=== PATIENT | female | born 1960 | race Caucasian/White ===

== ENCOUNTER → 2016-08-21 | Outpatient (CLI) | payer OTHER ==
--- NOTE | 2016-08-21 22:05 | REP ---
Clinical: Cough and shortness of breath . Comparison: 09/23/2014 . Technique: PA and lateral. Findings: The mediastinum and cardiac silhouette are normal. The lung burnett are clear and without acute consolidation, effusion, or pneumothorax. The skeletal structures are intact and normal. Impression: 1. No acute cardiopulmonary process. Signed by Cliff Rg MD 08/21/2016 09:57 P
== END | disposition home or self-care (01) ==
LOC: M RAD 13:02
PROVIDERS: ATTEND Internal Medicine
DX: R05 Cough (principal); R06.02 Shortness of breath

== ENCOUNTER → 2017-04-16 | Outpatient (CLI) | payer OTHER ==
[~2017-04-16] MED LIST: ASPI81TA85 PO; ATOR1TAB19 PO; CHLO25TA PO; CLON0.1D3 TD; LEVO112T2 PO; LOSA25TA8 PO; PRIL20CA9 PO; VITA100067 PO
[2017-04-16 08:55] LABS: BASO % 0.8 % (0.0-1.0); EOS # 0.3 K/mm3 (0.0-0.50); EOS % 4.4 % (0.0-3.0); LARGE UNSTAINED CELL # 0.1 K/mm3 (0.0-0.4); LARGE UNSTAINED CELL % 2.2 % (0.0-4.0); LYMPH # 1.8 K/mm3 (1.5-4.5); LYMPH % 26.1 % (24.0-44.0); MEAN CORPUSCULAR HEMOGLOBIN 28.8 pg (27.0-33.0); MEAN CORPUSCULAR HGB CONC 33.4 g/dl (32.0-36.5); MEAN CORPUSCULAR VOLUME 86.2 fl (80.0-96.0); MONO # 0.3 K/mm3 (0.0-0.8); MONO % 4.9 % (0.0-5.0); NEUTROPHILS # 3.9 K/mm3 (1.8-7.7); NEUTROPHILS % 61.5 % (36.0-66.0); PLATELET COUNT, AUTOMATED 343 k/mm3 (150-450); RED CELL DISTRIBUTION WIDTH 13.1 % (11.5-14.5); WHITE BLOOD COUNT 6.3 K/mm3 (4.0-10.0)
[2017-04-16 09:20] LABS: ANION GAP 5 MEQ/L (8-16); BLOOD UREA NITROGEN 13 MG/DL (7-18); CALCIUM LEVEL 9.7 MG/DL (8.5-10.1); CARBON DIOXIDE LEVEL 30 MEQ/L (21-32); CHLORIDE LEVEL 107 MEQ/L (98-107); CREATININE FOR GFR 0.76 MG/DL (0.55-1.02); GLOMERULAR FILTRATION RATE > 60.0 (>51); GLUCOSE, FASTING 87 MG/DL (70-105); MAGNESIUM LEVEL 2.4 MG/DL (1.8-2.4); POTASSIUM SERUM 4.6 MEQ/L (3.5-5.1); SODIUM LEVEL 142 MEQ/L (136-145)
== END ==
LOC: M LAB 08:31
PROVIDERS: ATTEND Internal Medicine
DX: I10 Essential (primary) hypertension (principal); E03.9 Hypothyroidism, unspecified

== ENCOUNTER → 2017-05-05 | Outpatient (REF) | payer OTHER ==
[2017-05-10 00:06] LABS: METANEPHRINE URINE 63 ug/24 hr (45-290); NORMETANEPHRINE URINE 307 ug/24 hr (82-500)
== END ==
LOC: M LAB REF 09:16
PROVIDERS: ATTEND Internal Medicine Cardiovascular Disease
DX: R23.2 Flushing (principal)

== ENCOUNTER 2017-05-06 13:11 | Day surgery (SDC) | payer OTHER ==
[~2017-05-06] VITALS: Ht 165.1 cm; Wt 86.2 kg
[2017-05-06] MEDS ORDERED: LR 1,000 ML IV SCH (13:30)
[2017-05-06] MEDS ORDERED: LIDOCAINE 1% SDV INJ 30 ML VIAL As Ordered ONE (13:40)
[2017-05-06] MEDS ORDERED: fentaNYL 100 MCG/2 ML INJECTION (J3010) As Ordered ONE (15:20)
[2017-05-06] MEDS ORDERED: MIDAZOLAM INJ 2 MG/2 ML VIAL (J2250) As Ordered ONE (15:20)
[2017-05-06 16:10] VITALS: BP 144/73
--- NOTE | 2017-05-06 16:11 | RO ---
DATE OF PROCEDURE: 05/06/2017 PPREOPERATIVE DIAGNOSIS: Palpitations. POSTOPERATIVE DIAGNOSIS: Palpitations. FINDINGS: Palpitations. PROCEDURE PERFORMED: Implantation of Medtronic LINQ implantable loop recorder. SURGEON: Ty Dumont MD MECHANICAL ENGINEERING DIRECTOR: None. ANESTHESIA: Lidocaine 1% local/monitored anesthetic care. No specimens. Estimated blood loss: Less than 5 mL. No blood products replaced. No drains. No complications. DESCRIPTION OF PROCEDURE: The patient was prepped and draped over the left anterior chest, sternum and left upper quadrant . Lidocaine 1% was used for local anesthetic. An incision approximately 1 cm in length was made with a #15 blade through the skin at approximately the left fourth interspace about an inch lateral to the sternum. The insertion tool guide was placed into the incision and advanced in a caudal direction parallel to the skin in the fat layer. The insertion tool was rotated 180 degrees and then the loop recorder was advanced into the subcutaneous fat using the plunger. The plunger was then removed and then the insertion guide was removed leaving the loop recorder in place. This position was found to be satisfactory with R waves of 0.24 millivolts. The skin was then approximated using a subcuticular layer consisting of #4-0 Biosyn, which was used for the purpose of temporarily approximating the skin while Dermabond was allowed to dry. Next, two layers of Dermabond was applied and allowed to dry. The Biosyn suture was then removed. Next, Mastisol was placed above and below the incision. Then, several Steri-Strips were applied perpendicular to the incision line across the incision. The patient tolerated the procedure well without any immediate complications. Copy To: Dr. Dayanna Rodirguez
== END 2017-05-06 16:20 | disposition home or self-care (01) ==
LOC: M SDC 13:11
PROVIDERS: ATTEND Internal Medicine Cardiovascular Disease
DX: R00.2 Palpitations (principal); I10 Essential (primary) hypertension; E03.9 Hypothyroidism, unspecified; E66.09 Other obesity due to excess calories; R23.2 Flushing; T88.4XXD Failed or difficult intubation, subsequent encounter; E78.00 Pure hypercholesterolemia, unspecified; K21.9 Gastro-esophageal reflux disease without esophagitis; Z88.2 Allergy status to sulfonamides; Z91.040 Latex allergy status; Z79.899 Other long term (current) drug therapy; Z79.82 Long term (current) use of aspirin; Z86.73 Personal history of transient ischemic attack (TIA), and cerebral infarction without residual deficits; Z98.51 Tubal ligation status
CPT/HCPCS: 33282; C1764; J0690; J2250; J3010

== ENCOUNTER → 2017-08-04 | Outpatient (CLI) | payer OTHER ==
[2017-08-04 08:05] LABS: BASO % 0.6 % (0.0-1.0); EOS # 0.4 10^3/uL (0.0-0.50); EOS % 5.5 % (0.0-3.0); IMMATURE GRANULOCYTE % 0.3 % (0-0); LYMPH # 1.9 10^3/uL (1.5-4.5); LYMPH % 27.5 % (24.0-44.0); MEAN CORPUSCULAR HEMOGLOBIN 28.5 pg (27.0-33.0); MEAN CORPUSCULAR HGB CONC 32.4 g/dl (32.0-36.5); MEAN CORPUSCULAR VOLUME 87.8 fl (80.0-96.0); MONO # 0.4 10^3/uL (0.0-0.8); MONO % 6.5 % (0.0-5.0); NEUTROPHILS % 59.6 % (36.0-66.0); PLATELET COUNT, AUTOMATED 348 10^3/uL (150-450); RED CELL DISTRIBUTION WIDTH 13.5 % (11.5-14.5); WHITE BLOOD COUNT 6.8 10^3/uL (4.0-10.0)
[2017-08-04 08:28] LABS: ALBUMIN 3.4 GM/DL (3.2-5.2); ALBUMIN/GLOBULIN RATIO 0.92 (1.00-1.93); ALKALINE PHOSPHATASE 129 U/L (45-117); ALT/SGPT 31 U/L (12-78); ANION GAP 8 MEQ/L (8-16); AST/SGOT 19 U/L (7-37); BILIRUBIN,TOTAL 0.3 MG/DL (0.2-1.0); BLOOD UREA NITROGEN 18 MG/DL (7-18); CALCIUM LEVEL 8.6 MG/DL (8.5-10.1); CARBON DIOXIDE LEVEL 28 MEQ/L (21-32); CHLORIDE LEVEL 107 MEQ/L (98-107); CHOLESTEROL LEVEL 145 MG/DL (<200); CREATININE FOR GFR 0.77 MG/DL (0.55-1.02); GLOMERULAR FILTRATION RATE > 60.0 (>51); GLUCOSE, FASTING 82 MG/DL (70-105); MAGNESIUM LEVEL 2.1 MG/DL (1.8-2.4); POTASSIUM SERUM 4.3 MEQ/L (3.5-5.1); SODIUM LEVEL 143 MEQ/L (136-145); TOTAL PROTEIN 7.1 GM/DL (6.4-8.2); TRIGLYCERIDES LEVEL 113 MG/DL (<150)
== END ==
LOC: M LAB 07:35
PROVIDERS: ATTEND Internal Medicine
DX: R00.2 Palpitations (principal); I10 Essential (primary) hypertension; R73.09 Other abnormal glucose; E78.00 Pure hypercholesterolemia, unspecified; E03.9 Hypothyroidism, unspecified

== ENCOUNTER → 2017-11-13 | Outpatient (CLI) | payer OTHER ==
[2017-11-13 09:29] LABS: ESTIMATED AVERAGE GLUCOSE 123 MG/DL (60-110); HEMOGLOBIN A1c 5.9 %
== END ==
LOC: M LAB 08:33
DX: R73.09 Other abnormal glucose (principal)
CPT/HCPCS: 83036

== ENCOUNTER → 2017-11-21 | Outpatient (CLI) | payer OTHER ==
[2017-11-21 06:52] LABS: ERYTHROCYTE SEDIMENTATION RATE 30 mm/hr (0-30)
[2017-11-21 07:02] LABS: CPK CREATINE PHOSPHOKINASE 83 U/L (26-192)
[2017-11-23 00:06] LABS: Lyme Disease IgG/IgM Antibodie <0.91 ISR (0.00-0.90); Lyme Disease IgM Ab Quantitati <0.80 index (0.00-0.79)
== END ==
LOC: M LAB 06:02
DX: M25.50 Pain in unspecified joint (principal)

== ENCOUNTER → 2018-01-01 | Outpatient (REF) ==
[2018-01-01 06:51] LABS: HEMATOCRIT 37.5 % (36.0-47.0); HEMOGLOBIN 12.2 g/dl (12.0-15.5); MEAN CORPUSCULAR HEMOGLOBIN 28.1 pg (27.0-33.0); MEAN CORPUSCULAR HGB CONC 32.5 g/dl (32.0-36.5); MEAN CORPUSCULAR VOLUME 86.4 fl (80.0-96.0); RED BLOOD COUNT 4.34 10^6/uL (4.00-5.40); RED CELL DISTRIBUTION WIDTH 13.5 % (11.5-14.5); WHITE BLOOD COUNT 7.4 10^3/uL (4.0-10.0)
[2018-01-01 07:10] LABS: ANION GAP 4 MEQ/L (8-16); BLOOD UREA NITROGEN 18 MG/DL (7-18); CALCIUM LEVEL 8.8 MG/DL (8.5-10.1); CARBON DIOXIDE LEVEL 28 MEQ/L (21-32); CHLORIDE LEVEL 110 MEQ/L (98-107); CHOLESTEROL LEVEL 147 MG/DL (<200); CHOLESTEROL RISK RATIO 2.333 (<5); CREATININE FOR GFR 0.83 MG/DL (0.55-1.30); GLOMERULAR FILTRATION RATE > 60.0 (>51); GLUCOSE, FASTING 88 MG/DL (70-100); HDL CHOLESTEROL 63 MG/DL (>40); LDL CHOLESTEROL 72.4 MG/DL (<100); NON-HDL-C 84 MG/DL; POTASSIUM SERUM 4.2 MEQ/L (3.5-5.1); SODIUM LEVEL 142 MEQ/L (136-145); TRIGLYCERIDES LEVEL 58 MG/DL (<150)
[2018-01-01 07:17] LABS: POS COUNT POS FLAG
[2018-01-02 10:44] LABS: HEPATITIS B SURFACE ANTIBODY POSITIVE (POSITIVE)
== END ==
LOC: M LAB 06:10
DX: Z00.00 Encounter for general adult medical examination without abnormal findings (principal)

== ENCOUNTER → 2018-04-22 | Outpatient (CLI) | payer OTHER ==
[2018-04-22 08:34] LABS: BASO % 0.7 % (0.0-1.0); EOS # 0.4 10^3/uL (0.0-0.50); EOS % 5.7 % (0.0-3.0); HEMATOCRIT 38.7 % (36.0-47.0); HEMOGLOBIN 12.2 g/dl (12.0-15.5); IMMATURE GRANULOCYTE % 0.3 % (0-3.0); LYMPH # 1.9 10^3/uL (1.5-4.5); LYMPH % 31.3 % (24.0-44.0); MEAN CORPUSCULAR HEMOGLOBIN 28.1 pg (27.0-33.0); MEAN CORPUSCULAR HGB CONC 31.5 g/dl (32.0-36.5); MEAN CORPUSCULAR VOLUME 89.2 fl (80.0-96.0); MONO # 0.4 10^3/uL (0.0-0.8); MONO % 6.9 % (0.0-5.0); NEUTROPHILS # 3.4 10^3/uL (1.8-7.7); NEUTROPHILS % 55.1 % (36.0-66.0); PLATELET COUNT, AUTOMATED 149 10^3/uL (150-450); RED BLOOD COUNT 4.34 10^6/uL (4.00-5.40); RED CELL DISTRIBUTION WIDTH 13.6 % (11.5-14.5); WHITE BLOOD COUNT 6.1 10^3/uL (4.0-10.0)
[2018-04-22 09:01] LABS: ESTIMATED AVERAGE GLUCOSE 114 MG/DL (60-110); HEMOGLOBIN A1c 5.6 %
[2018-04-22 09:09] LABS: ALBUMIN 3.7 GM/DL (3.2-5.2); ALBUMIN/GLOBULIN RATIO 1.06 (1.00-1.93); ALKALINE PHOSPHATASE 105 U/L (45-117); ALT/SGPT 33 U/L (12-78); ANION GAP 7 MEQ/L (8-16); AST/SGOT 21 U/L (7-37); BILIRUBIN,TOTAL 0.3 MG/DL (0.2-1.0); BLOOD UREA NITROGEN 13 MG/DL (7-18); CALCIUM LEVEL 9.2 MG/DL (8.5-10.1); CARBON DIOXIDE LEVEL 30 MEQ/L (21-32); CHLORIDE LEVEL 108 MEQ/L (98-107); CHOLESTEROL LEVEL 143 MG/DL (<200); CHOLESTEROL RISK RATIO 2.465 (<5); CREATININE FOR GFR 0.72 MG/DL (0.55-1.30); GLOMERULAR FILTRATION RATE > 60.0 (>51); GLUCOSE, FASTING 87 MG/DL (70-100); HDL CHOLESTEROL 58 MG/DL (>40); MAGNESIUM LEVEL 2.4 MG/DL (1.8-2.4); NON-HDL-C 85 MG/DL; POTASSIUM SERUM 4.7 MEQ/L (3.5-5.1); SODIUM LEVEL 145 MEQ/L (136-145); THYROID STIMULATING HORMONE 0.536 uIU/ML (0.358-3.740); TOTAL PROTEIN 7.2 GM/DL (6.4-8.2); TRIGLYCERIDES LEVEL 140 MG/DL (<150)
[2018-04-22 09:46] LABS: APPEARANCE, URINE CLEAR (CLEAR); BACTERIA, URINE AUTO NEGATIVE (NEGATIVE); BILIRUBIN, URINE AUTO NEGATIVE (NEGATIVE); BLOOD, URINE BLOOD NEGATIVE (NEGATIVE); COLOR, URINE STRAW (YELLOW); GLUCOSE, URINE (UA) AUTO NEGATIVE (NEGATIVE); KETONE, URINE AUTO NEGATIVE (NEGATIVE); LEUKOCYTE ESTERASE, URINE AUTO TRACE (NEGATIVE); NITRITE, URINE AUTO NEGATIVE (NEGATIVE); PROTEIN, URINE AUTO NEGATIVE (NEGATIVE); RBC, URINE AUTO 0 /HPF (0-3); SPECIFIC GRAVITY URINE AUTO 1.005 (1.002-1.035); SQUAMOUS EPITHELIAL CELL UR AU 0 /HPF (0-6); UROBILINOGEN, URINE AUTO 0.2 mg/dL (0.0-2.0); WBC, URINE AUTO 2 /HPF (0-3)
== END ==
LOC: M LAB 07:34
DX: I67.4 Hypertensive encephalopathy (principal); D64.9 Anemia, unspecified; E03.9 Hypothyroidism, unspecified; I10 Essential (primary) hypertension; E78.00 Pure hypercholesterolemia, unspecified; Z83.3 Family history of diabetes mellitus
CPT/HCPCS: 83735

== ENCOUNTER → 2018-05-08 | Outpatient (CLI) | payer OTHER | LOC: M RAD 07:24 | DX: M25.552 Pain in left hip (principal) ==

== ENCOUNTER → 2018-05-19 | Outpatient (CLI) | payer OTHER ==
[2018-05-19 18:44] LABS: BASO # 0.1 10^3/uL (0.0-0.2); BASO % 0.6 % (0.0-1.0); EOS # 0.3 10^3/uL (0.0-0.50); EOS % 3.9 % (0.0-3.0); HEMATOCRIT 36.1 % (36.0-47.0); HEMOGLOBIN 11.4 g/dl (12.0-15.5); IMMATURE GRANULOCYTE % 0.1 % (0-3.0); LYMPH # 2.7 10^3/uL (1.5-4.5); LYMPH % 31.9 % (24.0-44.0); MEAN CORPUSCULAR HEMOGLOBIN 27.6 pg (27.0-33.0); MEAN CORPUSCULAR HGB CONC 31.6 g/dl (32.0-36.5); MEAN CORPUSCULAR VOLUME 87.4 fl (80.0-96.0); MONO # 0.7 10^3/uL (0.0-0.8); MONO % 7.6 % (0.0-5.0); NEUTROPHILS # 4.8 10^3/uL (1.8-7.7); NEUTROPHILS % 55.9 % (36.0-66.0); PLATELET COUNT, AUTOMATED 155 10^3/uL (150-450); RED BLOOD COUNT 4.13 10^6/uL (4.00-5.40); RED CELL DISTRIBUTION WIDTH 13.9 % (11.5-14.5); WHITE BLOOD COUNT 8.6 10^3/uL (4.0-10.0)
== END ==
LOC: M LAB 17:20
DX: D69.6 Thrombocytopenia, unspecified (principal)
CPT/HCPCS: 85025

== ENCOUNTER → 2018-06-03 | Outpatient (CLI) | payer OTHER | LOC: M LAB 06:31 | DX: E03.9 Hypothyroidism, unspecified (principal); D69.6 Thrombocytopenia, unspecified | CPT/HCPCS: 82607 ==

== ENCOUNTER → 2018-06-23 | Outpatient (CLI) | payer OTHER ==
[2018-06-23 06:34] LABS: HEMATOCRIT 37.4 % (36.0-47.0); HEMOGLOBIN 11.9 g/dl (12.0-15.5); MEAN CORPUSCULAR HEMOGLOBIN 28.2 pg (27.0-33.0); MEAN CORPUSCULAR HGB CONC 31.8 g/dl (32.0-36.5); MEAN CORPUSCULAR VOLUME 88.6 fl (80.0-96.0); PLATELET COUNT, AUTOMATED 301 10^3/uL (150-450); RED BLOOD COUNT 4.22 10^6/uL (4.00-5.40); RED CELL DISTRIBUTION WIDTH 13.5 % (11.5-14.5); WHITE BLOOD COUNT 6.7 10^3/uL (4.0-10.0)
== END ==
LOC: M LAB 06:14
DX: E03.9 Hypothyroidism, unspecified (principal); D68.8 Other specified coagulation defects
CPT/HCPCS: 85027

== ENCOUNTER → 2018-07-29 | Outpatient (CLI) | payer OTHER ==
[2018-07-29 07:02] LABS: HEMATOCRIT 37.3 % (36.0-47.0); HEMOGLOBIN 12.1 g/dl (12.0-15.5); MEAN CORPUSCULAR HGB CONC 32.4 g/dl (32.0-36.5); MEAN CORPUSCULAR VOLUME 86.3 fl (80.0-96.0); PLATELET COUNT, AUTOMATED 207 10^3/uL (150-450); RED BLOOD COUNT 4.32 10^6/uL (4.00-5.40); RED CELL DISTRIBUTION WIDTH 13.4 % (11.5-14.5); WHITE BLOOD COUNT 7.8 10^3/uL (4.0-10.0)
[2018-07-29 07:16] LABS: ESTIMATED AVERAGE GLUCOSE 131 MG/DL (60-110); HEMOGLOBIN A1c 6.2 %
[2018-07-29 07:29] LABS: ANION GAP 6 MEQ/L (8-16); BLOOD UREA NITROGEN 15 MG/DL (7-18); CARBON DIOXIDE LEVEL 29 MEQ/L (21-32); CHLORIDE LEVEL 106 MEQ/L (98-107); CHOLESTEROL LEVEL 160 MG/DL (<200); CHOLESTEROL RISK RATIO 2.962 (<5); CREATININE FOR GFR 0.82 MG/DL (0.55-1.30); GLOMERULAR FILTRATION RATE > 60.0 (>51); GLUCOSE, FASTING 100 MG/DL (70-100); HDL CHOLESTEROL 54 MG/DL (>40); LDL CHOLESTEROL 87 MG/DL (<100); NON-HDL-C 106 MG/DL; POTASSIUM SERUM 4.2 MEQ/L (3.5-5.1); SODIUM LEVEL 141 MEQ/L (136-145); TRIGLYCERIDES LEVEL 94 MG/DL (<150)
== END ==
LOC: M LAB 06:05
DX: E03.9 Hypothyroidism, unspecified (principal); I10 Essential (primary) hypertension; G45.9 Transient cerebral ischemic attack, unspecified; E78.00 Pure hypercholesterolemia, unspecified; R73.09 Other abnormal glucose
CPT/HCPCS: 83036

== ENCOUNTER → 2018-10-22 | Outpatient (CLI) | payer OTHER ==
[~2018-10-22] MED LIST changes: +LOSA25TA14 PO; -LOSA25TA8 PO
[2018-10-22 08:03] LABS: BASO % 0.7 % (0.0-1.0); EOS # 0.3 10^3/uL (0.0-0.50); EOS % 4.8 % (0.0-3.0); HEMOGLOBIN 12.2 g/dl (12.0-15.5); LYMPH # 1.7 10^3/uL (1.5-4.5); LYMPH % 30.1 % (24.0-44.0); MEAN CORPUSCULAR HEMOGLOBIN 27.7 pg (27.0-33.0); MEAN CORPUSCULAR HGB CONC 32.1 g/dl (32.0-36.5); MEAN CORPUSCULAR VOLUME 86.2 fl (80.0-96.0); MONO # 0.4 10^3/uL (0.0-0.8); NEUTROPHILS # 3.4 10^3/uL (1.8-7.7); NEUTROPHILS % 58.1 % (36.0-66.0); PLATELET COUNT, AUTOMATED 220 10^3/uL (150-450); RED BLOOD COUNT 4.41 10^6/uL (4.00-5.40); WHITE BLOOD COUNT 5.8 10^3/uL (4.0-10.0)
[2018-10-22 08:30] LABS: HEMOGLOBIN A1c 5.8 %
[2018-10-22 08:37] LABS: BLOOD UREA NITROGEN 17 MG/DL (7-18); CALCIUM LEVEL 9.1 MG/DL (8.5-10.1); CARBON DIOXIDE LEVEL 29 MEQ/L (21-32); CHLORIDE LEVEL 107 MEQ/L (98-107); CREATININE FOR GFR 0.78 MG/DL (0.55-1.30); GLOMERULAR FILTRATION RATE > 60.0 (>51); GLUCOSE, FASTING 78 MG/DL (70-100); POTASSIUM SERUM 4.3 MEQ/L (3.5-5.1); SODIUM LEVEL 143 MEQ/L (136-145); THYROID STIMULATING HORMONE 0.762 uIU/ML (0.358-3.740)
== END ==
LOC: M LAB 07:17
PROVIDERS: ATTEND Internal Medicine
DX: D50.9 Iron deficiency anemia, unspecified (principal); I10 Essential (primary) hypertension

== ENCOUNTER 2018-11-23 06:36 | Day surgery (SDC) | payer OTHER ==
[~2018-11-23] VITALS: Ht 165.1 cm; Wt 92.1 kg
[~2018-11-23 06:36] MED LIST changes: +EDARBI PO; +NS 1,000 ML IV ONE; +OMEP10CASR PO
[2018-11-23] MEDS ORDERED: PROPOFOL 200 MG/20 ML VIAL As Ordered ONE (07:33)
[2018-11-23] MEDS ORDERED: LIDOCAINE 2% INJ 100 MG/5 ML SDV (FOR ANES.) As Ordered ONE (07:33)
--- NOTE | 2018-11-23 08:06 | ROOR ---
Patient Name: Judy Perez Procedure Date: 11/23/2018 7:03 AM Date of : 1960 Age: 58 Room: [facility] Gender: Female Note Status: Finalized Procedure: Colonoscopy Indications: Hematochezia, Family history of colon cancer in a first-degree relative Providers: Ty SCHILLING MD Referring MD: Dayanna POTTS MD Requesting Provider: Medicines: Monitored Anesthesia Care Complications: No immediate complications. Procedure: Pre-Anesthesia Assessment: - The heart rate, respiratory rate, oxygen saturations, blood pressure, adequacy of pulmonary ventilation, and response to care were monitored throughout the procedure. The colonoscopy was performed without difficulty. The patient tolerated the procedure well. The quality of the bowel preparation was good. The Colonoscope was introduced through the anus and advanced to the cecum, identified by appendiceal orifice and ileocecal valve. Findings: The perianal and digital rectal examinations were normal. Two carpet-like polyps were found in the ascending colon. The polyps were 7 to 9 mm in size. These polyps were removed with a piecemeal technique using a cold snare. Resection and retrieval were complete. Multiple small-mouthed diverticula were found in the left colon and right colon. Internal hemorrhoids were found during retroflexion. The hemorrhoids were medium-sized. Impression: - Two 7 to 9 mm polyps in the ascending colon, removed piecemeal using a cold snare. Resected and retrieved. - Mild diverticulosis in the left colon and in the right colon. - Small to medium internal hemorrhoids. - The examination was otherwise normal on direct and retroflexion views. Recommendation: - Telephone endoscopist for pathology results in 2 weeks. - If the pathology report reveals adenomatous tissue, then repeat the colonoscopy for surveillance in 3 years. Ty Schilling MD Ty SCHILLING MD 11/23/2018 8:06:03 AM Electronically signed by Ty SCHILLING MD Number of Addenda: 0 Note Initiated On: 11/23/2018 7:03 AM Estimated Blood Loss: Estimated blood loss: none.
[2018-11-23 08:20] VITALS: BP 160/97
== END 2018-11-23 08:29 | disposition home or self-care (01) ==
LOC: M OPP 06:36
PROVIDERS: ATTEND Internal Medicine Gastroenterology
DX: K63.5 Polyp of colon (principal); K57.30 Diverticulosis of large intestine without perforation or abscess without bleeding; K64.8 Other hemorrhoids; K92.1 Melena; Z80.0 Family history of malignant neoplasm of digestive organs

== ENCOUNTER → 2019-02-24 | Outpatient (CLI) | payer OTHER ==
[~2019-02-24] MED LIST changes: -NS 1,000 ML IV ONE
[2019-02-24 06:57] LABS: BASO % 0.4 % (0.0-1.0); EOS # 0.4 10^3/uL (0.0-0.50); EOS % 6.2 % (0.0-3.0); HEMATOCRIT 37.8 % (36.0-47.0); LYMPH % 29.8 % (24.0-44.0); MEAN CORPUSCULAR HGB CONC 31.7 g/dl (32.0-36.5); MEAN CORPUSCULAR VOLUME 88.1 fl (80.0-96.0); MONO # 0.5 10^3/uL (0.0-0.8); MONO % 7.6 % (0.0-5.0); NEUTROPHILS # 3.8 10^3/uL (1.8-7.7); NEUTROPHILS % 55.9 % (36.0-66.0); PLATELET COUNT, AUTOMATED 299 10^3/uL (150-450); RED BLOOD COUNT 4.29 10^6/uL (4.00-5.40); WHITE BLOOD COUNT 6.7 10^3/uL (4.0-10.0)
[2019-02-24 07:15] LABS: HEMOGLOBIN A1c 6.1 %
[2019-02-24 07:23] LABS: BLOOD UREA NITROGEN 16 MG/DL (7-18); CALCIUM LEVEL 9.3 MG/DL (8.5-10.1); CARBON DIOXIDE LEVEL 30 MEQ/L (21-32); CHLORIDE LEVEL 108 MEQ/L (98-107); CREATININE FOR GFR 0.83 MG/DL (0.55-1.30); GLOMERULAR FILTRATION RATE > 60.0 (>51); GLUCOSE, FASTING 81 MG/DL (70-100); POTASSIUM SERUM 4.2 MEQ/L (3.5-5.1); SODIUM LEVEL 142 MEQ/L (136-145)
== END ==
LOC: M LAB 06:36
PROVIDERS: ATTEND Internal Medicine
DX: R73.09 Other abnormal glucose (principal); I10 Essential (primary) hypertension

== ENCOUNTER → 2019-08-24 | Outpatient (REF) | payer OTHER ==
[2019-08-24 10:17] LABS: BASO # 0.1 10^3/uL (0.0-0.2); BASO % 0.6 % (0.0-1.0); EOS # 0.5 10^3/uL (0.0-0.5); EOS % 6.2 % (0.0-3.0); HEMATOCRIT 41.3 % (36.0-47.0); HEMOGLOBIN 12.3 g/dl (12.0-15.5); LYMPH # 2.9 10^3/uL (1.5-5.0); LYMPH % 33.9 % (24.0-44.0); MEAN CORPUSCULAR HGB CONC 29.8 g/dl (32.0-36.5); MEAN CORPUSCULAR VOLUME 90.6 fl (80.0-96.0); MONO # 0.5 10^3/uL (0.0-0.8); MONO % 6.1 % (0.0-5.0); NEUTROPHILS # 4.5 10^3/uL (1.5-8.5); PLATELET COUNT, AUTOMATED 328 10^3/uL (150-450); RED BLOOD COUNT 4.56 10^6/uL (4.00-5.40); WHITE BLOOD COUNT 8.6 10^3/uL (4.0-10.0)
[2019-08-24 12:01] LABS: ALBUMIN 3.5 GM/DL (3.2-5.2); ALT/SGPT 28 U/L (12-78); BILIRUBIN,TOTAL 0.5 MG/DL (0.2-1.0); BLOOD UREA NITROGEN 16 MG/DL (7-18); CALCIUM LEVEL 9.5 MG/DL (8.5-10.1); CARBON DIOXIDE LEVEL 26 MEQ/L (21-32); CHLORIDE LEVEL 107 MEQ/L (98-107); CHOLESTEROL LEVEL 164 MG/DL (<200); CHOLESTEROL RISK RATIO 2.877 (<5); CREATININE FOR GFR 0.83 MG/DL (0.55-1.30); GLOMERULAR FILTRATION RATE > 60.0 (>51); GLUCOSE, FASTING 88 MG/DL (70-100); HDL CHOLESTEROL 57 MG/DL (>40); LDL CHOLESTEROL 84 MG/DL (<100); MAGNESIUM LEVEL 2.5 MG/DL (1.8-2.4); NON-HDL-C 107 MG/DL; POTASSIUM SERUM 4.6 MEQ/L (3.5-5.1); SODIUM LEVEL 141 MEQ/L (136-145); TOTAL PROTEIN 7.3 GM/DL (6.4-8.2); TRIGLYCERIDES LEVEL 113 MG/DL (<150)
[2019-08-24 14:38] LABS: HEMOGLOBIN A1c 6.1 %
== END ==
LOC: M LAB REF 09:11
PROVIDERS: ATTEND Internal Medicine
DX: E03.9 Hypothyroidism, unspecified (principal); E78.00 Pure hypercholesterolemia, unspecified; I10 Essential (primary) hypertension; R73.09 Other abnormal glucose

== ENCOUNTER → 2019-11-24 | Outpatient (CLI) | payer OTHER ==
[2019-11-24 09:18] LABS: ALBUMIN 3.5 GM/DL (3.2-5.2); ALT/SGPT 33 U/L (12-78); BILIRUBIN,TOTAL 0.4 MG/DL (0.2-1.0); BLOOD UREA NITROGEN 19 MG/DL (7-18); CARBON DIOXIDE LEVEL 28 MEQ/L (21-32); CHLORIDE LEVEL 108 MEQ/L (98-107); CREATININE FOR GFR 0.88 MG/DL (0.55-1.30); GLOMERULAR FILTRATION RATE > 60.0 (>45); GLUCOSE, FASTING 98 MG/DL (70-100); MAGNESIUM LEVEL 2.5 MG/DL (1.8-2.4); POTASSIUM SERUM 4.7 MEQ/L (3.5-5.1); SODIUM LEVEL 140 MEQ/L (136-145); TOTAL PROTEIN 7.2 GM/DL (6.4-8.2)
[2019-11-24 09:57] LABS: HEMOGLOBIN A1c 6.2 %
== END ==
LOC: M LAB 08:21
PROVIDERS: ATTEND Internal Medicine
DX: R73.09 Other abnormal glucose (principal); I10 Essential (primary) hypertension; Z13.89 Encounter for screening for other disorder

== ENCOUNTER → 2020-05-01 | Outpatient (CLI) | payer OTHER ==
[~2020-05-01] MED LIST changes: -ASPI81TA85 PO; +ASPI81TA86 PO
[2020-05-01 07:28] LABS: HEMATOCRIT 35.8 % (36.0-47.0); HEMOGLOBIN 11.6 g/dl (12.0-15.5); MEAN CORPUSCULAR HGB CONC 32.4 g/dl (32.0-36.5); MEAN CORPUSCULAR VOLUME 86.3 fl (80.0-96.0); PLATELET COUNT, AUTOMATED 324 10^3/uL (150-450); RED BLOOD COUNT 4.15 10^6/uL (4.00-5.40); WHITE BLOOD COUNT 7.3 10^3/uL (4.0-10.0)
[2020-05-01 07:46] LABS: HEMOGLOBIN A1c 5.8 %
[2020-05-01 08:03] LABS: BLOOD UREA NITROGEN 17 MG/DL (7-18); CALCIUM LEVEL 9.1 MG/DL (8.8-10.2); CARBON DIOXIDE LEVEL 26 MEQ/L (21-32); CHLORIDE LEVEL 110 MEQ/L (98-107); CHOLESTEROL LEVEL 159 MG/DL (<200); CHOLESTEROL RISK RATIO 2.789 (<5); CREATININE FOR GFR 0.77 MG/DL (0.55-1.30); GLOMERULAR FILTRATION RATE > 60.0 (>45); GLUCOSE, FASTING 83 MG/DL (70-100); HDL CHOLESTEROL 57 MG/DL (>40); LDL CHOLESTEROL 74 MG/DL (<100); MAGNESIUM LEVEL 2.1 MG/DL (1.8-2.4); NON-HDL-C 102 MG/DL; POTASSIUM SERUM 4.3 MEQ/L (3.5-5.1); SODIUM LEVEL 142 MEQ/L (136-145); TRIGLYCERIDES LEVEL 141 MG/DL (<150)
[2020-05-02 10:57] LABS: FERRITIN 17 NG/ML (8-252); IRON (FE) 45 UG/DL (50-170); PERCENT SATURATION 12.4 % (13.2-45.0); TOTAL IRON BINDING CAPACITY 362 UG/DL (250-450)
== END ==
LOC: M LAB 06:53
PROVIDERS: ATTEND Internal Medicine
DX: D64.9 Anemia, unspecified (principal); K21.9 Gastro-esophageal reflux disease without esophagitis; E78.00 Pure hypercholesterolemia, unspecified; R73.09 Other abnormal glucose; E03.9 Hypothyroidism, unspecified

== ENCOUNTER → 2020-05-06 | Outpatient (CLI) | payer OTHER | LOC: M LABSMTC 08:46 | PROVIDERS: ATTEND Pediatrics | DX: Z20.828 Contact with and (suspected) exposure to other viral communicable diseases (principal) | CPT/HCPCS: C9803; U0002 ==

== ENCOUNTER → 2020-05-10 | Outpatient (CLI) | payer OTHER ==
[2020-05-10 07:58] LABS: HEMATOCRIT 37.7 % (36.0-47.0); HEMOGLOBIN 11.7 g/dl (12.0-15.5); MEAN CORPUSCULAR HEMOGLOBIN 27.3 pg (27.0-33.0); MEAN CORPUSCULAR VOLUME 87.9 fl (80.0-96.0); PLATELET COUNT, AUTOMATED 336 10^3/uL (150-450); RED BLOOD COUNT 4.29 10^6/uL (4.00-5.40); WHITE BLOOD COUNT 8.2 10^3/uL (4.0-10.0)
[2020-05-10 08:20] LABS: BLOOD UREA NITROGEN 20 MG/DL (7-18); CARBON DIOXIDE LEVEL 28 MEQ/L (21-32); CHLORIDE LEVEL 109 MEQ/L (98-107); CREATININE FOR GFR 0.85 MG/DL (0.55-1.30); GLOMERULAR FILTRATION RATE > 60.0 (>45); GLUCOSE, FASTING 84 MG/DL (70-100); POTASSIUM SERUM 4.5 MEQ/L (3.5-5.1); SODIUM LEVEL 142 MEQ/L (136-145)
[2020-05-10 10:44] LABS: HEMOGLOBIN A1c 5.6 %
[2020-05-11 16:39] LABS: FERRITIN 16 NG/ML (8-252); IRON (FE) 37 UG/DL (50-170); PERCENT SATURATION 9.7 % (13.2-45.0); TOTAL IRON BINDING CAPACITY 381 UG/DL (250-450)
== END ==
LOC: M LAB 07:17
PROVIDERS: ATTEND Internal Medicine
DX: R73.09 Other abnormal glucose (principal); D50.9 Iron deficiency anemia, unspecified; I10 Essential (primary) hypertension

== ENCOUNTER → 2020-05-15 | Outpatient (CLI) | payer OTHER | LOC: M LABSMTC 09:31 | PROVIDERS: ATTEND Pediatrics | DX: Z20.828 Contact with and (suspected) exposure to other viral communicable diseases (principal) | CPT/HCPCS: C9803; U0002 ==

== ENCOUNTER → 2020-05-17 | Outpatient (CLI) | payer OTHER ==
--- NOTE | 2020-05-23 12:59 | REP ---
CHEST X-RAY: 2-VIEWS HISTORY: Shortness of breath and cough. COVID negative. COMPARISON: Chest x-ray 01/01/2018. FINDINGS: A loop recorder is seen projecting in the left precordial soft tissues unchanged. The lungs are well-inflated and clear. Pleural angles are sharp. Heart size is normal. Pulmonary vasculature is not increased. No significantly bony abnormality. IMPRESSION: Negative chest x-ray. Loop recorder seen. ZORAD
== END ==
LOC: M WUC 11:40
PROVIDERS: ATTEND Internal Medicine
DX: R05 Cough (principal)

== ENCOUNTER → 2020-06-19 | Outpatient (CLI) | payer OTHER ==
[2020-06-19 08:12] LABS: HEMATOCRIT 38.2 % (36.0-47.0); HEMOGLOBIN 11.8 g/dl (12.0-15.5); MEAN CORPUSCULAR HEMOGLOBIN 26.9 pg (27.0-33.0); MEAN CORPUSCULAR HGB CONC 30.9 g/dl (32.0-36.5); PLATELET COUNT, AUTOMATED 382 10^3/uL (150-450); RED BLOOD COUNT 4.39 10^6/uL (4.00-5.40); WHITE BLOOD COUNT 7.5 10^3/uL (4.0-10.0)
== END ==
LOC: M LAB 07:15
PROVIDERS: ATTEND Internal Medicine
DX: D50.9 Iron deficiency anemia, unspecified (principal)

== ENCOUNTER → 2020-07-21 | Outpatient (CLI) | payer OTHER ==
[2020-07-21 08:05] LABS: HEMATOCRIT 39.6 % (36.0-47.0); HEMOGLOBIN 12.5 g/dl (12.0-15.5); MEAN CORPUSCULAR HEMOGLOBIN 27.7 pg (27.0-33.0); MEAN CORPUSCULAR HGB CONC 31.6 g/dl (32.0-36.5); MEAN CORPUSCULAR VOLUME 87.6 fl (80.0-96.0); PLATELET COUNT, AUTOMATED 364 10^3/uL (150-450); RED BLOOD COUNT 4.52 10^6/uL (4.00-5.40); WHITE BLOOD COUNT 7.4 10^3/uL (4.0-10.0)
[2020-07-21 08:31] LABS: ALBUMIN 3.7 GM/DL (3.2-5.2); ALT/SGPT 23 U/L (12-78); BILIRUBIN,TOTAL 0.3 MG/DL (0.2-1.0); BLOOD UREA NITROGEN 17 MG/DL (7-18); CARBON DIOXIDE LEVEL 27 MEQ/L (21-32); CHLORIDE LEVEL 107 MEQ/L (98-107); CHOLESTEROL LEVEL 167 MG/DL (<200); CHOLESTEROL RISK RATIO 2.737 (<5); CPK CREATINE PHOSPHOKINASE 97 U/L (26-192); CREATININE FOR GFR 0.81 MG/DL (0.55-1.30); FERRITIN 26 NG/ML (8-252); GLOMERULAR FILTRATION RATE > 60.0 (>45); GLUCOSE, FASTING 86 MG/DL (70-100); HDL CHOLESTEROL 61 MG/DL (>40); LDL CHOLESTEROL 86 MG/DL (<100); LIPASE 161 U/L (73-393); MAGNESIUM LEVEL 2.4 MG/DL (1.8-2.4); NON-HDL-C 106 MG/DL; POTASSIUM SERUM 4.4 MEQ/L (3.5-5.1); SODIUM LEVEL 139 MEQ/L (136-145); THYROID STIMULATING HORMONE 0.949 uIU/ML (0.358-3.740); TOTAL PROTEIN 7.4 GM/DL (6.4-8.2); TRIGLYCERIDES LEVEL 102 MG/DL (<150)
[2020-07-21 15:06] LABS: APPEARANCE, URINE CLEAR (CLEAR); BACTERIA, URINE AUTO NEGATIVE (NEGATIVE); BILIRUBIN, URINE AUTO NEGATIVE (NEGATIVE); BLOOD, URINE BLOOD NEGATIVE (NEGATIVE); COLOR, URINE YELLOW (YELLOW); GLUCOSE, URINE (UA) AUTO NEGATIVE (NEGATIVE); KETONE, URINE AUTO NEGATIVE (NEGATIVE); LEUKOCYTE ESTERASE, URINE AUTO 2+ (NEGATIVE); MUCUS, URINE SMALL (NEGATIVE); NITRITE, URINE AUTO NEGATIVE (NEGATIVE); PROTEIN, URINE AUTO NEGATIVE (NEGATIVE); RBC, URINE AUTO 1 /HPF (0-3); SPECIFIC GRAVITY URINE AUTO 1.012 (1.002-1.035); SQUAMOUS EPITHELIAL CELL UR AU 0 /HPF (0-6); UROBILINOGEN, URINE AUTO 0.2 mg/dL (0.0-2.0); WBC, URINE AUTO 16 /HPF (0-3)
== END ==
LOC: M LAB 06:56
PROVIDERS: ATTEND Internal Medicine
DX: D50.9 Iron deficiency anemia, unspecified (principal); I10 Essential (primary) hypertension; E78.00 Pure hypercholesterolemia, unspecified; E03.9 Hypothyroidism, unspecified

== ENCOUNTER → 2020-08-09 | Outpatient (CLI) | payer OTHER ==
[~2020-08-09] MED LIST changes: +GASTROGRAFIN SOLUTION 30ML (Q9963) As Ordered ONE; +ISOVUE-370 76% 100ML VIAL As Ordered ONE
--- NOTE | 2020-08-09 10:52 | REP ---
INDICATION: ABD PAIN BLOATING. COMPARISON: None TECHNIQUE: Axial contrast-enhanced images from the lung bases to the pubic symphysis using oral and 100 cc Isovue 370 intravenous contrast material. Precontrast and delayed images of the abdomen obtained along with coronal and sagittal reformations. This CT examination was performed using the following dose reduction techniques: Automated exposure control, adjustment of mA and/or kv according to the patient's size, and the use of iterative reconstruction technique. FINDINGS: Liver demonstrates hepatosteatosis without focal hepatic lesion. The spleen, pancreas, gallbladder, bilateral adrenal glands and kidneys are essentially normal. Right kidney includes 2.6 cm simple benign appearing cyst. The enteric system including stomach, small, and large bowel appears normal. No evidence for obstruction or acute inflammatory process. Normal terminal ileum and cecum are identified in the right lower quadrant with evidence for prior appendectomy. Sigmoid diverticula noted without acute diverticulitis. Pelvis demonstrates normal bladder and age-appropriate uterus/adnexa. No ascites. No free air. No intraperitoneal or retroperitoneal adenopathy. Abdominal aorta and vasculature appear normal. Musculoskeletal structures are intact and without acute osseous abnormality. Degenerative changes at L2-3 noted. IMPRESSION: 1. Hepatosteatosis without focal hepatic lesion. 2. 2.6 cm benign appearing right renal cyst. 3. Sigmoid diverticula without acute diverticulitis. 4. No further acute abdominopelvic pathology appreciated. <Electronically signed by Cliff Rg > 08/09/20 [id number]
== END ==
LOC: M RAD 07:12
PROVIDERS: ATTEND Internal Medicine
DX: R10.9 Unspecified abdominal pain (principal)

== ENCOUNTER 2020-08-17 10:05 | Emergency (ER) | payer OTHER ==
[~2020-08-17] VITALS: Ht 165.1 cm; Wt 85.5 kg
[~2020-08-17 10:05] MED LIST changes: -GASTROGRAFIN SOLUTION 30ML (Q9963) As Ordered ONE; -ISOVUE-370 76% 100ML VIAL As Ordered ONE
[2020-08-17] MEDS ORDERED: ACETAMINOPHEN TAB 650MG DOSE (2X325MG) PO ONE (10:30)
--- NOTE | 2020-08-17 10:42 | REP ---
INDICATION: truama COMPARISON: 06/11/2015 TECHNIQUE: Axial noncontrast images from the skull base to the thoracic inlet with coronal reformations. This CT examination was performed using the following dose reduction techniques: Automated exposure control, adjustment of mA and/or kv according to the patient's size, and use of iterative reconstruction technique. FINDINGS: Age-related atrophy and microvascular ischemic changes are appreciated. The ventricles and sulci are symmetric. Goins-white differentiation is maintained. There is no evidence for acute intracranial hemorrhage, mass/mass effect, pathology or infarction. No extra-axial fluid collection. Calvarium is intact. Paranasal sinuses and mastoid air cells are clear. Small posterior scalp contusion/hematoma noted. IMPRESSION: 1. Age related atrophy and microvascular ischemic changes. 2. No acute intracranial pathology or trauma/injury. 3. Small posterior scalp contusion/hematoma. <Electronically signed by Cliff Rg > 08/17/20 [id number]
--- NOTE | 2020-08-17 10:44 | REP ---
INDICATION: truama COMPARISON: None. TECHNIQUE: Axial noncontrast images from the skull base to the thoracic inlet with coronal and sagittal re-formations This CT examination was performed using the following dose reduction techniques: Automated exposure control, adjustment of mA and/or kv according to the patient's size, and use of iterative reconstruction technique. FINDINGS: Moderate to early advanced multilevel degenerative disc osteophyte complexes are appreciated. Straightening of normal lordosis is nonspecific. Normal alignment is maintained. Cervical vertebral bodies including transverse processes and spinous processes are intact and there is no evidence for acute fracture / compression injury or subluxation. Spinal canal is patent. Posterior elements are intact. Paravertebral soft tissues are normal. IMPRESSION: Moderate to early advanced multilevel degenerative spondylosis. No acute fracture/compression injury or subluxation. <Electronically signed by Cliff Rg > 08/17/20 104
[2020-08-17 11:20] VITALS: BP 144/70
== END 2020-08-17 11:20 | disposition home or self-care (01) ==
LOC: M ED 10:05
DX: S00.03XA Contusion of scalp, initial encounter (principal); W00.0XXA Fall on same level due to ice and snow, initial encounter; Y92.098 Other place in other non-institutional residence as the place of occurrence of the external cause; Y93.01 Activity, walking, marching and hiking; Y99.8 Other external cause status; I10 Essential (primary) hypertension; E78.9 Disorder of lipoprotein metabolism, unspecified; E07.9 Disorder of thyroid, unspecified; Z79.899 Other long term (current) drug therapy; Z79.82 Long term (current) use of aspirin; Z88.2 Allergy status to sulfonamides; Z91.040 Latex allergy status

== ENCOUNTER → 2020-10-05 | Outpatient (REF) | payer OTHER ==
[2020-10-05 18:30] LABS: PERCENT SATURATION 17.5 % (13.2-45.0)
== END ==
LOC: M LAB REF 16:33
PROVIDERS: ATTEND Internal Medicine
DX: D50.9 Iron deficiency anemia, unspecified (principal)

== ENCOUNTER → 2021-01-19 | Outpatient (CLI) | payer OTHER ==
[2021-01-19 07:01] LABS: BASO % 0.6 % (0.0-1.0); EOS # 0.5 10^3/uL (0.0-0.5); EOS % 6.8 % (0.0-3.0); HEMATOCRIT 39.4 % (36.0-47.0); HEMOGLOBIN 12.9 g/dl (12.0-15.5); LYMPH # 2.1 10^3/uL (1.5-5.0); LYMPH % 29.5 % (24.0-44.0); MEAN CORPUSCULAR HEMOGLOBIN 29.1 pg (27.0-33.0); MEAN CORPUSCULAR HGB CONC 32.7 g/dl (32.0-36.5); MEAN CORPUSCULAR VOLUME 88.9 fl (80.0-96.0); MONO # 0.5 10^3/uL (0.0-0.8); MONO % 6.9 % (2.0-8.0); NEUTROPHILS % 55.9 % (36.0-66.0); PLATELET COUNT, AUTOMATED 353 10^3/uL (150-450); RED BLOOD COUNT 4.43 10^6/uL (4.00-5.40); WHITE BLOOD COUNT 7.1 10^3/uL (4.0-10.0)
[2021-01-19 07:36] LABS: HEMOGLOBIN A1c 5.6 %
[2021-01-19 07:41] LABS: BLOOD UREA NITROGEN 16 MG/DL (7-18); CALCIUM LEVEL 9.2 MG/DL (8.8-10.2); CARBON DIOXIDE LEVEL 26 MEQ/L (21-32); CHLORIDE LEVEL 109 MEQ/L (98-107); CHOLESTEROL LEVEL 136 MG/DL (<200); CHOLESTEROL RISK RATIO 2.266 (<5); CREATININE FOR GFR 0.73 MG/DL (0.55-1.30); GLOMERULAR FILTRATION RATE > 60.0 (>45); GLUCOSE, FASTING 80 MG/DL (70-100); HDL CHOLESTEROL 60 MG/DL (>40); LDL CHOLESTEROL 54 MG/DL (<100); NON-HDL-C 76 MG/DL; POTASSIUM SERUM 4.3 MEQ/L (3.5-5.1); SODIUM LEVEL 141 MEQ/L (136-145); T UPTAKE 31 % (30-39); THYROXINE (T4) 9.7 UG/DL (4.5-12.0); TRIGLYCERIDES LEVEL 109 MG/DL (<150)
== END ==
LOC: M LAB 06:43
PROVIDERS: ATTEND Internal Medicine
DX: I10 Essential (primary) hypertension (principal)

== ENCOUNTER → 2021-03-30 | Outpatient (CLI) | payer OTHER ==
[2021-03-31 17:07] LABS: Lyme Disease IgG/IgM Antibodie <0.91 ISR (0.00-0.90); Lyme Disease IgM Ab Quantitati <0.80 index (0.00-0.79)
== END ==
LOC: M LAB 07:10
PROVIDERS: ATTEND Internal Medicine
DX: M79.605 Pain in left leg (principal)

== ENCOUNTER 2021-04-04 06:12 | Inpatient (IN) | payer OTHER ==
[~2021-04-04] VITALS: Ht 170.2 cm; Wt 77.3 kg
[2021-04-04 06:37] LABS: BASO # 0.1 10^3/uL (0.0-0.2); BASO % 0.5 % (0.0-1.0); EOS # 0.3 10^3/uL (0.0-0.5); EOS % 3.3 % (0.0-3.0); HEMATOCRIT 42.7 % (36.0-47.0); HEMOGLOBIN 13.8 g/dl (12.0-15.5); LYMPH # 3.2 10^3/uL (1.5-5.0); LYMPH % 32.5 % (24.0-44.0); MEAN CORPUSCULAR HEMOGLOBIN 28.8 pg (27.0-33.0); MEAN CORPUSCULAR HGB CONC 32.3 g/dl (32.0-36.5); MONO # 0.6 10^3/uL (0.0-0.8); MONO % 5.9 % (2.0-8.0); NEUTROPHILS # 5.7 10^3/uL (1.5-8.5); NEUTROPHILS % 57.5 % (36.0-66.0); PLATELET COUNT, AUTOMATED 362 10^3/uL (150-450); WHITE BLOOD COUNT 9.9 10^3/uL (4.0-10.0)
[2021-04-04] MEDS ORDERED: ROSU5TAB5 PO (06:48)
[2021-04-04] MEDS ORDERED: EDARBI PO (06:48)
[2021-04-04 06:50] LABS: INR 0.99; PROTHROMBIN TIME 13.4 SECONDS (12.7-14.5)
[2021-04-04 06:51] LABS: PARTIAL THROMBOPLASTIN TIME 29.7 SECONDS (25.9-37.0)
--- NOTE | 2021-04-04 07:00 | REPVR ---
PROCEDURE INFORMATION: Exam: CT Head Without Contrast Exam date and time: 04/04/2021 6:18 AM Age: 60 years old Clinical indication: Altered mental status/memory loss; Confusion or disorientation; Additional info: Stroke like symptoms TECHNIQUE: Imaging protocol: Computed tomography of the head without contrast. Radiation optimization: All CT scans at this facility use at least one of these dose optimization techniques: automated exposure control; mA and/or kV adjustment per patient size (includes targeted exams where dose is matched to clinical indication); or iterative reconstruction. COMPARISON: CT Head without contrast 08/17/2020 10:20 AM FINDINGS: Brain: There is no acute hemorrhage or mass effect. The normal ricks/white matter delineation is preserved. Cerebral ventricles: No ventriculomegaly. Paranasal sinuses: Visualized sinuses are unremarkable. No fluid levels. Mastoid air cells: Visualized mastoid air cells are well aerated. Bones/joints: Unremarkable. No acute fracture. Soft tissues: Unremarkable. IMPRESSION: No acute intracranial abnormality. Electronically signed by: Gini Solo On 04/04/2021 06:59:55 AM
--- NOTE | 2021-04-04 07:00 | REPVR ---
PROCEDURE INFORMATION: Exam: XR Chest Exam date and time: 04/04/2021 6:49 AM Age: 60 years old Clinical indication: Other: CVA TECHNIQUE: Imaging protocol: XR of the chest. Views: 1 view. COMPARISON: CR CHEST 2 VIEW 05/17/2020 12:00 PM FINDINGS: Lungs: Unremarkable. No consolidation. Pleural spaces: Unremarkable. No pleural effusion. No pneumothorax. Heart/Mediastinum: Unremarkable. No cardiomegaly. Bones/joints: Unremarkable. IMPRESSION: No acute findings. Electronically signed by: Gini Solo On 04/04/2021 07:00:13 AM
[2021-04-04 07:03] LABS: BLOOD UREA NITROGEN 24 MG/DL (7-18); CALCIUM LEVEL 9.1 MG/DL (8.8-10.2); CARBON DIOXIDE LEVEL 27 MEQ/L (21-32); CHLORIDE LEVEL 106 MEQ/L (98-107); CK-MB VALUE MASS 1.4 NG/ML (<3.6); CPK CREATINE PHOSPHOKINASE 124 U/L (26-192); CREATININE FOR GFR 0.86 MG/DL (0.55-1.30); GLOMERULAR FILTRATION RATE > 60.0 (>45); GLUCOSE, FASTING 103 MG/DL (70-100); MB/CK RELATIVE INDEX 1.13 (< OR =4); POTASSIUM SERUM 4.3 MEQ/L (3.5-5.1); SODIUM LEVEL 141 MEQ/L (136-145); TROPONIN I < 0.02 NG/ML (< 0.10)
[2021-04-04 07:06] LABS: RSV AMPLIFICATION NEGATIVE (NEGATIVE)
[2021-04-04] MEDS ORDERED: ASPI81TA26 PO (08:00)
[2021-04-04] MEDS ORDERED: OMEP-218 PO (08:00)
[2021-04-04] MEDS ORDERED: HOME MED LIST COMPLETE! XX SCH (08:05)
[2021-04-04 08:07] LABS: ETHYL ALCOHOL (ETHANOL) < 0.003 % (0.000-0.010)
[2021-04-04] MEDS ORDERED: PILL CUTTER 1 EACH XX PRN (08:30)
[2021-04-04] MEDS ORDERED: LORazepam 1 MG TAB PO ONE (08:30)
[2021-04-04] MEDS: ASPIRIN 81MG ENTERIC TABLET PO SCH (09:35)
[2021-04-04] MEDS: ROSUVASTATIN 10 MG TAB (CRESTOR) PO SCH (09:35)
[2021-04-04] MEDS: OMEPRAZOLE 20 MG CAP PO SCH (09:35)
[2021-04-04] MEDS: ENOXAPARIN 40MG/0.4ML SYRINGE (J1650 PER 10MG) SC SCH (09:36)
--- NOTE | 2021-04-04 10:10 | ECGEPIP ---
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
[2021-04-04 10:51] LABS: CHOLESTEROL LEVEL 174 MG/DL (<200); CHOLESTEROL RISK RATIO 2.806 (<5); HDL CHOLESTEROL 62 MG/DL (>40); LDL CHOLESTEROL 77 MG/DL (<100); NON-HDL-C 112 MG/DL; TRIGLYCERIDES LEVEL 174 MG/DL (<150)
--- NOTE | 2021-04-04 13:00 | HPEPDOC ---
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 Patient was known to be normal around 9:30 PM when she went to bed last night according to the . When she woke up this morning to urinate, she did not feel well, and felt confused. She complained of feeling sick to her stomach. Her took her blood pressure which was 180/89. Her speech at that time was fluent and not slurred. Her face was symmetric. She had no motor dysfunction, and was able to go to the bathroom without any difficulty. Patient denied any paresthesias numbness tingling sensation bilateral upper or lower extremities her speech appeared appropriate according to the she had no word salad and was answering questions appropriately. She complained of feeling nauseous and vomited once w hich was only secretions not bilious. Her left and called EMS. Patient went to the bedroom and got changed without any difficulties. drove her to the hospital with ambulance behind him. Patient was confused to her age and disoriented to date.She had no other focal abnormalities neurologically and was able to ambulate normally. In the emergency room, glucose was 103,EKG was sinus rhythm, CT head was negative, chest x-ray negative, coronavirus negative. Patient says she is c ompliant with her aspirin and Crestor. She remained disoriented to her age and date. MRI of the brain ordered but still pending neurologist Dr. Mckeno was consulted. Loop recorder due to prior history of TIA was interrogated by Dr. Ty Trevino emergency room physician with no A. fib or a flutter. 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 REVIEW OF SYSTEMS: 10 point review of systems negative aside from positive findings in HPI HOME MEDICATIONS: Please see below. PHYSICAL EXAMINATION: VITAL SIGNS: See below GENERAL APPEARANCE: Awake alert oriented to person and place disoriented to date no distress HEENT: Face is symmetric tongue is midline uvula is midline pupils equally round reactive to light accommodation extraocular muscles intact no dysmetria on [id number]-lonf testing no JVD thyromegaly cervical lymphadenopathy moist mucous membranes no carotid bruit CARDIOVASCULAR: S1-S2 sinus rhythm no murmurs rubs or gallops LUNGS: Air entry is equal bilaterally no adventitious breath sounds inspiratory expiratory ratio 1:2 ABDOMEN: Positive bowel sounds soft nontender nondistended normoactive no hepatosplenomegaly abdominal bruit CVA tenderness EXTREMITIES: No cyanosis clubbing or pitting edema NEUROLOGICAL: Awake alert oriented to person place disoriented to date face is symmetric tongue is midline uvula is midline no dysmetria on [id number] testing no sensory disturbance motor function is 5 out of 5 x 4 extremities negative Babinski bilaterally DTRs intact 2+ bilateral upper lower extremities LABORATORY DATA: See below. IMAGING: See below MICROBIOLOGY: Please see below. ASSESSMENT: 60-year-old female with history of transient ischemic attack in 2013 status post loop recorder presents emergency room with acute onset of confusion diagnosed with transient global amnesia admitted for CVA work-up. Transient global amnesia -Neurochecks every 4 hourly admit to telemetry unit loop recorder and EKG are both sinus rhythm. Continue with aspirin 81 mg daily Crestor. Check fasting lipid profile adjust statin as needed. Neurologist Dr. Hoawrd has been consulted. Patient will be sent for MRI/MRA of the brain and MRA of the carotids. 2D echo ordered. PT OT speech evaluation. History of TIA status post loop recorder -Sinus rhythm on EKG loop recorder evaluated by ER provider Dr. Ty Trevino without acute a flutter or A. fib noted GERD On PPI Hypothyroidism On Synthroid DVT prophylaxis Lovenox CODE STATUS: Full code Healthcare proxy Vital Signs Vital Signs Date Time Temp Pulse Resp B/P (MAP) Pulse Ox O2 Delivery O2 Flow Rate FiO2 04/04/21 08:00 99 17 163/86 (111) 99 Room Air 04/04/21 06:12 97.6 Laboratory Data Labs 24H Laboratory Tests 2 04/04/21 06:22: Coronavirus (COVID-19)(PCR) NEGATIVE, Influenza Type A (RT-PCR) NEGATIVE, Influenza Type B (RT-PCR) NEGATIVE, Respiratory Syncytial Virus (PCR) NEGATIVE 04/04/21 06:28: Immature Granulocyte % (Auto) 0.3, Neutrophils (%) (Auto) 57.5, Lymphocytes (%) (Auto) 32.5, Monocytes (%) (Auto) 5.9, Eosinophils (%) (Auto) 3.3H, Basophils (%) (Auto) 0.5, Neutrophils # (Auto) 5.7, Lymphocytes # (Auto) 3.2, Monocytes # (Auto) 0.6, Eosinophils # (Auto) 0.3, Basophils # (Auto) 0.1, Nucleated Red Blood Cells % (auto) 0.0, Prothrombin Time 13.4, Prothromb Time International Ratio 0.99, Activated Partial Thromboplast Time 29.7, Anion Gap 8, Glomerular Filtration Rate > 60.0, Calcium Level 9.1, Total Creatine Kinase 124, Creatine Kinase MB 1.4, Creatine Kinase MB Relative Index 1.13, Troponin I < 0.02, Triglycerides Level 174H, Total Cholesterol 174, LDL Cholesterol 77, Non-HDL Cholesterol (LDL + VLDL) 112, Total HDL Cholesterol 62, Cholesterol/HDL Ratio 2.806, Thyroid Stimulating Hormone (TSH) 2.760, Ethyl Alcohol Level < 0.003 04/04/21 06:35: Bedside Glucose (Misc Panel) 92 CBC/BMP Laboratory Tests 04/04/21 06:28 Home Medications Scheduled Aspirin (Aspirin EC) 81 Mg Tablet.dr, 81 MG PO DAILY Levothyroxine Sodium (Levothyroxine Sodium) 112 Mcg Tab, 112 MCG PO DAILY Omeprazole (Omeprazole) 20 Mg Capsule.dr, 20 MG PO DAILY Rosuvastatin Calcium (Rosuvastatin Calcium) 5 Mg Tablet, 5 MG PO DAILY [Edarbi] , 80 MG PO DAILY Allergies Coded Allergies: latex (Verified Allergy, Severe, THROAT STARTS TO CLOSE, 11/23/18) Sulfa (Sulfonamide Antibiotics) (Verified Allergy, Intermediate, HIVES, 11/23/18) A-FIB/CHADSVASC A-FIB History Current/History of A-Fib/PAF?: No Current PO Anticoag Therapy: No Age/Risk Factor Scoring CHADSVASC: CHADSVASC Response (Comments) Value Age Risk Factor Age < 65 years old 0 Gender Risk Factor Female 1 Hx of CHF No 0 Hx of HTN Yes 1 Hx of Stroke/TIA/or VTE Yes 2 Hx of Diabetes No 0 Hx of Vascular Disease No 0 Total 4 Treatment Treatment ordered: NONE RAPHAEL STINSON MD Apr 04, 2021 13:00
--- NOTE | 2021-04-04 14:16 | REPVR ---
PROCEDURE INFORMATION: Exam: MRA Head Without Contrast; Arteriography Exam date and time: 04/04/2021 1:20 PM Age: 60 years old Clinical indication: Dizziness and giddiness; Additional info: Transient global amnesia TECHNIQUE: Imaging protocol: Magnetic resonance angiography head without contrast. Exam focused on the arteries. COMPARISON: CT Head without contrast 04/04/2021 6:29 AM FINDINGS: ANTERIOR CIRCULATION: Right internal carotid artery: Intracranial segment is patent with no significant stenosis. No aneurysm. Right middle cerebral artery: No occlusion or significant stenosis. No aneurysm. Right anterior cerebral artery: No occlusion or significant stenosis. No aneurysm. Left internal carotid artery: Intracranial segment is patent with no significant stenosis. No aneurysm. Left middle cerebral artery: No occlusion or significant stenosis. No aneurysm. Left anterior cerebral artery: No occlusion or significant stenosis. No aneurysm. POSTERIOR CIRCULATION: Right vertebral artery: No occlusion or significant stenosis. No aneurysm. Left vertebral artery: No occlusion or significant stenosis. No aneurysm. Basilar artery: No occlusion or significant stenosis. No aneurysm. Patent superior cerebellar arteries. Right posterior cerebral artery: No occlusion or significant stenosis. No aneurysm. Left posterior cerebral artery: No occlusion or significant stenosis. No aneurysm. IMPRESSION: Normal MRA. No vascular stenosis or occlusion. Electronically signed by: Jessica Gonzalez On 04/04/2021 14:16:35 PM
--- NOTE | 2021-04-04 14:17 | REPVR ---
PROCEDURE INFORMATION: Exam: MR Head Without Contrast Exam date and time: 04/04/2021 1:20 PM Age: 60 years old Clinical indication: Altered mental status/memory loss; Amnesia, not specified TECHNIQUE: Imaging protocol: MR of the head without contrast. COMPARISON: CT Head without contrast 04/04/2021 6:29 AM FINDINGS: Brain: Patchy T2 prolongation in the mell and cerebral white matter is nonspecific, but likely secondary to microvascular disease. Diffusion images are normal. No evidence of acute infarction. No evidence of acute intracranial hemorrhage. No extra-axial fluid collections. Ventricles and cerebrospinal fluid spaces are normal in size and configuration for the patient's age. There is no evidence of mass-effect or midline shift. Flow voids of the [place] of [place] and major cerebral vascular structures appear intact. Cerebral ventricles: Ventricles and sulci are normal in size and configuration for patient's age. Bones/joints: Unremarkable as visualized. Paranasal sinuses: Craniocervical junction appears unremarkable, with normal position of cerebellar tonsils and no evidence of Chiari I malformation.There is no significant mucosal thickening in paranasal sinuses. No air-fluid levels. Mastoid air cells: No significant mastoid effusion. Orbital cavity: Unremarkable. Soft tissues: Unremarkable as visualized. IMPRESSION: 1. Unremarkable brain MRI for age. No acute infarct, acute hemorrhage, or evidence of mass. 2. Given the patient's clinical history and / or findings on MRI, MRA to assess the intracranial vascular system would be appropriate.. Electronically signed by: Jessica Gonzalez On 04/04/2021 14:16:42 PM
--- NOTE | 2021-04-04 14:19 | REPVR ---
PROCEDURE INFORMATION: Exam: MRA Neck Without Contrast Exam date and time: 04/04/2021 1:20 PM Age: 60 years old Clinical indication: Memory loss; Type not specified; Additional info: Transient global amnesia TECHNIQUE: Imaging protocol: Magnetic resonance angiography of the neck without contrast. COMPARISON: CT Head without contrast 04/04/2021 6:29 AM FINDINGS: Right common carotid artery: No significant stenosis or occlusion. No evidence of dissection. Right internal carotid artery: Extracranial segment is patent with no significant stenosis or occlusion. No evidence of dissection. Right external carotid artery: No significant stenosis or occlusion. Right vertebral artery: No significant stenosis or occlusion. No evidence of dissection. Left common carotid artery: No significant stenosis or occlusion. No evidence of dissection. Left internal carotid artery: Extracranial segment is patent with no significant stenosis or occlusion. No evidence of dissection. Left external carotid artery: No significant stenosis or occlusion. Left vertebral artery: No significant stenosis or occlusion. No evidence of dissection. IMPRESSION: No vascular stenosis or occlusion. REFERENCES: NASCET CRITERIA. The degree of internal carotid artery stenosis is based on NASCET criteria. Normal is no stenosis. Mild is less than 50% stenosis. Moderate is 50-69% stenosis. Severe is 70% to 99% stenosis. Total occlusion is no detectable patent lumen. Electronically signed by: Jessica Gonzalez On 04/04/2021 14:19:04 PM
[2021-04-04] MEDS: LEVOTHYROXINE 112MCG TABLET (0.112MG) PO SCH (14:39)
[2021-04-04 18:00] VITALS: BP 153/87
[2021-04-04 22:00] VITALS: BP 106/55
[2021-04-05 02:00] VITALS: BP 104/62
[2021-04-05] MEDS: LEVOTHYROXINE 112MCG TABLET (0.112MG) PO SCH (05:46)
[2021-04-05 06:00] VITALS: BP 126/76
[2021-04-05 06:53] LABS: BASO % 0.2 % (0.0-1.0); EOS # 0.3 10^3/uL (0.0-0.5); EOS % 3.3 % (0.0-3.0); HEMOGLOBIN 12.9 g/dl (12.0-15.5); LYMPH # 1.4 10^3/uL (1.5-5.0); LYMPH % 16.9 % (24.0-44.0); MEAN CORPUSCULAR HEMOGLOBIN 29.3 pg (27.0-33.0); MEAN CORPUSCULAR HGB CONC 32.3 g/dl (32.0-36.5); MEAN CORPUSCULAR VOLUME 90.9 fl (80.0-96.0); MONO # 0.6 10^3/uL (0.0-0.8); MONO % 7.6 % (2.0-8.0); NEUTROPHILS # 5.9 10^3/uL (1.5-8.5); NEUTROPHILS % 71.6 % (36.0-66.0); PLATELET COUNT, AUTOMATED 337 10^3/uL (150-450); WHITE BLOOD COUNT 8.2 10^3/uL (4.0-10.0)
[2021-04-05 07:12] LABS: BLOOD UREA NITROGEN 22 MG/DL (7-18); CARBON DIOXIDE LEVEL 26 MEQ/L (21-32); CHLORIDE LEVEL 112 MEQ/L (98-107); CHOLESTEROL LEVEL 143 MG/DL (<200); CHOLESTEROL RISK RATIO 2.508 (<5); CREATININE FOR GFR 0.69 MG/DL (0.55-1.30); GLOMERULAR FILTRATION RATE > 60.0 (>45); GLUCOSE, FASTING 92 MG/DL (70-100); HDL CHOLESTEROL 57 MG/DL (>40); LDL CHOLESTEROL 68 MG/DL (<100); NON-HDL-C 86 MG/DL; POTASSIUM SERUM 4.5 MEQ/L (3.5-5.1); SODIUM LEVEL 143 MEQ/L (136-145); TRIGLYCERIDES LEVEL 91 MG/DL (<150)
[2021-04-05] MEDS: ROSUVASTATIN 10 MG TAB (CRESTOR) PO SCH (09:04)
[2021-04-05] MEDS: ASPIRIN 81MG ENTERIC TABLET PO SCH (09:04)
[2021-04-05] MEDS: OMEPRAZOLE 20 MG CAP PO SCH (09:04)
[2021-04-05] MEDS: ENOXAPARIN 40MG/0.4ML SYRINGE (J1650 PER 10MG) SC SCH (09:04)
[2021-04-05 10:00] VITALS: BP 119/67
--- NOTE | 2021-04-05 11:06 | CR ---
CONSULTATION DATE: 04/04/2021 REFERRING PHYSICIAN: Karis Stevens MD REASON FOR CONSULTATION: Confusion. 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 when she woke up confused. She got up to go to the bathroom. The patient was last known normal around 9:30 p.m. when she went to bed last night. She woke up this morning to urinate and did not feel well. We felt confused. She felt sick to stomach. There was no headache, trouble with speech, numbness, weakness of arms and legs. Her blood pressure was 180/89. She did not feel well and asked her to bring her to [facility]. The patient's called EMS and he drove her to the hospital with the ambulance behind him. The patient was confused about her age and date. There was no focal neurological deficit in the emergency department. She was admitted to [facility] for workup of transient global amnesia. She had a similar episode in May,. Her MRI scan and MRA of brain were unremarkable at that time. She was recommended to have EEG but she canceled her appointment at that time. She denies any headaches, neck or back pain, dysphagia, dysarthria, diplopia, urinary incontinence. PAST MEDICAL HISTORY: 1. 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 2. Hypothyroidism. 3. Acid reflux. 4. Vitamin D deficiency. 5. Thyroidectomy. 6. section. SOCIAL HISTORY: She has three children. She is . 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 She denies smoking, alcohol or illicit drugs. FAMILY HISTORY: Father of colon cancer. Daughter with history of multiple myeloma. ALLERGIES: Latex. HOME MEDICATIONS: 1. Aspirin 81 mg p.o. daily. 2. Levothyroxine 112 mcg p.o. daily. 3. Omeprazole 20 mg p.o. daily. 4. Crestor 5 mg p.o. daily. REVIEW OF SYSTEMS: All systems were reviewed and found to be noncontributory except as mentioned in history of present illness. PHYSICAL EXAMINATION: VITAL SIGNS: Temperature 97.6, pulse 99, respiratory rate 17, blood pressure 163/86, 99% saturation on room air. HEART: Regular rate and rhythm. LUNGS: Clear to auscultation. ABDOMEN: Soft, nontender, nondistended. EXTREMITIES: No pedal edema. MUSCULOSKELETAL: No abnormalities. SKIN: No rash. NEUROLOGICAL: No signs of meningeal irritation. The patient is awake, alert, oriented to place, person and time. Normal speech, comprehension and repetition. Extraocular muscles are intact. No facial weakness. Tongue and uvula are midline. 5/5 strength in all four extremities. Deep tendon reflexes are 2+ throughout, normal sensation. Gait is normal. DIAGNOSTIC STUDIES: MRI of brain, MRA, brain and neck were unremarkable. CBC was normal. LDH was 77. Total cholesterol was 174. Triglycerides were 174. TSH was 2.7. ASSESSMENT: 1. Transient global amnesia and she had similar episode in May,. 2. 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 3. Rule out complex partial seizure. PLAN: 1. EEG. 2. Aspirin 81 mg p.o. daily. 3. Crestor 5 mg p.o. daily. 4. Follow with our office in 1-2 weeks after hospital discharge. She will follow with cardiology for a loop recorder. It has not shown evidence of atrial fibrillation in the last three years.
--- NOTE | 2021-04-05 11:12 | DS.PDOC ---
Discharge Summary General Date of Admission Apr 04, 2021 at 08:14 Date of Discharge 04/05/21 Discharge Summary DISCHARGE DIAGNOSES: Transient global amnesia History of transient ischemic attack Dyslipidemia Hypertension GERD Hypothyroidism Vitamin D deficiency DISCHARGE MEDICATIONS: SEE BELOW DISCHARGE INSTRUCTIONS: Dr. 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 Patient was known to be normal around 9:30 PM when she went to bed last night according to the . When she woke up this morning to urinate, she did not feel well, and felt confused. She complained of feeling sick to her stomach. Her took her blood pressure which was 180/89. Her speech at that time was fluent and not slurred. Her face was symmetric. She had no motor dysfunction, and was able to go to the bathroom without any difficulty. Patient denied any paresthesias numbness tingling sensation bilateral upper or lower extremities her speech appeared appropriate according to the she had no word salad and was answering questions appropriately. She complained of feeling nauseous and vomited once which was only secretions not bilious. Her left and called EMS. Patient went to the bedroom and got changed without any difficulties. drove her to the hospital with ambulance behind him. Patient was confused to her age and disoriented to date.She had no other focal abnormalities neurologi karen and was able to ambulate normally. In the emergency room, glucose was 103,EKG was sinus rhythm, CT head was negative, chest x-ray negative, coronavirus negative. Patient says she is compliant with her aspirin and Crestor. She remained disoriented to her age and date. MRI of the brain ordered but still pending neurologist Dr. Mckeon was consulted. Loop recorder due to prior history of TIA was interrogated by Dr. Ty Trevino emergency room physician with no A. fib or a flutter. Transient global amnesia -Neurochecks every 4 hourly was negative overnight -She was admitted to telemetry unit loop recorder and EKG are both sinus rhythm. -Continue with aspirin 81 mg daily Crestor. -Normal fasting lipid profile - Neurologist Dr. Howard has been consulted and recommended electroencephalogram. -Normal MRI/MRA of the brain and MRA of the carotids. 2D echo report in chart. -PT OT speech evaluation-normal stable for discharge home History of TIA status post loop recorder -Sinus rhythm on EKG loop recorder evaluated by ER provider Dr. Ty Trevino GERD On PPI Hypothyroidism On Synthroid Vitamin D deficiency Dyslipidemia -On statins with normal lipid panel DVT prophylaxis Lovenox CODE STATUS: Full code Healthcare proxy DISCHARGE PHYSICAL EXAMINATION: VITAL SIGNS: See below GENERAL APPEARANCE: Awake alert oriented to person and place disoriented to date no distress anicteric no jaundice HEENT: Face is symmetric tongue is midline uvula is midline pupils equally round reactive to light accommodation extraocular muscles intact no dysmetria on [id number] testing no JVD thyromegaly cervical lymphadenopathy moist mucous membranes no carotid bruit no stridor no use of respiratory accessory muscles CARDIOVASCULAR: S1-S2 sinus rhythm no murmurs rubs or gallops no S3 no carotid bruit LUNGS: Air entry is equal bilaterally no adventitious breath sounds inspiratory expiratory ratio 1:2 clear to auscultation bilaterally no kyphosis or scoliosis ABDOMEN: Positive bowel sounds soft nontender nondistended normoactive no hepatosplenomegaly abdominal bruit CVA tenderness EXTREMITIES: No cyanosis clubbing or pitting edema. Skin warm dry well perfused pink in color NEUROLOGICAL: Awake alert oriented to person place and time face is symmetric tongue is midline uvula is midline no dysmetria on [id number] testing no sensory disturbance motor function is 5 out of 5 x 4 extremities negative Babinski bilaterally DTRs intact 2+ bilateral upper lower extremities DISCHARGE LABORATORY DATA: See below. IMAGING: See below ECHOCARDIOGRAM: SEE CHART ELECTROENCEPHALOGRAM: SEE CHART MICROBIOLOGY: Please see below. TIME SPENT ON DISCHARGE: 30 MINUTES Vital Signs/I&Os Vital Signs Date Time Temp Pulse Resp B/P (MAP) Pulse Ox O2 Delivery O2 Flow Rate FiO2 04/05/21 10:00 97.7 96 17 119/67 (84) 96 Room Air I&O- Last 24 Hours up to 6 AM 04/05/21 06:00 Intake Total 360 ml Balance 360 ml Laboratory Data Labs 24H Laboratory Tests 2 04/05/21 06:06: Immature Granulocyte % (Auto) 0.4, Neutrophils (%) (Auto) 71.6H, Lymphocytes (%) (Auto) 16.9L, Monocytes (%) (Auto) 7.6, Eosinophils (%) (Auto) 3.3H, Basophils (%) (Auto) 0.2, Neutrophils # (Auto) 5.9, Lymphocytes # (Auto) 1.4L, Monocytes # (Auto) 0.6, Eosinophils # (Auto) 0.3, Basophils # (Auto) 0.0, Nucleated Red Blood Cells % (auto) 0.0, Anion Gap 5L, Glomerular Filtration Rate > 60.0, Calcium Level 9.0, Triglycerides Level 91, Total Cholesterol 143, LDL Ch olesterol 68, Non-HDL Cholesterol (LDL + VLDL) 86, Total HDL Cholesterol 57, Cholesterol/HDL Ratio 2.508 CBC/BMP Laboratory Tests 04/05/21 06:06 Discharge Medications Scheduled Aspirin (Aspirin EC) 81 Mg Tablet.dr, 81 MG PO DAILY, (Reported) Levothyroxine Sodium (Levothyroxine Sodium) 112 Mcg Tab, 112 MCG PO DAILY, (Reported) Omeprazole (Omeprazole) 20 Mg Capsule.dr, 20 MG PO DAILY, (Reported) Rosuvastatin Calcium (Rosuvastatin Calcium) 5 Mg Tablet, 5 MG PO DAILY, (Reported) [Edarbi] , 80 MG PO DAILY, (Reported) Allergies Coded Allergies: latex (Verified Allergy, Severe, THROAT STARTS TO CLOSE, 11/23/18) Sulfa (Sulfonamide Antibiotics) (Verified Allergy, Intermediate, HIVES, 11/23/18) RAPHAEL STINSON MD Apr 05, 2021 11:10
--- NOTE | 2021-04-06 11:22 | EEG ---
ELECTROENCEPHALOGRAM DATE: 04/05/2021 REFERRING PHYSICIAN: RAPHAEL STINSON MD DIAGNOSIS: Global amnesia. EEG#: [id number] HISTORY: The patient is a 60-year-old woman with episode of transient global amnesia. She had one episode in 2015 and one yesterday without alteration of speech, numbness, weakness of either side of her body. She is currently taking aspirin, omeprazole, Crestor, levothyroxine, etc. TECHNICAL DESCRIPTION: This digital electroencephalogram (EEG) was recorded by 21 scalp, ear, and two electrocardiogram (EKG) electrodes and was reviewed in bipolar and referential montages following reformatting in 10-20 international electrode placement system. INTERPRETATION: The patient was noted to be in awake and drowsy states during this EEG. Resting and awake background rhythm consisted of well-formed posterior dominant rhythm with anterior/posterior gradient comprising of 10 Hz alpha activity measuring 15-40 microvolts in amplitude which was symmetric and reactive to eye opening. Attenuation of posterior dominant rhythm was seen during transition to drowsiness. No sleep was achieved. Hyperventilation and photic stimulation remained unremarkable. EKG revealed normal sinus rhythm. No focal, lateralizing, or epileptiform abnormalities were seen. No relevant clinical activity was noted. CONCLUSION: This EEG in awake, drowsy states is within normal limits.
--- NOTE | 2021-04-07 16:06 | ECHO ---
ECHOCARDIOGRAM DATE OF PROCEDURE: 04/04/2021 Age: 60 Gender: Female Height: 170 cm Weight: 77 kg REFERRING PHYSICIAN: Dr. Karis Stevens INDICATION: Transient cerebral ischemia unspecified 2D MEASUREMENTS: Left ventricle diastole 4.2 cm Intraventricular septum 0.95 cm Posterior wall 0.97 cm Left ventricle diastole 4.2 cm Left ventricle systole 2.9 cm Aortic root 3.5 cm Left atrium 2._ cm Left atrial volume index 20 2D Doppler Measurements: No aortic regurgitation No aortic stenosis Aortic valve velocity 84.9 cm/s LVOT velocity 74.7 cm/s Mild mitral regurgitation Mitral E velocity 42.7 cm/s Mitral A velocity 62.1 cm/s Mitral deceleration time 283 msec No tricuspid regurgitation No pulmonic regurgitation MITRAL ANNULAR TISSUE DOPPLER E prime septal 7.4 cm/sec E prime lateral 6.4 cm/sec DESCRIPTION: Rhythm was sinus. Image quality was fair. No pericardial effusion. This was a 2D, M-mode, color flow Doppler and pulsed wave Doppler examination including mitral annular tissue Doppler. CONCLUSIONS: 1. Normal left ventricle internal dimensions and wall thickness. Normal regional LV wall motion and wall thickening. Normal LV systolic function. LVEF 65% by visual assessment. Grade 1 LV diastolic dysfunction (impaired relaxation filling pattern). 2. Normal right ventricle size and systolic function. 3. Normal size of the atria, 4. Suggestive of relatively low central venous pressure (CVP 0-5 mmHg) based on near transient intermittent collapse of the IVC suggestive of hypovolemia. 5. Structurally and functionally normal cardiac valves. 6. No pericardial effusion. 7. Otherwise normal appearing echocardiogram Doppler findings. Dr. Karis Stevens
== END 2021-04-05 13:34 | disposition home or self-care (01) | DRG 72 ==
LOC: M ED 06:12 → M ED INP 08:14 → ENRESERV 13:24 → M MSPAV 15:04
PROVIDERS: ADMIT General Practice; ATTEND General Practice
DX: G45.4 Transient global amnesia (principal); K21.9 Gastro-esophageal reflux disease without esophagitis; E55.9 Vitamin D deficiency, unspecified; E89.0 Postprocedural hypothyroidism; Z86.73 Personal history of transient ischemic attack (TIA), and cerebral infarction without residual deficits; Z20.822 Contact with and (suspected) exposure to COVID-19; Z79.82 Long term (current) use of aspirin; Z79.899 Other long term (current) drug therapy; Z88.2 Allergy status to sulfonamides; Z91.040 Latex allergy status

== ENCOUNTER → 2021-04-16 | Outpatient (CLI) | payer OTHER ==
[~2021-04-16] MED LIST changes: +ASPI81TA26 PO; +OMEP-218 PO; +ROSU5TAB5 PO
[2021-04-16 08:25] LABS: BASO % 0.6 % (0.0-1.0); EOS # 0.3 10^3/uL (0.0-0.5); EOS % 4.9 % (0.0-3.0); HEMATOCRIT 39.4 % (36.0-47.0); HEMOGLOBIN 12.6 g/dl (12.0-15.5); LYMPH % 29.3 % (24.0-44.0); MEAN CORPUSCULAR HEMOGLOBIN 28.9 pg (27.0-33.0); MEAN CORPUSCULAR VOLUME 90.4 fl (80.0-96.0); MONO # 0.4 10^3/uL (0.0-0.8); MONO % 5.7 % (2.0-8.0); NEUTROPHILS # 4.1 10^3/uL (1.5-8.5); NEUTROPHILS % 59.2 % (36.0-66.0); PLATELET COUNT, AUTOMATED 344 10^3/uL (150-450); RED BLOOD COUNT 4.36 10^6/uL (4.00-5.40); WHITE BLOOD COUNT 6.9 10^3/uL (4.0-10.0)
[2021-04-16 08:50] LABS: FERRITIN 55 NG/ML (8-252); GLUCOSE, FASTING 88 MG/DL (70-100); IRON (FE) 113 UG/DL (50-170)
[2021-04-16 08:53] LABS: HEMOGLOBIN A1c 5.7 %
== END ==
LOC: M LAB 07:22
PROVIDERS: ATTEND Internal Medicine
DX: R73.09 Other abnormal glucose (principal); D50.9 Iron deficiency anemia, unspecified; I10 Essential (primary) hypertension

== ENCOUNTER → 2021-04-16 | Outpatient (CLI) | payer OTHER ==
[2021-04-19 18:12] LABS: ANCA-ATYPICAL <1:20 titer (Neg:<1:20); ANGIOTENSIN 1 CONVERTING ENZYM 50 U/L (14-82); ANTI THROMBIN 3 ANTIGEN IMMUNO 89 % (72-124); ANTI THROMBIN 3 FUNCT ACTIVITY 120 % (75-135); ANTINUCLEAR ANTIBODIES DIRECT Negative (Negative); CARDIOLIPIN IGA ANTIBODY <9 APL U/mL (0-11); CARDIOLIPIN IGG ANTIBODY <9 GPL U/mL (0-14); CARDIOLIPIN IGM ANTIBODY <9 MPL U/mL (0-12); CYTOPLASMIC NEUTROP AB ANCA-C <1:20 titer (Neg:<1:20); FACTOR VIII ACTIVITY 152 % (56-140); PERINUCLEAR AB ANCA-P <1:20 titer (Neg:<1:20); PROTEIN C FUNCTIONAL ACTIVITY 136 % (73-180); PROTEIN S FUNCTIONAL ACTIVITY 111 % (63-140)
== END ==
LOC: M LAB 07:20
PROVIDERS: ATTEND Psychiatry & Neurology Neurology
DX: G45.9 Transient cerebral ischemic attack, unspecified (principal)

== ENCOUNTER → 2021-04-19 | Outpatient (CLI) | payer OTHER ==
[~2021-04-19] MED LIST changes: +ASPI81CH8 PO; +LEXA5TAB13 PO; +LOSA25TA13 PO; -LOSA25TA14 PO; +MIRA3350 PO
== END ==
LOC: M RAD 16:05
PROVIDERS: ATTEND Internal Medicine
DX: N28.1 Cyst of kidney, acquired (principal)

== ENCOUNTER → 2021-04-27 | Outpatient (CLI) | payer OTHER ==
[~2021-04-27] MED LIST changes: -ASPI81CH8 PO; -LEXA5TAB13 PO; -LOSA25TA13 PO; +LOSA25TA14 PO; -MIRA3350 PO
== END ==
LOC: M LABSMTC 09:21
PROVIDERS: ATTEND Anesthesiology
DX: Z01.818 Encounter for other preprocedural examination (principal); Z11.52 Encounter for screening for COVID-19

== ENCOUNTER 2021-05-02 14:27 | Day surgery (SDC) | payer OTHER ==
[~2021-05-02] VITALS: Ht 165.1 cm; Wt 82.1 kg
[~2021-05-02 14:27] MED LIST changes: +LIDOCAINE 1% MDV 20ML VIAL SQ PRN; +LR 1,000 ML IV ONE
[2021-05-02] MEDS ORDERED: LIDOCAINE 2% 100MG/5ML SDV (FOR ANES.) As Ordered ONE (14:58)
[2021-05-02] MEDS ORDERED: MIDAZOLAM INJ 2MG/2ML VIAL (J2250 PER 1MG) As Ordered ONE (14:58)
[2021-05-02] MEDS ORDERED: propofoL 200 MG/20 ML VIAL As Ordered ONE (14:58)
[2021-05-02] MEDS ORDERED: fentaNYL 100 MCG/2 ML INJECTION (J3010) As Ordered ONE (14:58)
[2021-05-02] MEDS ORDERED: LIDOCAINE 1% MDV 20ML VIAL As Ordered ONE (15:22)
[2021-05-02] MEDS ORDERED: ceFAZolin SOD 1 GM in D5W MINI-BAG PLUS 50 ML IV SCH (15:35)
[2021-05-02] MEDS ORDERED: ceFAZolin 1GM VIAL (J0690 PER 500MG) As Ordered ONE ×2 (15:57→15:58)
[2021-05-02 16:25] VITALS: BP 141/83
--- NOTE | 2021-05-02 17:33 | RO ---
OPERATIVE NOTE DATE OF OPERATION: 05/02/2021 PREOPERATIVE DIAGNOSIS: 1. Transient cerebral ischemia, unspecified. 2. Battery depletion of subcutaneous cardiac rhythm monitor. POSTOPERATIVE DIAGNOSIS: 1. Transient cerebral ischemia, unspecified. 2. Battery depletion of subcutaneous cardiac rhythm monitor. FINDINGS: 1. Transient cerebral ischemia, unspecified. 2. Battery depletion of subcutaneous cardiac rhythm monitor. PROCEDURE PERFORMED: Explantation of old subcutaneous cardiac rhythm monitor and implantation of new subcutaneous cardiac rhythm monitor. SURGEON: Ty Dumont M.D. PARA EDUCATOR: None. ANESTHESIA: Lidocaine 1% local/monitored anesthetic care. SPECIMENS: Old Medtronic subcutaneous cardiac rhythm monitor. ESTIMATED BLOOD LOSS: Less than 1 mL. BLOOD PRODUCTS REPLACED: None. DRAINS: None. COMPLICATIONS: None. PROCEDURE DESCRIPTION: Patient was prepped and draped over the sternum and left anterior chest. Lidocaine 1% was used for local anesthetic. An incision was made with a #15 blade approximately 1.5 cm in length over the existing scar. The 15 blade was used to cut down to the anterior capsule overlying the superior end of the existing loop recorder. The existing loop recorder was clamped with a snap and removed from the pocket. Next, the guide on the insertion tool was placed into the existing incision and into the existing pocket capsule. The insertion tool was rotated 180 degrees on its long axis. The punch was then placed into the insertion tool and used to advance the new subcutaneous cardiac rhythm monitor into the existing capsule/pocket. The chief clinical officer was removed and then the insertion tool was removed, leaving the loop recorder in situ. A single 2-0 Vicryl suture was used to approximate the deep layer. A 4-0 Biosyn suture was used temporarily to approximate the skin as close as possible prior to application of Dermabond. The Biosyn suture was placed subcuticular with the free ends of the suture protruding 1 cm through the skin on both ends of the incision line. Three layers of the Dermabond were applied. The Biosyn suture was then pulled through the incision line and removed entirely. The patient tolerated the procedure well without any immediate complications. The subcutaneous cardiac rhythm monitor that was removed was a Medtronic LINQ model LNQ11 with serial number [id number] originally implanted 05/06/2017. The new subcutaneous cardiac rhythm monitor implanted was a Medtronic LINQ II mode LNQ22 with serial number [id number]. The initial R wave measured 0.21 millivolt.
== END 2021-05-02 16:57 | disposition home or self-care (01) ==
LOC: M SDC 14:27
PROVIDERS: ATTEND Internal Medicine Cardiovascular Disease
DX: Z45.09 Encounter for adjustment and management of other cardiac device (principal); G45.4 Transient global amnesia; E78.00 Pure hypercholesterolemia, unspecified; K21.9 Gastro-esophageal reflux disease without esophagitis; K57.92 Diverticulitis of intestine, part unspecified, without perforation or abscess without bleeding; E03.9 Hypothyroidism, unspecified; F41.9 Anxiety disorder, unspecified; Z86.73 Personal history of transient ischemic attack (TIA), and cerebral infarction without residual deficits; N28.1 Cyst of kidney, acquired; E11.9 Type 2 diabetes mellitus without complications; Z91.040 Latex allergy status; Z88.2 Allergy status to sulfonamides; Z79.899 Other long term (current) drug therapy; Z79.82 Long term (current) use of aspirin
CPT/HCPCS: 33285; 33286; C1764; J0690; J2250; J3010

== ENCOUNTER 2021-06-04 08:33 | Observation (INO) | payer BC, OTHER ==
[~2021-06-04] VITALS: Ht 165.1 cm; Wt 80.7 kg
[~2021-06-04 08:33] MED LIST changes: -LIDOCAINE 1% MDV 20ML VIAL SQ PRN; -LR 1,000 ML IV ONE
--- OUTSIDE RECORDS SUMMARY | 2021-06-04 08:39 | CCD | Continuity of Care Document ---
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 Onset: 1 Gastroesophageal reflux disease Dayanna Manzo M.D. Onse t: 07/27/2011 Generalized anxiety disorder Dayanna Manzo M.D. Onset: 07/27/2011 Benign essential hypertension Dayanna Manzo M.D. Onset: 11/05/2016 Abnormal glucose level Dayanna Manzo M.D. Onset: 2016 Pure hypercholesterolemia Dayanna Manzo M.D. Onset: Social History Type Date Description Comments Sex Unknown ETOH Use Consumes 1 glass of wine per wee k Tobacco Use Start: Unknown Patient has never smoked Allergies and adverse reactions Active Allergies Criticality Reaction | Severity Comments Date Sulfa Unable to assess criticality HIVES 07/30/2011 Latex Unable to assess criticality FACIAL 07/30/2011 Medications Active Medications SIG Qnty Indications Ordering Provide r Date Escitalopram Oxalate 5mg Tablets 1 by mouth every day 30tabs Dayanna Manzo M.D. 05/17/20 21 Famotidine 20mg Tablets 1-2 by mouth every day try to wean omeprazole 90tabs Ashley Lomas 04/25/2021 Crestor 5mg Tablets 1 by mouth every day 90tabs Dayanna Manzo M.D. 11/23/2018 Tylenol 8 Hour Arthritis Pain 650mg Tablets ER 1 by mouth three a day prn Dayanna shabazz M.D. 05/04/2018 Zofran 4mg Tablets 1 by mouth every 6 hrs. as needed nausea/vomiting 30tabs Heber Lomas 01/27/2017 Vitamin D 1000Unit Tablets 2 by mouth every day seasonally Dayanna Manzo M.D. Aspirin 81mg Tablets every da y Dayanna Manzo M.D. 11/08/2015 Levothyroxine Sodium 112mcg Tablet s take 1 tablet by mouth every day 90tabs Heber Lomas 07/30/[address] take 1 capsule by mouth every day 90caps Dayanna Manzo M.D. 12/26 History Medications Metformin HCL 500mg Tablets take one tablet by mouth qam Dayanna Manzo M.D. 03/19 - 04/25/2021 Edarbi 40mg Tablets take 1 tablet by mouth every morning Dayanna Manzo M.D. 01/12/20 - 04/09/2021 Metformin HCL 500mg Tablets 1 bid po Dayanna Manzo M.D. 01/11/2021 - 04/09/2021 Doxycycline Hyclate 100mg Capsules one tab twice a day for 14 days 28caps Dayanna Manzo M.D. 11/27/2020 - 01/11/2021 Immunizations CPT Code Status Date Vaccine Lot # [id number] Given 05/23/1999 Influenza Virus Vaccine Vital Signs Date Vital Result Comment 05/17/2021 10:04am BP Systolic 166 mmHg RT Arm BP Diastolic 82 mmHg RT Arm Heart Rate 76 /min Height 65.25 inches 5'5.25" Weight 180.00 lb BMI (Body Mass Index) 29.7 kg/m2 04/25/2021 3:08pm BP Systolic 98 mmHg RT Arm BP Diastolic 64 mmHg RT Arm Heart Rate 92 /min Height 65.25 inches 5'5.25" Weight 182.00 lb verbal BMI (Body Mass Index) 30.1 kg/m2 Results Test Acquired Date Facility Test Result H/L Range Note A1c 04/25/2021 [facility] Urban Design Consultant: Dr Yieson Aceves [place], [place] [id number] [phone] Hba1c 5.8 % High <5.7 1 Est Avg Glucose 120 mg/dL High 60 - 110 Basic Metabolic Panel 04/25/2021 [facility] Urban Design Consultant: [place] [address] [phone] Glucose 99 mg/dL 74 - 99 2 BUN 15 mg/dL 7 - 18 Creatinine 1.0 mg/dL 0.6 - 1.3 Sodium 142 mEq/L 136 - 145 Potassium 4.5 mEq/L 3.5 - 5.1 Chloride 106 mEq/L 98 - 107 Carbon Dioxide 28 mEq/L 21 - 32 Calcium 9.3 mg/dL 8.5 - 10.1 GFR 56 mL/min Low >60 GFR >= 60 mL/min >60 3 Complete Blood Count 04/25/2021 [facility] Urban Design Consultant: [place] [address] [phone] WBC 7.4 x10*3/UL 4.1 - 10.9 RBC 4.36 x10*6/UL 4.20 - 6.30 Hemoglobin 12.8 g/dL 12.0 - 18.0 Hematocrit 37.4 % 37.0 - 51.0 MCV 85.7 fL 80.0 - 97.0 MCH 29.5 pg 26.0 - 32.0 MCHC 34.4 g/dL 31.0 - 38.0 RDW 13.1 % 11.6 - 13.7 PLT 368 x10*3/UL 140 - 440 MPV 7.5 FL Low 7.8 - 11.0 Lymph % 27.4 % 10.0 - 58.5 Mid % 6.6 % 1.7 - 9.3 Neut % 66.0 % 37.0 - 92.0 Lymph # 2.0 x10*3/UL 0.6 - 4.1 Mid # 0.5 x10*3/UL 0.1 - 0.6 Neut # 4.9 x10*3/UL 2.0 - 7.8 Hemoglobin A1c 04/16/2021 [facility] [address] [place] [address] [phone] Hemoglobin A1c 5.7 % Normal 4 Estimated Average Glucose 117 mg/dL High 60-110 Laboratory test finding 04/16/2021 [facility] [address] [place] [address] [phone] Rheumatoid Factor Quant < 10.0 IU/mL Normal <15.0 Erythrocyte Sedimentation Rate 38 mm/hr High 0-30 CBC With Differential 04/16/[address] [address] [phone] White Blood Count 6.9 10 Normal 4.0-10.0 Red Blood Count 4.36 10 Normal 4.00-5.40 Hemoglobin 12.6 g/dL Normal 12.0-15.5 Hematocrit 39.4 % Normal 36.0-47.0 Mean Corpuscular Volume 90.4 fl Normal 80.0-96.0 Mean Corpuscular Hemoglobin 28.9 pg Normal 27.0-33.0 Mean Corpuscular HGB Conc 32.0 g/dL Normal 32.0-36.5 Red Cell Distribution Width 13.5 % Normal 11.5-14.5 Platelet Count, Automated 344 10 Normal 150-450 Neutrophils % 59.2 % Normal 36.0-66.0 Lymph % 29.3 % Normal 24.0-44.0 Deuel % 5.7 % Normal 2.0-8.0 Eos % 4.9 % High 0.0-3.0 Baso % 0.6 % Normal 0.0-1.0 Immature Granulocyte % 0.3 % Normal 0-3.0 Nucleated Red Blood Cell % 0.0 % Normal 0-0 Neutrophils # 4.1 10 Normal 1.5-8.5 Lymph # 2.0 10 Normal 1.5-5.0 Deuel # 0.4 10 Normal 0.0-0.8 Eos # 0.3 10 Normal 0.0-0.5 Baso # 0.0 10 Normal 0.0-0.2 Laboratory test finding 04/16/[address] [address] [phone] Glucose, Fasting 88 mg/dL Normal 70-100 Iron (Fe) 113 g/dL Normal 50-170 Ferritin 55 NG/ML Normal 8-252 Anti-Neutrophil Cytoplasmic AB 04/16/[address] [address] [phone] Cytoplasmic Neutrop AB Anca-C <1:20 titer Normal N eg:<1:20 Perinuclear AB Anca-P <1:20 titer Normal Neg:<1:20 5 Anca-Atypical <1:20 titer Normal Neg:<1:20 6 Laboratory test finding 04/16/[address] [address] [phone] Lupus Type Anticoagulant Scree 1.1 Normal 0 -1.2 7 Laboratory test finding 04/16/[address] [address] [phone] Angiotensin 1 Converting Enzym 50 U/L Normal 1 4-82 Anti-Cardiolipin Antibodies 04/16/[address] [address] [phone] Cardiolipin Iga Antibody <9 APLU/mL Normal 0-11 8 Cardiolipin Igg Antibody <9 GPLU/mL Normal 0-14 9 Cardiolipin Igm Antibody <9 MPLU/mL Normal 0-12 10 Laboratory test finding 04/16/[address] [address] [phone] Factor VIII Activity 152 % High 56-140 Factor 5 Leiden Profile 04/16/[address] [address] [phone] [facility] Normal . 11 Factor II Prothrombin Gene Dna 04/16/[address] [address] [phone] Factor II Prothrombin Gene An (SEE NOTE) Normal . 12 Antinuclear Antibodies 04/16/[address] [address] [phone] Antinuclear Antibodies Direct Negative Normal Ne gative Laboratory test finding 04/16/[address] [address] [phone] Protein C Functional Activity 136 % Normal 7 3-180 13 Protein S Functional Activity 111 % Normal 63-140 14 Anti Thrombin 3 Panel (Ag/ac) 04/16/[address] [address] [phone] Anti Thrombin 3 Funct Activity 120 % Normal 7 5-135 15 Anti Thrombin 3 Antigen Immuno 89 % Normal 72-124 16 Lyme Disease SCRN With Confirm 03/30/[address] [address] [phone] Lyme Disease IgG/IgM Antibodie <0.91 ISR Normal 0 .00-0.90 17 Lyme Disease IgM Ab Quantitati <0.80 index Normal 0.00-0.79 18 CBC With Differential 01/19/[address] [address] [phone] White Blood Count 7.1 10 Normal 4.0-10.0 Red Blood Count 4.43 10 Normal 4.00-5.40 Hemoglobin 12.9 g/dL Normal 12.0-15.5 Hematocrit 39.4 % Normal 36.0-47.0 Mean Corpuscular Volume 88.9 fl Normal 80.0-96.0 Mean Corpuscular Hemoglobin 29.1 pg Normal 27.0-33.0 Mean Corpuscular HGB Conc 32.7 g/dL Normal 32.0-36.5 Red Cell Distribution Width 13.3 % Normal 11.5-14.5 Platelet Count, Automated 353 10 Normal 150-450 Neutrophils % 55.9 % Normal 36.0-66.0 Lymph % 29.5 % Normal 24.0-44.0 Deuel % 6.9 % Normal 2.0-8.0 Eos % 6.8 % High 0.0-3.0 Baso % 0.6 % Normal 0.0-1.0 Immature Granulocyte % 0.3 % Normal 0-3.0 Nucleated Red Blood Cell % 0.0 % Normal 0-0 Neutrophils # 4.0 10 Normal 1.5-8.5 Lymph # 2.1 10 Normal 1.5-5.0 Deuel # 0.5 10 Normal 0.0-0.8 Eos # 0.5 10 Normal 0.0-0.5 Baso # 0.0 10 Normal 0.0-0.2 Hemoglobin A1c 01/19/[address] [address] [phone] Hemoglobin A1c 5.6 % Normal 19 Estimated Average Glucose 114 mg/dL High 60-110 Thyroid Profile 01/19/[address] [address] [phone] T Uptake 31 % Normal 30-39 Thyroxine (T4) 9.7 g/dL Normal 4.5-12.0 Free Thyroxine Index 3.0 % Normal 1.3-4.8 Thyroid Stimulating Hormone 1.210 uIU/ML Normal 0.358-3.740 Basic Metabolic Profile 01/19/[address] [address] [phone] Glucose, Fasting 80 mg/dL Normal 70-100 Blood Urea Nitrogen 16 mg/dL Normal 7-18 Creatinine For GFR 0.73 mg/dL Normal 0.55-1.30 Glomerular Filtration Rate > 60.0 Normal >45 2 0 Sodium Level 141 mEq/L Normal 136-145 Potassium Serum 4.3 mEq/L Normal 3.5-5.1 Chloride Level 109 mEq/L High 98-107 Carbon Dioxide Level 26 mEq/L Normal 21-32 Anion Gap 6 mEq/L Low 8-16 Calcium Level 9.2 mg/dL Normal 8.8-10.2 Lipid Panel 01/19/[address] [address] [phone] Triglycerides Level 109 mg/dL Normal <150 Cholesterol Level 136 mg/dL Normal <200 HDL Cholesterol 60 mg/dL Normal >40 LDL Cholesterol 54 mg/dL Normal <100 Non-HDL-C 76 mg/dL Normal Cholesterol Risk Ratio 2.266 Normal <5 1 Lab Result Notes: Pre-Diabetes 5.7 - 6.4 % Diabetes = or > 6.5% 2 100-125 mg/dL PRE-DIABET ES/FASTING >126 mg/dL DIABETES/FASTING 3 CHRONIC KIDNEY DISEASE STAGI NG PER NKF STAGE I & II GFR >= 60 NORMAL TO MILDLY DECREASED STAGE III GFR 30-59 MODERATELY DECREASED STAGE IV GFR 15-29 SEVERELY DECREASED STAGE V GFR <15 VERY LITTLE GFR LEFT ESRD GFR <15 ON WELDER TACK 4 REFERENCE RANGES: <=5.6% NORMAL 5.7-6.4% SUGGESTS IMPAIRED GLUCOSE META BOLISM/PREDIABETIC >= 6.5% ABNORMAL 5 The presence of positive flu orescence exhibiting P-ANCA or C-ANCA patterns alone is not specific for the diagnosis of Amanda's Granulomatosis (WG) or microscopic polyangiitis. Decisions about treatment should not be based solely on ANCA IFA results. The International ANCA Group Consensus recommends follow up testing of positive sera with both NH- 3 and MPO-ANCA enzyme immunoassays. As m any as 5% serum samples are positive only by EIA. Ref. AM J Clin Pathol 1999;111:507-513. 6 The atypical pANCA pattern h as been observed in a significant percentage of patients with ulcerative colitis, primary sclerosing cholangitis and autoimmune hepatitis. 7 RESULT IS LESS THAN 1.2, NO FURTHER TESTING INDICATED. INTERPRETATION This test is to screen those individuals that may have a circulating lupus anticoagulant. If the LA Screen test is normal, and/or the LA Confirm test is normal, the presence of a Lupus Anticoagulant (LA) is unlikely, but does not completely exclude LA-like activity. If both tests or the LA Confirm test are elevated, the specimen will be reflexed to a hexagonal phase phospholipid test through our reference laboratory for confirmation. A positive hexagonal phase phospholipid is indicative of LA. A negative hexagonal phase phospholipid test may indicate a coagulation factor deficiency or a specific inhibitor. 8 Negative: <12 Indeterminate: 12 - 20 Low-Med Positive: >20 - 80 High Positive: >80 9 Negative: <15 Indeterminate: 15 - 20 Low-Med Positive: >20 - 80 High Positive: >80 10 Negative: <13 Indeterminate: 13 - 20 Low-Med Positive: >20 - 80 High Positive: >80 11 Result: Negative (no mutati on found) . Factor V Leiden is a specific mutation ([id number]) in the factor V gene that is associated with an increased risk of venous thrombosis. Factor V Leiden is more resistant to inactivation by activated protein C. As a result, factor V persists in the circulation leading to a mild hyper- coagulable state. The Leiden mutation accounts for 90% - 95% of APC resistance. Factor V Leiden has been reported in patients with deep vein thrombosis, pulmonary embolus, central retinal vein occlusion, cerebral sinus thrombosis and hepatic vein thrombosis. Other risk factors to be considered in the workup for venous thrombosis include the [id number] mutation in the factor II (prothrombin) gene, protein S and C deficiency, and antithrombin deficiencies. Anticardiolipin antibody and lupus anticoagulant analysis may be appropriate for certain patients, as well as homocysteine levels. . Contact your local [facility] for information on how to order additional testing if desired. . . Genetic counselors are available for health care providers to discuss results at [phone] ([phone]). . Methodology: DNA analysis of the Factor V gene was performed by allele- specific PCR. The diagnostic sensitivity and specificity is >99% for both. Molecular-based testing is highly accurate, but as in any laboratory test, diagnostic errors may occur. All test results must be combined with clinical information for the most accurate interpretation. . This test was developed and its performance characteristics determined by [facility]. It has not been cleared or approved by the Food and Drug Administration. . References: Julio Blount (1995). Clin Lab Med 16:169-186. . yRan Monterroso, PhD, [facility] Margarita Arteaga, PhD, FAC Morgan Ortega, PhD, FAC Heather Trimble, PhD, FAC Yosef Mendes, PhD, FAC Brendan Andrade PhD, FAC 12 NEGATIVE No mutation identified. . Comment: A point mutation ([id number]) in the factor II (prothrombin) gene is the second most common cause of inherited thrombophilia. The incidence of this mutation in the [place] population is about 2% and in the population it is approximately 0.5%. This mutation is rare in the and population. Being heterozygous for a prothrombin mutation increases the risk for developing venous thrombosis about 2 to 3 times above the general population risk. Being homozygous for the prothrombin gene mutation increases the relative risk for venous thrombosis further, although it is not yet known how much further the risk is increased. In women heterozygous for the prothrombin gene mutation, the use of estrogen containing oral contraceptives increases the relative risk of venous thrombosis about 16 times and the risk of developing cerebral thrombosis is also significantly increased. In the prothrombin gene mutation increases risk for venous thrombosis and may increase risk for stillbirth, placental abruption, pre-eclampsia and growth restriction. If the patient possesses two or more congenital or acquired thrombophilic risk factors, the risk for thrombosis may rise to more than the sum of the risk ratios for the individual mutations. This assay detects only the prothrombin [id number] mutation and does not measure genetic abnormalities elsewhere in the genome. Other thrombotic risk factors may be pursued through systematic clinical laboratory analysis. These factors include the R506Q (Leiden) mutation in the Factor V gene, plasma homocysteine levels, as well as testing for deficiencies of antithrombin III, protein C and protein S. . Genetic Counselors are available for health care providers to discuss results at [phone] ([phone]). . Methodology: DNA analysis of the Factor II gene was performed by PCR amplification followed by restriction analysis. The diagnostic sensitivity is >99% for both. All the tests must be combined with clinical information for the most accurate interpretation. Molecular-based testing is highly accurate, but as in any laboratory test, diagnostic errors may occur. . This test was developed and its performance characteristics determined by [facility]. It has not been cleared or approved by the Food and Drug Administration. . Poort SR, et al. Blood. 1996; 88:9979-7132. Nomi TUCKER. Circulation. 2004; 110:e15-e18. Alfredo I, et al. Arterioscler Thromb Vasc Biol. 1999; 19:700-703. . Ryan Monterroso, PhD, [facility]AC[facility] Margarita Arteaga, PhD, [facility] Morgan Ortega, PhD, [facility] Heather Trimble, PhD, [facility] Yosef Mendes, PhD, [facility] Brendan Andrade, PhD, FACMG 13 Performed at: [address] [id number] Urban Design Consultant: Gogo Heart MD, Phone: [phone] Performed at: - [facility] [id number] Urban Design Consultant: Foster Calhoun MD, Phone: [phone] Performed at: [facility] [address] [place], [place] [address] Urban Design Consultant: Jacob Aranda [facility], Phone: [phone] 14 Protein S activity may be fa lsely increased (masking an abnormal, low result) in patients receiving direct Xa inhibitor (e.g., rivaroxaban, apixaban, edoxaban) or a direct thrombin inhibitor (e.g., dabigatran) anticoagulant treatment due to assay interference by these drugs. 15 Direct Xa inhibitor anticoag ulants such as rivaroxaban, apixaban and edoxaban will lead to spuriously elevated antithrombin activity levels possibly masking a deficiency. 16 This test was developed and its performance characteristics determined by [facility]. It has not been cleared or approved by the Food and Drug Administration. 17 Negative <0.91 Equivocal 0.91 - 1.09 Positive >1.09 18 Negative <0.80 Equivocal 0.80 - 1.19 Positive >1.19 . IgM levels may peak at 3-6 weeks post infection, then gradually decline. Performed at: - [facility] [id number] Urban Design Consultant: Gogo Heart MD, Phone: [phone] REFERENCE RANGES: <=5.6% NORMAL 5.7-6.4% SUGGESTS IMPAIRED GLUCOSE META BOLISM/PREDIABETIC >= 6.5% ABNORMAL 20 Units are mL/min/1.73 m2 Chronic Kidney Disease Staging per NKF: Stage I & II GFR >=60 Normal to Mildly Decreased Stage III GFR 30-59 Moderately Decreased Stage IV GFR 15-29 Severely Decreased Stage V GFR <15 Very Little GFR Left ESRD GFR <15 on WELDER TACK Procedures Date Code Description Status 05/17/2021 05253 Office/Outpatient Established Lo w MDM 20-29 Min Completed 05/17/2021 53131 Brief Emotional/Beha v Assessment W/ Scoring Doc Per Standard Inst Completed 04/25/2021 70633 Office/Outpatient Established Mo d MDM 30-39 Min Completed 04/09/2021 98356 Hester Cre SRV W/I 7 Days Of DC, C omm W/I 2 Dys Med Rec Completed 01/11/2021 96436 Office/Outpatient Established Lo w MDM 20-29 Min Completed 11/08/2020 [id number] Colonoscopy Completed 11/23/2018 [id number] Colonoscopy Completed 12/30/2016 [id number] Colonoscopy Completed 11/20/2016 [id number] Colonoscopy Completed 08/05/2012 [id number] Mammogram Completed 11/21/2011 [id number] Colonoscopy Completed 07/04/2011 [id number] Bone Mineral Density Test Comple hi 07/01/2007 [id number] Colonoscopy Completed Medical Devices Description No Information Available Encounters Type Date Location Provider Dx Diagnosis Office Visit 05/17/2021 10:00a [facility] G45.4 Transient global amnesia F41.9 Anxiety disorder, unspecifie d I10 Essential (primary) hyperten kaci E78.00 Pure hypercholesterolemia, u nspecified E03.9 Hypothyroidism, unspecified R73.09 Other abnormal glucose K21.9 Gastro-esophageal reflux dis ease without esophagitis D50.9 Iron deficiency anemia, unsp ecified Z68.29 Body mass index [BMI] 29.0-2 9.9, adult E66.09 Other obesity due to excess calories Office Visit 04/25/2021 3:00p [facility] M.[facility] G45.4 Transient global amnesia I10 Essential (primary) hyperten kaci D50.9 Iron deficiency anemia, unsp ecified K21.9 Gastro-esophageal reflux dis ease without esophagitis E78.00 Pure hypercholesterolemia, u nspecified E03.9 Hypothyroidism, unspecified R73.09 Other abnormal glucose F41.9 Anxiety disorder, unspecifie d Z68.30 Body mass index [BMI] 30.0-3 0.9, adult E66.09 Other obesity due to excess calories Office Visit 04/09/2021 3:00p [facility] M.[facility] G45.4 Transient global amnesia I10 Essential (primary) hyperten kaci E78.00 Pure hypercholesterolemia, u nspecified E03.9 Hypothyroidism, unspecified R73.09 Other abnormal glucose K21.9 Gastro-esophageal reflux dis ease without esophagitis D50.9 Iron deficiency anemia, unsp ecified Z86.010 Personal history of colonic polyps Office Visit 01/11/2021 2:45p [facility], PYulianaCYuliana Manzo M.D. I10 Essential (primary) hyperten kaci F43.0 Acute stress reaction R73.09 Other abnormal glucose E78.00 Pure hypercholesterolemia, u nspecified G45.9 Transient cerebral ischemic attack, unspecified K21.9 Gastro-esophageal reflux dis ease without esophagitis E03.9 Hypothyroidism, unspecified Z86.010 Personal history of colonic polyps Assessments Date Code Description Provider 05/17/2021 G45.4 Transient global amnesia Dayanna Manzo M.D. 05/17/2021 F41.9 Anxiety disorder, unspecified Thao Manzo M.D. 05/17/2021 I10 Essential (primary) hypertension Dayanna Manzo M.D. 05/17/2021 E78.00 Pure hypercholesterolemia, unspe cified Dayanna Manzo M.D. 05/17/2021 E03.9 Hypothyroidism, unspecified Nidhi Manzo M.D. 05/17/2021 R73.09 Other abnormal glucose Dayanna Manzo M.D. 05/17/2021 K21.9 Gastro-esophageal reflux disease without esophagitis Dayanna Manzo M.D. 05/17/2021 D50.9 Iron deficiency anemia, unspecif ied Dayanna Manzo M.D. 05/17/2021 Z68.29 Body mass index [BMI] 29.0-29.9, adult Dayanna Manzo M.D. 05/17/2021 E66.09 Other obesity due to excess arlene cinthya Dayanna Manzo M.D. 04/25/2021 G45.4 Transient global amnesia Dayanna Manzo M.D. 04/25/2021 I10 Essential (primary) hypertension Dayanna Manzo M.D. 04/25/2021 D50.9 Iron deficiency anemia, unspecif ied Dayanna Manzo M.D. 04/25/2021 K21.9 Gastro-esophageal reflux disease without esophagitis Dayanna Manzo M.D. 04/25/2021 E78.00 Pure hypercholesterolemia, unspe cified Dayanna Manzo M.D. 04/25/2021 E03.9 Hypothyroidism, unspecified Nidhi Manzo M.D. 04/25/2021 R73.09 Other abnormal glucose Dayanna Manzo M.D. 04/25/2021 F41.9 Anxiety disorder, unspecified Thao Manzo M.D. 04/25/2021 Z68.30 Body mass index [BMI] 30.0-30.9, adult Dayanna Manzo M.D. 04/25/2021 E66.09 Other obesity due to excess arlene cinthya Dayanna Manzo M.D. 04/09/2021 G45.4 Transient global amnesia Dayanna Manzo M.D. 04/09/2021 I10 Essential (primary) hypertension Dayanna Manzo M.D. 04/09/2021 E78.00 Pure hypercholesterolemia, unspe cified Dayanna Manzo M.D. 04/09/2021 E03.9 Hypothyroidism, unspecified Nidhi Manzo M.D. 04/09/2021 R73.09 Other abnormal glucose Dayanna Manzo M.D. 04/09/2021 K21.9 Gastro-esophageal reflux disease without esophagitis Dayanna Manzo M.D. 04/09/2021 D50.9 Iron deficiency anemia, unspecif ied Dayanna Manzo M.D. 04/09/2021 Z86.010 Personal history of colonic poly ps Dayanna Manzo M.D. 01/11/2021 I10 Essential (primary) hypertension Dayanna Manzo M.D. 01/11/2021 F43.0 Acute stress reaction Dayanna bañuelos M.D. 01/11/2021 R73.09 Other abnormal glucose Dayanna Manzo M.D. 01/11/2021 E78.00 Pure hypercholesterolemia, unspe cified Dayanna Manzo M.D. 01/11/2021 G45.9 Transient cerebral ischemic na ck, unspecified Dayanna Manzo M.D. 01/11/2021 K21.9 Gastro-esophageal reflux disease without esophagitis Dayanna Manzo M.D. 01/11/2021 E03.9 Hypothyroidism, unspecified Nidhi Manzo M.D. 01/11/2021 Z86.010 Personal history of colonic poly ps Dayanna Manzo M.D. Plan of Treatment Future Appointment(s):* 07/25/2021 3:00 pm - Dayanna Manzo M.D. at [facility] 05/17/2021 - Dayanna Manzo M.D.* G45.4 Transient global amnesia * F41.9 Anxiety disorder, unspecified * I10 Essential (primary) hypertension * E78.00 Pure hypercholesterolemia, unspecified * E03.9 Hypothyroidism, unspecified * R73.09 Other abnormal glucose * K21.9 Gastro-esophageal reflux disease without esophagitis * D50.9 Iron deficiency anemia, unspecified * Z68.29 Body mass index [BMI] 29.0-29.9, adult * E66.09 Other obesity due to excess calories * All * New Medication:* Escitalopram Oxalate 5 mg - 1 by mouth every day Functional Status Description No Information Available Mental Status Description No Information Available Referrals Refer to Reason for Referral Status Appt Date [facility] Adult Hematology/Oncology SUPERVISOR PHOSPHATIC FERTILIZER CONSULT FOR FACTOR 8 ELEVAT ION Created [facility] [address] [address] [phone]
--- OUTSIDE RECORDS SUMMARY | 2021-06-04 08:39 | CCD | Continuity of Care Document ---
Author Author Judy GODWIN PA-C Organization Unknown Address [address], [place] [address] Phone [phone] Care Team Providers Care Search Engine Marketing Strategist Name Role Phone Dayanna Manzo MD AUTM [phone] AUTM [phone] Brad Mckeon MD AUTM [phone] Problems Active Problems Provider Date Dietary management surveillance Ty Dumont MD Onset: 04/29/2017 Essential hypertension Ty Dumont MD Onset: 7 Palpitations Ty Dumont MD Onset: 04/29/2017 Obesity Ty Dumont MD Onset: 04/29/2017 Transient cerebral ischemia Ty Dumont MD Onset: 04/18 Flushing Ty Dumont MD Onset: 04/29/2017 Prediabetes Ty Dumont MD Onset: 04/22/2019 Pure hypercholesterolemia Ty Dumont MD Onset: 2019 Social History Type Date Description Comments Sex Unknown ETOH Use Never used alcohol Tobacco Use Start: Unknown Patient has never smoked Smoking Status Reviewed: 05/08/21 Patient has never smoked Exercise Type/Frequency Does housework 3 times a week Exercise Type/Frequency Does yardwork sporadical ly Exercise Type/Frequency Does gardening 3 times a week Exercise Type/Frequency Walks daily 3-5 mile s Exercise Limitations None Allergies, Adverse Reactions, Alerts Active Allergies Criticality Reaction | Severity Comments Date Sulfa Unable to assess criticality hives 07/10/2015 Latex Unable to assess criticality hives 07/10/2015 Medications Active Medications SIG Qnty Indications Ordering Provide r Date Metformin HCL ER (Mod) 500mg Tablets ER 24HR 1 by mouth every day Dayanna Manzo MD 04/19/2021 Atorvastatin Calcium 10mg Tablets 1/2 by mouth every night at bedtime Unknown 07/2020 Levothyroxine Sodium 112mcg Tablet s 1 by mouth every day Dayanna Manzo MD 07/10/[address] 1 by mouth every day Dayanna Manzo MD 07/10/2015 Aspir-[address] 1 by mouth every day Dayanna Manzo MD 07/10/2015 History Medications Edarbi 40mg Tablets 1 by mouth every day I10 Unknown 01/08/2021 - 021 Edarbi 80mg Tablets 1 tablet by mouth every day 90tabs I10 Ty Dumont MD 12/13/2020 - 01/08/2021 Covid-19 vaccine, Unspecified Inj ection Unknown Covid-19 vaccine, Unspecified Inj ection Unknown Immunizations Description No Information Available Vital Signs Date Vital Result Comment 04/20/2021 9:20am Weight 183.00 lb Home Weight 183lb Height 65 inches 5'5" BMI (Body Mass Index) 30.4 kg/m2 Heart Rate 72 /min BP Systolic Sitting 124 mmHg Ra, medium cuff BP Diastolic Sitting 80 mmHg Ra, medium cuff 01/09/2021 12:05pm Weight 188.00 lb Home Weight 180lb home weight Height 65 inches 5'5" BMI (Body Mass Index) 31.3 kg/m2 Heart Rate 84 /min BP Systolic Sitting 126 mmHg Omron, adult cuff/Ra BP Diastolic Sitting 84 mmHg Omron, adult cuff/R a Results Test Acquired Date Facility Test Result H/L Range Note Complete Blood Count 04/25/2021 N2[facility]Direct CCD Impo rt WBC 7.4 x10*3/UL 4.1-10.9 RBC 4.36 x10*6/UL 4.20-6.30 Hemoglobin 12.8 g/dL 12.0-18.0 Hematocrit 37.4 % 37.0-51.0 MCV 85.7 fL 80.0-97.0 MCH 29.5 pg 26.0-32.0 MCHC 34.4 g/dL 31.0-38.0 RDW 13.1 % 11.6-13.7 PLT 368 x10*3/UL 140-440 MPV 7.5 FL Low 7.8-11.0 Lymph % 27.4 % 10.0-58.5 Mid % 6.6 % 1.7-9.3 Neut % 66.0 % 37.0-92.0 Lymph # 2.0 x10*3/UL 0.6-4.1 Mid # 0.5 x10*3/UL 0.1-0.6 Neut # 4.9 x10*3/UL 2.0-7.8 Basic Metabolic Panel 04/25/2021 N2[facility]/Direct CCD Imp ort Glucose 99 mg/dL 74-99 1 BUN 15 mg/dL 7-18 Creatinine 1.0 mg/dL 0.6-1.3 Sodium 142 mEq/L 136-145 Potassium 4.5 mEq/L 3.5-5.1 Chloride 106 mEq/L 98-107 Carbon Dioxide 28 mEq/L 21-32 Calcium 9.3 mg/dL 8.5-10.1 GFR 56 mL/min Low GFR >= 60 mL/min 2 Hemoglobin A1c 04/16/2021 [facility] - not interfaced (315)- - Hemoglobin A1c 5.7 CBC without Differential 04/05/2021 [facility] - not inter faced (315)- - White Blood Count 8.2 5.0-10.0 Red Blood Count 4.40 4.00-5.40 Platelets 337 172-450 Hemoglobin 12.9 Hematocrit 40.0 BMP 04/05/2021 [facility] - not interfaced (315)- - Calcium Ser/Plasma Mass/Vol 9.0 Sodium 143 Carbon Dioxide Ser/Plasm 26 Chloride Serum/Plasma 112 Potassium 4.5 Glucose 92 83-110 Blood Urea Nitrogen 22 High 7-18 Creatinine 0.69 0.6-1.0 G F R >60.0 Lipid Profile/Cardiac Risk Pro 04/05/2021 [facility] - not interfaced (315)- - Triglycerides 91 <150 Cholesterol 143 <200 HDL 57 >40.0 LDL Cholesterol 68 Chol/HDL Ratio 2.508 <5 CBC without Differential 04/04/2021 [facility] - not inter faced (315)- - White Blood Count 9.9 5.0-10.0 Red Blood Count 4.80 4.00-5.40 Platelets 362 172-450 Hemoglobin 13.8 Hematocrit 42.7 BMP 04/04/2021 [facility] - not interfaced (315)- - Calcium Ser/Plasma Mass/Vol 9.1 Sodium 141 Carbon Dioxide Ser/Plasm 27 Chloride Serum/Plasma 106 Potassium 4.3 Glucose 103 83-110 Blood Urea Nitrogen 24 High 7-18 Creatinine 0.86 0.6-1.0 G F R >60.0 Lipid Profile/Cardiac Risk Pro 04/04/2021 [facility] - not interfaced (315)- - Triglycerides 174 High <150 Cholesterol 174 <200 HDL 62 >40.0 LDL Cholesterol 77 Chol/HDL Ratio 2.806 <5 Laboratory test finding 04/04/2021 [facility] - not interf aced (315)- - Troponin <0.02 Thyroid Stimulating Hormone 2.760 CBC With Differential 01/19/2021 [facility]Direct CCD Imp ort White Blood Count 7.1 10 4.0-10.0 Red Blood Count 4.43 10 4.00-5.40 Hemoglobin 12.9 g/dL 12.0-15.5 Hematocrit 39.4 % 36.0-47.0 Mean Corpuscular Volume 88.9 fl 80.0-96.0 Mean Corpuscular Hemoglobin 29.1 pg 27.0-33.0 Mean Corpuscular HGB Conc 32.7 g/dL 32.0-36.5 Red Cell Distribution Width 13.3 % 11.5-14.5 Platelet Count, Automated 353 10 150-450 Neutrophils % 55.9 % 36.0-66.0 Lymph % 29.5 % 24.0-44.0 Coamo % 6.9 % 2.0-8.0 Eos % 6.8 % High 0.0-3.0 Baso % 0.6 % 0.0-1.0 Immature Granulocyte % 0.3 % 0-3.0 Nucleated Red Blood Cell % 0.0 % 0-0 Neutrophils # 4.0 10 1.5-8.5 Lymph # 2.1 10 1.5-5.0 Coamo # 0.5 10 0.0-0.8 Eos # 0.5 10 0.0-0.5 Baso # 0.0 10 0.0-0.2 Thyroid Profile 01/19/2021 N2N/Direct CCD Impor t T Uptake 31 % 30-39 Thyroxine (T4) 9.7 g/dL 4.5-12.0 Free Thyroxine Index 3.0 % 1.3-4.8 Thyroid Stimulating Hormone 1.210 uIU/ML 0.358-3.740 Basic Metabolic Profile 01/19/2021 N2N/Direct CCD I mport Glucose, Fasting 80 mg/dL 70-100 Blood Urea Nitrogen 16 mg/dL 7-18 Creatinine For GFR 0.73 mg/dL 0.55-1.30 Glomerular Filtration Rate > 60.0 3 Sodium Level 141 mEq/L 136-145 Potassium Serum 4.3 mEq/L 3.5-5.1 Chloride Level 109 mEq/L High 98-107 Carbon Dioxide Level 26 mEq/L 21-32 Anion Gap 6 mEq/L Low 8-16 Calcium Level 9.2 mg/dL 8.8-10.2 Lipid Panel 01/19/2021 N2N/Direct CCD Impor t Triglycerides Level 109 mg/dL Cholesterol Level 136 mg/dL HDL Cholesterol 60 mg/dL LDL Cholesterol 54 mg/dL Non-HDL-C 76 mg/dL Cholesterol Risk Ratio 2.266 1 1 100-125 mg/dL PRE-DIABET ES/FASTING >126 mg/dL DIABETES/FASTING 2 CHRONIC KIDNEY DISEASE STAGI NG PER NKF STAGE I & II GFR >= 60 NORMAL TO MILDLY DECREASED STAGE III GFR 30-59 MODERATELY DECREASED STAGE IV GFR 15-29 SEVERELY DECREASED STAGE V GFR <15 VERY LITTLE GFR LEFT ESRD GFR <15 ON CLINICAL DATA ANALYST 3 Units are mL/min/1.73 m2 Chronic Kidney Disease Staging per NKF: Stage I & II GFR >=60 Normal to Mildly Decreased Stage III GFR 30-59 Moderately Decreased Stage IV GFR 15-29 Severely Decreased Stage V GFR <15 Very Little GFR Left ESRD GFR <15 on CLINICAL DATA ANALYST Procedures Date Code Description Status 05/08/2021 98899 Office/Outpatient Established Mi nimal Problem(S) Completed 04/20/2021 66454 Office/Outpatient Established Mo d MDM 30-39 Min Completed 04/20/2021 30434 ECG 12-Lead Completed 01/09/2021 79030 Office/Outpatient Established Lo w MDM 20-29 Min Completed 01/02/2021 66971 Implantable Loop Recorder System , Review And Report Completed 12/01/2020 69069 Implantable Loop Recorder System , Review And Report Completed Medical Devices Description No Information Available Encounters Type Date Location Provider Dx Diagnosis Office Visit 05/08/2021 12:30p Main Office Chata Godwin PA-C G45.9 Transient cerebral ischemic attack, unspecified Office Visit 04/20/2021 9:15a Main Office GERARDO Naidu G45 .9 Transient cerebral ischemic attack, unspecified Office Visit 01/09/2021 12:00p Main Office Ty Dumont MD I10 Essential (primary) hypertension E78.00 Pure hypercholesterolemia, u nspecified E66.09 Other obesity due to excess calories Z71.3 Dietary counseling and surve illance Assessments Date Code Description Provider 05/08/2021 G45.9 Transient cerebral ischemic na ck, unspecified Chata Godwin PA-C 04/20/2021 G45.9 Transient cerebral ischemic na ck, unspecified GERARDO Naidu 01/09/2021 I10 Essential (primary) hypertension Ty Dumont MD 01/09/2021 E78.00 Pure hypercholesterolemia, unspe cified Ty Dumont MD 01/09/2021 E66.09 Other obesity due to excess arlene cinthya Ty Dumont MD 01/09/2021 Z71.3 Dietary counseling and surveilla nce Ty Dumont MD 01/02/2021 Z95.818 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 As scheduled with Dr. Dumont 06/12/21. Functional Status Functional Condition Comment Date Status Independent with all ADL's Activ e Mental Status Description No Information Available Referrals Description No Information Available
--- OUTSIDE RECORDS SUMMARY | 2021-06-04 08:39 | CCD | Continuity of Care Document ---
Author Author Judy Manzo M.D Organization Unknown Address [address] [place] [address] Phone [phone] Care Team Providers Care Mortgage Loan Specialist Name Role Phone Feed [employer] AUTM [phone] Dayanna Manzo MD AUTM [phone] Ty Schilling MD AUTM [phone] Heaven Guerra MD AUTM [phone] AntecolTy MD AUTM Sofia Sweeney M.D., Yoel AUTM [phone] Problems Active Problems Provider Date Hypothyroidism Dayanna [...] Use Start: Unknown Patient has never smoked Allergies, Adverse Reactions, Alerts Active Allergies Criticality [...] 500mg Tablets take one tablet by mouth qa Dayanna Manzo M.D. 03/19 - 04/25/2021 Edarbi 40mg Tablets take 1 tablet by mouth every morning Dayanna Manzo M.D. 01/12/20 - 04/09/2021 Metformin HCL 500mg Tablets 1 bid po Dayanna Manzo M.D. 01/11/2021 - 04/09/2021 Doxycycline Hyclate 100mg Capsules one tab twice a day for 14 days 28caps Dayanna Manzo M.D. 11/27/2020 - 01/11/2021 Immunizations CPT Code Status Date Vaccine Lot # [id number] Given 05/23/1999 Influenza Virus Vaccine Vital Signs [...] Test Result H/L Range Note A1c 04/25/2021 [facility] Dye Range Operator: Dr Yeison Aceves [place], [place] [id number] [phone] Hba1c 5.8 % High <5.7 1 Est Avg Glucose 120 mg/dL High 60 - 110 Basic Metabolic Panel 04/25/2021 [facility] Dye Range Operator: [place] [address] [phone] Glucose 99 mg/dL 74 - 99 2 [...] mL/min >60 3 Complete Blood Count 04/25/2021 [facility] Dye Range Operator: [place] [address] [phone] WBC 7.4 x10*3/UL 4.1 - 10.9 RBC [...] x10*3/UL 2.0 - 7.8 Hemoglobin A1c 04/16/2021 [facility] [address] [place] [address] [phone] Hemoglobin A1c 5.7 % Normal 4 Estimated Average Glucose 117 mg/dL High 60-110 Laboratory test finding 04/16/2021 [facility] [address] [place] [address] [phone] Rheumatoid Factor Quant < 10.0 IU/mL Normal <15.0 Erythrocyte Sedimentation Rate 38 mm/hr High 0-30 CBC With Differential 04/16/[address] [address] [phone] White Blood Count 6.9 10 Normal 4.0-10.0 [...] 36.0-66.0 Lymph % 29.3 % Normal 24.0-44.0 Emery % 5.7 % Normal 2.0-8.0 Eos % 4.9 % High 0.0-3.0 Baso % 0.6 % Normal 0.0-1.0 Immature Granulocyte % 0.3 % Normal 0-3.0 Nucleated Red Blood Cell % 0.0 % Normal 0-0 Neutrophils # 4.1 10 Normal 1.5-8.5 Lymph # 2.0 10 Normal 1.5-5.0 Emery # 0.4 10 Normal 0.0-0.8 Eos # 0.3 10 Normal 0.0-0.5 Baso # 0.0 10 Normal 0.0-0.2 Laboratory test finding 04/16/[address] [address] [phone] Glucose, Fasting 88 mg/dL Normal 70-100 Iron (Fe) 113 g/dL Normal 50-170 Ferritin 55 NG/ML Normal 8-252 Anti-Neutrophil Cytoplasmic AB 04/16/[address] [address] [phone] Cytoplasmic Neutrop AB Anca-C <1:20 titer Normal N eg:<1:20 Perinuclear AB Anca-P <1:20 titer Normal Neg:<1:20 5 Anca-Atypical <1:20 titer Normal Neg:<1:20 6 Laboratory test finding 04/16/[address] [address] [phone] Lupus Type Anticoagulant Scree 1.1 Normal 0 -1.2 7 Laboratory test finding 04/16/[address] [address] [phone] Angiotensin 1 Converting Enzym 50 U/L Normal 1 4-82 Anti-Cardiolipin Antibodies 04/16/[address] [address] [phone] Cardiolipin Iga Antibody <9 APLU/mL Normal 0-11 8 Cardiolipin Igg Antibody <9 GPLU/mL Normal 0-14 9 Cardiolipin Igm Antibody <9 MPLU/mL Normal 0-12 10 Laboratory test finding 04/16/[address] [address] [phone] Factor VIII Activity 152 % High 56-140 Factor 5 Leiden Profile 04/16/[address] [address] [phone] Factor V Leiden For [facility] (SEE NOTE) Normal . 11 Factor II Prothrombin Gene Dna 04/16/[address] [address] [phone] Factor II Prothrombin Gene An (SEE NOTE) Normal . 12 Antinuclear Antibodies 04/16/[address] [address] [phone] Antinuclear Antibodies Direct Negative Normal Ne gative Laboratory test finding 04/16/[address] [address] [phone] Protein C Functional Activity 136 % Normal 7 3-180 13 Protein S Functional Activity 111 % Normal 63-140 14 Anti Thrombin 3 Panel (Ag/ac) 04/16/[address] [address] [phone] Anti Thrombin 3 Funct Activity 120 % Normal 7 5-135 15 Anti Thrombin 3 Antigen Immuno 89 % Normal 72-124 16 Lyme Disease SCRN With Confirm 03/30/[address] [address] [phone] Lyme Disease IgG/IgM Antibodie <0.91 ISR Normal 0 .00-0.90 17 Lyme Disease IgM Ab Quantitati <0.80 index Normal 0.00-0.79 18 CBC With Differential 01/19/[address] [address] [phone] White Blood Count 7.1 10 Normal 4.0-10.0 [...] 36.0-66.0 Lymph % 29.5 % Normal 24.0-44.0 Emery % 6.9 % Normal 2.0-8.0 Eos % 6.8 % High 0.0-3.0 Baso % 0.6 % Normal 0.0-1.0 Immature Granulocyte % 0.3 % Normal 0-3.0 Nucleated Red Blood Cell % 0.0 % Normal 0-0 Neutrophils # 4.0 10 Normal 1.5-8.5 Lymph # 2.1 10 Normal 1.5-5.0 Emery # 0.5 10 Normal 0.0-0.8 Eos # 0.5 10 Normal 0.0-0.5 Baso # 0.0 10 Normal 0.0-0.2 Hemoglobin A1c 01/19/[address] [address] [phone] Hemoglobin A1c 5.6 % Normal 19 Estimated Average Glucose 114 mg/dL High 60-110 Thyroid Profile 01/19/[address] [address] [phone] T Uptake 31 % Normal 30-39 Thyroxine (T4) 9.7 g/dL Normal 4.5-12.0 Free Thyroxine Index 3.0 % Normal 1.3-4.8 Thyroid Stimulating Hormone 1.210 uIU/ML Normal 0.358-3.740 Basic Metabolic Profile 01/19/[address] [address] [phone] Glucose, Fasting 80 mg/dL Normal 70-100 Blood [...] 9.2 mg/dL Normal 8.8-10.2 Lipid Panel 01/19/[address] [address] [phone] Triglycerides Level 109 mg/dL Normal <150 Cholesterol [...] LITTLE GFR LEFT ESRD GFR <15 ON BULK FLUIDS HANDLER 4 REFERENCE RANGES: <=5.6% NORMAL 5.7-6.4% SUGGESTS [...] up testing of positive sera with both KS- 3 and MPO-ANCA enzyme immunoassays. As m [...] the workup for venous thrombosis include the [id number] mutation in the factor II (prothrombin) gene, protein S and C deficiency, and antithrombin deficiencies. Anticardiolipin antibody and lupus anticoagulant analysis may be appropriate for certain patients, as well as homocysteine levels. . Contact your local [facility] for information on how to order additional testing if desired. . . Genetic counselors are available for health care providers to discuss results at [phone] [facility] ([phone]). . Methodology: DNA analysis of the Factor [...] developed and its performance characteristics determined by [facility]. It has not been cleared or approved by the Food and Drug Administration. . References: Julio Blount (1995). Clin Lab Med 16:169-186. . Ryan Monterroso, PhD, [facility] Margarita Arteaga, PhD, [facility] Morgan Ortega, PhD, FAC Heather Trimble, PhD, FAC Yosef Mendes, PhD, [facility] Brendan Andrade PhD, FAC 12 NEGATIVE No mutation identified. . Comment: A point mutation ([id number]) in the factor II (prothrombin) gene is [...] mutations. This assay detects only the prothrombin [id number] mutation and does not measure genetic abnormalities [...] health care providers to discuss results at [phone] ([phone]). . Methodology: DNA analysis of the Factor [...] developed and its performance characteristics determined by [employer]. It has not been cleared or approved by the Food and Drug Administration. . Poort SR, et al. Blood. 1996; 88:4441-7045. Nomi TUCKER. Circulation. 2004; 110:e15-e18. Alfredo I, et al. Arterioscler Thromb Vasc Biol. 1999; 19:700-703. . Ryan Monterroso, PhD, [facility] Margarita Arteaga, PhD, [facility] Morgan Ortega, PhD, [facility] Heather Trimble, PhD, [facility] Yosef Mendes, PhD, [facility] Brendan Andrade, PhD, [facility] 13 Performed at: [facility] [address] [id number] Dye Range Operator: Gogo Heart MD, Phone: [phone] Performed at: [facility] [address] [id number] Dye Range Operator: Foster Calhoun MD, Phone: [phone] Performed at: [facility] [address] [place], [place] [address] 591 Dye Range Operator: Jacob Aranda [facility], Phone: [phone] Protein S activity may be fa [...] developed and its performance characteristics determined by [employer]. It has not been cleared or approved by the Food and Drug Administration. 17 Negative <0.91 Equivocal 0.91 - 1.09 Positive >1.09 18 Negative <0.80 Equivocal 0.80 - 1.19 Positive >1.19 . IgM levels may peak at 3-6 weeks post infection, then gradually decline. Performed at: [facility] [address] [id number] Dye Range Operator: Gogo Heart MD, Phone: [phone] REFERENCE RANGES: <=5.6% NORMAL 5.7-6.4% SUGGESTS IMPAIRED GLUCOSE META BOLISM/PREDIABETIC >= 6.5% ABNORMAL 20 Units are mL/min/1.73 m2 Chronic Kidney Disease Staging per NKF: Stage I & II GFR >=60 Normal to Mildly Decreased Stage III GFR 30-59 Moderately Decreased Stage IV GFR 15-29 Severely Decreased Stage V GFR <15 Very Little GFR Left ESRD GFR <15 on BULK FLUIDS HANDLER Procedures Date Code Description Status 04/25/2021 67947 Office/Outpatient Established Mo d MDM 30-39 Min Completed 04/09/2021 47858 Hester Cre SRV W/I 7 Days Of DC, C omm W/I 2 Dys Med Rec Completed 01/11/2021 45770 Office/Outpatient Established Lo w MDM 20-29 Min Completed 11/08/2020 [id number] Colonoscopy Completed 11/23/2018 [id number] Colonoscopy Completed 12/30/2016 [id number] Colonoscopy Completed 11/20/2016 [id number] Colonoscopy Completed 08/05/2012 [id number] Mammogram Completed 11/21/2011 [id number] Colonoscopy Completed 07/04/2011 [id number] Bone Mineral Density Test Comple hi 07/01/2007 [id number] Colonoscopy Completed Medical Devices Description No Information Available Encounters Type Date Location Provider Dx Diagnosis Office Visit 04/25/2021 3:00p [facility] M[facility] G45.4 Transient global amnesia I10 Essential (primary) hyperten kaci D50.9 Iron deficiency anemia, unsp ecified K21.9 Gastro-esophageal reflux dis ease without esophagitis E78.00 Pure hypercholesterolemia, u nspecified E03.9 Hypothyroidism, unspecified R73.09 Other abnormal glucose F41.9 Anxiety disorder, unspecifie d Z68.30 Body mass index [BMI] 30.0-3 0.9, adult E66.09 Other obesity due to excess calories Office Visit 04/09/2021 3:00p [facility] Rashard Hutson M.D. G45.4 Transient global amnesia I10 Essential (primary) hyperten kaci E78.00 Pure hypercholesterolemia, u nspecified E03.9 Hypothyroidism, unspecified R73.09 Other abnormal glucose K21.9 Gastro-esophageal reflux dis ease without esophagitis D50.9 Iron deficiency anemia, unsp ecified Z86.010 Personal history of colonic polyps Office Visit 01/11/2021 2:45p [facility] Rashard Hutson M.D. I10 Essential (primary) hyperten kaci F43.0 Acute stress reaction R73.09 Other abnormal glucose E78.00 Pure hypercholesterolemia, u nspecified G45.9 Transient cerebral ischemic attack, unspecified K21.9 Gastro-esophageal reflux dis ease without esophagitis E03.9 Hypothyroidism, unspecified Z86.010 Personal history of colonic polyps Assessments Date Code Description Provider 05/17/2021 F41.9 Anxiety disorder, unspecified Thao Manzo M.D. 05/17/2021 G45.4 Transient global amnesia Dayanna Manzo M.D. 05/17/2021 I10 Essential (primary) hypertension Dayanna Manzo M.D. 05/17/2021 E78.00 Pure hypercholesterolemia, unspe cified Dayanna Manzo M.D. 05/17/2021 E03.9 Hypothyroidism, unspecified Nidhi Manzo M.D. 05/17/2021 R73.09 Other abnormal glucose Dayanna Manzo M.D. 05/17/2021 K21.9 Gastro-esophageal reflux disease without esophagitis Dayanna Manzo M.D. 05/17/2021 D50.9 Iron deficiency anemia, unspecif ied Dayanna Manzo M.D. 05/17/2021 E66.09 Other obesity due to excess arlene cinthya Manzo M.D. 04/25/2021 G45.4 Transient global amnesia [...] E66.09 Other obesity due to excess arlene cinthyasuzette Manzo M.D. 04/09/2021 G45.4 Transient global amnesia [...] 3:00 pm - Dayanna Manzo M.D. at [facility] 05/17/2021 - Dayanna Manzo M.D.* F41.9 Anxiety disorder, unspecified * G45.4 Transient global amnesia * I10 Essential (primary) hypertension * E78.00 Pure hypercholesterolemia, unspecified * E03.9 Hypothyroidism, unspecified * R73.09 Other abnormal glucose * K21.9 Gastro-esophageal reflux disease without esophagitis * D50.9 Iron deficiency anemia, unspecified * E66.09 Other obesity due to excess calories * All * New Medication:* Escitalopram Oxalate 5 mg - 1 by mouth every day Functional Status Description No Information Available Mental Status Description No Information Available Referrals Refer to Reason for Referral Status Appt Date [facility] Adult Hematology/Oncology TYPING BOOKKEEPER CONSULT FOR FACTOR 8 ELEVAT ION Created [facility] [address] [address] [phone]
--- OUTSIDE RECORDS SUMMARY | 2021-06-04 08:39 | CCD | Continuity of Care Document ---
Author Judy Bar Organization Unknown Address [address], [address] [place] [address] Phone [phone] Care Team Providers Care Patient Observer Name Role Phone Dayanna Manzo MD AUTM [phone] Problems Active Problems Provider Date History of cerebrovascular accident without residual d eficits Mitch Espinoza MD Onset: 05/16/2021 Hyperlipidemia Mitch Espinoza MD Onset: 05/16/2021 Essential hypertension Mitch Espinoza MD Onset: 05/16/20 21 Transient global amnesia Mitch Espinoza MD Onset: 2020 Social History Type Date Description Comments Sex Unknown Tobacco Use Reviewed: 05/16/21 Patient has never sm oked (pipe, cigarette, cigar) Smoking Status Reviewed: 05/16/21 Patient has never sm oked (pipe, cigarette, cigar) Allergies, Adverse Reactions, Alerts Description No Information Available Medications Active Medications SIG Qnty Indications Ordering Provide r Date Omeprazole 20mg Capsules DR 1 by mouth every day Dayanna Manzo MD Rosuvastatin Calcium 5mg Tablets 1 by mouth every day Dayanna Manzo MD Synthroid 112mcg Tablets 1 by mouth every day 90tabs Dayanna Manzo MD Ondansetron HCL 4mg Tablets A S needed Dayanna Manzo MD Aspirin Adult Low Dose 81mg Tablet s DR 1 by mouth every day Unknown Immunizations Description No Information Available Vital Signs Date Vital Result Comment 05/16/2021 10:15am Height 65 inches 5'5" Weight 186.00 lb BMI (Body Mass Index) 30.9 kg/m2 BP Systolic Left Arm 132 mmHg BP Diastolic Left Arm 80 mmHg Heart Rate 82 /min Results Description No Information Available Procedures Date Code Description Status 05/16/2021 61377 Office/Outpatient New Moderate M DM 45-59 Minutes Completed 05/16/2021 27225 Implantable [employer] Heart Rhythm Derived Data Completed Medical Devices Description No Information Available Encounters Type Date Location Provider Dx Diagnosis Office Visit 05/16/2021 10:15a [facility] Cardiology AT [place] Mitch Espinoza MD G45.4 Transient global amnesia I10 Essential (primary) hyperten kaci E78.5 Hyperlipidemia, unspecified Z86.73 Prsnl hx of TIA (TIA), and c ereb infrc w/o resid deficits Z95.818 Presence of other cardiac im plants and grafts Assessments Date Code Description Provider 05/16/2021 G45.4 Transient global amnesia Mitch Espinoza MD 05/16/2021 I48.0 Paroxysmal atrial fibrillation D evice Checks 05/16/2021 I10 Essential (primary) hypertension Mitch Espinoza MD 05/16/2021 Z86.73 Personal history of transient ischemic attack (TIA), and cerebral infarction without residual deficits Device Checks 05/16/2021 E78.5 Hyperlipidemia, unspecified Laron Espinoza MD 05/16/2021 Z86.73 Personal history of transient ischemic attack (TIA), and cerebral infarction without residual deficits Mitch Espinoza MD 05/16/2021 Z95.818 Presence of other cardiac implan ts and grafts Mitch Espinoza MD Plan of Treatment Future Appointment(s):* 05/15/2022 9:00 am - Device Checks at [facility] Cardiology AT [place] * 05/15/2022 9:15 am - Mitch Espinoza MD at [facility] Cardiology AT [place] 05/16/2021 - Mitch Espinoza MD* G45.4 Transient global amnesia * I10 Essential (primary) hypertension * E78.5 Hyperlipidemia, unspecified * Z86.73 Personal history of transient ischemic attack (TIA), and cerebral infarction without residual deficits * Z95.818 Presence of other cardiac implants and grafts Functional Status Description No Information Available Mental Status Description No Information Available Referrals Description No Information Available
--- OUTSIDE RECORDS SUMMARY | 2021-06-04 08:39 | CCD | Continuity of Care Document ---
Author Author Device Judy Clay Organization Unknown Address [address], [address] [place] [address] Phone [phone] Care Team Providers Care Battery Container Inspector Name Role Phone Dayanna Manzo MD AUTM [phone] Problems Active Problems Provider Date History of [...] Available Procedures Date Code Description Status 05/16/2021 69774 Office/Outpatient New Moderate M DM 45-59 Minutes Completed 05/16/2021 34362 Implantable Loop [employer] Heart Rhythm Derived Data Completed Medical Devices Description No Information Available Encounters Type Date Location Provider Dx Diagnosis Office Visit 05/16/2021 10:15a [facility] Cardiology AT [place] Mitch Espinoza MD G45.4 Transient global amnesia I10 Essential (primary) hyperten kaci E78.5 Hyperlipidemia, unspecified Z86.73 Prsnl hx of TIA (TIA), and c ereb infrc w/o resid deficits Z95.818 Presence of other cardiac im plants and grafts Assessments Date Code Description Provider 05/16/2021 G45.4 Transient global amnesia Mitch Espinoza MD 05/16/2021 I48.0 Paroxysmal atrial fibrillation D evice Checks 05/16/2021 Z86.73 Personal history of transient ischemic attack (TIA), and cerebral infarction without residual deficits Device Checks 05/16/2021 Z95.810 Presence of automatic (implantab le) cardiac defibrillator Device Checks 05/16/2021 I10 Essential (primary) hypertension Mitch Espinoza MD 05/16/2021 E78.5 Hyperlipidemia, unspecified Laron Espinoza MD 05/16/2021 Z86.73 Personal history of transient ischemic attack (TIA), and cerebral infarction without residual deficits Mitch Espinoza MD 05/16/2021 Z95.818 Presence of other cardiac implan ts and grafts Mitch Espinoza MD Plan of Treatment Future Appointment(s):* 05/15/2022 9:00 am - Device Checks at [facility] Cardiology AT [place] * 05/15/2022 9:15 am - Mitch Espinoza MD at [facility] Cardiology AT [place] 05/16/2021 - Mitch Espinoza MD* G45.4 Transient global amnesia * I10 Essential (primary) hypertension * E78.5 Hyperlipidemia, unspecified * Z86.73 Personal history of transient ischemic attack (TIA), and cerebral infarction without residual deficits * Z95.818 Presence of other cardiac implants and grafts Functional Status Description No Information Available Mental Status Description No Information Available Referrals Refer to Reason for Referral Status Appt Date Chilo Balderas MD CVA Sent [facility] [address] [place] [address] [phone]
--- OUTSIDE RECORDS SUMMARY | 2021-06-04 08:39 | CCD ---
Continuity of Care Document (CCD) Created on: 05/16/2021 ChrisJudy rodríguez External Reference #: [id number] : [id number] Sex: Female Author Judy Bar Organization Unknown Address [address], [address] [place] [address] Phone [phone] Care Team Providers Care Slot Ambassador Name Role Phone Dayanna Manzo MD AUTM [phone] Problems Active Problems Provider Date History of cerebrovascular accident without residual d eficits Mitch Esipnoza MD Onset: 05/16/2021 Hyperlipidemia Mitch Espinoza MD [...] Available Procedures Date Code Description Status 05/16/2021 38915 Office/Outpatient New Moderate M DM 45-59 Minutes Completed 05/16/2021 35567 Implantable Loop [employer] Heart Rhythm Derived Data Completed Medical Devices Description No Information Available Encounters Type Date Location Provider Dx Diagnosis Office Visit 05/16/2021 10:15a [facility] Cardiology AT [place] Mitch Espinoza MD G45.4 Transient global amnesia [...] 05/15/2022 9:00 am - Device Checks at [facility] Cardiology AT [place] * 05/15/2022 9:15 am - Mitch Espinoza MD at [facility] Cardiology AT [place] 05/16/2021 - Mitch Espinoza MD* G45.4 Transient [...]
--- OUTSIDE RECORDS SUMMARY | 2021-06-04 08:39 | CCD | Continuity of Care Document ---
Author Judy Bar Organization Unknown Address [address], [address] [place] [address] Phone [phone] Care Team Providers Care Botany Laboratory Assistant Name Role Phone Dayanna Manzo MD AUTM [phone] Problems Active Problems Provider Date History of [...] has never sm oked (pipe, cigarette, cigar) Allergies and adverse reactions Description No Information Available Medications Active Medications [...] Available Procedures Date Code Description Status 05/16/2021 71429 Office/Outpatient New Moderate M DM 45-59 Minutes Completed 05/16/2021 74138 Implantable Loop [employer] 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73 Personal history of transient ischemic attack (TIA), and cerebral infarction without residual deficits Device Checks 05/16/2021 Z79.82 intermediate (current) use of aspir in Mitch Espinoza MD 05/16/2021 Z95.810 Presence of automatic (implantab le) cardiac defibrillator Device Checks 05/16/2021 Z82.49 Family history of is chemic heart disease and other diseases of the circulatory system Mitch Espinoza MD Plan of Treatment Future Appointment(s):* 06/13/2021 2:00 pm - Sedrick Bernstein PA-C at [facility] Neurology * 05/15/2022 9:00 am - Device Checks at [facility] Cardiology AT [place] * 05/15/2022 9:15 am - Mitch Espinoza MD at [facility] Cardiology AT [place] 05/16/2021 - Mitch Espinoza MD* G45.4 Transient global amnesia * I10 Essential (primary) hypertension * E78.5 Hyperlipidemia, unspecified * Z86.73 Personal history of transient ischemic attack (TIA), and cerebral infarction without residual deficits * Z95.818 Presence of other cardiac implants and grafts * 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
--- OUTSIDE RECORDS SUMMARY | 2021-06-04 08:40 | CCD | Continuity of Care Document ---
Author Organization Unknown Address Unknown Phone Unavailable Care Team Providers Care Director Banking Name Role Phone [employer] AUTM Dayanna Manzo MD AUTM [phone] Ty Schilling MD AUTM [phone] Heaven Guerra MD AUTM [phone] AntecolTy MD AUTM Unavailable Problems Active Problems Provider Date Hypothyroidism Dayanna [...] Indications Ordering Provide r Date Metformin HCL 500mg Tablets take one tablet by mouth qam Dayanna Manzo M.D. 03/19 Iron (Ferrous Sulfate) 142(45Fe) mg Tablets ER 1 by mouth qd Dayanna Manzo M.D. Crestor 5mg Tablets 1 by mouth every [...] 90caps Dayanna Manzo M.D. 12/26 History Medications Edarbi 40mg Tablets take 1 tablet by mouth every morning Dayanna Manzo M.D. 01/12/20 21 - 04/09/2021 Metformin HCL 500mg Tablets 1 bid po Dayanna Manzo M.D. 01/11/2021 - 04/09/2021 Doxycycline Hyclate 100mg Capsules one tab twice a day for 14 days 28caps Dayanna Manoz M.D. 11/27/2020 - 01/11/2021 Immunizations CPT Code Status Date Vaccine Lot # [id number] Given 05/23/1999 Influenza Virus Vaccine Vital Signs Date Vital Result Comment 04/09/2021 2:54pm BP Systolic 138 mmHg RT Arm BP Diastolic 84 mmHg RT Arm Heart Rate 88 /min Height 65.25 inches 5'5.25" Weight 182.50 lb BMI (Body Mass Index) 30.1 kg/m2 01/11/2021 6:09pm BP Systolic 124 mmHg BP Diastolic 80 mmHg Heart Rate 85 /min Weight 187.00 lb home Results Test Acquired Date Facility Test Result H/L Range Note Anti-Neutrophil Cytoplasmic AB 04/16/[address] [address] [phone] Cytoplasmic Neutrop AB Anca-C <1:20 titer Normal N eg:<1:20 Perinuclear AB Anca-P <1:20 titer Normal Neg:<1:20 1 Anca-Atypical <1:20 titer Normal Neg:<1:20 2 CBC With Differential 04/16/2021 [address] [place] [address] [phone] White Blood Count 6.9 10 Normal 4.0-10.0 [...] 36.0-66.0 Lymph % 29.3 % Normal 24.0-44.0 [place] % 5.7 % Normal 2.0-8.0 Eos % 4.9 % High 0.0-3.0 Baso % 0.6 % Normal 0.0-1.0 Immature Granulocyte % 0.3 % Normal 0-3.0 Nucleated Red Blood Cell % 0.0 % Normal 0-0 Neutrophils # 4.1 10 Normal 1.5-8.5 Lymph # 2.0 10 Normal 1.5-5.0 [place] # 0.4 10 Normal 0.0-0.8 Eos # 0.3 10 Normal 0.0-0.5 Baso # 0.0 10 Normal 0.0-0.2 Laboratory test finding 04/16/2021 [address] [place] [address] [phone] Glucose, Fasting 88 mg/dL Normal 70-100 Iron (Fe) 113 g/dL Normal 50-170 Ferritin 55 NG/ML Normal 8-252 Hemoglobin A1c 04/16/2021 [facility] nter [address] [place] [address] [phone] Hemoglobin A1c 5.7 % Normal 3 Estimated Average Glucose 117 mg/dL High 60-110 Laboratory test finding 04/16/[address] [address] [phone] Angiotensin 1 Converting Enzym 50 U/L Normal 1 4-82 Anti-Cardiolipin Antibodies 04/16/[address] [address] [phone] Cardiolipin Iga Antibody <9 APLU/mL Normal 0-11 4 Cardiolipin Igg Antibody <9 GPLU/mL Normal 0-14 5 Cardiolipin Igm Antibody <9 MPLU/mL Normal 0-12 6 Laboratory test finding 04/16/[address] [address] [phone] Factor VIII Activity 152 % High 56-140 Factor 5 Leiden Profile 04/16/[address] [address] [phone] Factor V Leiden For Medinet (SEE NOTE) Normal . 7 Factor II Prothrombin Gene Dna 04/16/[address] [address] [phone] Factor II Prothrombin Gene An (SEE NOTE) Normal . 8 Antinuclear Antibodies 04/16/[address] [address] [phone] Antinuclear Antibodies Direct Negative Normal Ne gative Laboratory test finding 04/16/[address] [address] [phone] Protein C Functional Activity 136 % Normal 7 3-180 9 Protein S Functional Activity 111 % Normal 63-140 10 Anti Thrombin 3 Panel (Ag/ac) 04/16/[address] [address] [phone] Anti Thrombin 3 Funct Activity 120 % Normal 7 5-135 11 Anti Thrombin 3 Antigen Immuno 89 % Normal 72-124 12 Laboratory test finding 04/16/[address] [address] [phone] Rheumatoid Factor Quant < 10.0 IU/mL Normal <15.0 Erythrocyte Sedimentation Rate 38 mm/hr High 0-30 Lyme Disease SCRN With Confirm 03/30/[address] [address] [phone] Lyme Disease IgG/IgM Antibodie <0.91 ISR Normal 0 .00-0.90 13 Lyme Disease IgM Ab Quantitati <0.80 index Normal 0.00-0.79 14 CBC With Differential 01/19/[address] [address] [phone] White Blood Count 7.1 10 Normal 4.0-10.0 [...] 36.0-66.0 Lymph % 29.5 % Normal 24.0-44.0 [place] % 6.9 % Normal 2.0-8.0 Eos % 6.8 % High 0.0-3.0 Baso % 0.6 % Normal 0.0-1.0 Immature Granulocyte % 0.3 % Normal 0-3.0 Nucleated Red Blood Cell % 0.0 % Normal 0-0 Neutrophils # 4.0 10 Normal 1.5-8.5 Lymph # 2.1 10 Normal 1.5-5.0 [place] # 0.5 10 Normal 0.0-0.8 Eos # 0.5 10 Normal 0.0-0.5 Baso # 0.0 10 Normal 0.0-0.2 Hemoglobin A1c 01/19/2021 [facility] [address] [place] [address] [phone] Hemoglobin A1c 5.6 % Normal 15 Estimated Average Glucose 114 mg/dL High 60-110 Thyroid Profile 01/19/2021 [facility] nter [address] [place] [phone] T Uptake 31 % Normal 30-39 Thyroxine (T4) 9.7 g/dL Normal 4.5-12.0 Free Thyroxine Index 3.0 % Normal 1.3-4.8 Thyroid Stimulating Hormone 1.210 uIU/ML Normal 0.358-3.740 Basic Metabolic Profile 01/19/2021 [facility] [address] [place] [address] [phone] Glucose, Fasting 80 mg/dL Normal 70-100 Blood Urea Nitrogen 16 mg/dL Normal 7-18 Creatinine For GFR 0.73 mg/dL Normal 0.55-1.30 Glomerular Filtration Rate > 60.0 Normal >45 1 6 Sodium Level 141 mEq/L Normal 136-145 Potassium Serum 4.3 mEq/L Normal 3.5-5.1 Chloride Level 109 mEq/L High 98-107 Carbon Dioxide Level 26 mEq/L Normal 21-32 Anion Gap 6 mEq/L Low 8-16 Calcium Level 9.2 mg/dL Normal 8.8-10.2 Lipid Panel 01/19/2021 [facility] [address] [place] [address] [phone] Triglycerides Level 109 mg/dL Normal <150 Cholesterol Level 136 mg/dL Normal <200 HDL Cholesterol 60 mg/dL Normal >40 LDL Cholesterol 54 mg/dL Normal <100 Non-HDL-C 76 mg/dL Normal Cholesterol Risk Ratio 2.266 Normal <5 1 The presence of positive flu orescence exhibiting P-ANCA or C-ANCA patterns alone is not specific for the diagnosis of Amanda's Granulomatosis (WG) or microscopic polyangiitis. Decisions about treatment should not be based solely on ANCA IFA results. The International ANCA Group Consensus recommends follow up testing of positive sera with both LA- 3 and MPO-ANCA enzyme immunoassays. As m any as 5% serum samples are positive only by EIA. Ref. AM J Clin Pathol 1999;111:507-513. 2 The atypical pANCA pattern h as been observed in a significant percentage of patients with ulcerative colitis, primary sclerosing cholangitis and autoimmune hepatitis. 3 REFERENCE RANGES: <=5.6% NORMAL 5.7-6.4% SUGGESTS IMPAIRED GLUCOSE META BOLISM/PREDIABETIC >= 6.5% ABNORMAL 4 Negative: <12 Indeterminate: 12 - 20 Low-Med Positive: >20 - 80 High Positive: >80 5 Negative: <15 Indeterminate: 15 - 20 Low-Med Positive: >20 - 80 High Positive: >80 6 Negative: <13 Indeterminate: 13 - 20 Low-Med Positive: >20 - 80 High Positive: >80 7 Result: Negative (no mutati on found) . [...] the workup for venous thrombosis include the [id number] mutation in the factor II (prothrombin) gene, protein S and C deficiency, and antithrombin deficiencies. Anticardiolipin antibody and lupus anticoagulant analysis may be appropriate for certain patients, as well as homocysteine levels. . Contact your local [facility] for information on how to order additional testing if desired. . . Genetic counselors are available for health care providers to discuss results at [phone] [place] [place] ([phone]). . Methodology: DNA analysis of the Factor [...] developed and its performance characteristics determined by [facility]. It has not been cleared or approved by the Food and Drug Administration. . References: Julio Blount (1995). Clin Lab Med 16:169-186. . Ryan Monterroso, PhD, [facility] Margarita Arteaga, PhD, [facility] Morgan Ortega, PhD, [facility] Heather Trimble, PhD, [facility] Yosef Mendes, PhD, FAC Brendan Andrade PhD, [facility] 8 NEGATIVE No mutation identified. . Comment: A point mutation ([id number]) in the factor II (prothrombin) gene is [...] mutations. This assay detects only the prothrombin [id number] mutation and does not measure genetic abnormalities [...] health care providers to discuss results at [phone]). . Methodology: DNA analysis of the Factor [...] developed and its performance characteristics determined by [employer]. It has not been cleared or approved by the Food and Drug Administration. . Justinot SR, et al. Blood. 1996; 88:2769-6925. Nomi GARRETT. Circulation. 2004; 110:e15-e18. Alfredo I, et al. Arterioscler Thromb Vasc Biol. 1999; 19:700-703. . Chevonne Eversley, PhD, [facility] Margarita Arteaga, PhD, [facility] Morgan Ortega, PhD, [facility] Heather Trimble, PhD, [facility] Yosef Mendes, PhD, [facility] Brendan Andrade, PhD, [facility] 9 Performed at: [facility] [address] [id number] Screenplay Writer: Gogo Heart MD, Phone: [phone] Performed at: [address] [id number] Screenplay Writer: Foster Calhoun MD, Phone: [phone] Performed at: [facility] [address] [place], [place] [address] 244 Screenplay Writer: Jacob Aranda [facility], Phone: [phone] 10 Protein S activity may be fa lsely increased (masking an abnormal, low result) in patients receiving direct Xa inhibitor (e.g., rivaroxaban, apixaban, edoxaban) or a direct thrombin inhibitor (e.g., dabigatran) anticoagulant treatment due to assay interference by these drugs. 11 Direct Xa inhibitor anticoag ulants such as rivaroxaban, apixaban and edoxaban will lead to spuriously elevated antithrombin activity levels possibly masking a deficiency. 12 This test was developed and its performance characteristics determined by [employer]. It has not been cleared or approved by the Food and Drug Administration. 13 Negative <0.91 Equivocal 0.91 - 1.09 Positive >1.09 14 Negative <0.80 Equivocal 0.80 - 1.19 Positive >1.19 . IgM levels may peak at 3-6 weeks post infection, then gradually decline. Performed at: [facility] [address] [id number] Screenplay Writer: Gogo Heart MD, Phone: [phone] REFERENCE RANGES: <=5.6% NORMAL 5.7-6.4% SUGGESTS IMPAIRED GLUCOSE META BOLISM/PREDIABETIC >= 6.5% ABNORMAL 16 Units are mL/min/1.73 m2 Chronic Kidney Disease Staging per NKF: Stage I & II GFR >=60 Normal to Mildly Decreased Stage III GFR 30-59 Moderately Decreased Stage IV GFR 15-29 Severely Decreased Stage V GFR <15 Very Little GFR Left ESRD GFR <15 on BULLION [employer]IGHER Procedures Date Code Description Status 04/09/2021 03532 Hester Cre SRV W/I 7 Days Of DC, C omm W/I 2 Dys Med Rec Completed 01/11/2021 [address] Office/Outpatient Established Lo w MDM 20-29 Min Completed 11/08/2020 [id number] Colonoscopy Completed 11/23/2018 [id number] Colonoscopy Completed 12/30/2016 [id number] Colonoscopy Completed 11/20/2016 [id number] Colonoscopy Completed 08/05/2012 [id number] Mammogram Completed 11/21/2011 [id number] Colonoscopy Completed 07/04/2011 [id number] Bone Mineral Density Test Comple hi 07/01/2007 [id number] Colonoscopy Completed Medical Devices Description No Information Available Encounters Type Date Location Provider Dx Diagnosis Office Visit 04/09/2021 3:00p [facility] M.[facility] G45.4 Transient global amnesia I10 Essential (primary) hyperten kaic E78.00 Pure hypercholesterolemia, u nspecified E03.9 Hypothyroidism, unspecified R73.09 Other abnormal glucose K21.9 Gastro-esophageal reflux dis ease without esophagitis D50.9 Iron deficiency anemia, unsp ecified Z86.010 Personal history of colonic polyps Office Visit 01/11/2021 [facility] I10 Essential (primary) hyperten kaci F43.0 Acute stress reaction R73.09 Other abnormal glucose E78.00 Pure hypercholesterolemia, u nspecified G45.9 Transient cerebral ischemic attack, unspecified K21.9 Gastro-esophageal reflux dis ease without esophagitis E03.9 Hypothyroidism, unspecified Z86.010 Personal history of colonic polyps Assessments Date Code Description Provider 04/09/2021 G45.4 Transient global amnesia Dayanna Manzo [...] 01/11/2021 G45.9 Transient cerebral ischemic na ck, clintonified Dayanna Manzo M.D. 01/11/2021 K21.9 Gastro-esophageal reflux disease without esophagitis Dayanna Manzo M.D. 01/11/2021 E03.9 Hypothyroidism, unspecified Nidhi Manzo M.D. 01/11/2021 Z86.010 Personal history of colonic poly ps Dayanna Manzo M.D. Plan of Treatment Future Appointment(s):* 04/25/2021 3:00 pm - Dayanna Manzo M.D. at [facility] 04/09/2021 - Dayanna Manzo M.D.* G45.4 Transient global amnesia * I10 Essential (primary) hypertension * E78.00 Pure hypercholesterolemia, unspecified * E03.9 Hypothyroidism, unspecified * R73.09 Other abnormal glucose * K21.9 Gastro-esophageal reflux disease without esophagitis * D50.9 Iron deficiency anemia, unspecified * Z86.010 Personal history of colonic polyps * All * New Medication:* Metformin HCL 500 mg - take one tablet by mouth qam Functional Status Description No Information Available Mental Status Description No Information Available Referrals Description No Information Available
--- OUTSIDE RECORDS SUMMARY | 2021-06-04 08:40 | CCD | Continuity of Care Document ---
Author Author Judy Manzo M.D Organization Unknown Address [address] [place] [address] Phone [phone] Care Team Providers Care Clinical Educator Name Role Phone [employer] AUTM [phone] Dayanna Manzo MD AUTM [phone] Ty Schilling MD AUTM [phone] Heaven Guerra MD AUTM [phone] AntecolTy MD AUTM Unavailable Problems Active Problems Provider Date Hypothyroidism Dayanna aMnzo M.D. Onset: 1 Gastroesophageal reflux disease Dayanna [...] SIG Qnty Indications Ordering Provide r Date Famotidine 20mg Tablets 1-2 by mouth every day try to wean omeprazole 90tabs Ashley Lomas. 04/25/2021 Crestor 5mg Tablets 1 by mouth [...] CPT Code Status Date Vaccine Lot # [id number] Given 05/23/1999 Influenza Virus Vaccine Vital Signs Date Vital Result Comment 04/25/2021 3:08pm BP Systolic 98 mmHg RT Arm BP Diastolic 64 mmHg RT Arm Heart Rate 92 /min Height 65.25 inches 5'5.25" Weight 182.00 lb verbal BMI (Body Mass Index) 30.1 kg/m2 04/09/2021 2:54pm BP Systolic 138 mmHg RT Arm BP Diastolic 84 mmHg RT Arm Heart Rate 88 /min Height 65.25 inches 5'5.25" Weight 182.50 lb BMI (Body Mass Index) 30.1 kg/m2 Results Test Acquired Date Facility Test Result H/L Range Note A1c 04/25/2021 [facility] Road Packer Operator: Dr Yeison Aceves [place], [place] [address] [phone] Hba1c 5.8 % High <5.7 1 Est Avg Glucose 120 mg/dL High 60 - 110 Basic Metabolic Panel 04/25/2021 [facility] Road Packer Operator: [place] [address] [phone] Glucose 99 mg/dL 74 - 99 2 [...] mL/min >60 3 Complete Blood Count 04/25/2021 [facility] Road Packer Operator: [place] [address] [phone] WBC 7.4 x10*3/UL 4.1 - 10.9 RBC [...] x10*3/UL 2.0 - 7.8 Hemoglobin A1c 04/16/2021 [facility] [address]ter [address] [place] [address] [phone] Hemoglobin A1c 5.7 % Normal 4 Estimated Average Glucose 117 mg/dL High 60-110 Laboratory test finding 04/16/2021 [facility] [address] [place] [address] [phone] Rheumatoid Factor Quant < 10.0 IU/mL Normal <15.0 Erythrocyte Sedimentation Rate 38 mm/hr High 0-30 CBC With Differential 04/16/2021 [address] [place] [address] [phone] White Blood Count 6.9 10 Normal 4.0-10.0 [...] 36.0-66.0 Lymph % 29.3 % Normal 24.0-44.0 Emanuel % 5.7 % Normal 2.0-8.0 Eos % 4.9 % High 0.0-3.0 Baso % 0.6 % Normal 0.0-1.0 Immature Granulocyte % 0.3 % Normal 0-3.0 Nucleated Red Blood Cell % 0.0 % Normal 0-0 Neutrophils # 4.1 10 Normal 1.5-8.5 Lymph # 2.0 10 Normal 1.5-5.0 Emanuel # 0.4 10 Normal 0.0-0.8 Eos # 0.3 10 Normal 0.0-0.5 Baso # 0.0 10 Normal 0.0-0.2 Laboratory test finding 04/16/[address] [address] [phone] Glucose, Fasting 88 mg/dL Normal 70-100 Iron (Fe) 113 g/dL Normal 50-170 Ferritin 55 NG/ML Normal 8-252 Anti-Neutrophil Cytoplasmic AB 04/16/[address] [address] [phone] Cytoplasmic Neutrop AB Anca-C <1:20 titer Normal N eg:<1:20 Perinuclear AB Anca-P <1:20 titer Normal Neg:<1:20 5 Anca-Atypical <1:20 titer Normal Neg:<1:20 6 Laboratory test finding 04/16/[address] [address] [phone] Lupus Type Anticoagulant Scree 1.1 Normal 0 -1.2 7 Laboratory test finding 04/16/[address] [address] [phone] Angiotensin 1 Converting Enzym 50 U/L Normal 1 4-82 Anti-Cardiolipin Antibodies 04/16/[address] [address] [phone] Cardiolipin Iga Antibody <9 APLU/mL Normal 0-11 8 Cardiolipin Igg Antibody <9 GPLU/mL Normal 0-14 9 Cardiolipin Igm Antibody <9 MPLU/mL Normal 0-12 10 Laboratory test finding 04/16/[address] [address] [phone] Factor VIII Activity 152 % High 56-140 Factor 5 Leiden Profile 04/16/[address] [address] [phone] Factor V Leiden For Medinet (SEE NOTE) Normal . 11 Factor II Prothrombin Gene Dna 04/16/[address] [address] [phone] Factor II Prothrombin Gene An (SEE NOTE) Normal . 12 Antinuclear Antibodies 04/16/[address] 6112825 [phone] Antinuclear Antibodies Direct Negative Normal Ne gative Laboratory test finding 04/16/[address] [address] [phone] Protein C Functional Activity 136 % Normal 7 3-180 13 Protein S Functional Activity 111 % Normal 63-140 14 Anti Thrombin 3 Panel (Ag/ac) 04/16/[address] [address] [phone] Anti Thrombin 3 Funct Activity 120 % Normal 7 5-135 15 Anti Thrombin 3 Antigen Immuno 89 % Normal 72-124 16 Lyme Disease SCRN With Confirm 03/30/[address] [address] [phone] Lyme Disease IgG/IgM Antibodie <0.91 ISR Normal 0 .00-0.90 17 Lyme Disease IgM Ab Quantitati <0.80 index Normal 0.00-0.79 18 CBC With Differential 01/19/[address] [address] [phone] White Blood Count 7.1 10 Normal 4.0-10.0 [...] 36.0-66.0 Lymph % 29.5 % Normal 24.0-44.0 Emanuel % 6.9 % Normal 2.0-8.0 Eos % 6.8 % High 0.0-3.0 Baso % 0.6 % Normal 0.0-1.0 Immature Granulocyte % 0.3 % Normal 0-3.0 Nucleated Red Blood Cell % 0.0 % Normal 0-0 Neutrophils # 4.0 10 Normal 1.5-8.5 Lymph # 2.1 10 Normal 1.5-5.0 Emanuel # 0.5 10 Normal 0.0-0.8 Eos # 0.5 10 Normal 0.0-0.5 Baso # 0.0 10 Normal 0.0-0.2 Hemoglobin A1c 01/19/[address] [address] [phone] Hemoglobin A1c 5.6 % Normal 19 Estimated Average Glucose 114 mg/dL High 60-110 Thyroid Profile 01/19/[address] 6465600 [phone] T Uptake 31 % Normal 30-39 Thyroxine (T4) 9.7 g/dL Normal 4.5-12.0 Free Thyroxine Index 3.0 % Normal 1.3-4.8 Thyroid Stimulating Hormone 1.210 uIU/ML Normal 0.358-3.740 Basic Metabolic Profile 01/19/[address] [address] [phone] Glucose, Fasting 80 mg/dL Normal 70-100 Blood [...] 9.2 mg/dL Normal 8.8-10.2 Lipid Panel 01/19/[address] [address] [phone] Triglycerides Level 109 mg/dL Normal <150 Cholesterol [...] LITTLE GFR LEFT ESRD GFR <15 ON BODY MAKE UP ARTIST 4 REFERENCE RANGES: <=5.6% NORMAL 5.7-6.4% SUGGESTS [...] up testing of positive sera with both DE- 3 and MPO-ANCA enzyme immunoassays. As m [...] the workup for venous thrombosis include the [id number] mutation in the factor II (prothrombin) gene, protein S and C deficiency, and antithrombin deficiencies. Anticardiolipin antibody and lupus anticoagulant analysis may be appropriate for certain patients, as well as homocysteine levels. . Contact your local [facility] for information on how to order additional testing if desired. . . Genetic counselors are available for health care providers to discuss results at [phone] ([phone] . Methodology: DNA analysis of the Factor [...] and Drug Administration. . References: Julio Blount (1996). Clin Lab Med 16:169-186. . Ryan Monterroso, PhD, [facility] Margarita Arteaga, PhD, [facility] W. Aurea Ortega, PhD, [facility] Heather Trimble, PhD, [facility] Yosef Mendes, PhD, [facility] Brendan Andrade PhD, [facility] 12 NEGATIVE No mutation identified. . Comment: A point mutation ([id number]) in the factor II (prothrombin) gene is [...] mutations. This assay detects only the prothrombin [id number] mutation and does not measure genetic abnormalities [...] health care providers to discuss results at [phone] [place] ([phone]). . Methodology: DNA analysis of the Factor [...] developed and its performance characteristics determined by [employer]. It has not been cleared or approved by the Food and Drug Administration. . Poort SR, et al. Blood. 1996; 88:2711-0114. Nomi TUCKER. Circulation. 2004; 110:e15-e18. Alfredo I, et al. Arterioscler Thromb Vasc Biol. 1999; 19:700-703. . Ryan Monterroso, PhD, [facility] Margarita Arteaga, PhD, [facility] Morgan Ortega, PhD, [facility] Heather Trimble, PhD, [facility] Yosef Mendes, PhD, [facility] Brendan Andrade, PhD, [facility] 13 Performed at: - Lab[address] [id number] Road Packer Operator: Gogo Heart MD, Phone: [phone] Performed at: [facility] [address] [id number] Packer Operator: Foster Calhoun MD, Phone: [phone] Performed at: [facility] [address] [place], [place] [address] [address] Packer Operator: Jacob Aranda [facility], Phone: [phone] Protein S activity may be fa [...] developed and its performance characteristics determined by [employer]. It has not been cleared or approved by the Food and Drug Administration. 17 Negative <0.91 Equivocal 0.91 - 1.09 Positive >1.09 18 Negative <0.80 Equivocal 0.80 - 1.19 Positive >1.19 . IgM levels may peak at 3-6 weeks post infection, then gradually decline. Performed at: - [address] [id number] [address] Packer Operator: Gogo Heart MD, Phone: [phone] REFERENCE RANGES: <=5.6% NORMAL 5.7-6.4% SUGGESTS IMPAIRED GLUCOSE META BOLISM/PREDIABETIC >= 6.5% ABNORMAL 20 Units are mL/min/1.73 m2 Chronic Kidney Disease Staging per NKF: Stage I & II GFR >=60 Normal to Mildly Decreased Stage III GFR 30-59 Moderately Decreased Stage IV GFR 15-29 Severely Decreased Stage V GFR <15 Very Little GFR Left ESRD GFR <15 on BODY MAKE UP ARTIST Procedures Date Code Description Status 04/09/2021 02065 Hester Cre SRV W/I 7 Days Of DC, C omm W/I 2 Dys Med Rec Completed 01/11/2021 20[address] Office/Outpatient Established Lo w MDM 20-29 Min Completed 11/08/2020 [id number] Colonoscopy Completed 11/23/2018 [id number] Colonoscopy Completed 12/30/2016 [id number] Colonoscopy Completed 11/20/2016 [id number] Colonoscopy Completed 08/05/2012 [id number] Mammogram Completed 11/21/2011 [id number] Colonoscopy Completed 07/04/2011 [id number] Bone Mineral Density Test Comple hi 07/01/2007 [id number] Colonoscopy Completed Medical Devices Description No Information Available Encounters Type Date Location Provider Dx Diagnosis Office Visit [facility] G[facility].4 Transient global amnesia I10 Essential (primary) hyperten kaci E78.00 Pure hypercholesterolemia, u nspecified E03.9 Hypothyroidism, unspecified R73.09 Other abnormal glucose K21.9 Gastro-esophageal reflux dis ease without esophagitis D50.9 Iron deficiency anemia, unsp ecified Z86.010 Personal history of colonic polyps Office Visit 01/11/2021 2[facility]p [facility] I10 Essential (primary) hyperten [...] M.D. at [facility] 04/09/2021 - Dayanna Manzo M.D.* G45.4 [...]
--- OUTSIDE RECORDS SUMMARY | 2021-06-04 08:40 | CCD | Continuity of Care Document ---
Author Organization Unknown Address Unknown Phone Unavailable Care Team Providers Care Forensic Psychiatrist Name Role Phone Dayanna Manzo MD AUTM [phone] AUTM [phone] Brad Mckeon MD AUTM [phone] Problems Active Problems Provider Date Dietary management [...] Patient has never smoked Smoking Status Reviewed: 01/09/21 Patient has never smoked Exercise Type/Frequency Does [...] >= 60 mL/min 2 Hemoglobin A1c 04/16/2021 [facility] - not interfaced (315)- - Hemoglobin A1c 5.7 CBC without Differential 04/05/2021 [facility] - not inter faced (315)- - White Blood Count 8.2 5.0-10.0 Red Blood Count 4.40 4.00-5.40 Platelets 337 172-450 Hemoglobin 12.9 Hematocrit 40.0 [facility] 04/05/2021 [facility] - not interfaced (315)- - Calcium Ser/Plasma Mass/Vol 9.0 Sodium 143 Carbon Dioxide Ser/Plasm 26 Chloride Serum/Plasma 112 Potassium 4.5 Glucose 92 83-110 Blood Urea Nitrogen 22 High 7-18 Creatinine 0.69 0.6-1.0 G F R >60.0 Lipid Profile/Cardiac Risk Pro 04/05/2021 [facility] - not interfaced (315)- - Triglycerides 91 <150 Cholesterol 143 <200 HDL 57 >40.0 LDL Cholesterol 68 Chol/HDL Ratio 2.508 <5 CBC without Differential 04/04/2021 [facility] - not inter faced (315)- - White Blood Count 9.9 5.0-10.0 Red Blood Count 4.80 4.00-5.40 Platelets 362 172-450 Hemoglobin 13.8 Hematocrit 42.7 BMP 04/04/2021 [facility] - not interfaced (315)- - Calcium Ser/Plasma Mass/Vol 9.1 Sodium 141 Carbon Dioxide Ser/Plasm 27 Chloride Serum/Plasma 106 Potassium 4.3 Glucose 103 83-110 Blood Urea Nitrogen 24 High 7-18 Creatinine 0.86 0.6-1.0 G F R >60.0 Lipid Profile/Cardiac Risk Pro 04/04/2021 [facility] - not interfaced (315)- - Triglycerides 174 High <150 Cholesterol 174 <200 HDL 62 >40.0 LDL Cholesterol 77 Chol/HDL Ratio 2.806 <5 Laboratory test finding 04/04/2021 [facility] - not interf aced (315)- - [...] % 36.0-66.0 Lymph % 29.5 % 24.0-44.0 [place] % 6.9 % 2.0-8.0 Eos % 6.8 % High 0.0-3.0 Baso % 0.6 % 0.0-1.0 Immature Granulocyte % 0.3 % 0-3.0 Nucleated Red Blood Cell % 0.0 % 0-0 Neutrophils # 4.0 10 1.5-8.5 Lymph # 2.1 10 1.5-5.0 [place] # 0.5 10 0.0-0.8 Eos # 0.5 [...] LITTLE GFR LEFT ESRD GFR <15 ON GEOSPATIAL SPECIALIST 3 Units are mL/min/1.73 m2 Chronic Kidney Disease Staging per NKF: Stage I & II GFR >=60 Normal to Mildly Decreased Stage III GFR 30-59 Moderately Decreased Stage IV GFR 15-29 Severely Decreased Stage V GFR <15 Very Little GFR Left ESRD GFR <15 on GEOSPATIAL SPECIALIST Procedures Date Code Description Status 04/20/2021 70329 Office/Outpatient Established Mo d MDM 30-39 Min Completed 04/20/2021 04926 ECG 12-Lead Completed 01/09/2021 85824 Office/Outpatient Established Lo w MDM 20-29 Min Completed 01/02/2021 05086 Implantable Loop Recorder System , Review And Report Completed 12/01/2020 70267 Implantable Loop Recorder System , Review And Report Completed 10/31/2020 39587 Implantable Loop Recorder System , Review And Report Completed Medical Devices Description No Information Available Encounters Type Date Location Provider Dx Diagnosis Office Visit 04/20/2021 9:15a Main Office GERARDO Naidu G45 .9 Transient cerebral ischemic attack, unspecified Office Visit 01/09/2021 12:00p Main Office Ty Dumont MD I10 Essential (primary) hypertension E78.00 Pure hypercholesterolemia, u nspecified E66.09 Other obesity due to excess calories Z71.3 Dietary counseling and surve illance Assessments Date Code Description Provider 04/20/2021 G45.9 Transient cerebral ischemic na ck, [...] cardiac implan ts and grafts [facility] 10/31/2020 Z95.818 Presence of other cardiac implan ts and grafts [facility] Plan of Treatment Future Appointment(s):* 06/12/2021 11:15 am - Ty Dumont MD at Main Office 04/20/2021 - GERARDO Naidu* G45.9 Transient cerebral ischemic attack, unspecified* Recommendations:* Will remove patient's existing loop recorder implant a new one Plan to see patient back for a wound check in 1 week Continue aspirin and atorvastatin as directed at this time Please follow with neurology as scheduled Patient is agreeable to seek medical attention with the onset of any further lateralizing neurologic symptoms or any other similar episodes that she experienced prior to her hospital stay * All * Follow up:* Please schedule for loop explant and new loop implant with Dr. Dumont Needs to be after 04/29 per patient She will need 1 week incision check Functional Status Functional Condition Comment Date Status Independent with all ADL's Activ e Mental Status Description No Information Available Referrals Description No Information Available
--- OUTSIDE RECORDS SUMMARY | 2021-06-04 08:40 | CCD | Continuity of Care Document ---
Author Author Judy Manzo M.D Organization Unknown Address [address] [place] [address] Phone [phone] Care Team Providers Care Vending Stand Supervisor Name Role Phone [employer] AUTM Dayanna Manzo MD AUTM [phone] Ty Schilling MD AUTM [phone] Heaven Guerra MD AUTM [phone] AntecolTy MD AUTM Unavailable Problems Active Problems [...] CPT Code Status Date Vaccine Lot # [id number] Given 05/23/1999 Influenza Virus Vaccine Vital Signs [...] Test Result H/L Range Note A1c 04/25/2021 [facility] Pipe Insulator Helper: Dr Yeison Aceves [place], [place] [id number] [phone] Hba1c 5.8 % High <5.7 1 Est Avg Glucose 120 mg/dL High 60 - 110 Basic Metabolic Panel 04/25/2021 [facility] Pipe Insulator Helper: [place] [address] [phone] Glucose 99 mg/dL 74 - 99 2 [...] mL/min >60 3 Complete Blood Count 04/25/2021 [facility] Pipe Insulator Helper: [place] [address] [phone] WBC 7.4 x10*3/UL 4.1 - 10.9 RBC [...] x10*3/UL 2.0 - 7.8 Hemoglobin A1c 04/16/2021 [facility] [address] [place] [address] [phone] Hemoglobin A1c 5.7 % Normal 4 Estimated Average Glucose 117 mg/dL High 60-110 Laboratory test finding 04/16/2021 [facility] [address] [place] [address] [phone] Rheumatoid Factor Quant < 10.0 IU/mL Normal <15.0 Erythrocyte Sedimentation Rate 38 mm/hr High 0-30 CBC With Differential 04/16/2021 [address] [address] [place] [address] [phone] White Blood Count 6.9 10 Normal 4.0-10.0 [...] 36.0-66.0 Lymph % 29.3 % Normal 24.0-44.0 [place] % 5.7 % Normal 2.0-8.0 Eos % 4.9 % High 0.0-3.0 Baso % 0.6 % Normal 0.0-1.0 Immature Granulocyte % 0.3 % Normal 0-3.0 Nucleated Red Blood Cell % 0.0 % Normal 0-0 Neutrophils # 4.1 10 Normal 1.5-8.5 Lymph # 2.0 10 Normal 1.5-5.0 [place] # 0.4 10 Normal 0.0-0.8 Eos # 0.3 10 Normal 0.0-0.5 Baso # 0.0 10 Normal 0.0-0.2 Laboratory test finding 04/16/[address] [address] [phone] Glucose, Fasting 88 mg/dL Normal 70-100 Iron (Fe) 113 g/dL Normal 50-170 Ferritin 55 NG/ML Normal 8-252 Anti-Neutrophil Cytoplasmic AB 04/16/[address] [address] [phone] Cytoplasmic Neutrop AB Anca-C <1:20 titer Normal N eg:<1:20 Perinuclear AB Anca-P <1:20 titer Normal Neg:<1:20 5 Anca-Atypical <1:20 titer Normal Neg:<1:20 6 Laboratory test finding 04/16/[address] [address] [phone] Lupus Type Anticoagulant Scree 1.1 Normal 0 -1.2 7 Laboratory test finding 04/16/[address] [address] [phone] Angiotensin 1 Converting Enzym 50 U/L Normal 1 4-82 Anti-Cardiolipin Antibodies 04/16/[address] [address] [phone] Cardiolipin Iga Antibody <9 APLU/mL Normal 0-11 8 Cardiolipin Igg Antibody <9 GPLU/mL Normal 0-14 9 Cardiolipin Igm Antibody <9 MPLU/mL Normal 0-12 10 Laboratory test finding 04/16/[address] [address] [phone] Factor VIII Activity 152 % High 56-140 Factor 5 Leiden Profile 04/16/[address] [address] [phone] Factor V Leiden For Medinet (SEE NOTE) Normal . 11 Factor II Prothrombin Gene Dna 04/16/[address] [address] [phone] Factor II Prothrombin Gene An (SEE NOTE) Normal . 12 Antinuclear Antibodies 04/16/[address] [id number] [phone] Antinuclear Antibodies Direct Negative Normal Ne gative Laboratory test finding 04/16/[address] [address] [phone] Protein C Functional Activity 136 % Normal 7 3-180 13 Protein S Functional Activity 111 % Normal 63-140 14 Anti Thrombin 3 Panel (Ag/ac) 04/16/[address] [address] [phone] Anti Thrombin 3 Funct Activity 120 % Normal 7 5-135 15 Anti Thrombin 3 Antigen Immuno 89 % Normal 72-124 16 Lyme Disease SCRN With Confirm 03/30/[address] [address] [phone] Lyme Disease IgG/IgM Antibodie <0.91 ISR Normal 0 .00-0.90 17 Lyme Disease IgM Ab Quantitati <0.80 index Normal 0.00-0.79 18 CBC With Differential 01/19/[address] [address] [phone] White Blood Count 7.1 10 Normal 4.0-10.0 [...] 36.0-66.0 Lymph % 29.5 % Normal 24.0-44.0 [place] % 6.9 % Normal 2.0-8.0 Eos % 6.8 % High 0.0-3.0 Baso % 0.6 % Normal 0.0-1.0 Immature Granulocyte % 0.3 % Normal 0-3.0 Nucleated Red Blood Cell % 0.0 % Normal 0-0 Neutrophils # 4.0 10 Normal 1.5-8.5 Lymph # 2.1 10 Normal 1.5-5.0 [place] # 0.5 10 Normal 0.0-0.8 Eos # 0.5 10 Normal 0.0-0.5 Baso # 0.0 10 Normal 0.0-0.2 Hemoglobin A1c 01/19/[address] [address] [phone] Hemoglobin A1c 5.6 % Normal 19 Estimated Average Glucose 114 mg/dL High 60-110 Thyroid Profile 01/19/[address] 7209343 [phone] T Uptake 31 % Normal 30-39 Thyroxine (T4) 9.7 g/dL Normal 4.5-12.0 Free Thyroxine Index 3.0 % Normal 1.3-4.8 Thyroid Stimulating Hormone 1.210 uIU/ML Normal 0.358-3.740 Basic Metabolic Profile 01/19/[address] [address] [phone] Glucose, Fasting 80 mg/dL Normal 70-100 Blood [...] 9.2 mg/dL Normal 8.8-10.2 Lipid Panel 01/19/[address] [address] [phone] Triglycerides Level 109 mg/dL Normal <150 Cholesterol [...] LITTLE GFR LEFT ESRD GFR <15 ON ROOFING TILE SORTER 4 REFERENCE RANGES: <=5.6% NORMAL 5.7-6.4% SUGGESTS [...] up testing of positive sera with both OH- 3 and MPO-ANCA enzyme immunoassays. As m [...] the workup for venous thrombosis include the [id number] mutation in the factor II (prothrombin) gene, protein S and C deficiency, and antithrombin deficiencies. Anticardiolipin antibody and lupus anticoagulant analysis may be appropriate for certain patients, as well as homocysteine levels. . Contact your local [facility] for information on how to order additional testing if desired. . . Genetic counselors are available for health care providers to discuss results at [phone]). . Methodology: DNA analysis of the Factor [...] Lab Med 16:169-186. . Ryan Monterroso, PhD, [facility] Margarita Arteaga, PhD, [facility] W. Aurea Ortega, PhD, [facility] Heather Trimble, PhD, [facility] Yosef Mendes, PhD, [facility] Brendan Andrade PhD, [facility] 12 NEGATIVE No mutation identified. . Comment: A point mutation ([id number]) in the factor II (prothrombin) gene is [...] mutations. This assay detects only the prothrombin [id number] mutation and does not measure genetic abnormalities [...] health care providers to discuss results at [phone]). . Methodology: DNA analysis of the Factor [...] developed and its performance characteristics determined by [employer]. It has not been cleared or approved by the Food and Drug Administration. . Poort SR, et al. Blood. 1996; 88:8511-3416. Nomi TUCKER. Circulation. 2004; 110:e15-e18. Alfredo I, et al. Arterioscler Thromb Vasc Biol. 1999; 19:700-703. . Ryan Monterroso, PhD, [facility] Margarita Arteaga, PhD, [facility] Morgan Ortega, PhD, [facility] Heather Trimble, PhD, [facility] Yosef Mendes, PhD, [facility] Brendan Andrade, PhD, [facility] 13 Performed at: - [address] [id number] Pipe Insulator Helper: Gogo Heart MD, Phone: [phone] Performed at: [facility] [address] [id number] Pipe Insulator Helper: Foster Calhoun MD, Phone: [phone] Performed at: [facility] [address] [place], [place] [address] 739 Pipe Insulator Helper: Jacob Aranda [facility], Phone: [phone] Protein S activity may be fa [...] developed and its performance characteristics determined by [employer]. It has not been cleared or approved by the Food and Drug Administration. 17 Negative <0.91 Equivocal 0.91 - 1.09 Positive >1.09 18 Negative <0.80 Equivocal 0.80 - 1.19 Positive >1.19 . IgM levels may peak at 3-6 weeks post infection, then gradually decline. Performed at: - [address] [id number] Pipe Insulator Helper: Gogo Heart MD, Phone: [phone] REFERENCE RANGES: <=5.6% NORMAL 5.7-6.4% SUGGESTS IMPAIRED GLUCOSE META BOLISM/PREDIABETIC >= 6.5% ABNORMAL 20 Units are mL/min/1.73 m2 Chronic Kidney Disease Staging per NKF: Stage I & II GFR >=60 Normal to Mildly Decreased Stage III GFR 30-59 Moderately Decreased Stage IV GFR 15-29 Severely Decreased Stage V GFR <15 Very Little GFR Left ESRD GFR <15 on ROOFING TILE SORTER Procedures Date Code Description Status 04/09/2021 79604 Hester Cre SRV W/I 7 Days Of DC, C omm W/I 2 Dys Med Rec Completed 01/11/2021 88503 Office/Outpatient Established Lo w MDM 20-29 Min Completed 11/08/2020 [id number] Colonoscopy Completed 11/23/2018 [id number] Colonoscopy Completed 12/30/2016 [id number] Colonoscopy Completed 11/20/2016 [id number] Colonoscopy Completed 08/05/2012 [id number] Mammogram Completed 11/21/2011 [id number] Colonoscopy Completed 07/04/2011 [id number] Bone Mineral Density Test Comple hi 07/01/2007 [id number] Colonoscopy Completed Medical Devices Description No Information Available Encounters Type Date Location Provider Dx Diagnosis Office Visit [facility] G[facility].4 Transient global amnesia I10 Essential (primary) hyperten kaci E78.00 Pure hypercholesterolemia, u nspecified E03.9 Hypothyroidism, unspecified R73.09 Other abnormal glucose K21.9 Gastro-esophageal reflux dis ease without esophagitis D50.9 Iron deficiency anemia, unsp ecified Z86.010 Personal history of colonic polyps Office Visit 01/11/2021 2:45p [facility] I10 Essential (primary) hyperten [...] 3:00 pm - Dayanna Manzo M.D. at [facility] 04/09/2021 - Dayanna Manzo M.D.* [...]
--- OUTSIDE RECORDS SUMMARY | 2021-06-04 08:40 | CCD | Continuity of Care Document ---
Author Author Judy BROWNING PA Organization Unknown Address [address] [facility], [place] [address] Phone [phone] Care Team Providers Care Bezel Cutter Name Role Phone Dayanna Manzo MD AUTM [phone] AUTM [phone] Problems Active Problems Provider Date Dietary management [...] Index) 30.4 kg/m2 Heart Rate 72 /min 01/09/2021 12:05pm Weight 188.00 lb Home Weight 180lb home weight Height 65 inches 5'5" BMI (Body Mass Index) 31.3 kg/m2 Heart Rate 84 /min BP Systolic Sitting 126 mmHg Omron, adult cuff/Ra BP Diastolic Sitting 84 mmHg Omron, adult cuff/R a Results Test Acquired Date Facility Test Result H/L Range Note Hemoglobin A1c 04/16/2021 [facility] - not interfaced (315)- - Hemoglobin A1c 5.7 CBC without Differential 04/05/2021 [facility] - not inter faced (315)- - White Blood Count 8.2 5.0-10.0 Red Blood Count 4.40 4.00-5.40 Platelets 337 172-450 Hemoglobin 12.9 Hematocrit 40.0 [facility] 04/05/2021 [facility] - not interfaced (315)- - Calcium Ser/Plasma Mass/Vol 9.0 Sodium 143 Carbon Dioxide Ser/Plasm 26 Chloride Serum/Plasma 112 Potassium 4.5 Glucose 92 83-110 Blood Urea Nitrogen 22 High 7-18 Creatinine 0.69 0.6-1.0 G F R >60.0 Lipid Profile/Cardiac Risk Pro 04/05/2021 [facility] - not interfaced (315)- - Triglycerides 91 <150 Cholesterol 143 <200 HDL 57 >40.0 LDL Cholesterol 68 Chol/HDL Ratio 2.508 <5 CBC without Differential 04/04/2021 [facility] - not inter faced (315)- - White Blood Count 9.9 5.0-10.0 Red Blood Count 4.80 4.00-5.40 Platelets 362 172-450 Hemoglobin 13.8 Hematocrit 42.7 BMP 04/04/2021 [facility] - not interfaced (315)- - Calcium Ser/Plasma Mass/Vol 9.1 Sodium 141 Carbon Dioxide Ser/Plasm 27 Chloride Serum/Plasma 106 Potassium 4.3 Glucose 103 83-110 Blood Urea Nitrogen 24 High 7-18 Creatinine 0.86 0.6-1.0 G F R >60.0 Lipid Profile/Cardiac Risk Pro 04/04/2021 [facility] - not interfaced (315)- - Triglycerides 174 High <150 Cholesterol 174 <200 HDL 62 >40.0 LDL Cholesterol 77 Chol/HDL Ratio 2.806 <5 Laboratory test finding 04/04/2021 [facility] - not interf aced (315)- - Troponin [...] % 36.0-66.0 Lymph % 29.5 % 24.0-44.0 [place] % 6.9 % 2.0-8.0 Eos % 6.8 % High 0.0-3.0 Baso % 0.6 % 0.0-1.0 Immature Granulocyte % 0.3 % 0-3.0 Nucleated Red Blood Cell % 0.0 % 0-0 Neutrophils # 4.0 10 1.5-8.5 Lymph # 2.1 10 1.5-5.0 [place] # 0.5 10 0.0-0.8 Eos # 0.5 [...] mg/dL 0.55-1.30 Glomerular Filtration Rate > 60.0 1 Sodium Level 141 mEq/L 136-145 Potassium Serum [...] mg/dL Cholesterol Risk Ratio 2.266 1 1 Units are mL/min/1.73 m2 Chronic Kidney Disease Staging per NKF: Stage I & II GFR >=60 Normal to Mildly Decreased Stage III GFR 30-59 Moderately Decreased Stage IV GFR 15-29 Severely Decreased Stage V GFR <15 Very Little GFR Left ESRD GFR <15 on INSIDE TESTER Procedures Date Code Description Status 04/20/2021 32482 Office/Outpatient Established Mo d MDM 30-39 Min Completed 04/20/2021 33559 ECG 12-Lead Completed 01/09/2021 91496 Office/Outpatient Established Lo w MDM 20-29 Min Completed 01/02/2021 03168 Implantable Loop Recorder System , Review And Report Completed 12/01/2020 56619 Implantable Loop Recorder System , Review And Report Completed 10/31/2020 47760 Implantable Loop Recorder System , Review And [...] GERARDO Naidu* G45.9 Transient cerebral ischemic attack, unspecified * All * Follow up:* Please schedule for loop explant and new loop implant with Dr. Dumont She will need 1 week incision check Functional Status Functional Condition Comment Date Status Independent with all ADL's Activ e Mental Status Description No Information Available Referrals Description No Information Available
--- OUTSIDE RECORDS SUMMARY | 2021-06-04 08:40 | CCD | Continuity of Care Document ---
Author Organization Unknown Address Unknown Phone Unavailable Care Team Providers Care Fermenting Cellar Dropper Name Role Phone Dayanna Manzo MD AUTM [phone] AUTM [phone] Problems Active Problems Provider Date Dietary management surveillance Ty Dumont MD Onset: 04/29/2017 Essential hypertension Ty Dumont MD Onset: 7 Palpitations Ty Dumont MD Onset: 04/29/2017 Obesity Ty Dumont MD Onset: 04/29/2017 Transient cerebral ischemia yT Dumont MD Onset: 04/18 Flushing Ty Dumont [...] 3 times a week Exercise Type/Frequency Walks 3 times a week Exercise Limitations None Allergies, Adverse Reactions, Alerts Active Allergies Criticality Reaction | Severity Comments Date Sulfa Unable to assess criticality hives 07/10/2015 Latex Unable to assess criticality hives 07/10/2015 Medications Active Medications SIG Qnty Indications Ordering Provide r Date Edarbi 40mg Tablets 1 by mouth every day I10 Unknown 01/08/2021 Atorvastatin Calcium 10mg Tablets 1/2 by mouth every night at bedtime Unknown 07/2020 Metformin HCL 500mg Tablets 1 by mouth twice a day Unknown 05/29/2020 Levothyroxine Sodium 112mcg Tablet s 1 by mouth every day Dayanna Manzo MD 07/10/[address] Hess by mouth every day Dayanna Manzo MD 07/10/2015 Aspir-[address] Hess by mouth every day Dayanna Manzo MD 07/10/2015 History Medications Edarbi 80mg Tablets 1 tablet by mouth every day 90tabs I10 Ty Dumont MD 12/13/2020 - 01/08/2021 Immunizations Description No Information Available Vital Signs Date Vital Result Comment 01/09/2021 12:05pm Weight 188.00 lb Home Weight 180lb home weight Height 65 inches 5'5" BMI (Body Mass Index) 31.3 kg/m2 Heart Rate 84 /min BP Systolic Sitting 126 mmHg Omron, adult cuff/Ra BP Diastolic Sitting 84 mmHg Omron, adult cuff/R a 05/30/2020 8:34am Weight 202.00 lb Home Weight 200lb home weight Height 65 inches 5'5" BMI (Body Mass Index) 33.6 kg/m2 Heart Rate 85 /min BP Systolic Sitting 140 mmHg Omron, large cuff/LA BP Diastolic Sitting 95 mmHg Omron, large cuff/L A Results Test Acquired Date Facility Test Result H/L Range Note Hemoglobin A1c 04/16/2021 [facility] - not interfaced (315)- - Hemoglobin A1c 5.7 CBC without Differential 04/05/2021 [facility] - not inter faced (315)- - White Blood Count 8.2 5.0-10.0 Red Blood Count 4.40 4.00-5.40 Platelets 337 172-450 Hemoglobin 12.9 Hematocrit 40.0 [facility] 04/05/2021 [facility] - not interfaced (315)- - Calcium Ser/Plasma Mass/Vol 9.0 Sodium 143 Carbon Dioxide Ser/Plasm 26 Chloride Serum/Plasma 112 Potassium 4.5 Glucose 92 83-110 Blood Urea Nitrogen 22 High 7-18 Creatinine 0.69 0.6-1.0 G F R >60.0 Lipid Profile/Cardiac Risk Pro 04/05/2021 [facility] - not interfaced (315)- - Triglycerides 91 <150 Cholesterol 143 <200 HDL 57 >40.0 LDL Cholesterol 68 Chol/HDL Ratio 2.508 <5 CBC without Differential 04/04/2021 [facility] - not inter faced (315)- - White Blood Count 9.9 5.0-10.0 Red Blood Count 4.80 4.00-5.40 Platelets 362 172-450 Hemoglobin 13.8 Hematocrit 42.7 BMP 04/04/2021 [facility] - not interfaced (315)- - Calcium Ser/Plasma Mass/Vol 9.1 Sodium 141 Carbon Dioxide Ser/Plasm 27 Chloride Serum/Plasma 106 Potassium 4.3 Glucose 103 83-110 Blood Urea Nitrogen 24 High 7-18 Creatinine 0.86 0.6-1.0 G F R >60.0 Lipid Profile/Cardiac Risk Pro 04/04/2021 [facility] - not interfaced (315)- - Triglycerides 174 High <150 Cholesterol 174 <200 HDL 62 >40.0 LDL Cholesterol 77 Chol/HDL Ratio 2.806 <5 Laboratory test finding 04/04/2021 [facility] - not interf aced (315)- - [...] % 36.0-66.0 Lymph % 29.5 % 24.0-44.0 [place] % 6.9 % 2.0-8.0 Eos % 6.8 % High 0.0-3.0 Baso % 0.6 % 0.0-1.0 Immature Granulocyte % 0.3 % 0-3.0 Nucleated Red Blood Cell % 0.0 % 0-0 Neutrophils # 4.0 10 1.5-8.5 Lymph # 2.1 10 1.5-5.0 [place] # 0.5 10 0.0-0.8 Eos # 0.5 [...] Little GFR Left ESRD GFR <15 on BATTERY CONTAINER TESTER ALUMINUM Procedures Date Code Description Status 01/09/2021 84337 Office/Outpatient Established Lo w MDM 20-29 Min Completed 01/02/2021 72571 Implantable Loop Recorder System , Review And Report Completed 12/01/2020 87171 Implantable Loop Recorder System , Review And Report Completed 10/31/2020 11801 Implantable Loop Recorder System , Review And Report Completed Medical Devices Description No Information Available Encounters Type Date Location Provider Dx Diagnosis Office Visit 01/09/2021 12:00p Main Office Ty Dumont MD I10 Essential (primary) hypertension E78.00 Pure hypercholesterolemia, u nspecified E66.09 Other obesity due to excess calories Z71.3 Dietary counseling and surve illance Assessments Date Code Description Provider 01/09/2021 I10 Essential (primary) hypertension Ty Dumont [...] [facility] Plan of Treatment Future Appointment(s):* 04/20/2021 9:15 am - GERARDO Naidu at Main Office * 06/12/2021 11:15 am - Ty Dumont MD at Main Office 01/09/2021 - Ty Dumont MD* I10 Essential (primary) hypertension* Recommendations:* Continue Edarbi at the current dosage. Whole-food, plant- based, low sodium nutrition with avoidance of added oils and fats and avoidance of refined carbohydrates was encouraged. Walking or equivalent aerobic activity for 40-60 minutes every day. * E78.00 Pure hypercholesterolemia, unspecified* Recommendations:* Continue atorvastatin at the current dosage. Nutrition and exercise advice as above. * E66.09 Other obesity due to excess calories* Recommendations:* Nutrition and exercise advice as above. * Z71.3 Dietary counseling and surveillance * All * Follow up:* Follow-up in [address] Dumont. Functional Status Functional Condition Comment Date Status Independent with all ADL's Activ e Mental Status Description No Information Available Referrals Description No Information Available
--- OUTSIDE RECORDS SUMMARY | 2021-06-04 08:40 | CCD | Continuity of Care Document ---
Author Organization Unknown Address Unknown Phone Unavailable Care Team Providers Care Receiving Tank Operator Name Role Phone [employer] AUTM Dayanna Manzo MD AUTM [phone] Ty Schilling MD AUTM [phone] Heaven Guerra MD AUTM [phone] AntecolTy MD AUTM Unavailable Problems Active Problems Provider Date Hypothyroidism Dayanna Manzo M.D. Onset: 1 Gastroesophageal reflux disease Dayanna Manzo M.D. Onse t: 07/27/2011 Generalized anxiety disorder Dayanna Manzo M.D. Onset: 07/27/2011 Benign essential hypertension Dayanna Manzo M.D. Onset: 11/05/2016 Abnormal glucose level Dayanna Manoz M.D. Onset: 2016 Pure hypercholesterolemia Dayanna Manzo [...] CPT Code Status Date Vaccine Lot # [id number] Given 05/23/1999 Influenza Virus Vaccine Vital Signs [...] Date Facility Test Result H/L Range Note Laboratory test finding 04/16/2021 [place] [id number] [phone] Lupus Type Anticoagulant Scree 1.1 Normal 0 -1.2 1 CBC With Differential 04/16/2021 [facility] [address] [place] [address] [phone] White Blood Count 6.9 10 Normal 4.0-10.0 [...] 36.0-66.0 Lymph % 29.3 % Normal 24.0-44.0 [place] % 5.7 % Normal 2.0-8.0 Eos % 4.9 % High 0.0-3.0 Baso % 0.6 % Normal 0.0-1.0 Immature Granulocyte % 0.3 % Normal 0-3.0 Nucleated Red Blood Cell % 0.0 % Normal 0-0 Neutrophils # 4.1 10 Normal 1.5-8.5 Lymph # 2.0 10 Normal 1.5-5.0 Dent # 0.4 10 Normal 0.0-0.8 Eos # 0.3 10 Normal 0.0-0.5 Baso # 0.0 10 Normal 0.0-0.2 Laboratory test finding 04/16/2021 [place] [id number] [place] [address] [phone] Glucose, Fasting 88 mg/dL Normal 70-100 Iron (Fe) 113 g/dL Normal 50-170 Ferritin 55 NG/ML Normal 8-252 Hemoglobin A1c 04/16/2021 [facility] nter [address] [place] [address] [phone] Hemoglobin A1c 5.7 % Normal 2 Estimated Average Glucose 117 mg/dL High 60-110 Laboratory test finding 04/16/[address] [facility] [address] [address] [phone] Rheumatoid Factor Quant < 10.0 IU/mL Normal <15.0 Erythrocyte Sedimentation Rate 38 mm/hr High 0-30 Laboratory test finding 04/16/[address] [address] [phone] Angiotensin 1 Converting Enzym 50 U/L Normal 1 4-82 Anti-Cardiolipin Antibodies 04/16/[address] [address] [phone] Cardiolipin Iga Antibody <9 APLU/mL Normal 0-11 3 Cardiolipin Igg Antibody <9 GPLU/mL Normal 0-14 4 Cardiolipin Igm Antibody <9 MPLU/mL Normal 0-12 5 Laboratory test finding 04/16/[address] [address] [phone] Factor VIII Activity 152 % High 56-140 Factor 5 Leiden Profile 04/16/[address] [address] [phone] Factor V Leiden For Medinet (SEE NOTE) Normal . 6 Factor II Prothrombin Gene Dna 04/16/[address] [address] [phone] Factor II Prothrombin Gene An (SEE NOTE) Normal . 7 Antinuclear Antibodies 04/16/[address] [address] [phone] Antinuclear Antibodies Direct Negative Normal Ne gative Laboratory test finding 04/16/[address] [address] [phone] Protein C Functional Activity 136 % Normal 7 3-180 8 Protein S Functional Activity 111 % Normal 63-140 9 Anti Thrombin 3 Panel (Ag/ac) 04/16/[address] [address] [phone] Anti Thrombin 3 Funct Activity 120 % Normal 7 5-135 10 Anti Thrombin 3 Antigen Immuno 89 % Normal 72-124 11 Anti-Neutrophil Cytoplasmic AB 04/16/[address] [address] [phone] Cytoplasmic Neutrop AB Anca-C <1:20 titer Normal N eg:<1:20 Perinuclear AB Anca-P <1:20 titer Normal Neg:<1:20 12 Anca-Atypical <1:20 titer Normal Neg:<1:20 13 Lyme Disease SCRN With Confirm 03/30/[address] [address] [phone] Lyme Disease IgG/IgM Antibodie <0.91 ISR Normal 0 .00-0.90 14 Lyme Disease IgM Ab Quantitati <0.80 index Normal 0.00-0.79 15 CBC With Differential 01/19/[address] [address] [phone] White Blood Count 7.1 10 Normal 4.0-10.0 [...] 36.0-66.0 Lymph % 29.5 % Normal 24.0-44.0 [place] % 6.9 % Normal 2.0-8.0 Eos % 6.8 % High 0.0-3.0 Baso % 0.6 % Normal 0.0-1.0 Immature Granulocyte % 0.3 % Normal 0-3.0 Nucleated Red Blood Cell % 0.0 % Normal 0-0 Neutrophils # 4.0 10 Normal 1.5-8.5 Lymph # 2.1 10 Normal 1.5-5.0 Dent # 0.5 10 Normal 0.0-0.8 Eos # 0.5 10 Normal 0.0-0.5 Baso # 0.0 10 Normal 0.0-0.2 Hemoglobin A1c 01/19/[address] [address] [phone] Hemoglobin A1c 5.6 % Normal 16 Estimated Average Glucose 114 mg/dL High 60-110 Thyroid Profile 01/19/[address] [id number] [phone] T Uptake 31 % Normal 30-39 Thyroxine (T4) 9.7 g/dL Normal 4.5-12.0 Free Thyroxine Index 3.0 % Normal 1.3-4.8 Thyroid Stimulating Hormone 1.210 uIU/ML Normal 0.358-3.740 Basic Metabolic Profile 01/19/[address] [address] [phone] Glucose, Fasting 80 mg/dL Normal 70-100 Blood Urea Nitrogen 16 mg/dL Normal 7-18 Creatinine For GFR 0.73 mg/dL Normal 0.55-1.30 Glomerular Filtration Rate > 60.0 Normal >45 1 7 Sodium Level 141 mEq/L Normal 136-145 Potassium Serum 4.3 mEq/L Normal 3.5-5.1 Chloride Level 109 mEq/L High 98-107 Carbon Dioxide Level 26 mEq/L Normal 21-32 Anion Gap 6 mEq/L Low 8-16 Calcium Level 9.2 mg/dL Normal 8.8-10.2 Lipid Panel 01/19/[address] [address] [phone] Triglycerides Level 109 mg/dL Normal <150 Cholesterol Level 136 mg/dL Normal <200 HDL Cholesterol 60 mg/dL Normal >40 LDL Cholesterol 54 mg/dL Normal <100 Non-HDL-C 76 mg/dL Normal Cholesterol Risk Ratio 2.266 Normal <5 1 RESULT IS LESS THAN 1.2, NO FURTHER [...] coagulation factor deficiency or a specific inhibitor. 2 REFERENCE RANGES: <=5.6% NORMAL 5.7-6.4% SUGGESTS IMPAIRED GLUCOSE META BOLISM/PREDIABETIC >= 6.5% ABNORMAL 3 Negative: <12 Indeterminate: 12 - 20 Low-Med Positive: >20 - 80 High Positive: >80 4 Negative: <15 Indeterminate: 15 - 20 Low-Med Positive: >20 - 80 High Positive: >80 5 Negative: <13 Indeterminate: 13 - 20 Low-Med Positive: >20 - 80 High Positive: >80 6 Result: Negative (no mutati on found) . [...] the workup for venous thrombosis include the [id number] mutation in the factor II (prothrombin) gene, protein S and C deficiency, and antithrombin deficiencies. Anticardiolipin antibody and lupus anticoagulant analysis may be appropriate for certain patients, as well as homocysteine levels. . Contact your local [facility] for information on how to order additional testing if desired. . . Genetic counselors are available for health care providers to discuss results at [phone]). . Methodology: DNA analysis of the Factor [...] developed and its performance characteristics determined by [facility]. It has not been cleared or approved by the Food and Drug Administration. . References: Julio Blount (1995). Clin Lab Med 16:169-186. . Ryan Monterroso, PhD, [facility] Margarita Arteaga, PhD, [facility] Morgan Ortega, PhD, [facility] Heather Trimble, PhD, [facility] Yosef Mendes, PhD, [facility] Brendan Andrade PhD, [facility] 7 NEGATIVE No mutation identified. . Comment: A point mutation ([id number]) in the factor II (prothrombin) gene is [...] mutations. This assay detects only the prothrombin [id number] mutation and does not measure genetic abnormalities [...] health care providers to discuss results at [phone]). . Methodology: DNA analysis of the Factor [...] developed and its performance characteristics determined by [employer]. It has not been cleared or approved by the Food and Drug Administration. . Justinot SR, et al. Blood. 1996; 88:6532-5404. Nomi TUCKER. Circulation. 2004; 110:e15-e18. Alfredo I, et al. Arterioscler Thromb Vasc Biol. 1999; 19:700-703. . Ryan Monterroso, PhD, [facility] Margarita Arteaga, PhD, [facility] Morgan Ortega, PhD, [facility] Heather Trimble, PhD, FAC Yosef Mendes, PhD, FAC Brendan Andrade, PhD, [facility] 8 Performed at: - [facility] [id number] Sand Temperer: Gogo Heart MD, Phone: [phone] Performed at: - [facility] [id number] Sand Temperer: Foster Calhoun MD, Phone: [phone] Performed at: - [facility] [address] [place], [place] [address] Sand Temperer: Jacob Aranda [facility], Phone: [phone] 9 Protein S activity may be fa lsely increased (masking an abnormal, low result) in patients receiving direct Xa inhibitor (e.g., rivaroxaban, apixaban, edoxaban) or a direct thrombin inhibitor (e.g., dabigatran) anticoagulant treatment due to assay interference by these drugs. 10 Direct Xa inhibitor anticoag ulants such as rivaroxaban, apixaban and edoxaban will lead to spuriously elevated antithrombin activity levels possibly masking a deficiency. 11 This test was developed and its performance characteristics determined by [facility]. It has not been cleared or approved by the Food and Drug Administration. 12 The presence of positive flu orescence exhibiting P-ANCA or C-ANCA patterns alone is not specific for the diagnosis of Amanda's Granulomatosis (WG) or microscopic polyangiitis. Decisions about treatment should not be based solely on ANCA IFA results. The International ANCA Group Consensus recommends follow up testing of positive sera with both RI- 3 and MPO-ANCA enzyme immunoassays. As m any as 5% serum samples are positive only by EIA. Ref. AM J Clin Pathol 1999;111:507-513. 13 The atypical pANCA pattern h as been observed in a significant percentage of patients with ulcerative colitis, primary sclerosing cholangitis and autoimmune hepatitis. 14 Negative <0.91 Equivocal 0.91 - 1.09 Positive >1.09 15 Negative <0.80 Equivocal 0.80 - 1.19 Positive >1.19 . IgM levels may peak at 3-6 weeks post infection, then gradually decline. Performed at: RN - [facility] [address] [id number] Sand Temperer: Gogo Heart MD, Phone: [phone] REFERENCE RANGES: <=5.6% NORMAL 5.7-6.4% SUGGESTS IMPAIRED GLUCOSE META BOLISM/PREDIABETIC >= 6.5% ABNORMAL 17 Units are mL/min/1.73 m2 Chronic Kidney Disease Staging per NKF: Stage I & II GFR >=60 Normal to Mildly Decreased Stage III GFR 30-59 Moderately Decreased Stage IV GFR 15-29 Severely Decreased Stage V GFR <15 Very Little GFR Left ESRD GFR <15 on TIRE FABRICATOR Procedures Date Code Description Status 04/09/2021 52269 Hester Cre SRV W/I 7 Days Of DC, C omm W/I 2 Dys Med Rec Completed 01/11/2021 84903 Office/Outpatient Established Lo w MDM 20-29 Min Completed 11/08/2020 [id number] Colonoscopy Completed 11/23/2018 [id number] Colonoscopy Completed 12/30/2016 [id number] Colonoscopy Completed 11/20/2016 [id number] Colonoscopy Completed 08/05/2012 [id number] Mammogram Completed 11/21/2011 [id number] Colonoscopy Completed 07/04/2011 [id number] Bone Mineral Density Test Comple hi 07/01/2007 [id number] Colonoscopy Completed Medical Devices Description No Information Available Encounters Type Date Location Provider Dx Diagnosis Office Visit 04/09/2021 3:00p [place] InternRashard boyd M.D. G45.4 Transient global amnesia I10 Essential (primary) hyperten kaci E78.00 Pure hypercholesterolemia, u nspecified E03.9 Hypothyroidism, unspecified R73.09 Other abnormal glucose K21.9 Gastro-esophageal reflux dis ease without esophagitis D50.9 Iron deficiency anemia, unsp ecified Z86.010 Personal history of colonic polyps Office Visit 01/11/2021 2:45p [place] InternRashard boyd M.D. I10 Essential (primary) hyperten [...] 3:00 pm - Dayanna Manzo M.D. at [facility] 04/09/2021 - Dayanna Manzo M.D.* G45.4 Transient [...]
--- OUTSIDE RECORDS SUMMARY | 2021-06-04 08:40 | CCD | Continuity of Care Document ---
Author Author Judy Manzo M.D Organization Unknown Address [address] [place] [address] Phone [phone] Care Team Providers Care Client Specialist Name Role Phone Feed [employer] AUTM [phone] Dayanna Manzo MD AUTM [phone] Ty Schilling MD AUTM [phone] Heaven Guerra MD AUTM [phone] AntecolTy MD AUTM Sofia Sweeney M.D., Yoel AUTM [phone] Problems Active Problems Provider Date Hypothyroidism Dayanna [...] CPT Code Status Date Vaccine Lot # [id number] Given 05/23/1999 Influenza Virus Vaccine Vital Signs [...] Test Result H/L Range Note A1c 04/25/2021 [facility] Bridal Consultant: [place] [address] [phone] Hba1c 5.8 % High <5.7 1 Est Avg Glucose 120 mg/dL High 60 - 110 Basic Metabolic Panel 04/25/2021 [facility] Bridal Consultant: [place] [address] [phone] Glucose 99 mg/dL 74 - 99 2 [...] mL/min >60 3 Complete Blood Count 04/25/2021 [facility] Bridal Consultant: Dr [place] [address] [phone] WBC 7.4 x10*3/UL 4.1 - 10.9 RBC [...] x10*3/UL 2.0 - 7.8 Hemoglobin A1c 04/16/2021 [facility] nter [address] [place] [address] [phone] Hemoglobin A1c 5.7 % Normal 4 Estimated Average Glucose 117 mg/dL High 60-110 Laboratory test finding 04/16/2021 [facility] [address] [place] [address] [phone] Rheumatoid Factor Quant < 10.0 IU/mL Normal <15.0 Erythrocyte Sedimentation Rate 38 mm/hr High 0-30 CBC With Differential 04/16/[address] [address] [phone] White Blood Count 6.9 10 Normal 4.0-10.0 [...] 36.0-66.0 Lymph % 29.3 % Normal 24.0-44.0 [place] % 5.7 % Normal 2.0-8.0 Eos % 4.9 % High 0.0-3.0 Baso % 0.6 % Normal 0.0-1.0 Immature Granulocyte % 0.3 % Normal 0-3.0 Nucleated Red Blood Cell % 0.0 % Normal 0-0 Neutrophils # 4.1 10 Normal 1.5-8.5 Lymph # 2.0 10 Normal 1.5-5.0 [place] # 0.4 10 Normal 0.0-0.8 Eos # 0.3 10 Normal 0.0-0.5 Baso # 0.0 10 Normal 0.0-0.2 Laboratory test finding 04/16/[address] [address] [phone] Glucose, Fasting 88 mg/dL Normal 70-100 Iron (Fe) 113 g/dL Normal 50-170 Ferritin 55 NG/ML Normal 8-252 Anti-Neutrophil Cytoplasmic AB 04/16/[address] [address] [phone] Cytoplasmic Neutrop AB Anca-C <1:20 titer Normal N eg:<1:20 Perinuclear AB Anca-P <1:20 titer Normal Neg:<1:20 5 Anca-Atypical <1:20 titer Normal Neg:<1:20 6 Laboratory test finding 04/16/[address] [address] [phone] Lupus Type Anticoagulant Scree 1.1 Normal 0 -1.2 7 Laboratory test finding 04/16/[address] [address] [phone] Angiotensin 1 Converting Enzym 50 U/L Normal 1 4-82 Anti-Cardiolipin Antibodies 04/16/[address] [address] [phone] Cardiolipin Iga Antibody <9 APLU/mL Normal 0-11 8 Cardiolipin Igg Antibody <9 GPLU/mL Normal 0-14 9 Cardiolipin Igm Antibody <9 MPLU/mL Normal 0-12 10 Laboratory test finding 04/16/[address] [address] [phone] Factor VIII Activity 152 % High 56-140 Factor 5 Leiden Profile 04/16/[address] [address] [phone] Factor V Leiden For [facility] (SEE NOTE) Normal . 11 Factor II Prothrombin Gene Dna 04/16/[address] [address] [phone] Factor II Prothrombin Gene An (SEE NOTE) Normal . 12 Antinuclear Antibodies 04/16/[address] [address] [phone] Antinuclear Antibodies Direct Negative Normal Ne gative Laboratory test finding 04/16/[address] [address] [phone] Protein C Functional Activity 136 % Normal 7 3-180 13 Protein S Functional Activity 111 % Normal 63-140 14 Anti Thrombin 3 Panel (Ag/ac) 04/16/[address] [address] [phone] Anti Thrombin 3 Funct Activity 120 % Normal 7 5-135 15 Anti Thrombin 3 Antigen Immuno 89 % Normal 72-124 16 Lyme Disease SCRN With Confirm 03/30/[address] [address] [phone] Lyme Disease IgG/IgM Antibodie <0.91 ISR Normal 0 .00-0.90 17 Lyme Disease IgM Ab Quantitati <0.80 index Normal 0.00-0.79 18 CBC With Differential 01/19/[address] [address] [phone] White Blood Count 7.1 10 Normal 4.0-10.0 [...] 36.0-66.0 Lymph % 29.5 % Normal 24.0-44.0 [place] % 6.9 % Normal 2.0-8.0 Eos % 6.8 % High 0.0-3.0 Baso % 0.6 % Normal 0.0-1.0 Immature Granulocyte % 0.3 % Normal 0-3.0 Nucleated Red Blood Cell % 0.0 % Normal 0-0 Neutrophils # 4.0 10 Normal 1.5-8.5 Lymph # 2.1 10 Normal 1.5-5.0 [place] # 0.5 10 Normal 0.0-0.8 Eos # 0.5 10 Normal 0.0-0.5 Baso # 0.0 10 Normal 0.0-0.2 Hemoglobin A1c 01/19/[address] [address] [phone] Hemoglobin A1c 5.6 % Normal 19 Estimated Average Glucose 114 mg/dL High 60-110 Thyroid Profile 01/19/[address] [address] [phone] T Uptake 31 % Normal 30-39 Thyroxine (T4) 9.7 g/dL Normal 4.5-12.0 Free Thyroxine Index 3.0 % Normal 1.3-4.8 Thyroid Stimulating Hormone 1.210 uIU/ML Normal 0.358-3.740 Basic Metabolic Profile 01/19/[address] [address] [phone] Glucose, Fasting 80 mg/dL Normal 70-100 Blood [...] 9.2 mg/dL Normal 8.8-10.2 Lipid Panel 01/19/[address] [address] [phone] Triglycerides Level 109 mg/dL Normal <150 Cholesterol [...] LITTLE GFR LEFT ESRD GFR <15 ON PATTERN WORKER 4 REFERENCE RANGES: <=5.6% NORMAL 5.7-6.4% SUGGESTS [...] up testing of positive sera with both HI- 3 and MPO-ANCA enzyme immunoassays. As m [...] the workup for venous thrombosis include the [id number] mutation in the factor II (prothrombin) gene, protein S and C deficiency, and antithrombin deficiencies. Anticardiolipin antibody and lupus anticoagulant analysis may be appropriate for certain patients, as well as homocysteine levels. . Contact your local [facility] for information on how to order additional testing if desired. . . Genetic counselors are available for health care providers to discuss results at [phone]). . Methodology: DNA analysis of the Factor [...] the Food and Drug Administration. . References: Jluio Blount (1996). Clin Lab Med 16:169-186. . Ryan Monterroso, PhD, [facility] Margarita Arteaga, PhD, [facility] W. Aurea Ortega, PhD, [facility] Heather Trimble, PhD, [facility] Yosef Mendes, PhD, [facility] Brendan Andrade PhD, [facility] 12 NEGATIVE No mutation identified. . Comment: A point mutation ([id number]) in the factor II (prothrombin) gene is [...] mutations. This assay detects only the prothrombin [id number] mutation and does not measure genetic abnormalities [...] health care providers to discuss results at [phone] [phone]). . Methodology: DNA analysis of the Factor [...] developed and its performance characteristics determined by [employer]. It has not been cleared or approved by the Food and Drug Administration. . Justinot SR, et al. Blood. 1996; 88:7890-4525. Nomi EA. Circulation. 2004; 110:e15-e18. Alfredo I, et al. Arterioscler Thromb Vasc Biol. 1999; 19:700-703. . Ryan Monterroso, PhD, [facility] Margarita Arteaga, PhD, [facility] W. Aurea Ortega, PhD, [facility] Heather Trimble, PhD, [facility] Yosef Mendes, PhD, FAC Brendan Andrade, PhD, [facility] 13 Performed at: - [address] [id number] Bridal Consultant: Gogo Heart MD, Phone: [phone] Performed at: [facility] [address] [id number] Bridal Consultant: Foster Calhoun MD, Phone: [phone] Performed at: - [facility] [address] [place], [place], [place] [address] 627 Bridal Consultant: Jacob Aranda [facility], Phone: [phone] Protein S activity may be fa [...] developed and its performance characteristics determined by [employer]. It has not been cleared or approved by the Food and Drug Administration. 17 Negative <0.91 Equivocal 0.91 - 1.09 Positive >1.09 18 Negative <0.80 Equivocal 0.80 - 1.19 Positive >1.19 . IgM levels may peak at 3-6 weeks post infection, then gradually decline. Performed at: - [facility] [id number] Bridal Consultant: Gogo Heart MD, Phone: [phone] REFERENCE RANGES: <=5.6% NORMAL 5.7-6.4% SUGGESTS IMPAIRED GLUCOSE META BOLISM/PREDIABETIC >= 6.5% ABNORMAL 20 Units are mL/min/1.73 m2 Chronic Kidney Disease Staging per NKF: Stage I & II GFR >=60 Normal to Mildly Decreased Stage III GFR 30-59 Moderately Decreased Stage IV GFR 15-29 Severely Decreased Stage V GFR <15 Very Little GFR Left ESRD GFR <15 on PATTERN WORKER Procedures Date Code Description Status 04/25/2021 72421 Office/Outpatient Established Mo d MDM 30-39 Min Completed 04/09/2021 12918 [facility] Cre SRV W/I 7 Days Of DC, C omm W/I 2 Dys Med Rec Completed 01/11/2021 12601 Office/Outpatient Established Lo w MDM 20-29 Min Completed 11/08/2020 [id number] Colonoscopy Completed 11/23/2018 [id number] Colonoscopy Completed 12/30/2016 [id number] Colonoscopy Completed 11/20/2016 [id number] Colonoscopy Completed 08/05/2012 [id number] Mammogram Completed 11/21/2011 [id number] Colonoscopy Completed 07/04/2011 [id number] Bone Mineral Density Test Comple hi 07/01/2007 [id number] Colonoscopy Completed Medical Devices Description No Information Available Encounters Type Date Location Provider Dx Diagnosis Office Visit 04/25/2021 3[facility]p [place] [facility] G45.4 Transient global amnesia I10 Essential (primary) hyperten kaci D50.9 Iron deficiency anemia, unsp ecified K21.9 Gastro-esophageal reflux dis ease without esophagitis E78.00 Pure hypercholesterolemia, u nspecified E03.9 Hypothyroidism, unspecified R73.09 Other abnormal glucose F41.9 Anxiety disorder, unspecifie d Z68.30 Body mass index [BMI] 30.0-3 0.9, adult E66.09 Other obesity due to excess calories Office Visit 04/09/2021 3:00p [place] [facility] M.[facility] G45.4 Transient global amnesia I10 Essential (primary) hyperten kaci E78.00 Pure hypercholesterolemia, u nspecified E03.9 Hypothyroidism, unspecified R73.09 Other abnormal glucose K21.9 Gastro-esophageal reflux dis ease without esophagitis D50.9 Iron deficiency anemia, unsp ecified Z86.010 Personal history of colonic polyps Office Visit 01/11/2021 2[facility] I10 Essential (primary) hyperten kaci F43.0 Acute stress reaction R73.09 Other abnormal glucose E78.00 Pure hypercholesterolemia, u nspecified G45.9 Transient cerebral ischemic attack, unspecified K21.9 Gastro-esophageal reflux dis ease without esophagitis E03.9 Hypothyroidism, unspecified Z86.010 Personal history of colonic polyps Assessments Date Code Description Provider 04/25/2021 G45.4 Transient global amnesia Dayanna Manzo [...] Manzo M.D. 04/09/2021 E78.00 Pure hypercholesterolemia, unspe cilesley Manzo M.D. 04/09/2021 E03.9 Hypothyroidism, unspecified Nidhi [...] 3:00 pm - Dayanna Manzo M.D. at [facility] 04/25/2021 - Dayanna Manzo M.D.* G45.4 Transient global amnesia * I10 Essential (primary) hypertension * D50.9 Iron deficiency anemia, unspecified * K21.9 Gastro-esophageal reflux disease without esophagitis * E78.00 Pure hypercholesterolemia, unspecified * E03.9 Hypothyroidism, unspecified * R73.09 Other abnormal glucose * F41.9 Anxiety disorder, unspecified * Z68.30 Body mass index [BMI] 30.0-30.9, adult * E66.09 Other obesity due to excess calories * All * New Medication:* Famotidine 20 mg - 1-2 by mouth every day try to wean omeprazole Functional Status Description No Information Available Mental Status Description No Information Available Referrals Description No Information Available
--- OUTSIDE RECORDS SUMMARY | 2021-06-04 08:40 | CCD | Continuity of Care Document ---
Author Author Judy Manzo M.D Organization Unknown Address [address] [place] [address] Phone [phone] Care Team Providers Care Auto Rebuilder Name Role Phone Feed [employer] AUTM Dayanna Manzo MD AUTM [phone] Ty Schilling MD AUTM [phone] Heaven Guerra MD AUTM [phone] AntecolTy MD AUTM Unavailable Problems Active Problems [...] 500mg Tablets take one tablet by mouth qasiddharth Manzo M.D. 03/19 Iron (Ferrous Sulfate) 142(45Fe) [...] CPT Code Status Date Vaccine Lot # [id number] Given 05/23/1999 Influenza Virus Vaccine Vital Signs [...] H/L Range Note Laboratory test finding 04/16/2021 [facility] [address] [place] [address] [phone] Rheumatoid Factor Quant < 10.0 IU/mL Normal <15.0 Erythrocyte Sedimentation Rate 38 mm/hr High 0-30 Hemoglobin A1c 04/16/2021 [facility] nter [address] [place] [address] [phone] Hemoglobin A1c 5.7 % Normal 1 Estimated Average Glucose 117 mg/dL High 60-110 Laboratory test finding 04/16/2021 [facility] [address] [place] [address] [phone] Glucose, Fasting 88 mg/dL Normal 70-100 Iron (Fe) 113 g/dL Normal 50-170 Ferritin 55 NG/ML Normal 8-252 CBC With Differential 04/16/[address] [address] [phone] White Blood Count 6.9 10 Normal 4.0-10.0 [...] 36.0-66.0 Lymph % 29.3 % Normal 24.0-44.0 Bay % 5.7 % Normal 2.0-8.0 Eos % 4.9 % High 0.0-3.0 Baso % 0.6 % Normal 0.0-1.0 Immature Granulocyte % 0.3 % Normal 0-3.0 Nucleated Red Blood Cell % 0.0 % Normal 0-0 Neutrophils # 4.1 10 Normal 1.5-8.5 Lymph # 2.0 10 Normal 1.5-5.0 [place] # 0.4 10 Normal 0.0-0.8 Eos # 0.3 10 Normal 0.0-0.5 Baso # 0.0 10 Normal 0.0-0.2 Lyme Disease SCRN With Confirm 03/30/[address] [address] [phone] Lyme Disease IgG/IgM Antibodie <0.91 ISR Normal 0 .00-0.90 2 Lyme Disease IgM Ab Quantitati <0.80 index Normal 0.00-0.79 3 CBC With Differential 01/19/[address] [address] [phone] White Blood Count 7.1 10 Normal 4.0-10.0 [...] 36.0-66.0 Lymph % 29.5 % Normal 24.0-44.0 [place] % 6.9 % Normal 2.0-8.0 Eos % 6.8 % High 0.0-3.0 Baso % 0.6 % Normal 0.0-1.0 Immature Granulocyte % 0.3 % Normal 0-3.0 Nucleated Red Blood Cell % 0.0 % Normal 0-0 Neutrophils # 4.0 10 Normal 1.5-8.5 Lymph # 2.1 10 Normal 1.5-5.0 [place] # 0.5 10 Normal 0.0-0.8 Eos # 0.5 10 Normal 0.0-0.5 Baso # 0.0 10 Normal 0.0-0.2 Hemoglobin A1c 01/19/2021 [facility] nter [address] [place] [address] [phone] Hemoglobin A1c 5.6 % Normal 4 Estimated Average Glucose 114 mg/dL High 60-110 Thyroid Profile [facility]2021 [facility] [address] [place] [address] [phone] T Uptake 31 % Normal 30-39 Thyroxine (T4) 9.7 g/dL Normal 4.5-12.0 Free Thyroxine Index 3.0 % Normal 1.3-4.8 Thyroid Stimulating Hormone 1.210 uIU/ML Normal 0.358-3.740 Basic Metabolic Profile 01/19/2021 [facility] [address] [place] [address] [phone] Glucose, Fasting 80 mg/dL Normal 70-100 Blood Urea Nitrogen 16 mg/dL Normal 7-18 Creatinine For GFR 0.73 mg/dL Normal 0.55-1.30 Glomerular Filtration Rate > 60.0 Normal >45 5 Sodium Level 141 mEq/L Normal 136-145 Potassium Serum 4.3 mEq/L Normal 3.5-5.1 Chloride Level 109 mEq/L High 98-107 Carbon Dioxide Level 26 mEq/L Normal 21-32 Anion Gap 6 mEq/L Low 8-16 Calcium Level 9.2 mg/dL Normal 8.8-10.2 Lipid Panel 01/19/2021 [address] [place] [address] [phone] Triglycerides Level 109 mg/dL Normal <150 Cholesterol Level 136 mg/dL Normal <200 HDL Cholesterol 60 mg/dL Normal >40 LDL Cholesterol 54 mg/dL Normal <100 Non-HDL-C 76 mg/dL Normal Cholesterol Risk Ratio 2.266 Normal <5 1 REFERENCE RANGES: <=5.6% NORMAL 5.7-6.4% SUGGESTS IMPAIRED GLUCOSE META BOLISM/PREDIABETIC >= 6.5% ABNORMAL 2 Negative <0.91 Equivocal 0.91 - 1.09 Positive >1.09 3 Negative <0.80 Equivocal 0.80 - 1.19 Positive >1.19 . IgM levels may peak at 3-6 weeks post infection, then gradually decline. Performed at: RN - [facility] [address] [id number] Medical Claims Processor: Gogo Heart MD, Phone: [phone] REFERENCE RANGES: <=5.6% NORMAL 5.7-6.4% SUGGESTS IMPAIRED GLUCOSE META BOLISM/PREDIABETIC >= 6.5% ABNORMAL 5 Units are mL/min/1.73 m2 Chronic Kidney Disease Staging per NKF: Stage I & II GFR >=60 Normal to Mildly Decreased Stage III GFR 30-59 Moderately Decreased Stage IV GFR 15-29 Severely Decreased Stage V GFR <15 Very Little GFR Left ESRD GFR <15 on CHECKER DUMP GROUNDS Procedures Date Code Description Status 04/09/2021 47646 Hester Cre SRV W/I 7 Days Of DC, C omm W/I 2 Dys Med Rec Completed 01/11/2021 12355 Office/Outpatient Established Lo w MDM 20-29 Min Completed 11/08/2020 [id number] Colonoscopy Completed 11/23/2018 [id number] Colonoscopy Completed 12/30/2016 [id number] Colonoscopy Completed 11/20/2016 [id number] Colonoscopy Completed 08/05/2012 [id number] Mammogram Completed 11/21/2011 [id number] Colonoscopy Completed 07/04/2011 [id number] Bone Mineral Density Test Comple hi 07/01/2007 [id number] Colonoscopy Completed Medical Devices Description No Information Available Encounters Type Date Location Provider Dx Diagnosis Office Visit 04/09/2021 3:00p [facility] G45.4 Transient global amnesia I10 Essential (primary) hyperten kaci E78.00 Pure hypercholesterolemia, u nspecified E03.9 Hypothyroidism, unspecified R73.09 Other abnormal glucose K21.9 Gastro-esophageal reflux dis ease without esophagitis D50.9 Iron deficiency anemia, unsp ecified Z86.010 Personal history of colonic polyps Office Visit 01/11/2021 [facility] I10 Essential (primary) hyperten kaci F43.0 [...] 3:00 pm - Dayanna Manzo M.D. at [facility] 04/09/2021 - Dayanna Manzo M.D.* [...]
--- OUTSIDE RECORDS SUMMARY | 2021-06-04 08:43 | CCD ---
Author Author [facility] Organization [facility] Address Unknown Phone Unavailable Care Team Providers Care Route Salesman Name Role Phone Moni LAY MD Unavailable Unavailable Moni LAY MD Unavailable Unavailable Moni LAY MD Unavailable Unavailable Moni LAY MD Unavailable Unavailable Moni LAY MD Unavailable Unavailable Moni LAY MD Unavailable Unavailable Moni LAY MD Unavailable Unavailable Moni LAY MD Unavailable Unavailable Moni LAY MD Unavailable Unavailable Moni LAY MD Unavailable Unavailable Moni LAY MD Unavailable Unavailable Moni LAY MD Unavailable Unavailable Moni LAY MD Unavailable Unavailable Moni LAY MD Unavailable Unavailable Moni LAY MD Unavailable Unavailable Moni LAY MD Unavailable Unavailable Moni LAY MD Unavailable Unavailable Moni LAY MD Unavailable Unavailable Moni LAY MD Unavailable Unavailable Moni LAY MD Unavailable Unavailable Moni LAY MD Unavailable Unavailable Moni LAY MD Unavailable Unavailable Moni LAY MD Unavailable Unavailable Moni LAY MD Unavailable Unavailable Moni LAY MD Unavailable Unavailable Moni LAY MD Unavailable Unavailable Mnoi LAY MD Unavailable Unavailable Moni LAY MD Unavailable Unavailable Moni LAY MD Unavailable Unavailable Moni LAY MD Unavailable Unavailable Moni LAY MD Unavailable Unavailable Moni LAY MD Unavailable Unavailable Moni LAY MD Unavailable Unavailable Moni LAY MD Unavailable Unavailable Moni LAY MD Unavailable Unavailable Moni LAY MD Unavailable Unavailable Moni LAY MD Unavailable Unavailable Moni LAY MD Unavailable Unavailable Moni LAY MD Unavailable Unavailable Moni LAY MD Unavailable Unavailable Moni LAY MD Unavailable Unavailable Moni LAY MD Unavailable Unavailable Moni LAY MD Unavailable Unavailable Moni LAY MD Unavailable Unavailable Moni LAY MD Unavailable Unavailable Symenow, Lexie Chata PA Unavailable Unavailable Symenow, Lexie Chata PA Unavailable Unavailable Symenow, Lxeie Chata PA Unavailable Unavailable Symenow, Lexie Chata PA Unavailable Unavailable Symenow, Lexie Chata PA Unavailable Unavailable Symenow, Lexie Chata PA Unavailable Unavailable Symenow, Lexie Chata PA Unavailable Unavailable Symenow, Lexie Chata PA Unavailable Unavailable Symenow, Lexie Chata PA Unavailable Unavailable Symenow, Lexie Chata PA Unavailable Unavailable Symenow, Lexie Chata PA Unavailable Unavailable Symenow, Lexie Chata PA Unavailable Unavailable Symenow, Lexie Chata PA Unavailable Unavailable Symenow, Lexie Chata PA Unavailable Unavailable Symenow, Lexie Chata PA Unavailable Unavailable Symenow, Lexie Chata PA Unavailable Unavailable Symenow, Lexie Chata PA Unavailable Unavailable Symenow, Lexie Chata PA Unavailable Unavailable Symenow, Lexie Chata PA Unavailable Unavailable Symenow, Lexie Chata PA Unavailable Unavailable Symenow, Lexie Chata PA Unavailable Unavailable Symenow, Lexie Chata PA Unavailable Unavailable Symenow, Lexie Chata PA Unavailable Unavailable Symenow, Lexie Chata PA Unavailable Unavailable Symenow, Lexie Chata PA Unavailable Unavailable Symenow, Lexie Chata PA Unavailable Unavailable Symenow, Lexie Chata PA Unavailable Unavailable Symenow, Lexie Chata PA Unavailable Unavailable Symenow, Lexie Chata PA Unavailable Unavailable Symenow, Lexie Chata PA Unavailable Unavailable Symenow, Lexie Chata PA Unavailable Unavailable Symenow, Lexie Chata PA Unavailable Unavailable Symenow, Lexie Chata PA Unavailable Unavailable Symenow, Lexie Chata PA Unavailable Unavailable VERA, C LEANDRO MD Unavailable Unavailable VERA, C LEANDRO MD Unavailable Unavailable VERA, C LEANDRO MD Unavailable Unavailable VERA, C LEANDRO MD Unavailable Unavailable VERA, C LEANDRO MD Unavailable Unavailable VERA, C LEANDRO MD Unavailable Unavailable VERA, C LEANDRO MD Unavailable Unavailable VERA, C LEANDRO MD Unavailable Unavailable VERA, C LEANDRO MD Unavailable Unavailable VERA, C LEANDRO MD Unavailable Unavailable VERA, C LEANDRO MD Unavailable Unavailable VERA, C LEANDRO MD Unavailable Unavailable VERA, C LEANDRO MD Unavailable Unavailable VERA, C LEANDRO MD Unavailable Unavailable VERA, C LEANDRO MD Unavailable Unavailable VERA, C LEANDRO MD Unavailable Unavailable VERA, C LEANDRO MD Unavailable Unavailable VERA, C LEANDRO MD Unavailable Unavailable VERA, C LEANDRO MD Unavailable Unavailable VERA, C LEANDRO MD Unavailable Unavailable VERA, C LEANDRO MD Unavailable Unavailable VERA, C LEANDRO MD Unavailable Unavailable VERA, C LEANDRO MD Unavailable Unavailable VERA, C LEANDRO MD Unavailable Unavailable VERA, C LEANDRO MD Unavailable Unavailable VERA, C LEANDRO MD Unavailable Unavailable VERA, C LEANDRO MD Unavailable Unavailable VERA, C LEANDRO MD Unavailable Unavailable VERA, C LEANDRO MD Unavailable Unavailable VERA, C LEANDRO MD Unavailable Unavailable VERA, C LEANDRO MD Unavailable Unavailable VERA, C LEANDRO MD Unavailable Unavailable VERA, C LEANDRO MD Unavailable Unavailable VERA, C LEANDRO MD Unavailable Unavailable VERA, C LEANDRO MD Unavailable Unavailable VERA, C LEANDRO MD Unavailable Unavailable VERA, C LEANDRO MD Unavailable Unavailable VERA, C LEANDRO MD Unavailable Unavailable VERA, C LEANDRO MD Unavailable Unavailable VERA, C LEANDRO MD Unavailable Unavailable VERA, C LEANDRO MD Unavailable Unavailable VERA, C LEANDRO MD Unavailable Unavailable VERA, C LEANDRO MD Unavailable Unavailable VERA, C LEANDRO MD Unavailable Unavailable VERA, C LEANDRO MD Unavailable Unavailable VERA, C LEANDRO MD Unavailable Unavailable VERA, C LEANDRO MD Unavailable Unavailable VERA, C LEANDRO MD Unavailable Unavailable VERA, C LEANDRO MD Unavailable Unavailable VERA, C LEANDRO MD Unavailable Unavailable VERA, C LEANDRO MD Unavailable Unavailable VERA, C LEANDRO MD Unavailable Unavailable VERA, C LEANDRO MD Unavailable Unavailable VERA, C LEANDRO MD Unavailable Unavailable VERA, C LEANDRO MD Unavailable Unavailable VERA, Felicia REEVES MD Unavailable Unavailable VERA, Felicia REEVES MD Unavailable Unavailable VERA, Felicia REEVES MD Unavailable Unavailable VERA, Felicia REEVES MD Unavailable Unavailable VERA, Felicia REEVES MD Unavailable Unavailable VERA, Felicia REEVES MD Unavailable Unavailable VERA, Felicia REEVES MD Unavailable Unavailable VERA, Felicia REEVES MD Unavailable Unavailable VERA, Felicia REEVES MD Unavailable Unavailable NIKO (ROSA MARIA), Moni MORLEY MD Unavailable Unavailab le NIKO (ROSA MARIA), Moni MORLEY MD Unavailable Unavailab le NIKO (ROSA MARIA), Moni MORLEY MD Unavailable Unavailab le NIKO (ROSA MARIA), Moni MORLEY MD Unavailable Unavailab le NIKO (ROSA MARIA), Moni MORLEY MD Unavailable Unavailab le NIKO (ROSA MARIA), Moni MORLEY MD Unavailable Unavailab le NIKO (ROSA MARIA), Moni MORLEY MD Unavailable Unavailab le NIKO (ROSA MARIA), Moni MORLEY MD Unavailable Unavailab le NIKO (ROSA MARIA), Moni MORLEY MD Unavailable Unavailab le NIKO (ROSA MARIA), Moni MORLEY MD Unavailable Unavailab le NIKO (ROSA MARIA), Moni MORLEY MD Unavailable Unavailab le NIKO (ROSA MARIA), Moni MORLEY MD Unavailable Unavailab le NIKO (ROSA MARIA), Moni MORLEY MD Unavailable Unavailab le NIKO (ROSA MARIA), Moni MORLEY MD Unavailable Unavailab le NIKO (ROSA MARIA), Moni MORLEY MD Unavailable Unavailab le NIKO (ROSA MARIA), Moni MORLEY MD Unavailable Unavailab le NIKO (ROSA MARIA), Moni MORLEY MD Unavailable Unavailab le NIKO (ROSA MARIA), Moni MORLEY MD Unavailable Unavailab le NIKO (ROSA MARIA), Moni MORLEY MD Unavailable Unavailab le NIKO (ROSA MARIA), Moni MORLEY MD Unavailable Unavailab le NIKO (ROSA MARIA), Moni MORLEY MD Unavailable Unavailab le NIKO (ROSA MARIA), Moni MORLEY MD Unavailable Unavailab le NIKO (ROSA MARIA), Moni MORLEY MD Unavailable Unavailab le NIKO (ROSA MARIA), Moni MORLEY MD Unavailable Unavailab le NIKO (ROSA MARIA), Moni MORLEY MD Unavailable Unavailab le NIKO (ROSA MARIA), Moni MORLEY MD Unavailable Unavailab le INKO (ROSA MARIA), Moni MORLEY MD Unavailable Unavailab le NIKO (ROSA MARIA), Moni MORLEY MD Unavailable Unavailab le NIKO (ROSA MARIA), Moni MORLEY MD Unavailable Unavailab le NIKO (ROSA MARIA), Moni MORLEY MD Unavailable Unavailab le NIKO (ROSA MARIA), Moni MORLEY MD Unavailable Unavailab le NIKO (ROSA MARIA), Moni MORLEY MD Unavailable Unavailab le NIKO (ROSA MARIA), Moni MORLEY MD Unavailable Unavailab le NIKO (ROSA MARIA), Moni MORLEY MD Unavailable Unavailab le NIKO (ROSA MARIA), Moni MORLEY MD Unavailable Unavailab le NIKO (ROSA MARIA), Moni MORLEY MD Unavailable Unavailab le NIKO (ROSA MARIA), Moni MORLEY MD Unavailable Unavailab le NIKO (ROSA MARIA), Moni MORLEY MD Unavailable Unavailab le NIKO (ROSA MARIA), Moni MORLEY MD Unavailable Unavailab le NIKO (ROSA MARIA), Moni MORLEY MD Unavailable Unavailab le NIKO (ROSA MARIA), Moni MORLEY MD Unavailable Unavailab le NIKO (ROSA MARIA), Moni MORLEY MD Unavailable Unavailab le NIKO (ROSA MARIA), Moni MORLEY MD Unavailable Unavailab le NIKO (ROSA MARIA), Moni MORLEY MD Unavailable Unavailab le NIKO (ROSA MARIA), Moni MORLEY MD Unavailable Unavailab le NIKO (ROSA MARIA), Moni MORLEY MD Unavailable Unavailab le NIKO (ROSA MARIA), Moni MORLEY MD Unavailable Unavailab le NIKO (ROSA MARIA), Moni MORLEY MD Unavailable Unavailab le NIKO (ROSA MARIA), Moni MORLEY MD Unavailable Unavailab le NIKO (ROSA MARIA), Moni MORLEY MD Unavailable Unavailab le NIKO (ROSA MARIA), Moni MORLEY MD Unavailable Unavailab le NIKO (ROSA MARIA), Moni MORLEY MD Unavailable Unavailab le NIKO (ROSA MARIA), Moni MORLEY MD Unavailable Unavailab le NIKO (ROSA MARIA), Moni MORLEY MD Unavailable Unavailab le NIKO (ROSA MARIA), Moni MORLEY MD Unavailable Unavailab le NIKO (ROSA MARIA), Moni MORLEY MD Unavailable Unavailab le NIKO (ROSA MARIA), Moni MORLEY MD Unavailable Unavailab le NIKO (ROSA MARIA), Moni MORLEY MD Unavailable Unavailab le NIKO (ROSA MARIA), Moni MORLEY MD Unavailable Unavailab le NIKO (ROSA MARIA), Moni MORLEY MD Unavailable Unavailab le NIKO (ROSA MARIA), Moni MORLEY MD Unavailable Unavailab le NIKO (ROSA MARIA), Moni MORLEY MD Unavailable Unavailab le NIKO (ROSA MARIA), Moni MORLEY MD Unavailable Unavailab le NIKO (ROSA MARIA), Moni MORLEY MD Unavailable Unavailab le NIKO (ROSA MARIA), Moni MORLEY MD Unavailable Unavailab le NIKO (ROSA MARIA), Moni MORLEY MD Unavailable Unavailab le NIKO (ROSA MARIA), Moni MORLEY MD Unavailable Unavailab le NIKO (ROSA MARIA), Moni MORLEY MD Unavailable Unavailab le NIKO (ROSA MARIA), Moni MORLEY MD Unavailable Unavailab le NIKO (ROSA MARIA), Moni MORLEY MD Unavailable Unavailab le NIKO (ROSA MARIA), Moni MORLEY MD Unavailable Unavailab le NIKO (ROSA MARIA), Moni MORLEY MD Unavailable Unavailab le NIKO (ROSA MARIA), Moni MORLEY MD Unavailable Unavailab le NIKO (ROSA MARIA), Moni MORLEY MD Unavailable Unavailab le NIKO (ROSA MARIA), Moni MORLEY MD Unavailable Unavailab le NIKO (ROSA MARIA), Moni MORLEY MD Unavailable Unavailab le NIKO (ROSA MARIA), Moni MORLEY MD Unavailable Unavailab le NIKO (ROSA MARIA), Moni MORLEY MD Unavailable Unavailab le NIKO (ROSA MARIA), Moni MORLEY MD Unavailable Unavailab le NIKO (ROSA MARIA), Moni MORLEY MD Unavailable Unavailab le NIKO (ROSA MARIA), Moni MORLEY MD Unavailable Unavailab le NIKO (ROSA MARIA), Moni MORLEY MD Unavailable Unavailab le NIKO (ROSA MARIA), Moni MORLEY MD Unavailable Unavailab le NIKO (ROSA MARIA), Moni MORLEY MD Unavailable Unavailab le NIKO (ROSA MARIA), Moni MORLEY MD Unavailable Unavailab le NIKO (ROSA MARIA), Moni MORLEY MD Unavailable Unavailab le NIKO (ROSA MARIA), Moni MORLEY MD Unavailable Unavailab Mesfin Martínez MD Unavailable Unavailable Mesfin Espinoza MD Unavailable Unavailable Mesfin Espinoza MD Unavailable Unavailable Mesfin Espinoza MD Unavailable Unavailable Mesfin Espinoza MD Unavailable Unavailable Mesfin Espinoza MD Unavailable Unavailable Mesfin Espinoza MD Unavailable Unavailable Mesfin Espinoza MD Unavailable Unavailable Mesfin Espinoza MD Unavailable Unavailable Mesfin Espinoza MD Unavailable Unavailable Mesfin Espinoza MD Unavailable Unavailable Mesfin Espinoza MD Unavailable Unavailable Mesfin Espinoza MD Unavailable Unavailable Mesfin Espinoza MD Unavailable Unavailable Mesfin Espinoza MD Unavailable Unavailable Mesfin Espinoza MD Unavailable Unavailable Mesfin Espinoza MD Unavailable Unavailable Mesfin Espinoza MD Unavailable Unavailable Mesfin Espinoza MD Unavailable Unavailable Mesfin Espinoza MD Unavailable Unavailable Mesfin Espinoza MD Unavailable Unavailable Alexis, Mesfin Meyer MD Unavailable Unavailable Alexis, Mesfin Meyer MD Unavailable Unavailable Alexis, Mesfin Meyer MD Unavailable Unavailable Alexis, Mesfin Meyer MD Unavailable Unavailable Alexis, Mesfin Meyer MD Unavailable Unavailable Alexis, Mesfin Meyer MD Unavailable Unavailable Alexis, Mesfin Meyer MD Unavailable Unavailable Alexis, Mesfin Meyer MD Unavailable Unavailable Alexis, Mesfin Meyre MD Unavailable Unavailable Alexis, Mesfin Meyer MD Unavailable Unavailable Alexis, Mesfin Meyer MD Unavailable Unavailable Alexis, Mesfin Meyer MD Unavailable Unavailable Alexis, Mesfin Meyer MD Unavailable Unavailable Alexis, Mesfin Meyer MD Unavailable Unavailable Alexis, Mesfin Meyer MD Unavailable Unavailable Alexis, Mesfin Meyer MD Unavailable Unavailable Alexis, Mesfin Meyer MD Unavailable Unavailable Alexis, Mesfin Meyer MD Unavailable Unavailable Alexis, Mesfin Meyer MD Unavailable Unavailable Alexis, Mesfin Meyer MD Unavailable Unavailable Alexis, Mesfin Meyer MD Unavailable Unavailable Alexis, Mesfin Meyer MD Unavailable Unavailable Alexis, Mesfin Meyer MD Unavailable Unavailable Alexis, Mesfin Meyer MD Unavailable Unavailable Alexis, Mesfin Meyer MD Unavailable Unavailable Alexis, Mesfin Meyer MD Unavailable Unavailable Alexis, Mesfin Meyer MD Unavailable Unavailable Alexis, Mesfin Meyer MD Unavailable Unavailable Alexis, Mesfni Meyer MD Unavailable Unavailable Alexis, Mesfin Meyer MD Unavailable Unavailable Mesfin Espinoza MD Unavailable Unavailable Mesfin Espinoza MD Unavailable Unavailable Brad Mckeon MD Unavailable Unavailable Brad Mckeon MD Unavailable Unavailable Brad Mckeon MD Unavailable Unavailable Brad Mckeon MD Unavailable Unavailable Brad Mckeon MD Unavailable Unavailable Brad Mckeon MD Unavailable Unavailable Brad Mckeon MD Unavailable Unavailable Brad Mckeon MD Unavailable Unavailable Brad Mckeon MD Unavailable Unavailable Brad Mckeon MD Unavailable Unavailable Brad Mckeon MD Unavailable Unavailable Brad Mckeon MD Unavailable Unavailable Brad Mckeon MD Unavailable Unavailable AliBrad MD Unavailable Unavailable Brad Mckeon MD Unavailable Unavailable Brad Mckeon MD Unavailable Unavailable Brad Mckeon MD Unavailable Unavailable Brad Mckeon MD Unavailable Unavailable Brad Mckeon MD Unavailable Unavailable Brad Mckeon MD Unavailable Unavailable Brad Mckeon MD Unavailable Unavailable Brad Mckeon MD Unavailable Unavailable Brad Mckeon MD Unavailable Unavailable AliBrad MD Unavailable Unavailable AliBrad MD Unavailable Unavailable Brad Mckeon MD Unavailable Unavailable Brad Mckeon MD Unavailable Unavailable Brad Mckeon MD Unavailable Unavailable Brad Mckeon MD Unavailable Unavailable Brad Mckeon MD Unavailable Unavailable Brad Mckeon MD Unavailable Unavailable Brad Mckeon MD Unavailable Unavailable Brad Mckeon MD Unavailable Unavailable Brad Mckeon MD Unavailable Unavailable Brad Mckeon MD Unavailable Unavailable Brad Mckeon MD Unavailable Unavailable Brad Mckeon MD Unavailable Unavailable Brad Mckeon MD Unavailable Unavailable Brad Mckeon MD Unavailable Unavailable Brad Mckeon MD Unavailable Unavailable Brad Mckeon MD Unavailable Unavailable Brad Mckeon MD Unavailable Unavailable Brad Mckeon MD Unavailable Unavailable Brad Mckeon MD Unavailable Unavailable Brad Mckeon MD Unavailable Unavailable Brad Mckeon MD Unavailable Unavailable Brad Mckeon MD Unavailable Unavailable Brad Mckeon MD Unavailable Unavailable Brad Mckeon MD Unavailable Unavailable Brad Mckeon MD Unavailable Unavailable Moni Manzo MD Unavailable Unavailable Moni Manzo MD Unavailable Unavailable Moni Manzo MD Unavailable Unavailable Moni Manzo MD Unavailable Unavailable Moni Manzo MD Unavailable Unavailable Moni Manzo MD Unavailable Unavailable Moni Manzo MD Unavailable Unavailable Moni Manzo MD Unavailable Unavailable Moni Manzo MD Unavailable Unavailable Moni Manzo MD Unavailable Unavailable Moni Manzo MD Unavailable Unavailable Moni Manzo MD Unavailable Unavailable Moni Manzo MD Unavailable Unavailable Moni Manzo MD Unavailable Unavailable Moni Manzo MD Unavailable Unavailable Moni Manzo MD Unavailable Unavailable Moni Manzo MD Unavailable Unavailable Moni Manzo MD Unavailable Unavailable Moni Manzo MD Unavailable Unavailable Moni Manzo MD Unavailable Unavailable Moni Manzo MD Unavailable Unavailable Moni Manzo MD Unavailable Unavailable Moni Manzo MD Unavailable Unavailable Moni Manzo MD Unavailable Unavailable Moni Manzo MD Unavailable Unavailable Moni Manzo MD Unavailable Unavailable Moni Manzo MD Unavailable Unavailable Moni Manzo MD Unavailable Unavailable Moni Manzo MD Unavailable Unavailable Moni Manzo MD Unavailable Unavailable Moni Manzo MD Unavailable Unavailable Moni Manzo MD Unavailable Unavailable AnaisMoni MD Unavailable Unavailable AnaisMoni MD Unavailable Unavailable AnaisMoni MD Unavailable Unavailable AnaisMoni MD Unavailable Unavailable AnaisMoni MD Unavailable Unavailable AnaisMoni MD Unavailable Unavailable AnaisMoni MD Unavailable Unavailable AnaisMoni MD Unavailable Unavailable AnaisMoni MD Unavailable Unavailable AnaisMoni vee MD Unavailable Unavailable AnaisMoni MD Unavailable Unavailable AnaisMoni MD Unavailable Unavailable AnaisMoni MD Unavailable Unavailable AnaisMoni MD Unavailable Unavailable AnaisMoni MD Unavailable Unavailable AnaisMoni MD Unavailable Unavailable AnaisMoni MD Unavailable Unavailable AnaisMoni MD Unavailable Unavailable AnaisMoni MD Unavailable Unavailable AnaisMoni carvajal MD Unavailable Unavailable Moni Manzo MD Unavailable Unavailable Moni Manzo MD Unavailable Unavailable AnaisMoni vee MD Unavailable Unavailable Moni Manzo MD Unavailable Unavailable Moni Manzo MD Unavailable Unavailable Moni Manzo MD Unavailable Unavailable Moni Manzo MD Unavailable Unavailable Moni Manzo MD Unavailable Unavailable Moni Manzo MD Unavailable Unavailable Moni Manzo MD Unavailable Unavailable Moni Manzo MD Unavailable Unavailable Moni Manzo MD Unavailable Unavailable Moni Manzo MD Unavailable Unavailable Moni Manzo MD Unavailable Unavailable Moni Manzo MD Unavailable Unavailable Moni Manzo MD Unavailable Unavailable Moni Manzo MD Unavailable Unavailable Moni Manzo MD Unavailable Unavailable Moni Manzo MD Unavailable Unavailable Moni Manzo MD Unavailable Unavailable Moni Manzo MD Unavailable Unavailable Moni Manzo MD Unavailable Unavailable AnaisMoni vee MD Unavailable Unavailable Moni Manzo MD Unavailable Unavailable Moni Manzo MD Unavailable Unavailable Moni Manzo MD Unavailable Unavailable Moni Manzo MD Unavailable Unavailable Moni Manzo MD Unavailable Unavailable Moni Manzo MD Unavailable Unavailable AnaisMoni vee MD Unavailable Unavailable Anais M Dayanna MD Unavailable Unavailable AnaisMoni MD Unavailable Unavailable NAM, L AKANKSHA PA Unavailable Unavailable NAM, L AKANKSHA PA Unavailable Unavailable NAM, L AKANKSHA PA Unavailable Unavailable NAM, L AKANKSHA PA Unavailable Unavailable NAM, L AKANKSHA PA Unavailable Unavailable NMA, L AKANKSHA PA Unavailable Unavailable NAM, L AKANKSHA PA Unavailable Unavailable NAM, L AKANKSHA PA Unavailable Unavailable NAM, L AKANKSHA PA Unavailable Unavailable NAM, L AKANKSHA PA Unavailable Unavailable NAM, L AKANKSHA PA Unavailable Unavailable NAM, L AKANKSHA PA Unavailable Unavailable NAM, L AKANKSHA PA Unavailable Unavailable NAM, L AKANKSHA PA Unavailable Unavailable NAM, L AKANKSHA PA Unavailable Unavailable NAM, L AKANKSHA PA Unavailable Unavailable ANTECOL, Janet SALOMON MD Unavailable Unavailable ANTECOL, Janet SALOMON MD Unavailable Unavailable ANTECOL, Janet SALOMON MD Unavailable Unavailable ANTECOL, Janet SALOMON MD Unavailable Unavailable ANTECOL, Janet SALOMON MD Unavailable Unavailable ANTECOL, Janet SALOMON MD Unavailable Unavailable ANTECOL, Janet SALOMON MD Unavailable Unavailable ANTECOL, Janet SALOMON MD Unavailable Unavailable ANTECOL, Janet SALOMON MD Unavailable Unavailable ANTECOL, Janet SALOMON MD Unavailable Unavailable ANTECOL, Janet SALOMON MD Unavailable Unavailable ANTECOL, Janet SALOMON MD Unavailable Unavailable ANTECOL, Janet SALOMON MD Unavailable Unavailable ANTECOL, Janet SALOMON MD Unavailable Unavailable ANTECOL, Janet SALOMON MD Unavailable Unavailable ANTECOL, Janet SALOMON MD Unavailable Unavailable ANTECOL, Janet SALOMON MD Unavailable Unavailable ANTECOL, Janet SALOMON MD Unavailable Unavailable ANTECOL, Janet SALOMON MD Unavailable Unavailable ANTECOL, Janet SALOMON MD Unavailable Unavailable ANTECOL, Janet SALOMON MD Unavailable Unavailable ANTECOL, Janet SALOMON MD Unavailable Unavailable ANTECOL, Janet SALOMON MD Unavailable Unavailable ANTECOL, Janet SALOMON MD Unavailable Unavailable ANTECOL, Janet SALOMON MD Unavailable Unavailable ANTECOL, Janet SALOMON MD Unavailable Unavailable ANTECOL, Janet SALOMON MD Unavailable Unavailable ANTECOL, Janet SALOMON MD Unavailable Unavailable ANTECOL, Janet SALOMON MD Unavailable Unavailable ANTECOL, Janet SALOMON MD Unavailable Unavailable ANTECOL, Janet SALOMON MD Unavailable Unavailable ANTECOL, Janet SALOMON MD Unavailable Unavailable ANTECOL, Janet SALOMON MD Unavailable Unavailable ANTECOL, Janet SALOMON MD Unavailable Unavailable ANTECOL, Janet SALOMON MD Unavailable Unavailable ANTECOL, Janet SALOMON MD Unavailable Unavailable ANTECOL, Janet SALOMON MD Unavailable Unavailable ANTECOL, Janet SALOMON MD Unavailable Unavailable ANTECOL, Janet SALOMON MD Unavailable Unavailable ANTECOL, Janet SALOMON MD Unavailable Unavailable ANTECOL, Janet SALOMON MD Unavailable Unavailable ANTECOL, Janet SALOMON MD Unavailable Unavailable ANTECOL, Janet SALOMON MD Unavailable Unavailable ANTECOL, Janet SALOMON MD Unavailable Unavailable ANTECOL, Janet SALOMON MD Unavailable Unavailable ANTECOL, Janet SALOMON MD Unavailable Unavailable ANTECOL, Janet SALOMON MD Unavailable Unavailable ANTECOL, Janet SALOMON MD Unavailable Unavailable ANTECOL, Janet SALOMON MD Unavailable Unavailable ANTECOL, Janet SALOMON MD Unavailable Unavailable ANTECOL, Janet SALOMON MD Unavailable Unavailable ANTECOL, Janet SALOMON MD Unavailable Unavailable ANTECOL, Janet SALOMON MD Unavailable Unavailable ANTECOL, Janet SALOMON MD Unavailable Unavailable Re-disclosure Warning The records that you are about to access may contain information from federally-assisted alcohol or drug abuse programs. If such information is present, then the following federally mandated warning applies: This information has been disclosed to you from records protected by federal confidentiality rules (42 CFR part 2). The federal rules prohibit you from making any further disclosure of this information unless further disclosure is expressly permitted by the written consent of the person to whom it pertains or as otherwise permitted by 42 CFR part 2. A general authorization for the release of medical or other information is NOT sufficient for this purpose. The Federal rules restrict any use of the information to criminally investigate or prosecute any alcohol or drug abuse patient.The records that you are about to access may contain highly sensitive health information, the redisclosure of which is protected by Article 27-F of the [facility] Public Health law. If you continue you may have access to information: Regarding HIV / AIDS; Provided by facilities licensed or operated by the [facility] Office of Mental Health; or Provided by the [facility] Office for People With Developmental Disabilities. If such information is present, then the following [facility] mandated warning applies: This information has been disclosed to you from confidential records which are protected by state law. State law prohibits you from making any further disclosure of this information without the specific written consent of the person to whom it pertains, or as otherwise permitted by law. Any unauthorized further disclosure in violation of state law may result in a fine or nursing home sentence or both. A general authorization for the release of medical or other information is NOT sufficient authorization for further disc losure. Family History Family Member Name Family Member Gender Family Member Status Date o f Status Description Data Source(s) Unknown Female Condition [facility] Unknown Female Condition [facility] Unknown Unknown Problem [facility] ([facility]) Unknown Unknown Problem [facility] ([facility]) mother Unknown Male Problem [facility] ([facility]) Unknown Male Problem [facility] ([facility]) Unknown Male Problem [facility] ([facility]) Encounters Encounter Providers Location Date Indications Data Source(s ) Outpatient Attender: LEANDRO VERA MD 09/13/2021 12:00:00 AM [facility] Outpatient Attender: Dayanna Mcdermott 10:00:00 AM EDT [facility] ([facility] ) Outpatient Attender: Mitch Espinoza MD [facility] [place] 05/16/2021 10:15:00 AM EDT [facility] ([facility]) Outpatient Attender: Chata CARRILLO Main Office 05/08/2021 12:30:00 PM EDT [facility] ([facility]) Outpatient Attender: Dayanna Mcdermott 03:00:00 PM EDT [facility] ([facility] ) Outpatient Attender: AKANKSHA CARRILLO Main Office 04/20/2021 0 9:15:00 AM EDT [facility] ([facility]) Outpatient Attender: Brad Mckeon MD Main office - [facility] 04/10/2021 11:30:00 AM EDT [facility] ([facility] Outpatient Attender: Dayanna Mcdermott 03:00:00 PM EDT [facility] ([facility] ) Outpatient 03/23/2021 01:30:00 PM EDT [facility] Attender: PEYMAN RICHARDSON) MDReferrer: Moni LAY MD 03/15/2021 08:21:07 PM EDT [facility] Attender: PEYMAN POPE ([place]) MDReferrer: Moni LAY MD 03/15/2021 08:21:07 PM EDT [facility] Outpatient Attender: Dayanna Mcdermott 02:45:00 PM EDT [facility] ([facility] ) Outpatient Attender: UMM OROURKE MD Main Office 01/09/2021 12:00:00 PM EDT [facility] ([facility]) Attender: PEYMAN RICHARDSON) MDReferrer: Moni LAY MD 11/09/2020 08:21:03 PM EDT [facility] Attender: PEYMAN RICHARDSON) MDReferrer: Moni LAY MD 11/09/2020 08:21:03 PM EDT [facility] Attender: PEYMAN RICHARDSON) MDReferrer: Moni LAY MD 10/26/2020 08:21:03 PM EST [facility] Attender: PEYMAN RICHARDSON) MDReferrer: Moni LAY MD 10/26/2020 08:21:03 PM EST [facility] Attender: PEYMAN POPE ([place]) MDReferrer: Moni LAY MD 10/26/2020 08:21:03 PM EST [facility] Attender: PEYMAN POPE ([place]) MDReferrer: Moni LAY MD 10/26/2020 08:21:03 PM EST [facility] Attender: PEYMAN POPE ([place]) MDReferrer: Moni LAY MD 10/26/2020 08:21:03 PM EST [facility] Attender: PEYMAN POPE ([place]) MDReferrer: Moni LAY MD 10/26/2020 08:21:03 PM EST [facility] Attender: PEYMAN POPE ([place]) MDReferrer: Moni LAY MD 10/26/2020 08:21:03 PM EST [facility] Attender: PEYMAN POPE ([place]) MDReferrer: Moni LAY MD 10/26/2020 08:21:03 PM EST [facility] Attender: PEYMAN POPE ([place]) MDReferrer: Moni LAY MD 10/26/2020 08:21:03 PM EST [facility] Attender: PEYMAN POPE ([place]) MDReferrer: Moni LAY MD 10/26/2020 08:21:03 PM EST [facility] Out[facility] Attender: Dayanna Mcdermott 01:00:00 PM EST [facility] ([facility] ) Attender: PEYMAN POPE ([place]) MDReferrer: Moni LAY MD 08/09/2020 08:20:12 PM EST [facility] Attender: PEYMAN POPE ([place]) MDReferrer: Moni LAY MD 08/09/2020 08:20:12 PM EST [facility] Attender: PEYMAN POPE ([place]) MDReferrer: Moni LAY MD 08/09/2020 08:20:12 PM EST [facility] Attender: PEYMAN POPE ([place]) MDReferrer: Moni LAY MD 08/09/2020 08:20:12 PM EST [facility] Outpatient Attender: Dayanna Mcdermott 12:00:00 PM EST [facility] ([facility] ) Outpatient Attender: UMM OROURKE MD Main Office 05/30/2020 08:15:00 AM EDT [facility] ([facility]) Outpatient Attender: Dayanna Mcdermott 10:45:00 AM EDT [facility] ([facility] ) Immunizations Vaccine Date Status Description Data Source(s) COVID-19 VACCINE [facility] 08/29/2020 12:00:00 AM EST completed [facility] Vaccine Series Complete: YESThis Data wa s Submitted to [facility] Via [employer]. COVID-19 VACCINE Pfizer 08/08/2020 12:00:00 AM EST completed [facility] Vaccine Series Complete: NOThis Data was Submitted to [facility] Via [facility]. Medications Medication Brand Name Start Date Product Form Dose Route Admi nistrative Instructions Pharmacy Instructions Status Indications Reaction Description Data Source(s) Escitalopram 5 MG Oral Tablet Escitalopram Oxalate 05/17/2021 12:00 :00 AM EDT ORAL active [facility] ([facility]) Famotidine 20 MG Oral Tablet Famotidine 04/25/2021 12:00:00 AM EDT ORAL active [facility] ([facility]) Metformin HCL ER (Mod) Metformin HCL ER (Mod) 04/19/2021 12:00:00 AM EDT ORAL active [facility] ([facility] Metformin hydrochloride 500 MG Oral Tablet Metformin HCL 04/09/2021 12:00:00 AM EDT ORAL completed [facility] ([facility]) azilsartan medoxomil 40 MG Oral Tablet [Edarbi] Edarbi 01/11/2021 12:00:00 AM EDT ORAL completed [facility] ([facility]) Metformin hydrochloride 500 MG Oral Tablet Metformin HCL 01/11/2021 12:00:00 AM EDT ORAL completed [facility] ([facility]) azilsartan medoxomil 40 MG Oral Tablet [Edarbi] Edarbi 01/08/2021 12:00:00 AM EDT ORAL completed [facility] ([facility]) azilsartan medoxomil 80 MG Oral Tablet [Edarbi] Edarbi 12/13/2020 12:00:00 AM EDT ORAL completed [facility] ([facility]) doxycycline hyclate 100 MG Oral Capsule DOXYCYCLINE HYCLATE 11/27/2020 12:00:00 AM EDT capsule 28 TAKE ONE CAPSULE BY MOUTH TW ICE A DAY FOR 14 DAYS TAKE ONE CAPSULE BY MOUTH TWICE A DAY FOR 14 DAYS SOLD: 11/27/2020 [facility] doxycycline hyclate 100 MG Oral Capsule Doxycycline Hyclate 11/27/2020 12:00:00 AM EDT completed [facility] ([facility]) 4 mg 10/31/2020 12:00:00 AM EDT tablet 9 TAKE ONE TABLET BY MOUTH EVERY 6 HOURS NEEDED FOR NAUSEA AND VOMITING TAKE ONE TABLET BY MOUTH EVERY 6 HOURS NEEDED FOR NAUSEA AND VOMITING SOLD: 10/31/2020 [facility] 24 HR ferrous sulfate 142 MG Extended Release Oral Tab let Iron (Ferrous Sulfate) 10/05/2020 12:00:00 AM EST ORAL active [facility] ([facility]) Escitalopram 5 MG Oral Tablet Escitalopram Oxalate 10/05/2020 12:00 :00 AM EST ORAL active [facility] ([facility]) azilsartan medoxomil 40 MG Oral Tablet [Edarbi] Edarbi 07/19/2020 12:00:00 AM EST ORAL active [facility] ([facility]) 4 mg 07/17/2020 12:00:00 AM EST tablet 9 TAKE ONE TABLET BY MOUTH EVERY 6 HOURS NEEDED FOR NAUSEA AND VOMITING TAKE ONE TABLET BY MOUTH EVERY 6 HOURS NEEDED FOR NAUSEA AND VOMITING SOLD: 07/23/2020 [facility] atorvastatin 10 MG Oral Tablet Atorvastatin Calcium 05/29/2020 1 2:00:00 AM EDT ORAL active [facility] ( [facility]) azilsartan medoxomil 40 MG Oral Tablet [Edarbi] Edarbi 05/29/2020 12:00:00 AM EDT ORAL active [facility] ([facility]) Metformin hydrochloride 500 MG Oral Tablet Metformin HCL 05/29/2020 12:00:00 AM EDT ORAL active [facility] ([facility]) Prednisone 20 MG Oral Tablet Prednisone 05/19/2020 12:00:00 AM EDT ORAL completed [facility] ([facility]) 60 ACTUAT Budesonide 0.16 MG/ACTUAT / fo rmoterol fumarate 0.0045 MG/ACTUAT Metered Dose Inhaler [Symbicort] Symbicort 05/17/2020 12:00:00 AM EDT RESPIRATORY completed [facility] ( [facility]) ferrous sulfate 325 MG Delayed Release Oral Tablet Ferrous S ulfate 05/08/2020 12:00:00 AM EDT ORAL completed [facility] ([facility]) Insurance Providers Payer name Policy type / Coverage type Policy ID Covered democrat ID Covered democrat's relationship to vargas Policy Vargas Plan Information SAKSHI Murray/Elodia Trad/MX Medigap Part B [id number] Self [id number] SAKSHI Murray/Sarathn Trad/MX Medigap Part B [id number] Self 806 [facility] POS [id number] [place] Trad/MX Commercial [id number] Self [id number] [place] Trad/MX Medigap Part B [id number] Self [id number] United [employer] [id number] 0 1 [id number] [employer] [id number] 0 1 [id number] [employer] [id number] 0 [id number] [employer] [place] CHOICE PLUS [id number] SP [id number] [place] Choice Plus Commercial [id number] Self [id number] [facility] O [id number] O [id number] [facility] [id number] SP [id number] Davis [employer]/[facility] Commercial [id number] Self [id number] [facility] [id number] SP [id number] [place] 306/806 [id number] SP [id number] [employer] BCBS B [id number] S [id number] [id number] [facility] P UNAVAILABLE [id number] C UNAVAILABLE [place] 306/8 P [id number] S [id number] UN[employer] [place] CHOICE PLUS [id number] SP [id number] [place] [employer] PLAN O [id number] S [id number] Employers [employer] of [place] Other 0 [id number] Self 0 [facility] Commercial [id number] Self [id number] [place] 306/806 [id number] SP [id number] [facility] [id number] Self 1 [id number] [facility] Plan Medigap Part B [id number] Self 1 [id number] [facility] [id number] Self [id number] [facility] [id number] Self 1 [id number] [facility] [id number] Self [id number] Problems, Conditions, and Diagnoses Code Display Name Description Problem Type Effective Dates Data Source(s) G45.4 Transient global amnesia Transient global amnesia Prob johnson 05/16/2021 12:00:00 AM EDT MED[facility] ([facility]) I10 Essential hypertension Essential hypertension Problem 05/16/2021 12:00:00 AM EDT [facility] ([facility]) E78.5 Hyperlipidemia Hyperlipidemia Problem 05/16/2021 12:00: 00 AM EDT [facility] ([facility]) Z86.73 History of cerebrovascular accident with out residual deficits History of cerebrovascular accident without residual deficits Problem 12:00:00 AM EDT [facility] ([facility]) 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 Problem 04/10/2021 12:00:00 AM EDT [facility] ([facility] ) Z86.73 History of cerebrovascular accident with out residual deficits History of cerebrovascular accident without residual deficits Problem 12:00:00 AM EDT [facility] ([facility] ) E78.00 Pure hypercholesterolemia Pure hypercholesterolemia Pr oblem 05/30/2020 12:00:00 AM EDT [facility] ([facility]) Surgeries/Procedures Procedure Description Date Indications Data Source(s) Brief Emotional/Behav Assessment W/ Scoring Doc Per Standard Inst 05/17/2021 12:00:00 AM EDT MED[facility] ([facility] ) OFFICE OUTPATIENT VISIT 15 MINUTES 05/17/2021 12:00:00 AM EDT [facility] ([facility]) Electrocardiogram Complete 05/16/2021 12:00:00 AM EDT MED[facility] ([facility]) [employer] Heart Rhythm Derived D daly 05/16/2021 12:00:00 AM EDT [facility] OFFICE OUTPATIENT NEW 45 MINUTES 05/16/2021 12:00:00 A M EDT MED[facility] ([facility]) OFFICE OUTPATIENT VISIT 5 MINUTES 05/08/2021 12:00:00 AM EDT [facility] ([facility]) OFFICE OUTPATIENT VISIT 25 MINUTES 04/25/2021 12:00:00 AM EDT MED[facility] ([facility]) ECG ROUTINE ECG W/LEAST 12 LDS W/I&R 04/20/2021 12:00: 00 AM EDT [facility] ([facility]) OFFICE OUTPATIENT VISIT 25 MINUTES 04/20/2021 12:00:00 AM EDT [facility] ([facility]) OFFICE OUTPATIENT VISIT 40 MINUTES 04/10/2021 12:00:00 AM EDT [facility] ([facility] ) Hester Cre SRV W/I 7 Days Of DC, Comm W/I 2 Dys Med Rec 04/09/2021 12:00:00 AM EDT MED[facility] ([facility] ) OFFICE OUTPATIENT VISIT 15 MINUTES 01/11/2021 12:00:00 AM EDT [facility] ([facility]) OFFICE OUTPATIENT VISIT 15 MINUTES 01/09/2021 12:00:00 AM EDT [facility] ([facility]) Implantable Loop Recorder System, Review And Report 01/02/2021 12:00:00 AM EDT [facility] ([facility] Implantable Loop Recorder System, Review And Report 12/01/2020 12:00:00 AM EDT [facility] ([facility]) Colonoscopy 11/08/2020 12:00:00 AM EDT M EDENT ([facility]) Implantable Loop Recorder System, Review And Report 10/31/2020 12:00:00 AM EDT [facility] ([facility]) PERIODIC PREVENTIVE MED EST PATIENT 40-64YRS 12:00:00 AM EST [facility] ([facility]) Implantable Loop Rec[employer] System, Review And Report 09/26/2020 12:00:00 AM EST [facility] ([facility]) Implantable Loop Recorder System, Review And Report 08/24/2020 12:00:00 AM EST [facility] ([facility]) Implantable Loop Recorder System, Review And Report 07/20/2020 12:00:00 AM EST [facility] ([facility]) Implantable Loop Recorder System, Review And Report 06/19/2020 12:00:00 AM EST [facility] ([facility]) ECG ROUTINE ECG W/LEAST 12 LDS W/I&R 05/30/2020 12:00: 00 AM EDT [facility] ([facility]) Implantable Loop Recorder System, Review And Report 05/18/2020 12:00:00 AM EDT [facility] ([facility]) Implantable Loop Recorder System, Review And Report 04/17/2020 12:00:00 AM EDT [facility] ([facility]) Results ID Date Data Source [id number] 04/27/2021 10:10:00 AM EDT [facility] Name Value Range Interpretation Code Description Data Bobbi rce(s) Supporting Document(s) SARS-CoV-2 (COVID-19) RNA [Presence] in Respiratory specimen by KALYN with probe detection Not Detected [facility] This lab was ordered by [facility] and reported by [facility]. ID Date Data Source [id number] 04/25/2021 03:03:00 PM EDT [facility] Name Value Range Interpretation Code Description Data Bobbi rce(s) Supporting Document(s) Leukocytes [#/volume] in Blood by Automated count 7.4 x10*3/UL 4.1-10 .9 [facility] Erythrocytes [#/volume] in Blood by Automated count 4.36 x10*6/UL 4.2 0-6.30 [facility] ([facility]) Hemoglobin [Mass/volume] in Blood 12.8 g/dL 12.0-18.0 [facility] ([facility]) Hematocrit [Volume Fraction] of Blood by Automated count 37.4 % 3 7.0-51.0 [facility] ([facility]) MCV 85.7 fL 80.0-97.0 [facility] MCHC 34.4 g/dL 31.0-38.0 [facility] MCH 29.5 pg 26.0-32.0 [facility] ([facility]) MPV 7.5 FL 7.8-11.0 [facility] ([facility]) Erythrocyte distribution width [Ratio] by Automated count 13.1 % 11.6-13.7 [facility] Platelets [#/volume] in Blood by Automated count 368 x10*3/UL 140-440 [facility] ([facility]) Mid % 6.6 % 1.7-9.3 [facility] Neut % 66.0 % 37.0-92.0 [facility] Lymph % 27.4 % 10.0-58.5 [facility] ([facility] Neut # 4.9 x10*3/UL 2.0-7.8 [facility] ([facility]) Mid # 0.5 x10*3/UL 0.1-0.6 [facility] ([facility]) Lymph # 2.0 x10*3/UL 0.6-4.1 [facility] ([facility]) ID Date Data Source [id number] 04/25/2021 03:03:00 PM EDT [facility] ([facility]) Name Value Range Interpretation Code Description Data Bobbi rce(s) Supporting Document(s) Glucose [Mass/volume] in Serum or Plasma 99 mg/dL 74-99 [facility] ([facility]) 100-125 mg/dL PRE-DIABETES/FASTING >126 mg/dL DIABETES/FASTING Creatinine 1.0 mg/dL 0.6-1.3 [facility] Urea nitrogen [Mass/volume] in Serum or Plasma 15 mg/dL 7-18 [facility] Sodium [Moles/volume] in Serum or Plasma 142 meq/L 136-145 [facility] Potassium [Moles/volume] in Serum or Plasma 4.5 meq/L 3.5-5.1 [facility] Chloride [Moles/volume] in Serum or Plasma 106 meq/L 98-107 [facility] ([facility]) Calcium [Mass/volume] in Serum or Plasma 9.3 mg/dL 8.5-10.1 [facility] Carbon dioxide, total [Moles/volume] in Serum or Plasma 28 meq/L 21 -32 [facility] ([facility]) Glomerular filtration rate/1.73 sq M pre dicted among blacks [Volume Rate/Area] in Serum or Plasma by Creatinine-based formula (MDRD) Laboratory test result [facility] ([facility]) <content>CHRONIC KIDNEY DISEASE STAGING PER NKF</content>
<content></content>
<content>STAGE I & II GFR >= 60 NORMAL TO MILDLY DECREASED</content>
<content>STAGE III GFR 30-59 MODERATELY DECREASED</content>
<content>STAGE IV GFR 15-29 SEVERELY DECREASED</content>
<content>STAGE V GFR <15 VERY LITTLE GFR LEFT</content>
<content>ESRD GFR <15 ON BALLISTICS PROFESSOR</content>
<content></content> Glomerular filtration rate/1.73 sq M pre dicted among non-blacks [Volume Rate/Area] in Serum or Plasma by Creatinine-based formula (MDRD) 56 mL/min [facility] ([facility]) ID Date Data Source [id number] 04/25/2021 03:03:00 PM EDT [facility] ([facility]) Name Value Range Interpretation Code Description Data Bobbi rce(s) Supporting Document(s) Hemoglobin A1c/Hemoglobin.total in Blood 5.8 % [facility] ([facility]) Lab Result Notes: Pre-Diabetes 5.7 - 6.4 % Diabetes = or > 6.5% Glucose mean value [Mass/volume] in Blood Estimated fr om glycated hemoglobin 120 mg/dL 60-110 [facility] ([facility] ) ID Date Data Source [id number] 04/25/2021 03:03:00 PM EDT [facility] Name Value Range Interpretation Code Description Data Bobbi rce(s) Supporting Document(s) Glucose [Mass/volume] in Serum or Plasma 99 mg/dL 74-99 [facility] ([facility]) 100-125 mg/dL PRE-DIABETES/FASTING >126 mg/dL DIABETES/FASTING Urea nitrogen [Mass/volume] in Serum or Plasma 15 mg/dL 7-18 [facility] ([facility]) Creatinine 1.0 mg/dL 0.6-1.3 [facility] ([facility]) Chloride [Moles/volume] in Serum or Plasma 106 meq/L 98-107 [facility] ([facility]) Sodium [Moles/volume] in Serum or Plasma 142 meq/L 136-145 [facility] ([facility]) Potassium [Moles/volume] in Serum or Plasma 4.5 meq/L 3.5-5.1 [facility] ([facility]) Glomerular filtration rate/1.73 sq M pre dicted among blacks [Volume Rate/Area] in Serum or Plasma by Creatinine-based formula (MDRD) Laboratory test result [facility] ([facility]) <content>CHRONIC KIDNEY DISEASE STAGING PER NKF</content>
<content></content>
<content>STAGE I & II GFR >= 60 NORMAL TO MILDLY DECREASED</content>
<content>STAGE III GFR 30-59 MODERATELY DECREASED</content>
<content>STAGE IV GFR 15-29 SEVERELY DECREASED</content>
<content>STAGE V GFR <15 VERY LITTLE GFR LEFT</content>
<content>ESRD GFR <15 ON BALLISTICS PROFESSOR</content>
<content></content>
<content></content> Carbon dioxide, total [Moles/volume] in Serum or Plasma 28 meq/L 21 -32 [facility] ([facility]) Calcium [Mass/volume] in Serum or Plasma 9.3 mg/dL 8.5-10.1 [facility] ([facility]) Glomerular filtration rate/1.73 sq M pre dicted among non-blacks [Volume Rate/Area] in Serum or Plasma by Creatinine-based formula (MDRD) 56 mL/min [facility] ([facility]) ID Date Data Source [id number] 04/25/2021 03:03:00 PM EDT [facility] ([facility]) Name Value Range Interpretation Code Description Data Bobbi rce(s) Supporting Document(s) Leukocytes [#/volume] in Blood by Automated count 7.4 x10*3/UL 4.1-10 .9 [facility] ([facility]) Hemoglobin [Mass/volume] in Blood 12.8 g/dL 12.0-18.0 [facility] ([facility]) Erythrocytes [#/volume] in Blood by Automated count 4.36 x10*6/UL 4.2 0-6.30 [facility] ([facility]) Hematocrit [Volume Fraction] of Blood by Automated count 37.4 % 3 7.0-51.0 [facility] ([facility]) MCH 29.5 pg 26.0-32.0 [facility] MCV 85.7 fL 80.0-97.0 [facility] Platelets [#/volume] in Blood by Automated count 368 x10*3/UL 140-440 [facility] ([facility]) Platelet mean volume [Entitic volume] in Blood by [place] 7.5 FL 7.8-11.0 [facility] ([facility]) Erythrocyte distribution width [Ratio] by Automated count 13.1 % 11.6-13.7 [facility] ([facility]) MCHC 34.4 g/dL 31.0-38.0 [facility] Lymphocytes/100 leukocytes in Blood by Automated count 27.4 % 10. 0-58.5 [facility] ([facility]) Mid % 6.6 % 1.7-9.3 [facility] Neut % 66.0 % 37.0-92.0 [facility] Lymph # 2.0 x10*3/UL 0.6-4.1 [facility] ([facility]) Neutrophils [#/volume] in [place] by Manual count 4.9 x10*3/UL 2.0-7.8 [facility] ([facility]) Mid # 0.5 x10*3/UL 0.1-0.6 [facility] ([facility]) ID Date Data Source [id number] 04/16/2021 12:11:00 PM EDT [facility] Name Value Range Interpretation Code Description Data Bobbi rce(s) Supporting Document(s) Hemoglobin A1c/Hemoglobin.total in Blood 5.7 [facility] ([facility]) ID Date Data Source [id number] 04/16/2021 11:57:00 AM EDT [facility] Name Value Range Interpretation Code Description Data Bobbi rce(s) Supporting Document(s) Anti Thrombin 3 Funct Activity 120 % 75-135 [facility] ([facility]) Direct Xa inhibitor anticoagulants such as rivaroxaban, apixaban and edoxaban will lead to spuriously elevated antithrombin activity levels possibly masking a deficiency. Anti Thrombin 3 Antigen Immuno 89 % 72-124 [facility] ([facility]) This test was developed and its performa nce characteristics determined by [facility]. It has not been cleared or approved by the Food and Drug Administration. ID Date Data Source [id number] 04/16/2021 11:57:00 AM EDT [facility] ([facility]) Name Value Range Interpretation Code Description Data Bobbi rce(s) Supporting Document(s) Protein S actual/normal in Platelet poor plasma by Coagulati on assay 111 % 63-140 [facility] ([facility]) Protein S activity may be falsely increa sed (masking an abnormal, low result) in patients receiving direct Xa inhibitor (e.g., rivaroxaban, apixaban, edoxaban) or a direct thrombin inhibitor (e.g., dabigatran) anticoagulant treatment due to assay interference by these drugs. Protein C actual/normal in Platelet poor plasma by Coagulati on assay 136 % 73-180 [facility] ([facility]) Performed at: - [facility] [place] [address], [place] [id number] [employer]: Gogo Heart MD, Phone: [phone] Performed at: BN - [facility] [place] [address], [place] [id number] [employer] Driver: Foster Calhoun MD, Phone: [phone] Performed at: - [facility] [place] [address] [place], [place] [address] 150 [employer] Driver: Jacob Aranda [facility], Phone: [phone] ID Date Data Source [id number] 04/16/2021 11:57:00 AM EDT [facility] ([facility]) Name Value Range Interpretation Code Description Data Bobbi rce(s) Supporting Document(s) Antinuclear Antibodies Direct Laboratory test result [facility] ([facility]) ID Date Data Source [id number] 04/16/2021 11:57:00 AM EDT [facility] ([facility]) Name Value Range Interpretation Code Description Data Bobbi rce(s) Supporting Document(s) Factor II Prothrombin Gene An Laboratory test result [facility] ([facility]) NEGATIVE No mutation identified. . Comment: A point mutation ([id number]) in the factor II (prothrombin) gene is [...] mutations. This assay detects only the prothrombin [id number] mutation and does not measure genetic abnormalities [...] health care providers to discuss results at [phone] . Methodology: DNA analysis of the Factor [...] developed and its performance characteristics determined by [employer]. It has not been cleared or approved by the Food and Drug Administration. . Justinot SR, et al. Blood. 1996; 88:9150-1042. Nomi EA. Circulation. 2004; 110:e15-e18. Alfredo I, et al. Arterioscler Thromb Vasc Biol. 1999; 19:700-703. . Ryan Monterroso, PhD, [facility] Margarita Arteaga, PhD, [facility] Morgan Ortega, PhD, [facility] Heather Trimble, PhD, [facility] Yosef Mendes, PhD, [facility] Brendan Andrade, PhD, [facility] ID Date Data Source [id number] 04/16/2021 11:57:00 AM EDT [facility] ([facility]) Name Value Range Interpretation Code Description Data Bobbi rce(s) Supporting Document(s) Factor V Leiden For [facility] Laboratory test result [facility] ([facility]) Result: Negative (no mutation found) . Factor V Leiden is a [...] the workup for venous thrombosis include the [id number] mutation in the factor II (prothrombin) gene, protein S and C deficiency, and antithrombin deficiencies. Anticardiolipin antibody and lupus anticoagulant analysis may be appropriate for certain patients, as well as homocysteine levels. . Contact your local [facility] for information on how to order additional testing if desired. . . Genetic counselors are available for health care providers to discuss results at [phone] . Methodology: DNA analysis of the Factor [...] developed and its performance characteristics determined [facility]. It has not been cleared or approved by the Food and Drug Administration. . References: Julio Blount (1995). Clin Lab Med 16:169-186. . Ryan Monterroso, PhD, [facility] Margarita Arteaga, PhD, [facility] Morgan Ortega, PhD, FAC Heather Trimble, PhD, F[facility] Yosef Mendes, PhD, F[facility] Brendan Andrade PhD, [facility] ID Date Data Source [id number] 04/16/2021 11:57:00 AM EDT [facility] ([facility]) Name Value Range Interpretation Code Description Data Bobbi rce(s) Supporting Document(s) Coagulation factor VIII activity actual/ normal in Platelet poor plasma by Coagulation assay 152 % 56-140 [facility] ([facility]) ID Date Data Source [id number] 04/16/2021 11:57:00 AM EDT [facility] ([facility]) Name Value Range Interpretation Code Description Data Bobbi rce(s) Supporting Document(s) Cardiolipin Igm Antibody Laboratory test result 0-12 [facility] ([facility]) <content>Negative: <13</con tent>
<content>Indeterminate: 13 - 20</content>
<content>Low-Med Positive: >20 - 80</content>
<content>High Positive: >80</content>
<content></content> Cardiolipin Iga Antibody Laboratory test result 0-11 [facility] ([facility]) <content>Negative: <12</con tent>
<content>Indeterminate: 12 - 20</content>
<content>Low-Med Positive: >20 - 80</content>
<content>High Positive: >80</content>
<content></content> Cardiolipin Igg Antibody Laboratory test result 0-14 [facility] ([facility]) <content>Negative: <15</con tent>
<content>Indeterminate: 15 - 20</content>
<content>Low-Med Positive: >20 - 80</content>
<content>High Positive: >80</content>
<content></content> ID Date Data Source [id number] 04/16/2021 11:57:00 AM EDT [facility] ([facility]) Name Value Range Interpretation Code Description Data Bobbi rce(s) Supporting Document(s) Angiotensin 1 Converting Enzym 50 U/L 14-82 [facility] ([facility]) ID Date Data Source [id number] 04/16/2021 11:57:00 AM EDT [facility] ([facility]) Name Value Range Interpretation Code Description Data Bobbi rce(s) Supporting Document(s) Cytoplasmic Neutrop AB Anca-C Laboratory test result [facility] ([facility]) Perinuclear AB Anca-P Laboratory test result [facility] ([facility]) The presence of positive fluorescence ex hibiting P-ANCA or C-ANCA patterns alone is not specific for the diagnosis of Amanda's Granulomatosis (WG) or microscopic polyangiitis. Decisions about treatment should not be based solely on ANCA IFA results. The International ANCA Group Consensus recommends follow up testing of positive sera with both AL- 3 and MPO-ANCA enzyme immunoassays. As m any as 5% serum samples are positive only by EIA. Ref. AM J Clin Pathol 1999;111:507-513. Anca-Atypical Laboratory test result [facility] ([facility]) The atypical pANCA pattern has been obse rved in a significant percentage of patients with ulcerative colitis, primary sclerosing cholangitis and autoimmune hepatitis. ID Date Data Source [id number] 04/16/2021 11:57:00 AM EDT [facility] ([facility]) Name Value Range Interpretation Code Description Data Bobbi rce(s) Supporting Document(s) Rheumatoid Factor Quant Laboratory test result [facility] ([facility]) Erythrocyte sedimentation rate by Westergren method 38 mm/hr 0-30 [facility] ([facility]) ID Date Data Source [id number] 04/16/2021 11:56:00 AM EDT [facility] ([facility]) Name Value Range Interpretation Code Description Data Bobbi rce(s) Supporting Document(s) Lupus anticoagulant [Interpretation] in Platelet poor plasma 1.1 0-1.2 [facility] ([facility]) RESULT IS LESS THAN 1.2, NO FURTHER TEST ING INDICATED. INTERPRETATION This test is to screen [...] coagulation factor deficiency or a specific inhibitor. ID Date Data Source [id number] [facility] Name Value Range Interpretation Code Description Data Bobbi rce(s) Supporting Document(s) Iron [Mass/volume] in Serum or Plasma 113 ug/dL 50-170 [facility] ([facility]) Fasting glucose [Moles/volume] in Serum or Plasma 88 mg/dL 70-100 [facility] ([facility]) Ferritin [Mass/volume] in Serum or Plasma 55 ng/mL 8-252 [facility] ([facility]) ID Date Data Source [id number] 04/16/2021 07:49:00 AM EDT [facility]) Name Value Range Interpretation Code Description Data Bobbi rce(s) Supporting Document(s) White Blood Count 6.9 10 4.0-10.0 [facility] ([facility]) Red Blood Count 4.36 10 4.00-5.40 [facility] ([facility]) Hemoglobin 12.6 g/dL 12.0-15.5 [facility] ([facility] Hematocrit 39.4 % 36.0-47.0 [facility] Mean Corpuscular Volume 90.4 fl 80.0-96.0 [facility] ([facility]) Mean Corpuscular Hemoglobin 28.9 pg 27.0-33.0 [facility] ([facility]) Mean Corpuscular HGB Conc 32.0 g/dL 32.0-36.5 [facility] ([facility]) Red Cell Distribution Width 13.5 % 11.5-14.5 [facility] ([facility]) Platelet Count, Automated 344 10 150-450 [facility] ([facility]) Neutrophils % 59.2 % 36.0-66.0 [facility] ([facility]) Lymph % 29.3 % 24.0-44.0 [facility]) [place] % 5.7 % 2.0-8.0 [facility] Eos % 4.9 % 0.0-3.0 [facility]) Baso % 0.6 % 0.0-1.0 [facility]) Neutrophils # 4.1 10 1.5-8.5 [facility] ([facility]) Immature Granulocyte % 0.3 % 0-3.0 [facility] ([facility]) Nucleated Red Blood Cell % 0.0 % 0-0 [facility] ([facility]) [place] # 0.4 10 0.0-0.8 [facility] Lymph # 2.0 10 1.5-5.0 [facility] Eos # 0.3 10 0.0-0.5 [facility] Baso # 0.0 10 0.0-0.2 [facility] ID Date Data Source [id number] 04/16/2021 07:49:00 AM EDT [facility] ([facility]) Name Value Range Interpretation Code Description Data Bobbi rce(s) Supporting Document(s) Hemoglobin A1c 5.7 % [facility] ([facility]) <content>REFERENCE RANGES:</content><br/ ><content></content>
<content><=5.6% NORMAL</content>
<content>5.7-6.4% SUGGESTS IMPAIRED GLUCOSE METABOLISM/PREDIABETIC</content>
<content>>= 6.5% ABNORMAL</content>
<content></content> Estimated Average Glucose 117 mg/dL 60-110 [facility] ([facility]) ID Date Data Source [id number] 04/05/2021 01:51:00 PM EDT [facility] ([facility]) Name Value Range Interpretation Code Description Data Bobbi rce(s) Supporting Document(s) Cholesterol 143 [facility] ([facility]) Triglycerides 91 [facility] ([facility]) Cholesterol in LDL [Mass/volume] in Serum or Plasma by calculation 68 [facility] ([facility]) HDL 57 [facility] Chol/HDL Ratio 2.508 [facility] ([facility]) ID Date Data Source [id number] 04/05/2021 01:51:00 PM EDT [facility] ([facility]) Name Value Range Interpretation Code Description Data Bobbi rce(s) Supporting Document(s) Sodium 143 [facility] Calcium [Mass/volume] in Serum or Plasma 9.0 [facility] ([facility]) Chloride [Moles/volume] in Serum or Plasma 112 [facility] ([facility]) Potassium [Moles/volume] in Serum or Plasma 4.5 [facility] ([facility]) Carbon dioxide, total [Moles/volume] in Serum or Plasma 26 [facility] ([facility]) Blood Urea Nitrogen 22 7-18 [facility] ([facility]) Glucose 92 83-110 [facility] Creatinine 0.69 0.6-1.0 [facility] ([facility]) Glomerular filtration rate/1.73 sq M.pre dicted [Volume Rate/Area] in Serum or Plasma by Creatinine-based formula (MDRD) Laboratory test result [facility] ([facility]) ID Date Data Source [id number] 04/05/2021 01:51:00 PM EDT [facility] Name Value Range Interpretation Code Description Data Bobbi rce(s) Supporting Document(s) Platelets 337 172-450 [facility] White Blood Count 8.2 5.0-10.0 [facility] ([facility]) Red Blood Count 4.40 4.00-5.40 [facility] ([facility]) Hemoglobin 12.9 [facility] ([facility]) Hematocrit 40.0 [facility] ([facility]) ID Date Data Source [id number] 04/04/2021 01:48:00 PM EDT [facility] Name Value Range Interpretation Code Description Data Bobbi rce(s) Supporting Document(s) Thyroid Stimulating Hormone 2.760 [facility] ([facility]) Troponin Laboratory test result [facility] ([facility]) ID Date Data Source [id number] 04/04/2021 01:48:00 PM EDT [facility] Name Value Range Interpretation Code Description Data Bobbi rce(s) Supporting Document(s) Triglycerides 174 [facility] ([facility]) Cholesterol 174 [facility] ([facility]) HDL 62 [facility] Cholesterol in LDL [Mass/volume] in Serum or Plasma by calculation 77 [facility] ([facility]) Chol/HDL Ratio 2.806 [facility] ([facility]) ID Date Data Source [id number] 04/04/2021 01:48:00 PM EDT [facility] ([facility] Name Value Range Interpretation Code Description Data Bobbi rce(s) Supporting Document(s) Calcium [Mass/volume] in Serum or Plasma 9.1 [facility] ([facility]) Sodium 141 [facility] Carbon dioxide, total [Moles/volume] in Serum or Plasma 27 [facility] ([facility]) Chloride [Moles/volume] in Serum or Plasma 106 [facility] ([facility]) Potassium [Moles/volume] in Serum or Plasma 4.3 [facility] ([facility]) Blood Urea Nitrogen 24 7-18 [facility] ([facility]) Glucose 103 83-110 [facility] Creatinine 0.86 0.6-1.0 [facility] ([facility]) Glomerular filtration rate/1.73 sq M.pre dicted [Volume Rate/Area] in Serum or Plasma by Creatinine-based formula (MDRD) Laboratory test result [facility] ([facility]) ID Date Data Source [id number] 04/04/2021 01:48:00 PM EDT [facility] ([facility]) Name Value Range Interpretation Code Description Data Bobbi rce(s) Supporting Document(s) White Blood Count 9.9 5.0-10.0 [facility] ([facility]) Red Blood Count 4.80 4.00-5.40 [facility] ([facility]) Platelets 362 172-450 [facility] Hemoglobin 13.8 [facility] ([facility]) Hematocrit 42.7 [facility] ([facility]) ID Date Data Source [id number] 04/04/2021 06:22:00 AM EDT [facility] Name Value Range Interpretation Code Description Data Bobbi rce(s) Supporting Document(s) SARS coronavirus 2 RNA [Presence] in Res piratory specimen by KALYN with probe detection NEGATIVE [facility] This lab was ordered by [facility] a nd reported by [facility]. ID Date Data Source [id number] 03/30/2021 07:36:00 AM EDT [facility] ([facility]) Name Value Range Interpretation Code Description Data Bobbi rce(s) Supporting Document(s) Lyme Disease IgG/IgM Antibodie Laboratory test result 0.00-0.90 [facility] ([facility]) <content>Negative <0.91</content >
<content>Equivocal 0.91 - 1.09</content>
<content>Positive >1.09</content>
<content></content> Lyme Disease IgM Ab Quantitati Laboratory test result 0.00-0.79 [facility] ([facility]) <content>Negative <0.80</content >
<content>Equivocal 0.80 - 1.19</content>
<content>Positive >1.19</content>
<content>.</content>
<content>IgM levels may peak at 3-6 weeks post infection, then</content>
<content>gradually decline.</content>
<content>Performed at: RN - [facility] [place]</content>
<content>[address] [place] [id number]</content>
<content>[employer]: Gogo Heart MD, Phone: [phone]</content>
<content></content> ID Date Data Source [id number] 03/23/2021 04:47:00 PM EDT [facility] BILATERAL SCREENING TOMOSYNTHESIS 3D DIG ITAL MAMMOGRAM WITH CAD COMPARISON: Exams dating back to 01/19/2018 . LAST CLINICAL BREAST EXAM: 02/04 [facility] Breast Cancer Risk Evaluation (Tyrer-Cuzick Model v.8)This patient - Lifetime risk (to age 85): 5.2% Lifetime population risk (to age 85): 8.7% Probability BRCA 1: 0.01%Probability BRCA 2: 0.06% TECHNIQUE: Bilateral craniocaudal and medial lateral oblique 3D digital mammograms were performed using tomosynthesis. Computer-aided detection was also utilized. FINDINGS: The breast tissue is almost entirely fatty. No primary or secondary signs of malignancy are seen. IMPRESSION: Normal mammogram. Recommend routine mammogram in one year. BI-RADS 1 - NEGATIVE Professional interpretation performed at [facility] . Name Value Range Interpretation Code Description Data Bobbi rce(s) Supporting Document(s) ID Date Data Source [id number] 03/15/2021 03:00:00 PM EDT [facility] Name Value Range Interpretation Code Description Data Bobbi rce(s) Supporting Document(s) Follow Up [facility] CKFUSq7aPpDNYgQyRBThXzsTXTlwOXokXZEaA8Z5IVqeZq0QGDkgiyXzPTZsBt5+OTZmCV3ilc9tWSYv gMy [file] m+5X3MS8IcX/9BL7YgpeZMZ8dG+n+I8fsriPs [file] necktie turner+yf4jJLjFsyyUWL7jWjmLe/s8xrwqaP0+3SYu/prC7+gCQDB98I26RNNx91P18E/W3z9X8/eM/us5w [file] 5v+aCC7tdjXC66hP1/kgJvn8hnrybLe3/LEYLA+nGDbsS0WFrLGStqRskTdfoS2kxHwEq5CQJ8mrESbo2T VNbzvLWQSHpSTiUTR/Jk5pqhaaXJq9aupCKC34Fq9c 3G0cD4oquvWfz9tNZ6hpkRArRKKwj+NNL3JKggyuyVLhh5Olg2MRyDmgkcnm2SAc4+FRAKujgyC19WVJ mDbG+e9Jscz5NykfadmXLXdMRIzCskQc4R2dO40zsrW5EIIAxZKd/rdM3ScFPcu6E4/uMpc4FkMC0ArR Cg48ziGDHR6iRiVUlc9EhMlxuRaj7/Oqwon/802PFO x/MRH2hGdzer64iTY4Yxjq+zR+xwWtaxVTymtKzGCfgPXNMBo6tqHdfwLXxVTL/kYtGC7eL7b3mmAYm9 3qGxsaqApHOruzT/51vkEynTccNoEg11bupBU94AeR4MnQwY0S8iKuFt2KiWCDJlxYYxfZjdZ6GoWV8I zAQDfwHsJoAbuLtj0fLzalOemrbiweZ23qJlqa9bLl 3UO2iRFZsUaQvba3HM/f1SS4O6Zg4wkOB5G1iLk5oh6ugb2LiZTpyuXncqn8peqUpQraOc25cdQaNMlJ 78iroEiMRUa/3Ob9o2UFfwn66yIopjGge79rcc6D0YfUKDo7nx4SLoiax6cKRXTzFJn61Tf/FubJuB2S qeJArnRt1E/O6TFwo1jHpRV81+54t82hwXBCxL+NqJ FSVS07o+vaf4paGu2zAj3Pfy4wF5SD07IXzAo0avFGjjhk7AazN4PAzxmgVnL5Xshshp9CzZpIc66Gke victor hugo+aI26qRdgUfZa+NDMiwgcYuSkPFzzK7ib8ZYNC9FGw2IqDder5aTGE2m18S7788Fwz9fOzmeKnkys [file] /8IBI2CxTTr7dfiAkv/incinerator 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/4G2G5kbltjXILwFdn1NtrklUBcnzObwTqHi+5LGv2LLB7/GKuyk7Kv+OIM NN0baBu513I6+ScFB/GKK+Dh7e69L3KXx2iN32HUpf e9AmtFmer0yHbjmQe6C6nLh8VjR+umaB+GqrRk2vyhSNFrmcYTO7zTo8A437wwjbI040VvZLiEqwTf0+ 950ow29+GsJFtM/V5EuORl9UvKjxIXSvN7NknfJy1su0tegBg00iPkmqlODgjHULwdGCebdAZpNFSdCA efvwMwM9SsXnqefyKs3AmL20OkImdjq0AbeijgyGSu [file] chief controller station+g40YGPvj77/AzNhaE7EOxEcXFwtXlKXiwmfa9Ar [file] RkuIwfZOmprZimMhP7+Sonya+CW1HKez35TyjCSfPfatDlI3iXwjmNyM8unz7qeNT9opV7Maex7mPiP/wire drawing die maker [file] OqhNIS5TuEFxlceCg0rh25Shv+iB3tjt/IGJ1R4/Concierge Manager [file] 0ZV+OrPj3JoQ9claidCReGXtuEYuH2bX10X/yjQK90VSOzhJ3xajvi+e/+JGuvVqyraLNC7BmcuIc+necktie turner [file] MH//gZunMpArPSHPqcJQjZTTBcANBBrb05shCRWAHu iyCAIS3sF7ujP6HuesYtutcaPfiptb7b6s+oyDtIic+Lg3apAQ2QpwUuO1w1IMtYhb9FZP5QA0/eJT3n dPa8k/wzokFiv6jA8CeW/tUJwQrqsCqMX3Tjrz5sRiJubboiuRJyx9/UTcYwFcmOsxdZqBBymQVeZJre a4ob56sBAqBjkE3T9rF8qbYhKjNl0uQ7Okfe7ZpdVu AgSrzVzZrw4zPu5nBI4h2A3r3QkoixiBgqCQqTEsqRnlNmu4plBTkOMqZvG0HA6vKPbofs84h967YP6G 7dtMmJjTEdYBTBG92HW2XfLi+lZRoh0hgz179CQLae/Zqz91imfdB4OCIX1MWRFqr6DMEgcXx0FlMdqW rUHlX1fXIHmt5mHJQeI5/6NYkrK2I/cWUN/lR6R1A5 zU6Xe7lBKhaAJMqqIG/gSNqD2hg8QizwxFAmADYkuo6DSAHLAQ13UgGIe39TkNBkFVkdOiQjT9ZHQTyU GMplG3CNjBchom7q1XN0noRws1Xot71cix9iIjZhXFMuk3xmwYm1AINO/naB3nV8Muni7RQaUslVYhHP u8NFY55R4y9EsuaRgPzrvlcoCw1i0/XrI+xrI01bUm vUh2H0IBe+i2zHCT7k+viqQo4u/0yvXV5L4NCVmaAf967YAASXXXv1668s6+Y1GuVqoG80VrA0GqgL2p R0EuAHlbq03Gbt5lMkJKjBA+OIETvCfHdvdR85SJD8Q4ohXqfan1hWbFHRRVLr7Z5WtYdIzbTDybl2Mt kGf8sLiAHu0ZIumQ8oGmZyUyc2YcWGFR//ZwbI6AzI Pc7kP8q1gFSX1yQS5j6SchPSGFiPysC75Op/tJtaBD9WgCx9Hn39snqczN299K+otH+fxWVyJve/Ijcp misj7Meqnk/VKWspMLeRSs8PfZMWJ2mRb6y6+xwaXlD05KV91QolofnLMxfEXWO5IXAx1ql3QKiLxgoF +8bHDy/k0qyAAbJ35/93ismyN/Estimator And Drafter Supervisor/AZjDKnYpmo6TW [file] José Manuel/a8Xsn3HQiLW08q2kkiE/d2NiyauT04bdFRMQJ7rQjd2u9xLxagBqd3xXfpPefHtP2ZgaJzHBXmnk [file] legal affairs [file] 2+community development worker/RHnnwRqI80PnymZkhjIj5kzPI8XS8g/P33KqsAC5oFxfmvGIoCi3AigDsKsKFTJ9m5WC/cJOG1 [file] Wood Machinist+1iC9PWhD0SQ/2y3K+7cBrj9TjfYxhY1s4uBX0k hH0N194eP8llKw0IE6nKVIs+LjlA2Dqw7OH/F4ahpR4Fq5jmuJPc03K187Ks5mFhlSqzaFBJFhcsB9s/ vmx8V/I2ixqKIctFe19w/cwW9TxNMLY6i5VTnmRojEmyBvx1TURkN4ovaYOCYm/u0HZAzr4bYDGQdL12 Uj2pKHsAGS0xz5g6XsHkT8qGjH41lXf6VJykGj3NIm qMFeku+Gxf1fh1LiZGP2kZh5WKSe7MyvrToMu7BHE3mD+81vLS4tc88vbezWIxPfzYCCup6z9KdOldtR 7z3YghGE4yE2D7OQIF+xiH+DBXBFdK1v6lL5JIE0Bi/N9s92SSSc52bUGlGB5F8xOWoFnz/sGo20kJey q/vzA6ixk6XsTHiB5/ynGuKoFQjpzsdMCXKjnG9/PF GoyVc06PYrXgls0PpV3WCQFmB5dluTzt5do/tjvUiATEmrQAflgxps2hyY9Fkl+YKoADOZvv2NqN4aWB TOtuvDnIT2/cME5yWMO4WvOf1OZLMVP1undQq2jEKOmzSs5VdGus5fyXZvYOBFRQNDF8joV6DbFyDETT Klaus/zBzpILQvMjoIb785E2obCUmCMpDIojndebWtGH [file] RD/Q2PbvImsARFYJxupLl+qYHfw4l3gRQK2VCcCjb8G3ng0QiSPye7gpFSaQG2gVLhFD6qT1qClh+tripe cooker [file] XnrdBIVaIE07jjBHR8L4tFxl+d+3TNiuf2h3E6zBP8aZgbO3KW3ZDbgU4TDkGnSsc3+Concierge Manager+tGVVakBQks [file] vhxt8tJWnHG/chief controller station//2Bx885dx/nxI0npn3G5aLbRTA7Kx99pokNU4rKBFRxnWQMhN3y5wuq3H920TR2Pp [file] vp legal affairs/GpGrUyGtOcz3vNP8+ArORNKoDnf5BF7tRsuGGDbihqgYGH25wH5OywhVxJbVI4bONo9iMb+aSwlup [file] Estimator And Drafter Supervisor/Izno0OoOo7zEWKifZT4dhu9T0AjTlpb6obfaRQN2UNafOX9bhFisTmWVylsTm+fa3YdB+e6xFWHHd [file] UKLUWFeKYmOJ+UaOCSoBzkZCAMhwlr3qgkvwB4YGb1N+Saleem/aXnBHy0fQqcrzm+Ku7ru8wQWoKghmhPDQ mu/up4SNVURoT2+bdpZTwlCCEjdFjn57YRHIh/2ckX 16w7D6MVt+nnUV+AcN7qFYCT19Z/yG5PeZqJTc7idw+Die96GLzRPQoTpeTN3DFF2rUr2/OlwPTn1zZ+ VNL2PP52rFc4wa6zWzo8pFXBr04k14Z5Kdst03YnWIlYWVe3eAnuJhAPN+T+8/EBtV7dFJV/bGigwJXa spEx6EZdSQe973mYO6jOtTUFnt2WyosVyiOkjjMAzs DCj/xLzy0UXmRwwvCmF4dufAi4CJL1nBbkygXtXogF+y419M/biLjTJa00LVbavDflQNPrg/C3tkCNPM Y5EHxt1rnfwOP0WDR4QzQgyc2C9hu24M91VTpBDQVW4l6Xb4SC52ep7/Cuy17mcAA1cDAM0r192lWL46 Soto+aYRLI6b+s9/oguvL86ObduO10eC68wf6uFnBrNP somH//7dt/QKcIlfTYIGpfkXc9W5L6zjnH3xFPrYC2IP/gKpiEJ9PWg0U8R9Z4+ki5f0PRDZ7GnmEDQv j24Y2zmDzv//tLEwDg/zNEf+f/X7QufY0HZzRlBWH6vmNixM6gmyJhGkbNEBijWLGxQxxHSLckSBNhI9 PvLWOjEe1qlGQzGF6ISwTCWdFoUJSoDJJ6CYLtDQMg LBMrJd3DrKe8UQUbXyQJHaXaUEW1kpAwmW3anaYfFqfMXOieOMVfMtvATDoyNmrxwGKsCW6CoAB0NBDu M78aES1VJL6nsBjwXVRcNROvWnp3XDuDFsReO9KpBMW6LVUbUbFoSSW8UgguLEbGNFLoZj8kTXIXU1Dt GNUbKAPJEUVrHtCROnBYSNnFSyPBUYB4GGPOXv2oVq 3rtYMhVEDbKk7EjjCgUWUgIRWDB8MqkuRlAxDsOUokUDIoPDNlEl2LWYihRCDhHH8+WqA8xhKccY0VtZ vxASNsGEDoVVNcRPJXUH2YyZrWOQAXGHHggrvXNikVdx0MluPkMZvqxrBMe8Rme70bhNjIXr7KPsBDGI m3WIVUQmGZyR/+NDYOVpFN2TMbGQczgeFrlNEaZL4C WtGeUP8aqh6CWmR6BVD9hDLbIs0YJJZ8VfTsDV9IDDKZJ2D= ID Date Data Source [id number] 01/19/2021 06:50:00 AM EDT [facility] ([facility]) Name Value Range Interpretation Code Description Data Bobbi rce(s) Supporting Document(s) Triglycerides Level 109 mg/dL [facility] ([facility]) Cholesterol Level 136 mg/dL [facility] ([facility]) HDL Cholesterol 60 mg/dL [facility] ([facility]) LDL Cholesterol 54 mg/dL [facility] ([facility]) Cholesterol Risk Ratio 2.266 [facility] ([facility]) Non-HDL-C 76 mg/dL [facility]) ID Date Data Source [id number] 01/19/2021 06:50:00 AM EDT [facility] ([facility]) Name Value Range Interpretation Code Description Data Bobbi rce(s) Supporting Document(s) Glucose, Fasting 80 mg/dL 70-100 [facility] ([facility]) Blood Urea Nitrogen 16 mg/dL 7-18 [facility] ([facility]) Creatinine For GFR 0.73 mg/dL 0.55-1.30 [facility] ([facility]) Glomerular Filtration Rate Laboratory test result [facility]) <content>Units are mL/min/1.73 m2</content>
<content></content>
<content>Chronic Kidney Disease Staging per NKF:</content>
<content></content>
<content>Stage I & II GFR >=60 Normal to Mildly Decreased</content>
<content>Stage III GFR 30- 59 Moderately Decreased</content>
<content>Stage IV GFR 15-29 Severely Decreased</content>
<content>Stage V GFR <15 Very Little GFR Left</content>
<content>ESRD GFR <15 on BALLISTICS PROFESSOR</content>
<content></content> Sodium Level 141 meq/L 136-145 [facility] ([facility]) Chloride Level 109 meq/L 98-107 [facility] ([facility]) Potassium Serum 4.3 meq/L 3.5-5.1 [facility] ([facility]) Calcium Level 9.2 mg/dL 8.8-10.2 [facility] ([facility]) Anion Gap 6 meq/L 8-16 [facility] ([facility]) Carbon Dioxide Level 26 meq/L 21-32 [facility] ([facility]) ID Date Data Source [id number] 01/19/2021 06:50:00 AM EDT [facility] ([facility]) Name Value Range Interpretation Code Description Data Bobbi rce(s) Supporting Document(s) T Uptake 31 % 30-39 [facility] ([facility]) Free Thyroxine Index 3.0 % 1.3-4.8 [facility] ([facility]) Thyroxine (T4) 9.7 ug/dL 4.5-12.0 [facility] ([facility]) Thyroid Stimulating Hormone 1.210 uIU/ML 0.358-3.740 [facility] ([facility]) ID Date Data Source [id number] 01/19/2021 06:50:00 AM EDT [facility] Name Value Range Interpretation Code Description Data Bobbi rce(s) Supporting Document(s) Hemoglobin A1c 5.6 % [facility] ([facility]) <content>REFERENCE RANGES:</content><br/ ><content></content>
<content><=5.6% NORMAL</content>
<content>5.7-6.4% SUGGESTS IMPAIRED GLUCOSE METABOLISM/PREDIABETIC</content>
<content>>= 6.5% ABNORMAL</content>
<content></content> Estimated Average Glucose 114 mg/dL 60-110 [facility] NT ([facility]) ID Date Data Source [id number] 01/19/2021 06:50:00 AM EDT [facility] ([facility]) Name Value Range Interpretation Code Description Data Bobbi rce(s) Supporting Document(s) White Blood Count 7.1 10 4.0-10.0 [facility] ([facility]) Red Blood Count 4.43 10 4.00-5.40 [facility] ([facility]) Mean Corpuscular Volume 88.9 fl 80.0-96.0 [facility] ([facility]) Hemoglobin 12.9 g/dL 12.0-15.5 [facility] ([facility]) Hematocrit 39.4 % 36.0-47.0 [facility] ([facility]) Mean Corpuscular Hemoglobin 29.1 pg 27.0-33.0 ME DENT ([facility]) Mean Corpuscular HGB Conc 32.7 g/dL 32.0-36.5 [facility] NT ([facility]) Neutrophils % 55.9 % 36.0-66.0 [facility] ([facility]) Red Cell Distribution Width 13.3 % 11.5-14.5 [facility] ([facility]) Platelet Count, Automated 353 10 150-450 [facility] NT ([facility]) [place] % 6.9 % 2.0-8.0 [facility]) Eos % 6.8 % 0.0-3.0 [facility]) Lymph % 29.5 % 24.0-44.0 [facility] Baso % 0.6 % 0.0-1.0 [facility] Immature Granulocyte % 0.3 % 0-3.0 [facility] ([facility]) Nucleated Red Blood Cell % 0.0 % 0-0 [facility] ([facility]) Neutrophils # 4.0 10 1.5-8.5 [facility] ([facility]) Lymph # 2.1 10 1.5-5.0 [facility]) [place] # 0.5 10 0.0-0.8 [facility]) Eos # 0.5 10 0.0-0.5 [facility]) Baso # 0.0 10 0.0-0.2 [facility]) ID Date Data Source [id number] 01/19/2021 06:50:00 AM EDT [facility] Name Value Range Interpretation Code Description Data Bobbi rce(s) Supporting Document(s) Triglycerides Level 109 mg/dL [facility] ([facility]) Cholesterol Level 136 mg/dL [facility] ([facility]) HDL Cholesterol 60 mg/dL [facility] ([facility]) Cholesterol in LDL [Mass/volume] in Serum or Plasma by calculation 54 mg/dL [facility] ([facility]) Cholesterol Risk Ratio 2.266 [facility] ([facility]) Non-HDL-C 76 mg/dL [facility] ID Date Data Source [id number] 01/19/2021 06:50:00 AM EDT [facility] Name Value Range Interpretation Code Description Data Bobbi rce(s) Supporting Document(s) Glucose, Fasting 80 mg/dL 70-100 [facility] Blood Urea Nitrogen 16 mg/dL 7-18 [facility] ([facility]) Sodium Level 141 meq/L 136-145 [facility] ([facility]) Glomerular Filtration Rate Laboratory test result [facility] ([facility]) <content>Units are mL/min/1.73 m2</content>
<content></content>
<content>Chronic Kidney Disease Staging per NKF:</content>
<content></content>
<content>Stage I & II GFR >=60 Normal to Mildly Decreased</content>
<content>Stage III GFR 30- 59 Moderately Decreased</content>
<content>Stage IV GFR 15-29 Severely Decreased</content>
<content>Stage V GFR <15 Very Little GFR Left</content>
<content>ESRD GFR <15 on BALLISTICS PROFESSOR</content>
<content></content>
<content></content> Creatinine For GFR 0.73 mg/dL 0.55-1.30 [facility] ([facility]) Carbon Dioxide Level 26 meq/L 21-32 [facility] ([facility]) Potassium Serum 4.3 meq/L 3.5-5.1 [facility] (Cardio logy [facility]) Chloride Level 109 meq/L 98-107 [facility] (Cardiol ogy [facility]) Anion gap in Serum or Plasma 6 meq/L 8-16 [facility] (Cardiology [facility]) Calcium Level 9.2 mg/dL 8.8-10.2 [facility] (Cardiolo gy [facility]) ID Date Data Source [id number] 01/19/2021 06:50:00 AM EDT [facility] ([facility]) Name Value Range Interpretation Code Description Data Bobbi rce(s) Supporting Document(s) T Uptake 31 % 30-39 [facility] Thyroxine (T4) 9.7 ug/dL 4.5-12.0 [facility] Free Thyroxine Index 3.0 % 1.3-4.8 [facility] (C txdiology [facility]) Thyroid Stimulating Hormone 1.210 uIU/ML 0.358-3.740 [facility] (Cardiology [facility]) ID Date Data Source [id number] 01/19/2021 06:50:00 AM EDT [facility] ([facility]) Name Value Range Interpretation Code Description Data Bobbi rce(s) Supporting Document(s) White Blood Count 7.1 10 4.0-10.0 [facility] ([facility]) Red Blood Count 4.43 10 4.00-5.40 [facility] ([facility]io log[facility]) Hemoglobin 12.9 g/dL 12.0-15.5 [facility] ([facility]) Mean Corpuscular Volume 88.9 fl 80.0-96.0 M [facility] ([facility]) Hematocrit 39.4 % 36.0-47.0 [facility] ([facility]) Red Cell Distribution Width 13.3 % 11.5-14.5 [facility] ([facility]) Mean Corpuscular HGB Conc 32.7 g/dL 32.0-36.5 [facility] ([facility]) Mean Corpuscular Hemoglobin 29.1 pg 27.0-33.0 [facility] Platelet Count, Automated 353 10 150-450 [facility] ([facility]) Lymphocytes/100 leukocytes in Blood by Automated count 29.5 % 24. 0-44.0 [facility] ([facility]) Neutrophils % 55.9 % 36.0-66.0 [facility] ([facility]) [place] % 6.9 % 2.0-8.0 [facility] Eos % 6.8 % 0.0-3.0 [facility] Baso % 0.6 % 0.0-1.0 [facility] Immature Granulocyte % 0.3 % 0-3.0 [facility] ([facility]) Nucleated Red Blood Cell % 0.0 % 0-0 MED [facility] ([facility]) [place] # 0.5 10 0.0-0.8 [facility] Neutrophils # 4.0 10 1.5-8.5 [facility] ([facility]) Lymph # 2.1 10 1.5-5.0 [facility] Baso # 0.0 10 0.0-0.2 [facility] Eos # 0.5 10 0.0-0.5 [facility] ID Date Data Source [id number] 11/08/2020 07:45:00 AM EDT [facility] Name Value Range Interpretation Code Description Data Bobbi rce(s) Supporting Document(s) EGD-Colon[facility] UFBWXp7kNlQNPgKoDREhAzyOSBbuIZkkJITuC5E5YUnhIr9LSHelfsUvBJCfUe7+ZCJjIX5pld1zQIWs gMy [file] chief controller station+pLw5JnEwgQ+MIjkYvXaLn9+hiACpwL7vtheJUeRtx4r6jdoYOC5aNcY/MI7k+/3qVCAJo/Ea7Nn8g [file] tqCD7aFV00tjky1UWDZVhD5XOi1UksFG422y/llPutcYIvjh/Isaías/+x5h89rbQvLz9EwfZ98y7OletBv [file] //Inventory Planner/02rS6IzM3goOj1z6D/7uLZZ/nhf1q6CHCCAIXlU2jirrZEHgGSOHmPeEb2qnRdWVQouDgY+6xl [file] Xrsg8Y/rTQnFKbOX02Wiy70YTEAkp0+DOOR OPERATOR/SlyKuZa [file] xdJxyaHWt5AKsehDoon1KlO7V1T00r+brlJj+l+Sign Board Erector [file] LHmfhs8XWUYD61zvzoK/anqihikhaVw/frqRkTDDt5 nzu42IQbMhZ9f/ebx7MORod+e9isAgvcA00lwLEWPqQV+4hkm2opM/EfmX6pcm2R5sk3mCqFm0W2yQFQ ZxArAw/bUHbUuHchfepPHkMPY2o6Z1BOS8uSNR3ubY/L8xiuJxT5cgrWVwaIdT23nwaMjWhj7HY54dlT KCqA4U/6IWJZ8sxmLJ/V4assolWSEgSM6Nn7+orhqq bMtBeWnX+3qE+h5RCv1MLOd4I8SpZQxD6imoSO9aPR8kYg552IrX6P/MF84VvAAjMGbDQLr9qx6NF4we sDKf0ZKaAdJHxwkSwuiL8ULEi7hhR7X2XkheGkjS56btzlZ6iLrhwrGG2ZK4FFmXRV2J2EZMAA78qJ9r 7dcWgL2gU6M98hDm6wOtG2FoAy1eMjku4TABmNgk47 iP5pGgf/xY3IA+qm88KDFyp8qdEV0MhsSsr+7sHhc7ooql+7sKoyvdWds2WA7p4HqeFe/eGmgecQz9A0 cL8De0jQf7816jK6zemaCbH39rWk1rRh8JSDmpP2B3DdS23MDk7qNZak9VglmGSgHnEwF23h6XR6x6qh P4FVPZOhqxFZlC1WRqvk1jDhmEeIXmZ63VzFp0DOMT necktie turner+5A81txi6ffrUutilhjvWodSV1w3MzKnbRyQk5xjUgomOFQbSe/rwa6frPBudpPjigOj/7EX3Ev4XB [file] Lb/dTzSICksN7mBHKHUEbTw1gZm/tRlqJ2KY70ywwsMXllbuqBPXfiSYSwPCsUvNjeNJ5mhlujmZKIc L+dMnFd7HYowYjTpJ82Fsks+SZT70de2u4QBav3dsZ0rM1ijDV0MUom2fqLOI9Em1xU1Fl7wZa9xb62+ EL/+l5qXNKtHFUJF6+DeOYcJUAEO5gJ1ZWVVA9GEBV xtxVjNq3t11vB/rKfA585p2ycEz634+4JtbablboYHXj3lhB0C0PH0419WVw/NMG4vgjPx6+d7hyJOga oV3P8GQpM4jp6b3eQLxvzCcogRfwC3VKqmHh8tlv87zd2oAEskwXj1i5+76a8xBbHW7gqcL5qh0wKRt1 Concierge Manager/mKqKlMa75gbdtUGgu/tGS3KrqBcgZOh41mENNl6 [file] yXdXNHrKiBhoWDpVm4wMEKnwHj3Qn2pbKIAvUamwewqEKLncDRsWv7c6x/Estimator And Drafter Supervisor/rD1QuITdhg0Ja/wa0tU [file] L+v56CcnhwXrZWqqAsvf6ynixVGwniYw4Q3wzfgVHrSYEO+target developer/50TjphntUEVz3UXpWtUYyFdfrDAxK [file] rlPVQ6kHwAiQHFIwGU8k3jv+8Eq2lFDT30nYEj/Isaías 132I1KX9e63Zq01EG195OVBrdQiPwDc0NAVsd2Jai/CsLvv/+3z7P/qP/pdL+1m2zpTSMfXbOGslwoDz qAIpQI8XHD8wv1EfVRD3EOQjn9DkVIf3B2oodcl7lRLeFH0+p5MzDSMlKQvlSbLuLtKbNGGuDkwgSDLm ADFpvTnjRH1mNDIQinkJKRzhmjGxtRFeJA2MZV1ai9 KpQEZ6HWVdr8OmKHy3Q1JxwICgibVpZhfinZNRBOKpMHVfQLCiH5EmLBbzF8qEBFp0WxB8JTW9NJq4UN WzYOjYToV7DyV7PpClEUIUFMQ0AMv+LXzgJiM6ILJCZDypXYMwA2VANLyaWTq5JZMcSwW3HyATDI2nR6 Crn6NwUBAsYMRiHJ1ewsJmTPOySe1OaGsvKOJ8L3Q3 yXUuD8sZNKMhGiXrSZM9VQFeAh8niRGkUX4LUbfvA9GlEJKiJEEWLVAETru+EWBXzRJpY2Fv6kcFo5vH lGGbgFSa9Zbt76PEvxkSnbdPO7zapYpap1Rw/49GLJKOHeYN1BxNXl8XIO4um2WwUSTbXIweorEvJpqK DLxobYKcdEmnBGLTOdKxAoC0XWhLIsKvVJ0K ID Date Data Source [id number] 10/26/2020 12:30:00 PM EST [facility] Name Value Range Interpretation Code Description Data Bobbi rce(s) Supporting Document(s) Follow Up [facility] CGRHIw4hBrBHTyCvQYKkLpsIDGtkAEtoDBHaU3Q6PAxkCk9XDTrgxlUiZRFpBz0+DKKuKE3ppu9fTKWr gMy 3qCUPnTjazW2GlFGDhf76IKFLjMVvMRwWcStMxYoBfAOYsHaOeKFE4RxWcJpnvIL0iGES5VTBcLMabTQ SvKZWxOlQgSPO3SM5hIKfwPWpaMx7JZG2my8KuONBnEZTdSfgSHRvfUCvsGQCwPUIuQCCdR018gaBuFR 2KcYRtPCi4CJSiPnR7GGEaVhQ8SUBaOmMsDyKcVKDk Q3Dte194krRjraW6MC7BF7TvMJA4TNe7R4rrAiZlCKCjPCQfLI6nEiZ4DIXoUd1WvCwsAMNaTLXiUw4K pFm4UWU0JOIsQf0+Pj4+Vq5eyzHcJmqGPSUrRA0lrn20MW5GoMSbLQ5ZRQrrD66tOAytVs20YUufRSCs VoNbGUk0Zp6jIuVsw8LbD9FyOCm0Q4dTFyhxJ9ZsRZ wkEQ3cEWR6FYIoLb1+Dz9fLRDdCA92ZZBiJBBYX6GgynDbwfAjDZy0HCZlOw9+Nj5rvaYiBimTFQZqNJ 8epj00PC1QKU6sqRkjQqL5MHv3K75biPYsF5yfJjOeT2QjgLtbATNmJG4eE5CwCEfiTYSaJG9tugBkvZ 1LbZw6TLCoLp6RhKR4ZYBqY83rWGUjRIYAASFll4Qp KE2Km0zyfrSnUYTaQF6UCLZoQ5VYX4CpV4xzpHawYKUzYT5NLDwsnSWrCIn7XL5NcEInRJHlX83wrH5z GB88WCr+QyY3puFvqU2NuFnmt8BACR159xu0kwG3VNElDhrHVW159dJFFGDNZUiO9j3raVQ3cvW7h7HC d6Wy0Z2DKy59vq+ldidLXOzc30hcpbl89cgHFlpyvl /42nw4IK3dRGPSjoOdvNTndgIoZM0//kmffwNJXbgRs0IOaIMDvgspnsgIbhaZxQrUdQFSlLvJMHiBv0 dPQECAnkVUUuSNBDe/wJt/GkF5/fk6Ce4sCU5hzOmJHH/f/C+Yhm9J7KJyFqy2ORMNDIudCzbnfcZ/gB 4AQMFA+VcB/W4WDFKHQZWU69fwrDp/LWwnOFDD0BYY [file] mOkHRqE33dZp653pNmr+7Uu1RR5/necktie turner+heUv1juckdRPRdknSiI3SvKDins8jyF6TI8559MseaMahn+1h [file] AeG6NpTh478260IGEKPWcu3mN9G22wnklBeo0S7QXPF8j4s1///Be/Bt4Ds9g8um4/hand woven carpet and rug mender+02rQen2NIm [file] NW+Tyq2TMqksRex1p82cvz1S9hOvlh+MANAGER BUSINESS INFORMATION/wiJ2lEWH [file] zK77VVlAbnkKLcOCXCQcQncr6Nfi1rqXdSzkkf66ZMQv+37EwMjh0nWca/Estimator And Drafter Supervisor+7X3qFL/brBn539XW0yu [file] Bmgzt2sTRsSBiJw81vpFQAWxblpiOcb2qpma+certified welding inspector/NW9FUQK2IMiebZv47BmG3UzsySu5IK3wlfnx2xI [file] n9eRmjqe24OBX9+UcGLrecLd0Os3toNtyrc725+FLOOR COVERING LAYER [file] Kulwant+eesANhi31tcojWenz3PIGgs7vF3NbYzYIL92lI Y8QxH9+IlJqgCQ4wlHLBF1GDurOiltB4oYb+CxLMRMPiKFvO8MAlRq7XyvqT3nZTIjCdCo3hIiVfJwfW ycVYlXmbD8GcjMRmRyAHpEe3Zkhl6pgPkbuPVWMY6Pnc1XYo4zWy0PrhmWzU7se3YkSjG1PDcOpW4XGH fb0+FZCIeWS8OwuuqAwcZ9kKbQf5J0Ok+iSKd9WYXc 3OniI3JsjeB/uxI+DmzbPhtoUx+GXUwgoa3LZsPfLpX0K/LyU5BGYEs6qXwWOCCzbBAoZuKQohyVvi+i WwJ0kV8wD1FEpi8nHDlCpnFTIMzIQhoLjhYbd//I4YkkBTK5JnPj8WwDAXdrry+uWUIcfGh25khiTxfT dwK8+7r15DjQAUxTyj0OChvI7g6QcUpBAsMAIwklAZ yCJLfc4AGtQPnwtmDpnon2PPpejZ5H4juQLTV/a64lu8cHoApRi98Rff5M72C+/zrW6ExJLLwmVJ80Ck J7wen4bHEz+6g/qBu4aIsnceEA0eBWZCSfaxpoyBSBFXO0l9VrGGcd+1Agkeu5SOWtO62KRUFbmSnA4q IA4KxXDFf3ZGppZ1C5WFELtrW0fwF8Gbvx6nHFQ+++ 1nBlxktn7Jt1VFnp4X7A5ggvrkFt+WWzkM3etfC7w00wM72JVQcA3DLK53VoP2rod63E562PkpCgkDsW qrW4Ue9qJcWhwT6v4HsxLvW6OEOSvkc9q/ann5O6HfnTa7r/WwnirMPYAZsxS+5yKhy8l/TQhkby4Ngj 0jA/BFvLWoZ61t2E60lEY80yLSVO0NNE2FtwR71MXs Dom0m5TqgJ/soto+/khiprS4BhWV26CdCD/MyzyX2Zt5SsTWtR4f4dz881L3MCyXIrX/gM6iQxfPhgzaXV aCyfWpItGI+AvfWVMyPWXzQW/RFZiJgsqqO4H/qqahpBZf22MbZHUfHZTMEpX4DZadxfWcOgaJKpz88J /EW1T8SjzjwbkkO1W8ayWlBvTGkdxe7uhkxBwO8s2W 2KIyKdbL66lYvqpj2az1j3+YYasWQmHoxU52Y64vDA1X5Pa/xD7YzDq2GLe8OZ6ZzNuP12y210oBAGXp 8gtfyvt/057KJKJtdNbH8t0RCLuryviEyVcOZhbZKZsbmULJRUYJnTDzw1h/QrTWYvrailg/sNWjtDVY FKAmbXvnr+C0fHjAUo2Nr2X059bha8N8kSEiG7TvDW ifK/fCGLqoTenfhPxcNaWGsl4kdkEf4noA7RPGYai2UOOFvuBdmXLIQf4QwUDMazK7/vX/zfDiZkxNW9 37X4B9fpkzR2tzcXVp31DsQS2AtYipK4igtq0AV6G93sj/PQhKx3j0jgwBstb7w2a614lfuOW+Concierge Manager/tNW [file] U+4lDLRRY0AIOEwlg7Z7URYU0v+QK6x+OOMNUZYMK6 U+2zkAqYfCLXGUSUBqUYDyMWz5biCg+WvXlClUewgVrrHEKEGDduI4SIof7FxRDDaGVc6fBNHvYoC6/W VquLW+a4xrKykimtd1mfKgIR03G0NQkvA2iRmTcSYSO7T8g/4mnjHFuaya2/GuG03vTFEXQHpVA3Pbnu K2Dx/b0pwHUxKK36rTUuX7DxyuVuSV2dIWT1w2PzkG 7c883DDWOX+nUO1al9QyuxgV606kjA0y+SZ7i8NyqUKeDOSYWiKNQW5ihv6r+brUu1/skfOgs7OXCu/A MsG8Pt+snoAIOCpVUy3hssU5hMo7fJXw1m30EJmeuT63+df1igWCEEi4LlxXygd5W2biQzmasBnMG25+ jDur41wOnZVAH8CBdsNQsFoPIWDmVVz8MYHoV2+gw5 pc4eD8HdbI5lWfFpxFe53E/Z84rslbIiwh6+1bZ+te9t18bc1FkQZGJdsmymT8gaVYaOv8nSX3m8fgWp 3Vu6mBSYutyHQsNYrPZk2L/iM0K9w44zj+Cfz7rq+dIN+H6bULhtOT8uQeRmvPCMtgBsBWdqTymm+zTE 2SmNDXSd5KCMf1TUy9FEcMFskwGimT/p8CXu8uCd8G S1L3wqWNFI2XVsagJEc3bUjnFePP8fbeKwjCh4dQe3QyXzB+iEjClS15Rbf82jO1jSkX4Z2OIfzXiasB GhTAmRnB2a+wOqdcxn+fw+WVEYoq0Mfdv72dcbFPqtqKTIm0iJj8AcEUxOXxg5If1eq9uP4xXnZrIQVN wWWP[facility]/CIzQu0KXfhc3+g7JKYU8bbjXvK7fA [file] bcxS03SmDVY6+Efraín+TTLOh+olCiOLYwhRsSXuLO9qFBgkst4iguCCS2WJ9pPT8gkUUGkLf/qRsII5wOl [file] X35WB5oyVYN/senior care/7Y3dbk3M0j60sxpU0Cg37J/nDuTpt1+m5eRfnQcmlSc4Z0lYm3ZDt2yLUYnBY4ad [file] [place]+ORZnWdffsE+I5By8Lr4N7O9dh7xI67z6n9zbHGIBgXSLkyG5ARPl6AJFHvyN+Bsu9Cz8iLsuc6Bg [file] xnwVQ6iRqu37g54vubnE2el9ojed4Okobl/xf5qjZiHkzPZVsQvDCKFrNr+chief controller station+7YuxhH3HydfKjwQwx1 [file] KDCGW6E+QhKFq7zMh+zjXtYXq2NAu2gyqj0nAHq/mTGi8++Anni+2Q+koInafqWPTLP1shKlqmhD/1xTQ0 w88AEH8D7XMU0IdipPAX3kf00S+TKICad6MYxKQAx8 D2VqqG+ikArR2Ws/VuMjo1s94Ke17G2Gf/Hm2P/oxWAPq+FMt6a01ma/2Fymus1SFTTJ5h4JtPj+lOSY dH3yrVaggxHRk2ZHlooPgIcMpkPMDF/2vyfd9Qk/nFRDBmIBbp9iNHhKhFd9pY8vCVsXPv2eUA5rW8XE coYRLpWcmDGlD6bbe9EdfOMEX2l9yrAodp/J2WpDxS VWGv1WkFRy+478ioC87aidibIzTF5zb4p7tc1mlKb0N/O4AB7thPpVgExEl0EC+c7ib9qRrGKRlqf36V QLYzDawv9E8ruKWB2Nczal2HJIpUTEvoYx6PJru/+vzT2lwX/2csEJ65ICFsDyA2PVEK+FD8i7jRDPN3 MSbiWO35/vzw8E+SDT/QmxPws/AsUITGyIbV8BZaGS OEAAQkGhMSTDtzV3M+7B50DayUOWipjSsE64mfyQtDCC8bjUReIJdqA3EvITi3RFWWAZvB6dZ6wyIut3 NaRT+FQGendcPdZmQ8J9uyabj7n8bz22AkA7PFettUdjJ1EYcOrAJWhTRvsdsMsRvC7OPmGZ+e6m8fsZ FOAQ5vCKMExXG/saYAJvJ7U30Kmb5oTS160UA4z4Lj [facility]/zV8NgjXK/Z6ny2TDJAWiGEaSU6ZA6X+GjG7/4P4PEceJkS0TzgJZl3o3n8fJ3nyFVXBSs+isszGX [file] A1Hbe3jvFys+2JMdHQJJsuRswWg7KSXf1IZhxJEmUlaLZ1lujfKnaopE0GG7rMmwryPpj5v5i76Iu+[place] FeRdULprmYHQnpEmyx5yMnL+Ij385VvY/pRZnu88ti tpawMSFm2MWyI0mpCLHl+QtaCmgNFvTFGTJrGzugc2RgMGzPpeKN3Cjbpa6Ft/baH4CR+tOnbcAe/4Sy +T/u3YgW/vl3wDIIkoWtrqJbS/DNSAWCSMGAjJeUNABNoqORMKj7i7YSI32fgQ5aycLaJtUudyc0jUvO L3lGA4juvoWW4jqtLhFROWOc/oKD8llzHdyeI32cKn 8ID/zS2/zuxvkSC/TVkb4VguLr8xwGOPg+X6Sj3k/+DyVYknOeNXrH4iqyxuum1Y+aqn+IUJMaShKLYK 367n/aHfLI3yf2gXPH8RME3Hm6WneOisIFokj63dJm7UZSAHHFSSWz7JM1g9Lz/3ZyrUqBRO2XgMczIZ OxvVPoeDw/wBiHS+0jGz6Nx8iJQ/D6v8eLkXQJMmj/ CDx/+pWg4WZgrN9drScWcGXNf/78naI/src2WDgoJC4N+4b/Concierge Manager/fA1AK4ljatxvvZ3HyYNN6MtyQ7x/I [file] Nz2hVfV2RuaZAo7ho9zL1SG9nXJSQo92g6FOmcPKEInmmLTJiSSzEwmkXDbZg8R/PnCo4svIHbzHZ+incinerator 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 dezq84l1XK6hA9xN8/Z9XW0JiYoHWvSBIyf/XTuohT TjVIxoSGBUCqCyoc9N+l+pbW+LGt5ZKbf4L22A9nv/lJVAnUAcBzK3e80W5SW8pGdOdTBxFBek1LeBBo ezwroAHvKj3S2BtTUn5HduReMv6W0+6TiX3cVsgOiPnXl6StFVmXkU+ZtoYG5uqIChMqSpGB/C4Lclxl MhZ/zrj115/DqqOFYEbvXZggY1D3a2iStOnFj5Gojc m4hwZl+Ei3mvgWl/Z5g83g6HMQZOu6U7s7gqIB/IhNxm3ANo6vi3c9vik1VcL5+yLUO3C1PlPFKRXTxJ 0cXFnhsdOq/vE+OjPqxEc/TGi2Fw4NlkUzQG6TDESsFoYKS7GUrOryVUB2IobWlX9VRuO7rYcRk/932Z /5Vm0e4hSZHu2v0S47EJT+BpbPZmmGdj7827c7lG/S fQM3dzko82vBwpugRF+rgJPER803hFkRWL9D8GR67xu4TTMKl49ozZjavjXnxwKRMgPSda3cBJT4P+N3 T+t6X9WkO1j3MsxMM4KvOMt+8cyntq2HSgoAbeanrKbsooiWDjEnBFfGWAfaa21PXDvPtdp0uvnD4dV/ BcUmMxSGJRMSBNsHCLw9OfEKHFMgXFPLccMqR1uVre UEvgFX+xA4tLdQ5hm8alVk9X30IaKf2Lf0eOKuIhdiEcUcue8AwdjBPt6+rEAgz6Ux9SEjKjjRtgcogq sxDQ87YPRMDulXeRENr+HDw/7lvhGt8c16dr0hRuCS67V8m384xgP2bn+dO9T/LIl2SVyfpFkUzwYHRw FUgkPVXAQ40TCzmZ4/SUfxzfSorMR2ffhf42a9dmzR CDCjZk0U1BRZdnFA5ILwkhruyFKItimH/0KQAclw4x27R3y0tBWRlaFOCjl0LEfWn9OnsSdFjIotYtbk fknwtOzAJKIl2vhQoIzsOgx51HJjKz7W9/DKz459qcOPh8UuV5dNQln9upu5T2GLbz/DTJEwKh8qDSp6 ZxnXUJyFJmvxeyKa0P/aSdwWOeucTkHYVJFa0intia /libpSJhW53nsPt1TohT9rz3ApJYEg10LE2LjowiXg2nllzIJrahFlJUOdY2SugJgpp9iYLa9rNjQ1SI R625ABimnxFv+h+H/vhn+a1gHEiml6ZKe4Gg4m7kQTDaLuoaor7fqnT4ebp98qg+N6VSTGfVPwVP9N6k gbczAW6Nc4PZ4gAnZOP6kmZwmLPZ64NHnQcbGLb9r4 hsTxHxJoi8tk/9p53UC6SMNE8w0ToCZd5iGZOylumhHpT4UcovJ2yPnJigXYrhjr/Ske1sGO8WeQ/Abran [file] UC/BsC8qqw535DZLz4ZLSUARFFb5ciKCkUaPeIhbiftRgIVhllHbl/Soto+9o+GK/r/xNNLFPv0Z9zA1Gz yOTZQ34zYVu5O63WayQWJvI2jFPe825W02Yh1nbPFF JFuq8e182t8Spz3z0/5z/3xzMa1qh4/2Onuvs/d+yn9lkni4xZ/Ka9VIbeE/E0pwUZD/t4t9Ls80zGkF fWQikDphab2ewR+x66kyR+bDc4Kes98UCMqEuaBGOqFezfR4Nb5uT0ppao+/q3wk0luJhp69z1VOjto1 5q0khlzbP2EnrwbmsRkgjAfXQOQo/9QNdzryTngMNl Ti98HzI/VF31QOF/uuRKPdBNdu1KSkwLe7qnPwP6mcGr3l98m5jpKCxv8SaV35OPPrMZ4DT+9f+ew9uS CPe/D96Qb+CNR61IPB9jtJEeGNdigCZyKC+Oym8ey/QTKLYd0PPZTm9+x5Byf5SFUOlNM0d3mCMJ2PSC eaVZc9XeH8JuJLw6ONi8EYzF9MyM+hr5Z52Uys5+incinerator 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 [file] tjviDwpgp1NXtRRmaQQO2z7KsAnkuMHh3VlXjd9/QBUlH1R9yBWCn0n3ef/MANAGER BUSINESS INFORMATION/Bb6vKD9otMK4quftcH [file] +Oalp/0vyH/e+1IEY61klZGSCOF0jeBqgRkRfM k4nmYa9zjpTIW9xGwHvy5ixhwzGfIEQn0Ct95nOQ9vh4yqE/lVOBPCtTV6R+sm7qbfbZX3HhZu4cUkpG y1WFY5qCMK10pvrLh+Nb9xRGnjn83/kpq+URd8r/+pb6PmQ38x49wxxI/F/5/4Uoy/8CA2zN1vc+F4PX D7Rp7RaYPwQX/kSx3v9L//fff0/WPfLp3jrIkS+j/o vE/Ik7/R/iUqu305I8A9s+X+e4/7loafx/px7hUW/DWSb0sVf58LNRhoSJjbajKPAyQzASF4YdzL5t+R AduFTy6vde4fZiuyl0s+nXogFLDY+zksD/dYXlumR2NngXvax0pJFbEpFk73fBBgBFpmrDpYW54BdA3p qBVAqP9dPd/Co+PWrCe7NYGLF+/Saleem/mC2khrB/Bd1q [file] rWsaa+Merlin+7xBDZRfKDtfo19Hqew1+TbrLspTc/UgBY olttb+ktSTvfcx1NZA0nou3q4fr68s/Q7+VMFhKikt2uv1wPQKW+KOX+qqP4NveF8o0GcQ389u7y1gqa 1VE0fmdB4LXb2UHP9xRiKx8+c2bE1wVQcrSFXbNayBbn152qXfR32woTy7qMijMa0DidD+5Qok5uSboc uvod6x9CNzDP/CrY/j+quxgVaf76gQF2khC5Ag3DCJ IeqHlrsLaSSFmntd1R8AZSfiyyjj4jltPrm/Qlm9jtAY8ioWWiNBRfLp7JOYa6k9Dq5GAuzDN1ML5psd sZPe5ORQgm7psbN8p42yeXqsp+kXZy6U9kkq3LG2ShxZj9ojqhpFPxm2aHy2Ur40VDagnZ/zY0ZOGx8N nTwwqxiNjkaYKpSlgXD1fS252LKWCgCrJY1huVfqdk PiqSacXNWcFa89Ex16II83tmspchgVn+Fo5eXe/6XkG+WM/uQT4vD5SYzBmgy5jS6cO4vfxLH3UxRuYI g4NCjHAXWajc8XGbuQOsg3GbEqve8NwixMpnx+A+6tN+QuOODA+wNDMVFS6bVRy9bDxpeAz/sjhfm0bL 49u+CcxynInKK3DCaccPFcC16AR00foh/TKoYt3Y/L UUggT8fi6/3hA8k0l9df1VFkqXUVXNQo57m6M730hE1Ve0gqTB2SjBy9nnK+142zeYXQBYOsrxX3HkIg cxIqPuvq61RzGDvLklHDeFyZgg7+hJWN4/C7z44sN6mOXtyZiNieywIbcQLpjQ6SRqvIJiltmmOiGOGJ y9ThS2tIPNyjBZEx/aoim2quO9+6WiTiJS4ovDNb79 EvsT6uY1iIMeo8GPSoF2N4UCNk5YVUsyMXFFykjg3dLuolta8SzbXWb8z75AmvEDVQj8p1Qt/bsBc535 4hhK6qoojk0nz2zNSQGP7Ax8cdceDTacBrg5Izj7VFv2HEl1kxvj1fjW/tUs/hnIX0UkNPKMRCPI+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 [file] IhOuB8SGvLPf+1T8hRVkZetuLLTKiZTlI2rbmxm+Anni xpjSYb8/0M7nC1UyP1eI+UOR0kGySOF4cSaKP2Q7hbFX3UpmsIBKDNI7XEFsfVb9mOJvArsrbiGxJrlo z6xwvfzQMkFwFcAhJJf+4PgYv26S3p4qEqaAB18ec1CrA5p8JGk//j1In/8T/+l66a2zlE/wCMVVxtDQ uenhXdrBPtSV4MKE9gk0NmTYV7KGZuj9IpGTa5O4ai jtj7bBFgVP8+c2WeSNZsDYvsYtQuNwEyPZCeTufdSNVjEHJjlHjrZP1kBXZGkoyHLWarrtEbmNJgEI5V HI8bh0DrBNH6LNJpc4ZtLGf3S1BajMKztzQmSqjgwZWEASJkMMFlHQXcU1OqUJbtJ2yDIAa3KbN5DkDr UyE3ZiP3XBRUDAxoFOU3KyKGX4G5MDq2VFT+IDxCRD K5XPBrWoS8Uap7GgT1FzM2PoaFOYL5GjNAUFTOCG1rG0Mpz1LyOLZlQWSjYB0cgjYsQIVrJx5UbPedEF L7Y1R2tDXfA7rCAOEkWgEsQIW2WSAeHf7amIMmJF0YSngiE0QbZZXpQRXWPHOFOus+HQHLvLCtU1CalX 0MTpSHhXKgMSqr4CVHuV0KRh5NHR95lfLR9r8HLeXQ Az1fVeHZKzVCFfHLSJ9MLE7go1HxCMYkCTtmzbJwYuqUEJqrrDCzaOlcCQHVCbKoXEP9METSVjWeMW8L ID Date Data Source [id number] 10/05/2020 02:57:00 PM EST [facility] ([facility]) Name Value Range Interpretation Code Description Data Bobbi rce(s) Supporting Document(s) Ferritin [Mass/volume] in Serum or Plasma 38 ng/mL [facility] [facility]) ID Date Data Source [id number] 10/05/2020 02:57:00 PM EST [facility] ([facility]) Name Value Range Interpretation Code Description Data Bobbi rce(s) Supporting Document(s) Total Iron Binding Capacity 359 ug/dL 250-450 [facility] ([facility]) Iron (Fe) 63 ug/dL 50-170 [facility]) Percent Saturation 17.5 % 13.2-45.0 [facility] ([facility]) ID Date Data Source [id number] 10/05/2020 02:57:00 PM EST [facility] ([facility]) Name Value Range Interpretation Code Description Data Bobbi rce(s) Supporting Document(s) Thyrotropin [Units/volume] in Serum or Plasma by Detec tion limit <= 0.05 mIU/L 0.82 uIU/mL 0.36-3.74 [facility] ([facility] ) ID Date Data Source [id number] 10/05/2020 02:57:00 PM EST [facility] ([facility]) Name Value Range Interpretation Code Description Data Bobbi rce(s) Supporting Document(s) Triglyceride [Mass/volume] in Serum or Plasma 170 mg/dL 30-150 [facility] ([facility]) Cholesterol [Mass/volume] in Serum or Plasma 147 mg/dL 131-200 [facility] ([facility]) Cholesterol in HDL [Mass/volume] in Serum or Plasma 57 mg/dL 35-60 [facility] ([facility]) Cholesterol in LDL [Mass/volume] in Serum or Plasma by calcu lation 56 CALC 50-159 [facility] ([facility]) ID Date Data Source [id number] 10/05/2020 02:57:00 PM EST [facility] ([facility]) Name Value Range Interpretation Code Description Data Bobbi rce(s) Supporting Document(s) Glucose [Mass/volume] in Serum or Plasma 102 mg/dL 74-99 [facility] ([facility]) 100-125 mg/dL PRE-DIABETES/FASTING >126 mg/dL DIABETES/FASTING Creatinine 0.9 mg/dL 0.6-1.3 [facility] ([facility]) Urea nitrogen [Mass/volume] in Serum or Plasma 19 mg/dL 7-18 [facility] ([facility]) Potassium [Moles/volume] in Serum or Plasma 3.9 meq/L 3.5-5.1 [facility] ([facility]) Chloride [Moles/volume] in Serum or Plasma 106 meq/L 98-107 [facility] ([facility]) Sodium [Moles/volume] in Serum or Plasma 143 meq/L 136-145 [facility] ([facility]) Calcium [Mass/volume] in Serum or Plasma 8.8 mg/dL 8.5-10.1 [facility] ([facility]) Carbon dioxide, total [Moles/volume] in Serum or Plasma 29 meq/L 21 -32 [facility] ([facility]) Alkaline phosphatase isoenzyme [Units/volume] in Serum or Pl asma 120 mg/dL 46-116 [facility] ([facility]) Aspartate aminotransferase [Enzymatic activity/volume] in Serum or Plasma 21 U/L 15-37 [facility] ([facility] ) Total Bilirubin 0.2 mg/dL 0.2-1.0 [facility] ([facility]) Albumin [Mass/volume] in Serum or Plasma 3.6 g/dL 3.4-5.0 [facility] ([facility]) Alanine aminotransferase [Enzymatic activity/volume] in Seru m or Plasma 31 U/L 12-78 [facility] ([facility]) Proteinase 3 Ab [Units/volume] in Serum 7.7 g/dL 6.4-8.2 [facility] ([facility]) A/G Ratio 0.88 CALC 1.00-1.90 [facility]) Glomerular filtration rate/1.73 sq M pre dicted among non-blacks [Volume Rate/Area] in Serum or Plasma by Creatinine-based formula (MDRD) Laboratory test result [facility] ([facility] ) Glomerular filtration rate/1.73 sq M pre dicted among blacks [Volume Rate/Area] in Serum or Plasma by Creatinine-based formula (MDRD) Laboratory [facility] <content>CHRONIC KIDNEY DISEASE STAGING PER NKF</content>
<content></content>
<content>STAGE I & II GFR >= 60 NORMAL TO MILDLY DECREASED</content>
<content>STAGE III GFR 30-59 MODERATELY DECREASED</content>
<content>STAGE IV GFR 15-29 SEVERELY DECREASED</content>
<content>STAGE V GFR <15 VERY LITTLE GFR LEFT</content>
<content>ESRD GFR <15 ON BALLISTICS PROFESSOR</content>
<content></content> ID Date Data Source [id number] 10/05/2020 02:57:00 PM EST [facility] ([facility]) Name Value Range Interpretation Code Description Data Bobbi rce(s) Supporting Document(s) Magnesium 2.1 mg/dL 1.8-2.4 [facility] ID Date Data Source [id number] 10/05/2020 02:57:00 PM EST [facility] ([facility]) Name Value Range Interpretation Code Description Data Bobbi rce(s) Supporting Document(s) Hemoglobin A1c/Hemoglobin.total in Blood 6.0 % [facility] Lab Result Notes: Pre-Diabetes 5.7 - 6.4 % Diabetes = or > 6.5% Glucose mean value [Mass/volume] in Blood Estimated fr om glycated hemoglobin 125 mg/dL 60-110 [facility] ([facility] ) ID Date Data Source [id number] 10/05/2020 02:57:00 PM EST [facility] ([facility]) Name Value Range Interpretation Code Description Data Bobbi rce(s) Supporting Document(s) Creatine kinase [Enzymatic activity/volume] in Serum or Plasma 84 U /L 26-192 [facility] ([facility]) ID Date Data Source [id number] 10/05/2020 02:57:00 PM EST [facility] ([facility]) Name Value Range Interpretation Code Description Data Bobbi rce(s) Supporting Document(s) Leukocytes [#/volume] in Blood by Automated count 7.4 x10*3/UL 4.1-10 .9 [facility] Erythrocytes [#/volume] in Blood by Automated count 4.34 x10*6/UL 4.2 0-6.30 [facility] Hematocrit [Volume Fraction] of Blood by Automated count 36.5 % 3 7.0-51.0 [facility] ([facility]) Hemoglobin [Mass/volume] in Blood 12.5 g/dL 12.0-18.0 [facility] ([facility]) MCV 84.1 fL 80.0-97.0 [facility] ([facility]) MCHC 34.2 g/dL 31.0-38.0 [facility]) MCH 28.7 pg 26.0-32.0 [facility] ([facility]) MPV 7.7 FL 7.8-11.0 [facility] ([facility]) Platelets [#/volume] in Blood by Automated count 370 x10*3/UL 140-440 [facility] Erythrocyte distribution width [Ratio] by Automated count 13.3 % 11.6-13.7 [facility] ([facility]) Mid % 6.5 % 1.7-9.3 [facility] ([facility]) Lymph % 29.0 % 10.0-58.5 [facility]) Lymph # 2.1 x10*3/UL 0.6-4.1 [facility] ([facility]) Neut % 64.5 % 37.0-92.0 [facility]) Neut # 4.7 x10*3/UL 2.0-7.8 [facility] ([facility]) Mid # 0.6 x10*3/UL 0.1-0.6 [facility] ([facility]) ID Date Data Source [id number] 10/05/2020 02:57:00 PM EST [facility]) Name Value Range Interpretation Code Description Data Bobbi rce(s) Supporting Document(s) Ferritin [Mass/volume] in Serum or Plasma 38 ng/mL 8-252 [facility] ([facility]) ID Date Data Source [id number] 10/05/2020 02:57:00 PM EST [facility] Name Value Range Interpretation Code Description Data Bobbi rce(s) Supporting Document(s) Percent Saturation 17.5 % 13.2-45.0 [facility] ([facility]) Iron (Fe) 63 ug/dL 50-170 [facility] ([facility]) Total Iron Binding Capacity 359 ug/dL 250-450 [facility] ([facility]) ID Date Data Source [id number] 10/05/2020 02:57:00 PM EST [facility] ([facility]) Name Value Range Interpretation Code Description Data Bobbi rce(s) Supporting Document(s) Creatine kinase [Enzymatic activity/volume] in Serum or Plasma 84 U /L 26-192 [facility] ([facility]) ID Date Data Source [id number] 10/05/2020 02:57:00 PM EST [facility] ([facility]) Name Value Range Interpretation Code Description Data Bobbi rce(s) Supporting Document(s) Thyrotropin [Units/volume] in Serum or Plasma by Detec tion limit <= 0.05 mIU/L 0.82 uIU/mL 0.36-3.74 [facility] ([facility]) ID Date Data Source [id number] 10/05/2020 02:57:00 PM EST [facility] ([facility]) Name Value Range Interpretation Code Description Data Bobbi rce(s) Supporting Document(s) Cholesterol [Mass/volume] in Serum or Plasma 147 mg/dL 131-200 [facility] ([facility]) Triglyceride [Mass/volume] in Serum or Plasma 170 mg/dL 30-150 [facility] ([facility]) Cholesterol in HDL [Mass/volume] in Serum or Plasma 57 mg/dL 35-60 [facility] ([facility]) Cholesterol in LDL [Mass/volume] in Serum or Plasma by calcu lation 56 CALC 50-159 [facility] ([facility]) ID Date Data Source [id number] 10/05/2020 02:57:00 PM EST [facility] ([facility]) Name Value Range Interpretation Code Description Data Bobbi rce(s) Supporting Document(s) Glucose [Mass/volume] in Serum or Plasma 102 mg/dL 74-99 [facility] ([facility]) 100-125 mg/dL PRE-DIABETES/FASTING >126 mg/dL DIABETES/FASTING Creatinine 0.9 mg/dL 0.6-1.3 [facility] ([facility]) Urea nitrogen [Mass/volume] in Serum or Plasma 19 mg/dL 7-18 [facility] ([facility]) Potassium [Moles/volume] in Serum or Plasma 3.9 meq/L 3.5-5.1 [facility] ([facility]) Sodium [Moles/volume] in Serum or Plasma 143 meq/L 136-145 [facility] ([facility]) Chloride [Moles/volume] in Serum or Plasma 106 meq/L 98-107 [facility] ([facility]) Calcium [Mass/volume] in Serum or Plasma 8.8 mg/dL 8.5-10.1 [facility] ([facility]) Carbon dioxide, total [Moles/volume] in Serum or Plasma 29 meq/L 21 -32 [facility] ([facility]) Alkaline phosphatase isoenzyme [Units/volume] in Serum or Pl asma 120 mg/dL 46-116 [facility] ([facility]) Aspartate aminotransferase [Enzymatic activity/volume] in Serum or Plasma 21 U/L 15-37 [facility] ([facility]) Total Bilirubin 0.2 mg/dL 0.2-1.0 [facility] ([facility]) Alanine aminotransferase [Enzymatic activity/volume] in Seru m or Plasma 31 U/L 12-78 [facility] ([facility]) A/G Ratio 0.88 CALC 1.00-1.90 [facility] ([facility]) Proteinase 3 Ab [Units/volume] in Serum 7.7 g/dL 6.4-8.2 [facility] ([facility]) Albumin [Mass/volume] in Serum or Plasma 3.6 g/dL 3.4-5.0 [facility] ([facility]) Glomerular filtration rate/1.73 sq M pre dicted among non-blacks [Volume Rate/Area] in Serum or Plasma by Creatinine-based formula (MDRD) Laboratory test result [facility] ([facility]) Glomerular filtration rate/1.73 sq M pre dicted among blacks [Volume Rate/Area] in Serum or Plasma by Creatinine-based formula (MDRD) Laboratory [facility] <content>CHRONIC KIDNEY DISEASE STAGING PER NKF</content>
<content></content>
<content>STAGE I & II GFR >= 60 NORMAL TO MILDLY DECREASED</content>
<content>STAGE III GFR 30-59 MODERATELY DECREASED</content>
<content>STAGE IV GFR 15-29 SEVERELY DECREASED</content>
<content>STAGE V GFR <15 VERY LITTLE GFR LEFT</content>
<content>ESRD GFR <15 ON BALLISTICS PROFESSOR</content>
<content></content>
<content></content> ID Date Data Source [id number] 10/05/2020 02:57:00 PM EST [facility] ([facility]) Name Value Range Interpretation Code Description Data Bobbi rce(s) Supporting Document(s) Magnesium 2.1 mg/dL 1.8-2.4 [facility]) ID Date Data Source [id number] 10/05/2020 02:57:00 PM EST [facility] ([facility]) Name Value Range Interpretation Code Description Data Bobbi rce(s) Supporting Document(s) Hemoglobin A1c/Hemoglobin.total in Blood 6.0 % [facility] ([facility]) Lab Result Notes: Pre-Diabetes 5.7 - 6.4 % Diabetes = or > 6.5% Glucose mean value [Mass/volume] in Blood Estimated fr om glycated hemoglobin 125 mg/dL 60-110 [facility] ([facility]) ID Date Data Source [id number] 10/05/2020 02:57:00 PM EST [facility] ([facility]) Name Value Range Interpretation Code Description Data Bobbi rce(s) Supporting Document(s) Leukocytes [#/volume] in Blood by Automated count 7.4 x10*3/UL 4.1-10 .9 [facility] ([facility]) Hemoglobin [Mass/volume] in Blood 12.5 g/dL 12.0-18.0 [facility] ([facility]) Erythrocytes [#/volume] in Blood by Automated count 4.34 x10*6/UL 4.2 0-6.30 [facility] ([facility]) MCH 28.7 pg 26.0-32.0 [facility] ([facility]) MCV 84.1 fL 80.0-97.0 [facility] ([facility]) Hematocrit [Volume Fraction] of Blood by Automated count 36.5 % 3 7.0-51.0 [facility] ([facility]) Erythrocyte distribution width [Ratio] by Automated count 13.3 % 11.6-13.7 [facility] ([facility]) Platelets [#/volume] in Blood by Automated count 370 x10*3/UL 140-440 [facility] ([facility]) MCHC 34.2 g/dL 31.0-38.0 [facility] ([facility]) Mid % 6.5 % 1.7-9.3 [facility] Platelet mean volume [Entitic volume] in Blood by [place] 7.7 FL 7.8-11.0 [facility] ([facility]) Lymphocytes/100 leukocytes in Blood by Automated count 29.0 % 10. 0-58.5 [facility] ([facility]) Mid # 0.6 x10*3/UL 0.1-0.6 [facility] ([facility]) Lymph # 2.1 x10*3/UL 0.6-4.1 [facility] ([facility]) Neut % 64.5 % 37.0-92.0 [facility] ([facility]) Neutrophils [#/volume] in Semen by Manual count 4.7 x10*3/UL 2.0-7.8 [facility] ([facility]) ID Date Data Source [id number] 07/21/2020 07:39:00 AM EST [facility] ([facility]) Name Value Range Interpretation Code Description Data Bobbi rce(s) Supporting Document(s) Creatine kinase [Enzymatic activity/volume] in Serum or Plasma 97 U /L 26-192 [facility] ([facility]) Lipoprotein lipase [Enzymatic activity/volume] in Serum or P lasma 161 U/L 73-393 [facility] ([facility]) ID Date Data Source [id number] 07/21/2020 07:39:00 AM EST [facility] Name Value Range Interpretation Code Description Data Bobbi rce(s) Supporting Document(s) Color, Urine Laboratory test result [facility] Appearance, Urine Laboratory test result [facility] PH,Urine 5.0 units 5.0-9.0 [facility]) Specific [place] Urine Auto 1.012 1.002-1.035 [facility] Protein, Urine Auto Laboratory test result [facility] Glucose, Urine (Ua) Auto Laboratory test result [facility] Bilirubin, Urine Auto Laboratory test result [facility] Urobilinogen, Urine Auto 0.2 mg/dL 0.0-2.0 [facility] T [facility] Ketone, Urine Auto Laboratory test result [facility] Nitrite, Urine Auto Laboratory test result [facility] Leukocyte Esterase, Urine Auto Laboratory test result [facility] Blood, Urine Blood Laboratory test result [facility] WBC, Urine Auto 16 /HPF 0-3 [facility] ([facility]) RBC, Urine Auto 1 /HPF 0-3 [facility] ([facility]) Bacteria, Urine Auto Laboratory test result [facility] Squamous Epithelial Cell Ur AU 0 /HPF 0-6 [facility] Hyaline Cast, Urine Auto 0 /LPF 0-1 [facility] Mucus, Urine Laboratory test result [facility] ID Date Data Source [id number] 07/21/2020 07:39:00 AM EST [facility] Name Value Range Interpretation Code Description Data Bobbi rce(s) Supporting Document(s) Thyrotropin [Units/volume] in Serum or Plasma by Detec tion limit <= 0.05 mIU/L 0.949 uIU/ML 0.358-3.740 [facility] Magnesium [Moles/volume] in Serum or Plasma 2.4 mg/dL 1.8-2.4 [facility] ([facility]) ID Date Data Source [id number] 07/21/2020 07:39:00 AM EST [facility] ([facility]) Name Value Range Interpretation Code Description Data Bobbi rce(s) Supporting Document(s) Triglycerides Level 102 mg/dL [facility] ([facility]) Cholesterol Level 167 mg/dL [facility] ([facility]) HDL Cholesterol 61 mg/dL [facility] ([facility]) LDL Cholesterol 86 mg/dL [facility] ([facility]) Non-HDL-C 106 mg/dL [facility] ([facility]) Cholesterol Risk Ratio 2.737 [facility] ([facility]) ID Date Data Source [id number] 07/21/2020 07:39:00 AM EST [facility] ([facility]) Name Value Range Interpretation Code Description Data Bobbi rce(s) Supporting Document(s) Ferritin [Mass/volume] in Serum or Plasma 26 ng/mL 8-252 [facility] ([facility]) ID Date Data Source [id number] 07/21/2020 07:39:00 AM EST [facility] ([facility]) Name Value Range Interpretation Code Description Data Bobbi rce(s) Supporting Document(s) Glucose, Fasting 86 mg/dL 70-100 [facility] ([facility]) Creatinine For GFR 0.81 mg/dL 0.55-1.30 [facility] ([facility]) Blood Urea Nitrogen 17 mg/dL 7-18 [facility] ([facility]) Glomerular Filtration Rate Laboratory test result [facility] <content>Units are mL/min/1.73 m2</content>
<content></content>
<content>Chronic Kidney Disease Staging per NKF:</content>
<content></content>
<content>Stage I & II GFR >=60 Normal to Mildly Decreased</content>
<content>Stage III GFR 30- 59 Moderately Decreased</content>
<content>Stage IV GFR 15-29 Severely Decreased</content>
<content>Stage V GFR <15 Very Little GFR Left</content>
<content>ESRD GFR <15 on BALLISTICS PROFESSOR</content>
<content></content> Sodium Level 139 meq/L 136-145 [facility] ([facility]) Carbon Dioxide Level 27 meq/L 21-32 [facility] ([facility]) Chloride Level 107 meq/L 98-107 [facility] ([facility]) Potassium Serum 4.4 meq/L 3.5-5.1 [facility] ([facility]) Calcium Level 9.0 mg/dL 8.8-10.2 [facility] ([facility]) Anion Gap 5 meq/L 8-16 [facility] Ast/Sgot 17 U/L 7-37 [facility] Alt/SGPT 23 U/L 12-78 [facility] Alkaline Phosphatase 124 U/L 45-117 [facility] ([facility]) Bilirubin,Total 0.3 mg/dL 0.2-1.0 [facility] ([facility]) Total Protein 7.4 GM/DL 6.4-8.2 [facility] ([facility]) Albumin/Globulin [facility] 1.0 1[facility]2-2.2 [facility] Albumin 3.7 GM/DL 3.2-5.2 [facility] ID Date Data Source [id number] 07/21/2020 07:39:00 AM EST [facility] ([facility]) Name Value Range Interpretation Code Description Data Bobbi rce(s) Supporting Document(s) White Blood Count 7.4 10 4.0-10.0 [facility] ([facility]) Red Blood Count 4.52 10 4.00-5.40 [facility] ([facility]) Hemoglobin 12.5 g/dL 12.0-15.5 [facility] Hematocrit 39.6 % 36.0-47.0 [facility] Mean Corpuscular Hemoglobin 27.7 pg 27.0-33.0 [facility] ([facility]) Mean Corpuscular Volume 87.6 fl 80.0-96.0 [facility] ([facility]) Platelet Count, Automated 364 10 150-450 [facility] NT ([facility]) Mean Corpuscular HGB Conc 31.6 g/dL 32.0-36.5 [facility] ([facility]) Red Cell Distribution Width 13.8 % 11.5-14.5 [facility] ([facility]) Nucleated Red Blood Cell % 0.0 % 0-0 [facility] ([facility]) ID Date Data Source [id number] 06/19/2020 07:19:00 AM EST [facility] ([facility]) Name Value Range Interpretation Code Description Data Bobbi rce(s) Supporting Document(s) Red Blood Count 4.39 10 4.00-5.40 [facility] ([facility]) Hemoglobin 11.8 g/dL 12.0-15.5 [facility] ([facility]) White Blood Count 7.5 10 4.0-10.0 [facility] ([facility]) Mean Corpuscular Hemoglobin 26.9 pg 27.0-33.0 [facility] ([facility]) Mean Corpuscular Volume 87.0 fl 80.0-96.0 [facility] ([facility]) Hematocrit 38.2 % 36.0-47.0 [facility] ([facility]) Mean Corpuscular HGB Conc 30.9 g/dL 32.0-36.5 [facility] ([facility]) Red Cell Distribution Width 13.9 % 11.5-14.5 [facility] ([facility]) Nucleated Red Blood Cell % 0.0 % 0-0 [facility] ([facility]) Platelet Count, Automated 382 10 150-450 [facility] ([facility]) ID Date Data Source [id number] 06/19/2020 07:19:00 AM EST [facility] ([facility]) Name Value Range Interpretation Code Description Data Bobbi rce(s) Supporting Document(s) Ferritin [Mass/volume] in Serum or Plasma 22 ng/mL 8-252 [facility] ([facility]) ID Date Data Source [id number] 05/15/2020 09:35:00 AM EDT [facility] ([facility]) Name Value Range Interpretation Code Description Data Bobbi rce(s) Supporting Document(s) Laboratory test finding (navigational concept) Laboratory test result [facility] ([facility]) A false negative result may occur if a s pecimen is improperly collected, transported or handled. False negative results may also occur if inadequate numbers of organisms are present in the specimen. As with any molecular test, mutations within the target regions of Xpert Xpress SARS-CoV-2 could affect primer and/or probe binding resulting in failure to detect the presence of virus. This test cannot rule out diseases caused by other bacterial or viral pathogens. DISCLAIMER: Testing was performed using the [employer] SARS-CoV-2 test. This test was developed and its performance characteristics determined by [employer]. This test has not been FDA cleared or approved. This test has been authorized by FDA under an Emergency Use Authorization (EUA). This test is only authorized for the duration of time the declaration that circumstances exist justifying the authorization of the emergency use of in vitro diagnostic tests for detection of SARS-CoV-2 virus and/or diagnosis of COVID-19 infection under section 564(b)(1) of the Act, 21 U.S.C. 360bbb-3(b)(1), unless the authorization is terminated or revoked sooner. ID Date Data Source [id number] 05/15/2020 09:35:00 AM EDT [facility]) Name Value Range Interpretation Code Description Data Bobbi rce(s) Supporting Document(s) Laboratory test finding (navigational concept) Laboratory test result [facility] ([facility]) A false negative result may occur if a s pecimen is improperly collected, transported or handled. False negative results may also occur if inadequate numbers of organisms are present in the specimen. As with any molecular test, mutations within the target regions of Xpert Xpress SARS-CoV-2 could affect primer and/or probe binding resulting in failure to detect the presence of virus. This test cannot rule out diseases caused by other bacterial or viral pathogens. DISCLAIMER: Testing was performed using the [employer] SARS-CoV-2 test. This test was developed and its performance characteristics determined by [employer]. This test has not been FDA cleared or approved. This test has been authorized by FDA under an Emergency Use Authorization (EUA). This test is only authorized for the duration of time the declaration that circumstances exist justifying the authorization of the emergency use of in vitro diagnostic tests for detection of SARS-CoV-2 virus and/or diagnosis of COVID-19 infection under section 564(b)(1) of the Act, 21 U.S.C. 360bbb-3(b)(1), unless the authorization is terminated or revoked sooner. ID Date Data Source [id number] 05/10/2020 09:00:00 AM EDT MED[facility] ([facility]) Name Value Range Interpretation Code Description Data Bobbi rce(s) Supporting Document(s) Occult Blood Laboratory test result [facility] NT [facility] OCCULT BLOOD 1 NEGATIVE ID Date Data Source [id number] 05/10/2020 07:26:00 AM EDT [facility] ([facility]) Name Value Range Interpretation Code Description Data Bobbi rce(s) Supporting Document(s) Ferritin [Mass/volume] in Serum or Plasma 16 ng/mL 8-252 [facility] ([facility]) ID Date Data Source [id number] 05/10/2020 07:26:00 AM EDT [facility] Name Value Range Interpretation Code Description Data Bobbi rce(s) Supporting Document(s) Iron (Fe) 37 ug/dL 50-170 [facility] Total Iron Binding Capacity 381 ug/dL 250-450 [place] [facility]ENT ([facility]) Percent Saturation 9.7 % 13.2-45.0 [facility] ([facility]) ID Date Data Source [id number] 05/10/2020 07:26:00 AM EDT [facility] ([facility]) Name Value Range Interpretation Code Description Data Bobbi rce(s) Supporting Document(s) Red Blood Count 4.29 10 4.00-5.40 [facility] ([facility]) White Blood Count 8.2 10 4.0-10.0 [facility] ([facility]) Hemoglobin 11.7 g/dL 12.0-15.5 [facility] Hematocrit 37.7 % 36.0-47.0 [facility] Mean Corpuscular Volume 87.9 fl 80.0-96.0 [facility] Red Cell Distribution Width 13.9 % 11.5-14.5 [facility] Mean Corpuscular Hemoglobin 27.3 pg 27.0-33.0 [facility] ([facility]) Mean Corpuscular HGB Conc 31.0 g/dL 32.0-36.5 [facility] NT ([facility] Platelet Count, Automated 336 10 150-450 MEDE NT ([facility]) Nucleated Red Blood Cell % 0.0 % 0-0 MED ENT ([facility] ID Date Data Source [id number] 05/10/2020 07:26:00 AM EDT [facility] Name Value Range Interpretation Code Description Data Bobbi rce(s) Supporting Document(s) Hemoglobin A1c 5.6 % [facility] ([facility]) <content>REFERENCE RANGES:</content><br/ ><content></content>
<content><=5.6% NORMAL</content>
<content>5.7-6.4% SUGGESTS IMPAIRED GLUCOSE METABOLISM/PREDIABETIC</content>
<content>>= 6.5% ABNORMAL</content>
<content></content> Estimated Average Glucose 114 mg/dL 60-110 [facility] ID Date Data Source [id number] 05/10/2020 07:26:00 AM EDT [facility] Name Value Range Interpretation Code Description Data Bobbi rce(s) Supporting Document(s) Glucose, Fasting 84 mg/dL 70-100 [facility] ([facility]) Blood Urea Nitrogen 20 mg/dL 7-18 [facility] ([facility]) Creatinine For GFR 0.85 mg/dL 0.55-1.30 [facility] ([facility]) Glomerular Filtration Rate Laboratory test result [facility] ([facility]) <content>Units are mL/min/1.73 m2</content>
<content></content>
<content>Chronic Kidney Disease Staging per NKF:</content>
<content></content>
<content>Stage I & II GFR >=60 Normal to Mildly Decreased</content>
<content>Stage III GFR 30- 59 Moderately Decreased</content>
<content>Stage IV GFR 15-29 Severely Decreased</content>
<content>Stage V GFR <15 Very Little GFR Left</content>
<content>ESRD GFR <15 on BALLISTICS PROFESSOR</content>
<content></content> Sodium Level 142 meq/L 136-145 [facility] ([facility]) Potassium Serum 4.5 meq/L 3.5-5.1 [facility] ([facility]) Chloride Level 109 meq/L 98-107 [facility] ([facility]) Carbon Dioxide Level 28 meq/L 21-32 [facility] Calcium Level 9.0 mg/dL 8.8-10.2 [facility] ([facility]) Anion Gap 5 meq/L 8-16 [facility]) ID Date Data Source [id number] 05/10/2020 07:26:00 AM EDT [facility] Name Value Range Interpretation Code Description Data Bobbi rce(s) Supporting Document(s) Glucose, Fasting 84 mg/dL 70-100 [facility]) Blood Urea Nitrogen 20 mg/dL 7-18 [facility] (Ca [facility]ology [facility]) Creatinine For GFR 0.85 mg/dL 0.55-1.30 [facility] ([facility]) Potassium Serum 4.5 meq/L 3.5-5.1 [facility] ([facility]io [facility]y [facility]) Glomerular Filtration Rate [facility]) <content>Units are mL/min/1.73 m2</content>
<content></content>
<content>Chronic Kidney Disease Staging per NKF:</content>
<content></content>
<content>Stage I & II GFR >=60 Normal to Mildly Decreased</content>
<content>Stage III GFR 30- 59 Moderately Decreased</content>
<content>Stage IV GFR 15-29 Severely Decreased</content>
<content>Stage V GFR <15 Very Little GFR Left</content>
<content>ESRD GFR <15 on BALLISTICS PROFESSOR</content>
<content></content>
<content></content> Sodium Level 142 meq/L 136-145 [facility] ([facility]) Anion gap in Serum or Plasma 5 meq/L 8-16 [facility] ([facility]) Carbon Dioxide Level 28 meq/L 21-32 [facility] (C ardiology [facility]) Chloride Level 109 meq/L 98-107 [facility] (Cardiol [facility]gy [facility]) Calcium Level 9.0 mg/dL 8.8-10.2 [facility] (Cardiolo gy [facility]) ID Date Data Source [id number] 05/10/2020 07:26:00 AM EDT [facility] Name Value Range Interpretation Code Description Data Bobbi rce(s) Supporting Document(s) Estimated Average Glucose 114 mg/dL 60-110 [facility] ([facility]) Hemoglobin A1c 5.6 % [facility] ([facility]iol [facility]) <content>REFERENCE RANGES:</content><br/ ><content></content>
<content><=5.6% NORMAL</content>
<content>5.7-6.4% SUGGESTS IMPAIRED GLUCOSE METABOLISM/PREDIABETIC</content>
<content>>= 6.5% ABNORMAL</content>
<content></content>
<content></content> ID Date Data Source [id number] 05/10/2020 07:26:00 AM EDT [facility]) Name Value Range Interpretation Code Description Data Bobbi rce(s) Supporting Document(s) Red Blood Count 4.29 10 4.00-5.40 [facility] ([facility]io [facility]) Hemoglobin 11.7 g/dL 12.0-15.5 [facility] ([facility]) White Blood Count 8.2 10 4.0-10.0 [facility] (Card ioly [facility]) Mean Corpuscular Hemoglobin 27.3 pg 27.0-33.0 [facility] ([facility]) Hematocrit 37.7 % 36.0-47.0 [facility] ([facility]) Mean Corpuscular Volume 87.9 fl 80.0-96.0 M EDENT ([facility]) Mean Corpuscular HGB Conc 31.0 g/dL 32.0-36.5 [facility] ([facility]) Red Cell Distribution Width 13.9 % 11.5-14.5 [facility] ([facility]) Platelet Count, Automated 336 10 150-450 [facility] ([facility]) Nucleated Red Blood Cell % 0.0 % 0-0 MED ENT ([facility]) ID Date Data Source [id number] 05/10/2020 07:26:00 AM EDT [facility] ([facility]) Name Value Range Interpretation Code Description Data Bobbi rce(s) Supporting Document(s) Iron (Fe) 37 ug/dL 50-170 [facility] Total Iron Binding Capacity 381 ug/dL 250-450 [facility] ([facility]) Percent Saturation 9.7 % 13.2-45.0 [facility] ([facility] ID Date Data Source [id number] 05/10/2020 07:26:00 AM EDT [facility] ([facility]) Name Value Range Interpretation Code Description Data Bobbi rce(s) Supporting Document(s) Ferritin [Mass/volume] in Serum or Plasma 16 ng/mL 8-252 [facility] ([facility]) ID Date Data Source [id number] 05/01/2020 07:02:00 AM EDT [facility] ([facility]) Name Value Range Interpretation Code Description Data Bobbi rce(s) Supporting Document(s) Ferritin [Mass/volume] in Serum or Plasma 17 ng/mL 8-252 [facility] ([facility]) ID Date Data Source [id number] 05/01/2020 07:02:00 AM EDT [facility] ([facility]) Name Value Range Interpretation Code Description Data Bobbi rce(s) Supporting Document(s) Iron (Fe) 45 ug/dL 50-170 [facility]) Total Iron Binding Capacity 362 ug/dL 250-450 [place] [facility] ([facility]) Percent Saturation 12.4 % 13.2-45.0 [facility] ([facility]) ID Date Data Source [id number] 05/01/2020 07:02:00 AM EDT [facility] ([facility]) Name Value Range Interpretation Code Description Data Bobbi rce(s) Supporting Document(s) Thyrotropin [Units/volume] in Serum or Plasma by Detec tion limit <= 0.05 mIU/L 1.470 uIU/ML 0.358-3.740 [facility] Magnesium [Moles/volume] in Serum or Plasma 2.1 mg/dL 1.8-2.4 [facility] ID Date Data Source [id number] 05/01/2020 07:02:00 AM EDT [facility] ([facility]) Name Value Range Interpretation Code Description Data Bobbi rce(s) Supporting Document(s) Glucose, Fasting 83 mg/dL 70-100 [facility] ([facility]) Glomerular Filtration Rate Laboratory test result [facility] ([facility]) <content>Units are mL/min/1.73 m2</content>
<content></content>
<content>Chronic Kidney Disease Staging per NKF:</content>
<content></content>
<content>Stage I & II GFR >=60 Normal to Mildly Decreased</content>
<content>Stage III GFR 30- 59 Moderately Decreased</content>
<content>Stage IV GFR 15-29 Severely Decreased</content>
<content>Stage V GFR <15 Very Little GFR Left</content>
<content>ESRD GFR <15 on BALLISTICS PROFESSOR</content>
<content></content> Creatinine For GFR 0.77 mg/dL 0.55-1.30 [facility] ([facility]) Blood Urea Nitrogen 17 mg/dL 7-18 [facility] ([facility]) Chloride Level 110 meq/L 98-107 [facility] ([facility]) Potassium Serum 4.3 meq/L 3.5-5.1 [facility] ([facility]) Sodium Level 142 meq/L 136-145 [facility] ([facility]) Carbon Dioxide Level 26 meq/L 21-32 [facility] ( [facility] Anion Gap 6 meq/L 8-16 [facility] ([facility]) Calcium Level 9.1 mg/dL 8.8-10.2 [facility] ([facility]) ID Date Data Source [id number] 05/01/2020 07:02:00 AM EDT [facility] ([facility]) Name Value Range Interpretation Code Description Data Bobbi rce(s) Supporting Document(s) Cholesterol Level 159 mg/dL [facility] ([facility]) Triglycerides Level 141 mg/dL [facility] ([facility]) Non-HDL-C 102 mg/dL [facility] HDL Cholesterol 57 mg/dL [facility] ([facility]) LDL Cholesterol 74 mg/dL [facility] Cholesterol Risk Ratio 2.789 [facility] ([facility]) ID Date Data Source [id number] 05/01/2020 07:02:00 AM EDT [facility] ([facility]) Name Value Range Interpretation Code Description Data Bobbi rce(s) Supporting Document(s) Hemoglobin A1c 5.8 % [facility] ([facility]) <content>REFERENCE RANGES:</content><br/ ><content></content>
<content><=5.6% NORMAL</content>
<content>5.7-6.4% SUGGESTS IMPAIRED GLUCOSE METABOLISM/PREDIABETIC</content>
<content>>= 6.5% ABNORMAL</content>
<content></content> Estimated Average Glucose 120 mg/dL 60-110 MEDE NT ([facility]) ID Date Data Source [id number] 05/01/2020 07:02:00 AM EDT [facility] ([facility]) Name Value Range Interpretation Code Description Data Bobbi rce(s) Supporting Document(s) White Blood Count 7.3 10 4.0-10.0 [facility] ([facility]) Red Blood Count 4.15 10 4.00-5.40 [facility] ([facility]) Mean Corpuscular Volume 86.3 fl 80.0-96.0 [facility] ([facility]) Hematocrit 35.8 % 36.0-47.0 [facility]) Hemoglobin 11.6 g/dL 12.0-15.5 [facility] Mean Corpuscular Hemoglobin 28.0 pg 27.0-33.0 [place] [facility] ([facility]) Mean Corpuscular HGB Conc 32.4 g/dL 32.0-36.5 [facility] NT ([facility]) Red Cell Distribution Width 13.7 % 11.5-14.5 [place] [facility] ([facility]) Nucleated Red Blood Cell % 0.0 % 0-0 MED ENT ([facility]) Platelet Count, Automated 324 10 150-450 [facility] NT ([facility]) ID Date Data Source [id number] 05/01/2020 07:02:00 AM EDT [facility] ([facility]) Name Value Range Interpretation Code Description Data Bobbi rce(s) Supporting Document(s) Red Blood Count 4.15 10 4.00-5.40 [facility] ([facility]) Hemoglobin 11.6 g/dL 12.0-15.5 [facility] ([facility]) White Blood Count 7.3 10 4.0-10.0 [facility] ([facility]) Mean Corpuscular Volume 86.3 fl 80.0-96.0 M EDENT ([facility]) Hematocrit 35.8 % 36.0-47.0 [facility] ([facility]) Mean Corpuscular Hemoglobin 28.0 pg 27.0-33.0 [facility] ([facility]) Platelet Count, Automated 324 10 150-450 [facility] ([facility]) Red Cell Distribution Width 13.7 % 11.5-14.5 [facility] ([facility]) Mean Corpuscular HGB Conc 32.4 g/dL 32.0-36.5 [facility] ([facility]) Nucleated Red Blood Cell % 0.0 % 0-0 MED ENT ([facility]) ID Date Data Source [id number] 05/01/2020 07:02:00 AM EDT [facility] Name Value Range Interpretation Code Description Data Bobbi rce(s) Supporting Document(s) Hemoglobin A1c 5.8 % [facility] ([facility]iol [facility]gy [facility]) <content>REFERENCE RANGES:</content><br/ ><content></content>
<content><=5.6% NORMAL</content>
<content>5.7-6.4% SUGGESTS IMPAIRED GLUCOSE METABOLISM/PREDIABETIC</content>
<content>>= 6.5% ABNORMAL</content>
<content></content>
<content></content> Estimated Average Glucose 120 mg/dL 60-110 [facility] ([facility]) ID Date Data Source [id number] 05/01/2020 07:02:00 AM EDT [facility] ([facility]) Name Value Range Interpretation Code Description Data Bobbi rce(s) Supporting Document(s) Cholesterol Level 159 mg/dL [facility] (Card [facility]) HDL Cholesterol 57 mg/dL [facility] ([facility]io [facility]y [facility]) Triglycerides Level 141 mg/dL [facility] (Ca [facility]diology [facility]) Non-HDL-C 102 mg/dL [facility] Cholesterol in LDL [Mass/volume] in Serum or Plasma by calculation 74 mg/dL [facility] ([facility]) Cholesterol Risk Ratio 2.789 [facility] ([facility]) ID Date Data Source [id number] 05/01/2020 07:02:00 AM EDT [facility] ([facility]) Name Value Range Interpretation Code Description Data Bobbi rce(s) Supporting Document(s) Glucose, Fasting 83 mg/dL 70-100 [facility] Blood Urea Nitrogen 17 mg/dL 7-18 [facility] (Ca [facility]diology [facility]) Creatinine For GFR 0.77 mg/dL 0.55-1.30 [facility] ([facility]) Sodium Level 142 meq/L 136-145 [facility] (Cardiolog y [facility]) Glomerular Filtration Rate Laboratory test result [facility] ([facility]) <content>Units are mL/min/1.73 m2</content>
<content></content>
<content>Chronic Kidney Disease Staging per NKF:</content>
<content></content>
<content>Stage I & II GFR >=60 Normal to Mildly Decreased</content>
<content>Stage III GFR 30- 59 Moderately Decreased</content>
<content>Stage IV GFR 15-29 Severely Decreased</content>
<content>Stage V GFR <15 Very Little GFR Left</content>
<content>ESRD GFR <15 on BALLISTICS PROFESSOR</content>
<content></content>
<content></content> Chloride Level 110 meq/L 98-107 [facility] ([facility]iol [facility]gy [facility]) Potassium Serum 4.3 meq/L 3.5-5.1 [facility] ([facility]io [facility]y [facility]) Calcium Level 9.1 mg/dL 8.8-10.2 [facility] (Cardiolo gy [facility]) Anion gap in Serum or Plasma 6 meq/L 8-16 [facility] ([facility]) Carbon Dioxide Level 26 meq/L 21-32 [facility] (C ardiology [facility]) ID Date Data Source [id number] 05/01/2020 07:02:00 AM EDT [facility] ([facility]i [facility]y [facility]) Name Value Range Interpretation Code Description Data Bobbi rce(s) Supporting Document(s) Magnesium [Moles/volume] in Serum or Plasma 2.1 mg/dL 1.8-2.4 [facility] ([facility]) Thyrotropin [Units/volume] in Serum or Plasma by Detec tion limit <= 0.05 mIU/L 1.470 uIU/ML 0.358-3.740 [facility] ([facility]) ID Date Data Source [id number] 05/01/2020 07:02:00 AM EDT [facility] Name Value Range Interpretation Code Description Data Bobbi rce(s) Supporting Document(s) Iron (Fe) 45 ug/dL 50-170 [facility] Percent Saturation 12.4 % 13.2-45.0 [facility] (Car diology [facility]) Total Iron Binding Capacity 362 ug/dL 250-450 [facility] ([facility]) ID Date Data Source [id number] 05/01/2020 07:02:00 AM EDT [facility] ([facility] Name Value Range Interpretation Code Description Data Bobbi rce(s) Supporting Document(s) Ferritin [Mass/volume] in Serum or Plasma 17 ng/mL 8-252 [facility] ([facility]) Ferritin [Mass/volume] in Serum or Plasma Laboratory test result [facility] ([facility]) ID Date Data Source [id number] 05/01/2020 07:02:00 AM EDT [facility] ([facility]) Name Value Range Interpretation Code Description Data Bobbi rce(s) Supporting Document(s) Ferritin [Mass/volume] in Serum or Plasma Laboratory test result [facility] ([facility]) Procedure Social History Code Duration Value Status Description Data Source(s ) Smoking 05/16/2021 12:00:00 AM EDT Patient has n ever smoked (pipe, cigarette, cigar) completed Patient has never smoked (pipe, cigarett e, cigar) [facility]) Smoking 05/08/2021 12:00:00 AM EDT Patient has never smoked co mpleted Patient has never smoked [facility] ([facility]) Vital Signs ID Date Data Source [id number] Name Value Range Interpretation Code Description Data Source(s) Systolic blood pressure 166 mm[Hg] 166 mm[Hg] M EDENT ([facility]) RT Arm Diastolic blood pressure 82 mm[Hg] 82 mm[Hg] [facility] ([facility]) RT Arm Heart rate 76 /min 76 /min [facility] ([facility]) Body height 65.25 [in_i] 65.25 [in_i] [facility] ([facility]) 5'5.25" Body weight 180.00 [lb_av] 180.00 [lb_av] MEDEN T ([facility]) Body mass index (BMI) [Ratio] 29.7 kg/m2 29.7 k g/m2 [facility] ([facility]) Body mass index (BMI) [Ratio] 30.9 kg/m2 30.9 k g/m2 [facility] ([facility]) Systolic blood pressure 132 mm[Hg] 132 mm[Hg] M EDENT ([facility]) Body height 65 [in_i] 65 [in_i] [facility] ([facility] 5'5" Body weight 186.00 [lb_av] 186.00 [lb_av] MEDEN T ([facility]) Diastolic blood pressure 80 mm[Hg] 80 mm[Hg] [facility] ([facility]) Heart rate 82 /min 82 /min [facility] ([facility]) Systolic blood pressure 98 mm[Hg] 98 mm[Hg] M EDENT ([facility]) RT Arm Diastolic blood pressure 64 mm[Hg] 64 mm[Hg] [facility] ([facility]) RT Arm Heart rate 92 /min 92 /min [facility] ([facility]) Body height 65.25 [in_i] 65.25 [in_i] [facility] 5'5.25" Body weight 182.00 [lb_av] 182.00 [lb_av] MEDEN T ([facility]) verbal Body mass index (BMI) [Ratio] 30.1 kg/m2 30.1 k g/m2 [facility] ([facility]) Body weight 183.00 [lb_av] 183.00 [lb_av] MEDEN T ([facility]) Body height 65 [in_i] 65 [in_i] [facility] ([facility]) 5'5" Body mass index (BMI) [Ratio] 30.4 kg/m2 30.4 k g/m2 [facility] ([facility]) Heart rate 72 /min 72 /min [facility] ([facility]) Systolic blood pressure--sitting 124 mm[Hg] 124 mm[Hg] [facility] ([facility]) Ra, medium cuff Diastolic blood pressure--sitting 80 mm[Hg] 80 mm[Hg] [facility] ([facility]) Ra, medium cuff Body mass index (BMI) [Ratio] 30.1 kg/m2 30.1 k g/m2 [facility] ([facility]) Systolic blood pressure 138 mm[Hg] 138 mm[Hg] M EDENT ([facility]) RT Arm Diastolic blood pressure 84 mm[Hg] 84 mm[Hg] [facility] ([facility]) RT Arm Heart rate 88 /min 88 /min [facility] ([facility]) Body height 65.25 [in_i] 65.25 [in_i] MED[facility] ([facility]) 5'5.25" Body weight 182.50 [lb_av] 182.50 [lb_av] MEDEN T ([facility]) Systolic blood pressure 124 mm[Hg] 124 mm[Hg] M EDENT ([facility]) Diastolic blood pressure 80 mm[Hg] 80 mm[Hg] [facility] ([facility]) Heart rate 85 /min 85 /min [facility] ([facility]) Body weight 187.00 [lb_av] 187.00 [lb_av] MEDEN T ([facility]) home Heart rate 84 /min 84 /min [facility] ([facility]io [facility]y [facility]) Systolic blood pressure--sitting 126 mm[Hg] 126 mm[Hg] [facility] ([facility]) Omron, adult cuff/Ra Diastolic blood pressure--sitting 84 mm[Hg] 84 mm[Hg] [facility] ([facility]) Omron, adult cuff/Ra Body weight 188.00 [lb_av] 188.00 [lb_av] MEDEN T ([facility]) Body height 65 [in_i] 65 [in_i] [facility] ([facility]i [facility]y [facility]) 5'5" Body mass index (BMI) [Ratio] 31.3 kg/m2 31.3 k g/m2 [facility] ([facility]) Systolic blood pressure 128 mm[Hg] 128 mm[Hg] M EDENT ([facility]) Diastolic blood pressure 70 mm[Hg] 70 mm[Hg] [facility] ([facility]) Heart rate 86 /min 86 /min MEDENT ([facility]) Body height 65.25 [in_i] 65.25 [in_i] MEDENT ([facility]) 5'5.25" Body weight 209.00 [lb_av] 209.00 [lb_av] MEDEN T ([facility]) Body mass index (BMI) [Ratio] 34.5 kg/m2 34.5 k g/m2 MED[facility] ([facility]) Systolic blood pressure 108 mm[Hg] 108 mm[Hg] EDENT ([facility]) Diastolic blood pressure 72 mm[Hg] 72 mm[Hg] MEDENT ([facility]) Heart rate 96 /min 96 /min [facility] Oxygen saturation in Arterial blood by Pulse oximetry 98 % 98 % [facility]) Body height 65 [in_i] 65 [in_i] [facility] ([facility] 5'5" Body mass index (BMI) [Ratio] 33.6 kg/m2 33.6 k g/m2 [facility] ([facility]) Heart rate 85 /min 85 /min [facility] Systolic blood pressure--sitting 140 mm[Hg] 140 mm[Hg] MEDENT ([facility]) Omron, large cuff/LA Diastolic blood pressure--sitting 95 mm[Hg] 95 mm[Hg] MEDENT ([facility]) Omron, large cuff/LA Body weight 202.00 [lb_av] 202.00 [lb_av] MEDEN T ([facility]) Body height 65.25 [in_i] 65.25 [in_i] MEDENT ([facility]) 5'5.25" Oxygen saturation in Arterial blood by Pulse oximetry --post exerci se 98 % 98 % [facility] RM Air Systolic blood pressure 92 mm[Hg] 92 mm[Hg] M EDENT ([facility]) RT Arm Diastolic blood pressure 60 mm[Hg] 60 mm[Hg] MEDENT ([facility]) RT Arm Heart rate 112 /min 112 /min BRAULIO ([facility]) Body temperature 96.6 [degF] 96.6 [degF] BRAULIO ([facility])
[2021-06-04] MEDS ORDERED: LOSA25TA14 PO (08:52)
[2021-06-04] MEDS ORDERED: LEXA5TAB13 PO (08:52)
[2021-06-04] MEDS ORDERED: METOCLOPRAMIDE INJ 10MG/2ML VIAL (J2765 PER 1) IV ONE (09:30)
[2021-06-04] MEDS ORDERED: KETOROLAC 30 MG/ML 1ML VIAL IV ONE (09:30)
[2021-06-04 09:39] LABS: HEMATOCRIT 39.4 % (36.0-47.0); HEMOGLOBIN 13.1 g/dl (12.0-15.5); MEAN CORPUSCULAR HEMOGLOBIN 28.7 pg (27.0-33.0); MEAN CORPUSCULAR HGB CONC 33.2 g/dl (32.0-36.5); MEAN CORPUSCULAR VOLUME 86.2 fl (80.0-96.0); PLATELET COUNT, AUTOMATED 378 10^3/uL (150-450); RED BLOOD COUNT 4.57 10^6/uL (4.00-5.40); WHITE BLOOD COUNT 9.5 10^3/uL (4.0-10.0)
[2021-06-04 09:55] LABS: BLOOD UREA NITROGEN 16 MG/DL (7-18); CALCIUM LEVEL 9.8 MG/DL (8.8-10.2); CARBON DIOXIDE LEVEL 23 MEQ/L (21-32); CHLORIDE LEVEL 109 MEQ/L (98-107); CK-MB VALUE MASS 1.1 NG/ML (<3.6); CPK CREATINE PHOSPHOKINASE 121 U/L (26-192); CREATININE FOR GFR 0.85 MG/DL (0.55-1.30); GLOMERULAR FILTRATION RATE > 60.0 (>45); GLUCOSE, FASTING 110 MG/DL (70-100); MB/CK RELATIVE INDEX 0.91 (< OR =4); POTASSIUM SERUM 3.8 MEQ/L (3.5-5.1); SODIUM LEVEL 139 MEQ/L (136-145); TROPONIN I < 0.02 NG/ML (< 0.10)
--- OUTSIDE RECORDS SUMMARY | 2021-06-04 09:56 | CCD ---
Author Author [facility] Organization [facility] Address Unknown Phone Unavailable Care Team Providers Care Plating Operator Name Role Phone Moni LAY MD Unavailable [...] Unavailable Moni LAY MD Unavailable Unavailable Moni LYA MD Unavailable Unavailable Moni LAY MD Unavailable [...] L AKANKSHA PA Unavailable Unavailable NAM, L AKANKHSA PA Unavailable Unavailable ANTECOL, Janet SALOMON MD Unavailable Unavailable ANTECOL, Janet SALOMON MD Unavailable Unavailable ANTECOL, Janet SALOMON MD Unavailable Unavailable ANTECOL, Jante SALOMON MD Unavailable Unavailable ANTECOL, Janet SALOMON [...] Janet SALOMON MD Unavailable Unavailable ANTECOL, Janet SALMOON MD Unavailable Unavailable ANTECOL, Janet SALOMON MD [...] is protected by Article 27-F of the [facility] [place] [facility] law. If you continue you may have access to information: Regarding HIV / AIDS; Provided by facilities licensed or operated by the [facility] Office of Mental Health; or Provided by the [facility] Office for People With Developmental Disabilities. If such information is present, then the following [facility] mandated warning applies: This information has been [...] law may result in a fine or detention sentence or both. A general authorization for the release of medical or other information is NOT sufficient authorization for further disc losure. Family History Family Member Name Family Member Gender Family Member Status Date o f Status Description Data Source(s) Unknown Female Condition [facility] Unknown Female Condition [facility] Unknown Unknown Problem [facility] ([facility]) Unknown Unknown Problem [facility] ([facility] mother Unknown Male Problem [facility] ([facility]) Unknown Male Problem [facility] ([facility]) Unknown Male Problem [facility] ([facility]) Encounters Encounter Providers Location Date Indications Data Source(s ) Outpatient Attender: LEANDRO VERA MD 09/13/2021 12:00:00 AM [facility] Outpatient Attender: Dayanna Mcdermott 10:00:00 AM EDT [facility] ([facility] ) Outpatient Attender: Mitch Espinoza MD [facility] [place] 05/16/2021 10:15:00 AM EDT [facility] ([facility]) Outpatient Attender: Chata CARRILLO Main Office 05/08/2021 12:30:00 PM EDT [facility] ([facility]) Outpatient Attender: Dayanna Mcdermott 03:00:00 PM EDT [facility] ([facility] ) Outpatient Attender: AKANKSHA CARRILLO Main Office 04/20/2021 0 9:15:00 AM EDT [facility] ([facility]) Outpatient Attender: Brad Mckeon MD Main office - [facility] 04/10/2021 11:30:00 AM EDT [facility] ([facility]) Outpatient Attender: Dayanna Mcdermott 03:00:00 PM EDT [facility] ([facility] ) Outpatient 03/23/2021 01:30:00 PM EDT [facility] Attender: PEYMAN RICHARDSON) MDReferrer: Moni LAY MD 03/15/2021 08:21:07 PM EDT [facility] Attender: PEYMAN POPE ([place]) MDReferrer: Moni LAY MD 03/15/2021 08:21:07 PM EDT [facility] Outpatient Attender: Dayanna Mcdermott 02:45:00 PM EDT [facility] ([facility] ) Outpatient Attender: UMM OROURKE MD Main Office 01/09/2021 12:00:00 PM EDT [facility] ([facility]) Attender: PEYMAN RICHARDSON) MDReferrer: Moni LAY [...] Attender: Dayanna Mcdermott 01:00:00 PM EST [facility] ([facility] ) Attender: PEYMAN POPE ([place]) MDReferrer: [...] Attender: Dayanna Mcdermott 12:00:00 PM EST [facility] ([facility] ) Outpatient Attender: UMM OROURKE MD Main Office 05/30/2020 08:15:00 AM EDT [facility] ([facility]) Outpatient Attender: Dayanna Mcdermott 10:45:00 AM EDT [facility] ([facility] ) Immunizations Vaccine Date Status Description Data Source(s) COVID-19 VACCINE Reel[employer] 08/29/2020 12:00:00 AM EST completed [facility] Vaccine Series Complete: YESThis Data wa s Submitted to [facility] Via EXFO. COVID-19 VACCINE Pfizer 08/08/2020 12:00:00 AM EST completed [facility] Vaccine Series Complete: NOThis Data was Submitted to [facility] Via [facility]. Medications Medication Brand Name Start Date Product Form Dose Route Admi nistrative Instructions Pharmacy Instructions Status Indications Reaction Description Data Source(s) Escitalopram 5 MG Oral Tablet Escitalopram Oxalate 05/17/2021 12:00 :00 AM EDT ORAL active [facility] ([facility]) Famotidine 20 MG Oral Tablet Famotidine 04/25/2021 12:00:00 AM EDT ORAL active [facility] ([facility]) Metformin HCL ER (Mod) Metformin HCL ER (Mod) 04/19/2021 12:00:00 AM EDT ORAL active [facility] ([facility]) Metformin hydrochloride 500 MG Oral Tablet Metformin HCL 04/09/2021 12:00:00 AM EDT ORAL completed [facility] ([facility]) azilsartan medoxomil 40 MG Oral Tablet [Edarbi] Edarbi 01/11/2021 12:00:00 AM EDT ORAL completed [facility] ([facility]) Metformin hydrochloride 500 MG Oral Tablet Metformin HCL 01/11/2021 12:00:00 AM EDT ORAL completed [facility] ([facility]) azilsartan medoxomil 40 MG Oral Tablet [Edarbi] Edarbi 01/08/2021 12:00:00 AM EDT ORAL completed [facility] ([facility]) azilsartan medoxomil 80 MG Oral Tablet [Edarbi] Edarbi 12/13/2020 12:00:00 AM EDT ORAL completed [facility] ([facility]) doxycycline hyclate 100 MG Oral Capsule DOXYCYCLINE HYCLATE 11/27/2020 12:00:00 AM EDT capsule 28 TAKE ONE CAPSULE BY MOUTH TW ICE A DAY FOR 14 DAYS TAKE ONE CAPSULE BY MOUTH TWICE A DAY FOR 14 DAYS SOLD: 11/27/2020 [facility] doxycycline hyclate 100 MG Oral Capsule Doxycycline Hyclate 11/27/2020 12:00:00 AM EDT completed [facility] ([facility]) 4 mg 10/31/2020 12:00:00 AM EDT tablet 9 TAKE ONE TABLET BY MOUTH EVERY 6 HOURS NEEDED FOR NAUSEA AND VOMITING TAKE ONE TABLET BY MOUTH EVERY 6 HOURS NEEDED FOR NAUSEA AND VOMITING SOLD: 10/31/2020 [facility] 24 HR ferrous sulfate 142 MG Extended Release Oral Tab let Iron (Ferrous Sulfate) 10/05/2020 12:00:00 AM EST ORAL active [facility] ([facility]) Escitalopram 5 MG Oral Tablet Escitalopram Oxalate 10/05/2020 12:00 :00 AM EST ORAL active [facility] ([facility]) azilsartan medoxomil 40 MG Oral Tablet [Edarbi] Edarbi 07/19/2020 12:00:00 AM EST ORAL active [facility] ([facility]) 4 mg 07/17/2020 12:00:00 AM EST tablet 9 TAKE ONE TABLET BY MOUTH EVERY 6 HOURS NEEDED FOR NAUSEA AND VOMITING TAKE ONE TABLET BY MOUTH EVERY 6 HOURS NEEDED FOR NAUSEA AND VOMITING SOLD: 07/23/2020 [facility] atorvastatin 10 MG Oral Tablet Atorvastatin Calcium 05/29/2020 1 2:00:00 AM EDT ORAL active MED[facility] ( [facility]) azilsartan medoxomil 40 MG Oral Tablet [Edarbi] Edarbi 05/29/2020 12:00:00 AM EDT ORAL active [facility] ([facility]) Metformin hydrochloride 500 MG Oral Tablet Metformin HCL 05/29/2020 12:00:00 AM EDT ORAL active [facility] ([facility]) Prednisone 20 MG Oral Tablet Prednisone 05/19/2020 12:00:00 AM EDT ORAL completed [facility] ([facility]) 60 ACTUAT Budesonide 0.16 MG/ACTUAT / fo rmoterol fumarate 0.0045 MG/ACTUAT Metered Dose Inhaler [Symbicort] Symbicort 05/17/2020 12:00:00 AM EDT RESPIRATORY completed [facility] ( [facility]) ferrous sulfate 325 MG Delayed Release Oral Tablet Ferrous S ulfate 05/08/2020 12:00:00 AM EDT ORAL completed [facility] ([facility]) Insurance Providers Payer name Policy type / Coverage type Policy ID Covered constitution party ID Covered constitution party's relationship to vargas Policy Vargas Plan Information SAKSHI Murray/Elodia Trad/MX Medigap Part B [id number] Self [id number] SAKSHI Murray/Sarathn Trad/MX Medigap Part B [id number] Self 806 [facility] PPO POS [id number] 0 [id number] [place] Trad/MX Commercial [id number] Self [id number] [place] Trad/MX Medigap Part B [id number] Self [id number] [employer] [id number] 0 1 [id number] [facility] [id number] 0 1 [id number] [place] [facility] [id number] 0 [id number] [employer] [place] CHOICE PLUS [id number] SP [id number] [place] [employer] Plus Commercial [id number] [facility] O [id number] O [id number] [facility] [id number] SP [id number] [place] [facility] Commercial [id number] Self [id number] [facility] [id number] SP 1 [id number] [employer] [place]AT[place] 306/806 [id number] SP [id number] [place] BCBS B [id number] S VYA [id number] [facility] P UNAVAILABLE [id number] C UNAVAILABLE BC[employer] [place]AT[place] 306/8 P [id number] S [id number] UN[employer] [place] CHOICE PLUS [id number] SP [id number] [place] [employer] O [id number] S [id number] [employer] [place] Other 0 [id number] Self 0 [facility] [facility] Commercial [id number] Self [id number] [employer] [place] 306/806 [id number] SP [id number] [facility] [id number] Self 1 [id number] [facility] Plan Medigap Part B [id number] Self 1 [id number] [facility] [id number] Self [id number] [facility] [id number] Self 1 [id number] [facility] [id number] Self [id number] Problems, Conditions, and Diagnoses Code Display Name Description Problem Type Effective Dates Data Source(s) G45.4 Transient global amnesia Transient global amnesia Prob johnson 05/16/2021 12:00:00 AM EDT [facility] ([facility]) I10 Essential hypertension Essential hypertension Problem 05/16/2021 12:00:00 AM EDT [facility] ([facility]) E78.5 Hyperlipidemia Hyperlipidemia Problem 05/16/2021 12:00: 00 AM EDT [facility] ([facility]) Z86.73 History of cerebrovascular accident with out residual deficits History of cerebrovascular accident without residual deficits Problem 12:00:00 AM EDT [facility] (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 Problem 04/10/2021 12:00:00 AM EDT [facility] ([facility] ) Z86.73 History of cerebrovascular accident with out residual deficits History of cerebrovascular accident without residual deficits Problem 12:00:00 AM EDT [facility] ([facility] ) E78.00 Pure hypercholesterolemia Pure hypercholesterolemia Pr oblem 05/30/2020 12:00:00 AM EDT [facility] ([facility]) Surgeries/Procedures Procedure Description Date Indications Data Source(s) Brief Emotional/Behav Assessment W/ Scoring Doc Per Standard Inst 05/17/2021 12:00:00 AM EDT [facility] ([facility] ) OFFICE OUTPATIENT VISIT 15 MINUTES 05/17/2021 12:00:00 AM EDT [facility] ([facility]) Electrocardiogram Complete 05/16/2021 12:00:00 AM EDT [facility] ([facility]) Implantable [employer] Heart Rhythm Derived D daly 05/16/2021 12:00:00 AM EDT [facility] OUTPAT[facility] NEW 45 MINUTES 05/16/2021 12:00:00 A M EDT [facility] ([facility]) OFFICE OUTPATIENT VISIT 5 MINUTES 05/08/2021 12:00:00 AM EDT [facility] ([facility]) OFFICE OUTPATIENT VISIT 25 MINUTES 04/25/2021 12:00:00 AM EDT [facility] ([facility]) ECG ROUTINE ECG W/LEAST 12 LDS W/I&R 04/20/2021 12:00: 00 AM EDT [facility] ([facility]) OFFICE OUTPATIENT VISIT 25 MINUTES 04/20/2021 12:00:00 AM EDT [facility] ([facility]) OFFICE OUTPATIENT VISIT 40 MINUTES 04/10/2021 12:00:00 AM EDT [facility] ([facility] ) Hester Cre SRV W/I 7 Days Of DC, Comm W/I 2 Dys Med Rec 04/09/2021 12:00:00 AM EDT [facility] ([facility] ) OFFICE OUTPATIENT VISIT 15 MINUTES 01/11/2021 12:00:00 AM EDT [facility] ([facility]) OFFICE OUTPATIENT VISIT 15 MINUTES 01/09/2021 12:00:00 AM EDT [facility] ([facility]) Implantable Loop Recorder System, Review And Report 01/02/2021 12:00:00 AM EDT [facility] ([facility]) Implantable Loop Recorder System, Review And Report 12/01/2020 12:00:00 AM EDT [facility] ([facility]) Colonoscopy 11/08/2020 12:00:00 AM EDT M EDENT ([facility]) Implantable Loop Recorder System, Review And Report 10/31/2020 12:00:00 AM EDT [facility] ([facility]) PERIODIC PREVENTIVE MED EST PATIENT 40-64YRS 12:00:00 AM EST [facility] ([facility]) Implantable Loop Recorder System, Review And Report 09/26/2020 12:00:00 AM EST [facility] ([facility]) Implantable Loop Recorder System, Review And Report 08/24/2020 12:00:00 AM EST [facility] ([facility]) Implantable Loop Recorder System, Review And Report 07/20/2020 12:00:00 AM EST [facility] ([facility]) Implantable Loop Recorder System, Review And Report 06/19/2020 12:00:00 AM EST [facility] ([facility]) ECG ROUTINE ECG W/LEAST 12 LDS W/I&R 05/30/2020 12:00: 00 AM EDT [facility] ([facility]) Implantable Loop Recorder System, Review And Report 05/18/2020 12:00:00 AM EDT [facility] ([facility]) Implantable Loop Recorder System, Review And Report 04/17/2020 12:00:00 AM EDT [facility] ([facility]) Results ID Date Data Source [id number] 04/27/2021 10:10:00 AM EDT [facility] Name Value Range Interpretation Code Description Data Bobbi rce(s) Supporting Document(s) SARS-CoV-2 (COVID-19) RNA [Presence] in Respiratory specimen by KALYN with probe detection Not Detected [facility] This lab was ordered by [facility] and reported by [employer]. ID Date Data Source [id number] 04/25/2021 03:03:00 PM EDT [facility] Name Value Range Interpretation Code Description Data Bobbi rce(s) Supporting Document(s) Leukocytes [#/volume] in Blood by Automated count 7.4 x10*3/UL 4.1-10 .9 [facility] ([facility]) Erythrocytes [#/volume] in Blood by Automated count 4.36 x10*6/UL 4.2 0-6.30 [facility] ([facility]) Hemoglobin [Mass/volume] in Blood 12.8 g/dL 12.0-18.0 [facility] ([facility]) Hematocrit [Volume Fraction] of Blood by Automated count 37.4 % 3 7.0-51.0 [facility] ([facility]) MCV 85.7 fL 80.0-97.0 [facility] MCHC 34.4 g/dL 31.0-38.0 [facility] MCH 29.5 pg 26.0-32.0 [facility]) MPV 7.5 FL 7.8-11.0 [facility] ([facility]) Erythrocyte distribution width [Ratio] by Automated count 13.1 % 11.6-13.7 [facility] Platelets [#/volume] in Blood by Automated count 368 x10*3/UL 140-440 [facility] ([facility]) Mid % 6.6 % 1.7-9.3 [facility] Neut % 66.0 % 37.0-92.0 [facility] Lymph % 27.4 % 10.0-58.5 [facility] ([facility] Neut # 4.9 x10*3/UL 2.0-7.8 [facility] ([facility]) Mid # 0.5 x10*3/UL 0.1-0.6 [facility] ([facility]) Lymph # 2.0 x10*3/UL 0.6-4.1 [facility] ([facility]) ID Date Data Source [id number] 04/25/2021 03:03:00 PM EDT [facility] ([facility]) Name Value Range Interpretation Code Description Data Bobbi rce(s) Supporting Document(s) Glucose [Mass/volume] in Serum or Plasma 99 mg/dL 74-99 [facility] ([facility]) 100-125 mg/dL PRE-DIABETES/FASTING >126 mg/dL DIABETES/FASTING Creatinine 1.0 mg/dL 0.6-1.3 [facility] Urea nitrogen [Mass/volume] in Serum or Plasma 15 mg/dL 7-18 [facility] Sodium [Moles/volume] in Serum or Plasma 142 meq/L 136-145 [facility] Potassium [Moles/volume] in Serum or Plasma 4.5 meq/L 3.5-5.1 [facility] Chloride [Moles/volume] in Serum or Plasma 106 meq/L 98-107 [facility] ([facility]) Calcium [Mass/volume] in Serum or Plasma 9.3 mg/dL 8.5-10.1 [facility] Carbon dioxide, total [Moles/volume] in Serum or Plasma 28 meq/L 21 -32 [facility] ([facility]) Glomerular filtration rate/1.73 sq M pre dicted among blacks [Volume Rate/Area] in Serum or Plasma by Creatinine-based formula (MDRD) Laboratory test result [facility] ([facility]) <content>CHRONIC KIDNEY DISEASE STAGING PER NKF</content>
<content></content>
<content>STAGE I & II GFR >= 60 NORMAL TO MILDLY DECREASED</content>
<content>STAGE III GFR 30-59 MODERATELY DECREASED</content>
<content>STAGE IV GFR 15-29 SEVERELY DECREASED</content>
<content>STAGE V GFR <15 VERY LITTLE GFR LEFT</content>
<content>ESRD GFR <15 ON PROTOHISTORIAN</content>
<content></content> Glomerular filtration rate/1.73 sq M pre dicted among non-blacks [Volume Rate/Area] in Serum or Plasma by Creatinine-based formula (MDRD) 56 mL/min [facility] ([facility]) ID Date Data Source [id number] 04/25/2021 03:03:00 PM EDT [facility] ([facility]) Name Value Range Interpretation Code Description Data Bobbi rce(s) Supporting Document(s) Hemoglobin A1c/Hemoglobin.total in Blood 5.8 % [facility] ([facility]) Lab Result Notes: Pre-Diabetes 5.7 - 6.4 % Diabetes = or > 6.5% Glucose mean value [Mass/volume] in Blood Estimated fr om glycated hemoglobin 120 mg/dL 60-110 [facility] ([facility] ) ID Date Data Source [id number] 04/25/2021 03:03:00 PM EDT [facility] ([facility]) Name Value Range Interpretation Code Description Data Bobbi rce(s) Supporting Document(s) Glucose [Mass/volume] in Serum or Plasma 99 mg/dL 74-99 [facility] ([facility]) 100-125 mg/dL PRE-DIABETES/FASTING >126 mg/dL DIABETES/FASTING Urea nitrogen [Mass/volume] in Serum or Plasma 15 mg/dL 7-18 [facility] ([facility]) Creatinine 1.0 mg/dL 0.6-1.3 [facility] ([facility]) Chloride [Moles/volume] in Serum or Plasma 106 meq/L 98-107 [facility] ([facility]) Sodium [Moles/volume] in Serum or Plasma 142 meq/L 136-145 [facility] ([facility]) Potassium [Moles/volume] in Serum or Plasma 4.5 meq/L 3.5-5.1 [facility] ([facility]) Glomerular filtration rate/1.73 sq M pre dicted among blacks [Volume Rate/Area] in Serum or Plasma by Creatinine-based formula (MDRD) Laboratory test result [facility] ([facility]) <content>CHRONIC KIDNEY DISEASE STAGING PER NKF</content>
<content></content>
<content>STAGE I & II GFR >= 60 NORMAL TO MILDLY DECREASED</content>
<content>STAGE III GFR 30-59 MODERATELY DECREASED</content>
<content>STAGE IV GFR 15-29 SEVERELY DECREASED</content>
<content>STAGE V GFR <15 VERY LITTLE GFR LEFT</content>
<content>ESRD GFR <15 ON PROTOHISTORIAN</content>
<content></content>
<content></content> Carbon dioxide, total [Moles/volume] in Serum or Plasma 28 meq/L 21 -32 [facility] ([facility]) Calcium [Mass/volume] in Serum or Plasma 9.3 mg/dL 8.5-10.1 [facility] ([facility]) Glomerular filtration rate/1.73 sq M pre dicted among non-blacks [Volume Rate/Area] in Serum or Plasma by Creatinine-based formula (MDRD) 56 mL/min [facility] ([facility]) ID Date Data Source [id number] 04/25/2021 03:03:00 PM EDT [facility] ([facility]) Name Value Range Interpretation Code Description Data Bobbi rce(s) Supporting Document(s) Leukocytes [#/volume] in Blood by Automated count 7.4 x10*3/UL 4.1-10 .9 [facility] ([facility]) Hemoglobin [Mass/volume] in Blood 12.8 g/dL 12.0-18.0 [facility] ([facility]) Erythrocytes [#/volume] in Blood by Automated count 4.36 x10*6/UL 4.2 0-6.30 [facility] ([facility]) Hematocrit [Volume Fraction] of Blood by Automated count 37.4 % 3 7.0-51.0 [facility] ([facility]) MCH 29.5 pg 26.0-32.0 [facility] ([facility]) MCV 85.7 fL 80.0-97.0 [facility] ([facility]) Platelets [#/volume] in Blood by Automated count 368 x10*3/UL 140-440 [facility] ([facility]) Platelet mean volume [Entitic volume] in Blood by [place] 7.5 FL 7.8-11.0 [facility] ([facility]) Erythrocyte distribution width [Ratio] by Automated count 13.1 % 11.6-13.7 [facility] ([facility]) MCHC 34.4 g/dL 31.0-38.0 [facility] ([facility]) Lymphocytes/100 leukocytes in Blood by Automated count 27.4 % 10. 0-58.5 [facility] ([facility]) Mid % 6.6 % 1.7-9.3 [facility] ([facility]) Neut % 66.0 % 37.0-92.0 [facility] ([facility]) Lymph # 2.0 x10*3/UL 0.6-4.1 [facility] ([facility]) Neutrophils [#/volume] in Semen by Manual count 4.9 x10*3/UL 2.0-7.8 [facility] ([facility]) Mid # 0.5 x10*3/UL 0.1-0.6 [facility] ([facility]) ID Date Data Source [id number] 04/16/2021 12:11:00 PM EDT [facility] ([facility]) Name Value Range Interpretation Code Description Data Bobbi rce(s) Supporting Document(s) Hemoglobin A1c/Hemoglobin.total in Blood 5.7 [facility] ([facility]) ID Date Data Source [id number] 04/16/2021 11:57:00 AM EDT [facility] Name Value Range Interpretation Code Description Data Bobbi rce(s) Supporting Document(s) Anti Thrombin 3 Funct Activity 120 % 75-135 [facility] Direct Xa inhibitor anticoagulants such as rivaroxaban, apixaban and edoxaban will lead to spuriously elevated antithrombin activity levels possibly masking a deficiency. Anti Thrombin 3 Antigen Immuno 89 % 72-124 [facility]) This test was developed and its performa nce characteristics determined by [facility]. It has not been cleared or approved by the Food and Drug Administration. ID Date Data Source [id number] 04/16/2021 11:57:00 AM EDT [facility] ([facility]) Name Value Range Interpretation Code Description Data Bobbi rce(s) Supporting Document(s) Protein S actual/normal in Platelet poor plasma by Coagulati on assay 111 % 63-140 [facility] Protein S activity may be falsely increa sed (masking an abnormal, low result) in patients receiving direct Xa inhibitor (e.g., rivaroxaban, apixaban, edoxaban) or a direct thrombin inhibitor (e.g., dabigatran) anticoagulant treatment due to assay interference by these drugs. Protein C actual/normal in Platelet poor plasma by Coagulati on assay 136 % 73-180 [facility] ([facility]) Performed at: - [facility] [address], [place] [id number] Aquaculture Director: Gogo Heart MD, Phone: [phone] Performed at: BN - [facility] [address] [place], [place] [id number] 61 Aquaculture Director: Foster Calhoun MD, Phone: [phone] Performed at: - [facility] [address], [place] [address] 150 Aquaculture Director: Jacob Aranda [facility], Phone: [phone] ID Date Data Source [id number] 04/16/2021 11:57:00 AM EDT [facility] ([facility]) Name Value Range Interpretation Code Description Data Bobbi rce(s) Supporting Document(s) Antinuclear Antibodies Direct Laboratory test result [facility] ([facility]) ID Date Data Source [id number] 04/16/2021 11:57:00 AM EDT [facility] ([facility]) Name Value Range Interpretation Code Description Data Bobbi rce(s) Supporting Document(s) Factor II Prothrombin Gene An Laboratory test result [facility]) NEGATIVE No mutation identified. . Comment: A point mutation ([id number]) in the factor II (prothrombin) gene is [...] mutations. This assay detects only the prothrombin V04658P mutation and does not measure genetic abnormalities [...] health care providers to discuss results at [phone] . Methodology: DNA analysis of the Factor [...] developed and its performance characteristics determined by [employer]. It has not been cleared or approved by the Food and Drug Administration. . Justinot SR, et al. Blood. 1996; 88:1587-4174. Nomi EA. Circulation. 2004; 110:e15-e18. Alfredo I, et al. Arterioscler Thromb Vasc Biol. 1999; 19:700-703. . Ryan Monterroso, PhD, [facility] Margarita Arteaga, PhD, [facility] Morgan Ortega, PhD, [facility] Heather Trimble, PhD, [facility] Yosef Mendes, PhD, [facility] Brendan Andrade, PhD, [facility] ID Date Data Source [id number] 04/16/2021 11:57:00 AM EDT [facility] Name Value Range Interpretation Code Description Data Bobbi rce(s) Supporting Document(s) Factor V Leiden For [facility] Laboratory test result [facility]) Result: Negative (no mutation found) . Factor [...] the workup for venous thrombosis include the U79560P mutation in the factor II (prothrombin) gene, protein S and C deficiency, and antithrombin deficiencies. Anticardiolipin antibody and lupus anticoagulant analysis may be appropriate for certain patients, as well as homocysteine levels. . Contact your local [facility] for information on how to order additional testing if desired. . . Genetic counselors are available for health care providers to discuss results at [phone] . Methodology: DNA analysis of the Factor [...] developed and its performance characteristics determined by [facility]. It has not been cleared or approved by the Food and Drug Administration. . References: Julio Blount (1995). Clin Lab Med 16:169-186. . Ryan Monterroso, PhD, [facility] Margarita Arteaga, PhD, [facility] Morgan Ortega, PhD, [facility] Heather Trimble, PhD, [facility] Yosef Mendes, PhD, [facility] Brendan Adnrade PhD, [facility] ID Date Data Source [id number] 04/16/2021 11:57:00 AM EDT [facility] Name Value Range Interpretation Code Description Data Bobbi rce(s) Supporting Document(s) Coagulation factor VIII activity actual/ normal in Platelet poor plasma by Coagulation assay 152 % 56-140 [facility]) ID Date Data Source [id number] 04/16/2021 11:57:00 AM EDT [facility]) Name Value Range Interpretation Code Description Data Bobbi rce(s) Supporting Document(s) Cardiolipin Igm Antibody Laboratory test result 0-12 [facility]) <content>Negative: <13</con tent>
<content>Indeterminate: 13 - 20</content>
<content>Low-Med Positive: >20 - 80</content>
<content>High Positive: >80</content>
<content></content> Cardiolipin Iga Antibody Laboratory test result 0-11 [facility] ([facility]) <content>Negative: <12</con tent>
<content>Indeterminate: 12 - 20</content>
<content>Low-Med Positive: >20 - 80</content>
<content>High Positive: >80</content>
<content></content> Cardiolipin Igg Antibody Laboratory test result 0-14 [facility] ([facility]) <content>Negative: <15</con tent>
<content>Indeterminate: 15 - 20</content>
<content>Low-Med Positive: >20 - 80</content>
<content>High Positive: >80</content>
<content></content> ID Date Data Source [id number] 04/16/2021 11:57:00 AM EDT [facility] ([facility]) Name Value Range Interpretation Code Description Data Bobbi rce(s) Supporting Document(s) Angiotensin 1 Converting Enzym 50 U/L 14-82 [facility] ([facility]) ID Date Data Source [id number] 04/16/2021 11:57:00 AM EDT [facility] ([facility]) Name Value Range Interpretation Code Description Data Bobbi rce(s) Supporting Document(s) Cytoplasmic Neutrop AB Anca-C Laboratory test result [facility] ([facility]) Perinuclear AB Anca-P Laboratory test result [facility] ([facility]) The presence of positive fluorescence ex hibiting P-ANCA or C-ANCA patterns alone is not specific for the diagnosis of Amanda's Granulomatosis (WG) or microscopic polyangiitis. Decisions about treatment should not be based solely on ANCA IFA results. The International ANCA Group Consensus recommends follow up testing of positive sera with both IA- 3 and MPO-ANCA enzyme immunoassays. As m any as 5% serum samples are positive only by EIA. Ref. AM J Clin Pathol 1999;111:507-513. Anca-Atypical Laboratory test result [facility] ([facility]) The atypical pANCA pattern has been obse rved in a significant percentage of patients with ulcerative colitis, primary sclerosing cholangitis and autoimmune hepatitis. ID Date Data Source [id number] 04/16/2021 11:57:00 AM EDT [facility] ([facility]) Name Value Range Interpretation Code Description Data Bobbi rce(s) Supporting Document(s) Rheumatoid Factor Quant Laboratory test result [facility] ([facility]) Erythrocyte sedimentation rate by Westergren method 38 mm/hr 0-30 [facility] ([facility]) ID Date Data Source [id number] 04/16/2021 11:56:00 AM EDT [facility] ([facility]) Name Value Range Interpretation Code Description Data Bobbi rce(s) Supporting Document(s) Lupus anticoagulant [Interpretation] in Platelet poor plasma 1.1 0-1.2 [facility] ([facility]) RESULT IS LESS THAN 1.2, NO FURTHER [...] a specific inhibitor. ID Date Data Source [id number] [facility] Name Value Range Interpretation Code Description Data Bobbi rce(s) Supporting Document(s) Iron [Mass/volume] in Serum or Plasma 113 ug/dL 50-170 [facility] ([facility]) Fasting glucose [Moles/volume] in Serum or Plasma 88 mg/dL 70-100 [facility] ([facility]) Ferritin [Mass/volume] in Serum or Plasma 55 ng/mL 8-252 [facility] ([facility]) ID Date Data Source [id number] 04/16/2021 07:49:00 AM EDT [facility]) Name Value Range Interpretation Code Description Data Bobbi rce(s) Supporting Document(s) White Blood Count 6.9 10 4.0-10.0 [facility] ([facility]) Red Blood Count 4.36 10 4.00-5.40 [facility] ([facility]) Hemoglobin 12.6 g/dL 12.0-15.5 [facility]) Hematocrit 39.4 % 36.0-47.0 [facility]) Mean Corpuscular Volume 90.4 fl 80.0-96.0 [facility] ([facility]) Mean Corpuscular Hemoglobin 28.9 pg 27.0-33.0 [facility] ([facility]) Mean Corpuscular HGB Conc 32.0 g/dL 32.0-36.5 [facility] ([facility]) Red Cell Distribution Width 13.5 % 11.5-14.5 [facility] ([facility]) Platelet Count, Automated 344 10 150-450 [facility] ([facility]) Neutrophils % 59.2 % 36.0-66.0 [facility] ([facility]) Lymph % 29.3 % 24.0-44.0 [facility]) [place] % 5.7 % 2.0-8.0 [facility]) Eos % 4.9 % 0.0-3.0 [facility]) Baso % 0.6 % 0.0-1.0 [facility]) Neutrophils # 4.1 10 1.5-8.5 [facility] ([facility]) Immature Granulocyte % 0.3 % 0-3.0 [facility] ([facility]) Nucleated Red Blood Cell % 0.0 % 0-0 [facility] ([facility]) Semin[place] # 0.4 10 0.0-0.8 [facility]) Lymph # 2.0 10 1.5-5.0 [facility] Eos # 0.3 10 0.0-0.5 [facility] Baso # 0.0 10 0.0-0.2 [facility]) ID Date Data Source [id number] 04/16/2021 07:49:00 AM EDT [facility] ([facility]) Name Value Range Interpretation Code Description Data Bobbi rce(s) Supporting Document(s) Hemoglobin A1c 5.7 % [facility] ([facility]) <content>REFERENCE RANGES:</content><br/ ><content></content>
<content><=5.6% NORMAL</content>
<content>5.7-6.4% SUGGESTS IMPAIRED GLUCOSE METABOLISM/PREDIABETIC</content>
<content>>= 6.5% ABNORMAL</content>
<content></content> Estimated Average Glucose 117 mg/dL 60-110 [facility] ([facility]) ID Date Data Source [id number] 04/05/2021 01:51:00 PM EDT [facility] ([facility]) Name Value Range Interpretation Code Description Data Bobbi rce(s) Supporting Document(s) Cholesterol 143 [facility] ([facility]) Triglycerides 91 [facility] ([facility]) Cholesterol in LDL [Mass/volume] in Serum or Plasma by calculation 68 [facility] ([facility]) HDL 57 [facility] Chol/HDL Ratio 2.508 [facility] ([facility]) ID Date Data Source [id number] 04/05/2021 01:51:00 PM EDT [facility] ([facility]) Name Value Range Interpretation Code Description Data Bobbi rce(s) Supporting Document(s) Sodium 143 [facility] ([facility] Calcium [Mass/volume] in Serum or Plasma 9.0 [facility] ([facility]) Chloride [Moles/volume] in Serum or Plasma 112 [facility] ([facility]) Potassium [Moles/volume] in Serum or Plasma 4.5 [facility] ([facility]) Carbon dioxide, total [Moles/volume] in Serum or Plasma 26 [facility] ([facility]) Blood Urea Nitrogen 22 7-18 [facility] ([facility]) Glucose 92 83-110 [facility] Creatinine 0.69 0.6-1.0 [facility] ([facility]) Glomerular filtration rate/1.73 sq M.pre dicted [Volume Rate/Area] in Serum or Plasma by Creatinine-based formula (MDRD) Laboratory test result [facility] ([facility]) ID Date Data Source [id number] 04/05/2021 01:51:00 PM EDT [facility]) Name Value Range Interpretation Code Description Data Bobbi rce(s) Supporting Document(s) Platelets 337 172-450 [facility] White Blood Count 8.2 5.0-10.0 [facility] ([facility]) Red Blood Count 4.40 4.00-5.40 [facility] ([facility]) Hemoglobin 12.9 [facility] ([facility]) Hematocrit 40.0 [facility] ([facility]) ID Date Data Source [id number] 04/04/2021 01:48:00 PM EDT [facility]) Name Value Range Interpretation Code Description Data Bobbi rce(s) Supporting Document(s) Thyroid Stimulating Hormone 2.760 [facility] ([facility]) Troponin Laboratory test result [facility] ([facility]) ID Date Data Source [id number] 04/04/2021 01:48:00 PM EDT [facility]) Name Value Range Interpretation Code Description Data Bobbi rce(s) Supporting Document(s) Triglycerides 174 [facility] ([facility]) Cholesterol 174 [facility] ([facility]) HDL 62 [facility] Cholesterol in LDL [Mass/volume] in Serum or Plasma by calculation 77 [facility] ([facility]) Chol/HDL Ratio 2.806 [facility] ([facility]) ID Date Data Source [id number] 04/04/2021 01:48:00 PM EDT [facility] Name Value Range Interpretation Code Description Data Bobbi rce(s) Supporting Document(s) Calcium [Mass/volume] in Serum or Plasma 9.1 [facility] ([facility]) Sodium 141 [facility] Carbon dioxide, total [Moles/volume] in Serum or Plasma 27 [facility] ([facility]) Chloride [Moles/volume] in Serum or Plasma 106 [facility] ([facility]) Potassium [Moles/volume] in Serum or Plasma 4.3 [facility] ([facility]) Blood Urea Nitrogen 24 7-18 [facility] ([facility]) Glucose 103 83-110 [facility] Creatinine 0.86 0.6-1.0 [facility] ([facility]) Glomerular filtration rate/1.73 sq M.pre dicted [Volume Rate/Area] in Serum or Plasma by Creatinine-based formula (MDRD) Laboratory test result [facility] ([facility]) ID Date Data Source [id number] 04/04/2021 01:48:00 PM EDT [facility] ([facility]) Name Value Range Interpretation Code Description Data Bobbi rce(s) Supporting Document(s) White Blood Count 9.9 5.0-10.0 [facility] ([facility]) Red Blood Count 4.80 4.00-5.40 [facility] ([facility]) Platelets 362 172-450 [facility] Hemoglobin 13.8 [facility] ([facility]) Hematocrit 42.7 [facility] ([facility]) ID Date Data Source [id number] 04/04/2021 06:22:00 AM EDT [facility] Name Value Range Interpretation Code Description Data Bobbi rce(s) Supporting Document(s) SARS coronavirus 2 RNA [Presence] in Res piratory specimen by KALYN with probe detection NEGATIVE [facility] This lab was ordered by [facility] a nd reported by [facility]. ID Date Data Source [id number] 03/30/2021 07:36:00 AM EDT [facility] ([facility]) Name Value Range Interpretation Code Description Data Bobbi rce(s) Supporting Document(s) Lyme Disease IgG/IgM Antibodie Laboratory test result 0.00-0.90 [facility] ([facility]) <content>Negative <0.91</content >
<content>Equivocal 0.91 - 1.09</content>
<content>Positive >1.09</content>
<content></content> Lyme Disease IgM Ab Quantitati Laboratory test result 0.00-0.79 [facility] ([facility]) <content>Negative <0.80</content >
<content>Equivocal 0.80 - 1.19</content>
<content>Positive >1.19</content>
<content>.</content>
<content>IgM levels may peak at 3-6 weeks post infection, then</content>
<content>gradually decline.</content>
<content>Performed at: RN - [facility]</content>
<content>[address] [place] [id number]</content>
<content>Aquaculture Director: Gogo Heart MD, Phone: [phone]</content>
<content></content> ID Date Data Source [id number] 03/23/2021 04:47:00 PM EDT [facility] BILATERAL SCREENING TOMOSYNTHESIS 3D DIG ITAL MAMMOGRAM [...] [facility] . 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 waste facility operator+ow8pZNaWpudYHG4lLhtFn/s2xrvbbG6+3SYu/prC7+cCPVY39H87QFHm81N31M/W3z9X8/eM/us5w [file] 5v+zHW8xjyXV42wB4/onRob1olonbSx1/LEYLA+kTYeiW9CPmOAEjcXxcJytiK9vlRbRm4CJA8quYFle3P VNbzvLWQSHpSTiUTR/Bo0yncjbPFb2lpgDLB12Vj4t 2V3nR2zhehDua7yGJ6fckPByFPQgt+HOC4HBgrvwpWRhi5Brp4BCjTyarjsv5YEa8+JJDHpfnmC23AKQ mDbG+j1Avcs6DxpdwhnUDJaANFhUfdNl1D9wZ11vqsJ5AADCtNTq/toD5QwGHke5J3/xRdh4SlIH9MyY Zh64xdSAOV3rWsUSla5WbZjgnYrc6/Oqwon/802PFO x/RCJ3wGuhnp46lUQ8Qmip+zR+oiYasmUZnuuGiWMoxXBWTWp1tqDsoxXDbSOH/sRdCW5fC8l6wgLIo8 3qGxsaqApHOruzT/37muMzkRouFhIq37tzoOE00SyV0SaDxG1A0tDzEa7KuMPWRqdEEvnTmvZ6YkAD7A uVJIgtIySbNpxQdk7dVaoxLwqondhsB00tKzpd5sZi 1OP6gCUQqKrEuwk5ZV/v5BU0I2Gp1fvVV7A1kDf0fa7dcj7QfFMxocLrepf7zxaEyLguLd13hxMnMBgX 78iroEiMRUa/1Tb4k3PClaf48jXrskMrh19yzt5F7OoVMEz7qz1BKllju1fMWWYmJSt94Mh/QmeCbI8P zdKPwbLp8T/W5SDkz3pTbCF40+92d38ewAWFrI+NqJ HESK92d+icq5izBq9lWv1Yjx5fH0YK29FVvSy1arUVyitl4YkkG3JSnypnTdG4Isqeng0UyLvPz41Mld victor hugo+rC27xIjvIcOz+TIXavstUsKcXQqzY0bd6APJZ7TAw4YaCvcq3fHTN8d89Q3699Ypn3tXwyzGpnhm [file] /0GUD5BhQTw1dshCxe/volunteer assistant/5H7T1vfyogFTIlNrg0LzhzkRQwoxQrsUbGs+8DOl4CRP1/HYysn2Lh+OIM MI5dbHx098X8+ScFB/GKK+Dh9s18F3ORv3gE41CJhy i1DsiLbdx9eHjkqDi2N8mHz1ZvM+umaB+FfhNt5jkiURClfaIXD0rDv2Y434hytyG631HbYQvRwhCb0+ 568ah55+GsJFtM/M3GcYUl6CjTxgXXDsU7IbhnLt3ej3afuJs32iQbcfqNJcuHWDwxLFojaOHmZYGxPP irhmGtI8DiHvgbljDv2NyG24QiLhkas9DpalinzQZb [file] interior painter+k17JPXjm65/BpPneZ4XCyFiZHigDpBTifzui5Yv [file] RkuIwfZOmprZimMhP7+Sonya+AA9QZzh36UmtUTgXchgYtV5iYflrAdW3dey0klYB5ewH0Gotw4sReH/dean of admissions [file] GkzONE9GlVPfqqeHa8ia04Vpl+iB3tjt/IGJ1R4/Director Of Corporate Marketing [file] 0ZV+AvEa0EzY8fqamkPUoCSqxEEoS0kM34Y/nxSN36RTKcvB9crbud+e/+WBboWgmjbYWQ5UedaNk+certified solid waste facility operator [file] MH//oBamLuIcSHNZitZEtZNXUkYYOVim69tsGYMYSk pmSABU2bW1iiF2RdqkOvipqwDndxmh9p3f+oyDtIic+Hn5hpAL8SinClB1c1QWbPqo3DBW3LY6/eJT3n dPa8k/ldzrBtc1pK3IoR/wINjXaylPxKL0Nvds6uVmBcloxvlLTlc9/UTcYwFcmOsxdZqBBymQVeZJre l3tu04jRJcBhlS3L6lD5ayHtAmKk3bS6Crds7VyqCe RmDtgCcByw5bVs1oQP1k8R8f3OhsyepQxdOOaHTuwXhdPev0juMIuPBfJwE7IM3qJMwowd51f222FR1N 9cuIuJvCIkEPPXV43QN4XtEs+eKInm4lst543TIOcu/Lmb92wtfnZ2TOXK9DPPXaf3ORLsnQw6ApGkoQ fANrS3uHTBrx6qNSWfM9/4RIjbD7L/cWUN/dF3N8I6 nS0Uy6kWQmhAEVliLK/jLBeP5vv9CyownMDkDKUjtc5HHNBGMN59CkAEo19XwUYuHPfbIzFdZ4QMOIkG RGwuW8GLoWqxgn0x8EN1yvPhu5Hsg20tdo0nRlAaNCRsv7gtqPl2QBXR/hqV6sT3Rzul3GYqNxrTHeWK w6FLV19M3w6NrzjEvYwybcerDy3e5/XrI+keW91qZy lEf4Z7DAo+v4lDEQ1j+wunSu6n/1qbYC0G4XEHjrOy730NLNNODJi6802u5+V1NoBuwH04FmR3McyG9y P7RsKAdol35Qcw2eIpOYgUY+KZHFaCpVdxhD87MLI3N3smBvmsj5sYwBHBJTGb3D2CsOlKivXTbcb8Ng mGm3jWhTGo1IUloM1dExDaQdq8EpEYCZ//MlxI0PlM Kb4gT4c8cRDP9xOG8n8YlpHZQWaRwdX97Ap/fBvgXR7NxPk3Sd15btlxgU008A+otH+fxWVyJve/Ijcp hmlj4Qzjyz/AEBepFTeMNf3IjQFOL2jEx2i3+smqFkQ75CR81LknyfuPMnzCVEE3RGUz8ts9LDhDbtmP +8bHDy/k5grJLkP46/93ismyN/Rd Mechanical Engineer/BSrJGdBtfq4NS [file] José Manuel/h9Tfs8ZXeNY21y3apeM/s0ZayhkC09fzWPEQU0yOja2o0eTtpnVrz5hWknNztCqC5EkvZlOWAfbm [file] project [file] 2+custom harvester/RLlpaSxW76FzmsNdnuRp5ykNB6IL8v/U47NruRK3jEkeqzGClWz0JhtUkVoCQPL5t7QZ/cJOG1 [file] Foreign Banknote Teller+6hM6JTwG7MK/2y3K+6dZyx5FirBpqI2j9gFT0f wX1Z342cZ4qdGk6XQ3yOPBf+EycF9Rmd7JL/N6cfeT8Hx6ujaLYk99H881Lp6rYfgMtvkOMOHzmrQ8n/ vmx8V/X4bxfKYtkSu31a/flY9BwYAEM0v2SUceRwaGhnQlo9LQEqF8guuMHIGt/q5LJOjg8fUJADsB33 Zf6eZPeXRW7kc2c1VgBqV2zUeT17vXv1IOdsKz6WRs qMFeku+Ngm1bt9VaXAF3iKq5SQVc9RpuzMbYp1ERW9uZ+32pSP1qb36eejlAAqOdfQVLed2z9DiUpmrK 4g6OopKB7nS1G5RQGH+xiH+LMCSOsA0t9pU2FAI4Cs/E7g87AYIe88qOSrEA9V4lQJnYun/sZw71rJkm q/mxV8ibe5RvFXaU4/ynGuKoFQjpzsdMCXKjnG9/PF EekTz01RXvRnrs0GwV2LEXGmR2culXnl4xv/sgnTnABQayWIihqnxl4htC5Thy+QAoQRTAku5EvA5jQY TOtuvDnIT2/fLE8eYJI0HvTa5MGUAAP2mjxCu8dISEciQn9BrYdh8htTBdFOIWAUEPE8yoP8FiLcNNJT Klaus/sTevNEHwBteXl916W6ysHOiFOcWEvxtciyZvAI [file] RD/L1XxyNpdQJKTWruaKh+tHLzy2m2vBZS2UElFdn7G8kw7MmHUvc9ubPZuQP5iQLxVC3gB4zXej+behavior management specialist [file] KdoiEHPtTJ82ylPNK7V7qChi+d+8VCalm6k3L5gBF0sOweE0DK4CCqcU7TCmOfBts5+Director Of Corporate Marketing+tGVVakBQks [file] ohxc9lJKrRT/interior painter//2Pj461hg/pbD4rqn7P8cFiIOW5Oc70yylKJ7mICAYcuEXIwR5i7trk6S376IY2Yr [file] vp project/RjJbZxMgQnw2nDS4+AwOLISiCnh7MQ1bZhkZLNuqviuVME18oA2FtnnNgWkJD3hFOf7gUm+aSwlup [file] Rd Mechanical Engineer/Krwq5IrIc4wSLSyjXT2rtp9M4MlTfcf8zdnyONY2ETilAC4agZzvPoUDdagYi+fa3YdB+s4vQLGVb [file] UKLUWFeKYmOJ+XlREWaUvbUMUJztyw8wmracN0UFs3E+Saleem/nSbYFl0mUwnafp+Iq5vw3xYBoMohqjTXG mu/gt0CUVBFaG7+mimYPqzSLDroVym24DIFKq/2ckX 89a1F1CGp+nnUV+YqF3nWJSZ99X/nJ0AwXgDMi3fff+Leg72PIrPSCwUkfUT1RTS5dRd6/WmoVKa6jH+ FJD3XY54jJi7bm4iZmx1bEXRp46a70T0Mcxk83RuZVlZTCp6iKirLcHOO+T+8/EXrA5qAIH/bGigwJXa czHu9KNiUOr952tOM0oHmJDJyq8JxrfFsvJcdfODnd DCj/aSlv5AUnQgczIvX4jisBc8ESP7rCegaqCqUdyY+y419M/xbPxPCz87FUddoAanEWIep/K4srTUNP O1DVhl2iabwSR0OZP7YvOwht2V0rr12F40MAiKERYG7d0Gq1CV61ly9/Zuy61mxJT2rVQF1v500vJJ58 Soto+hOIAJ5l+s9/qehwY29DrcsE41dY48ty9qTpNsAS somH//7dt/KVwIypCEMJwakEn1R6E1uzoC8cZYbOJ7AI/rEduJO1QMk5J3S7J6+ab7s7HQFU4KhnIFUd u48F5spMnl//tLEwDg/zNEf+f/T2GcpQ2KQkYnQAB6ovCclX4yvuQhYvxSGPwwXHQzStwKXFgqASCrK3 NrMYXiTr5ugXCiAE2ZPeFIXiSbFZToFPY8MMBdWKSz PANaQp4FgJs3QOYjCgAIKlFxPTU8flHmpS1idmGiPlgCQJtcKESuUjdBEThmXqtrxJJyRI5GnCM8AFHj C36dCC2QWY6gxJktXXKjZBWkVjj2GBlKFhVmI9QpVBS4GZXcPeYfWOE9GzlgOUjYAPHnOi1aDEEQF2Mm HGQnUOGSCIFxFoFJGkISQQwQVhFXWQX2EHONWf7uBv 4dzEIkOTDsFa2BbiIuYBHmNMEFY7ZzrhOpYjCbACxqUVQrXUOeHj3UJJbwAQEsXP3+MhU4hqHhfM9YuN gkECHnXRNhMQCvXHAEJX2NpWcYFLQUZBPsfouUPdcEzi8YhrEnOLmvsyZGe9Ctk50ekYbNDl2NQnZIDU v7FDFXYlNApB/+VUYEPiSI8DPoQBhzfaFtxDZdKF6Y ZiTvOS3gnp1EKgR0ZWS2zOFjTp0UKMW6EpZeGM6XINVPK3A= ID Date Data Source [id number] 01/19/2021 06:50:00 AM EDT [facility] ([facility]) Name Value Range Interpretation Code Description Data Bobbi rce(s) Supporting Document(s) Triglycerides Level 109 mg/dL [facility] ([facility]) Cholesterol Level 136 mg/dL [facility] ([facility]) HDL Cholesterol 60 mg/dL [facility] ([facility]) LDL Cholesterol 54 mg/dL [facility] ([facility]) Cholesterol Risk Ratio 2.266 [facility] ([facility]) Non-HDL-C 76 mg/dL [facility] ([facility]) ID Date Data Source [id number] 01/19/2021 06:50:00 AM EDT [facility] ([facility]) Name Value Range Interpretation Code Description Data Bobbi rce(s) Supporting Document(s) Glucose, Fasting 80 mg/dL 70-100 [facility] ([facility]) Blood Urea Nitrogen 16 mg/dL 7-18 [facility] ([facility]) Creatinine For GFR 0.73 mg/dL 0.55-1.30 [facility] ([facility]) Glomerular Filtration Rate Laboratory test result [facility]) <content>Units are mL/min/1.73 m2</content>
<content></content>
<content>Chronic Kidney Disease Staging per NKF:</content>
<content></content>
<content>Stage I & II GFR >=60 Normal to Mildly Decreased</content>
<content>Stage III GFR 30- 59 Moderately Decreased</content>
<content>Stage IV GFR 15-29 Severely Decreased</content>
<content>Stage V GFR <15 Very Little GFR Left</content>
<content>ESRD GFR <15 on PROTOHISTORIAN</content>
<content></content> Sodium Level 141 meq/L 136-145 [facility] ([facility]) Chloride Level 109 meq/L 98-107 [facility] ([facility]) Potassium Serum 4.3 meq/L 3.5-5.1 [facility] ([facility]) Calcium Level 9.2 mg/dL 8.8-10.2 [facility] ([facility]) Anion Gap 6 meq/L 8-16 [facility] ([facility]) Carbon Dioxide Level 26 meq/L 21-32 [facility] ([facility]) ID Date Data Source [id number] 01/19/2021 06:50:00 AM EDT [facility] ([facility]) Name Value Range Interpretation Code Description Data Bobbi rce(s) Supporting Document(s) T Uptake 31 % 30-39 [facility] ([facility]) Free Thyroxine Index 3.0 % 1.3-4.8 [facility] ([facility]) Thyroxine (T4) 9.7 ug/dL 4.5-12.0 [facility] ([facility]) Thyroid Stimulating Hormone 1.210 uIU/ML 0.358-3.740 [facility] ([facility]) ID Date Data Source [id number] 01/19/2021 06:50:00 AM EDT [facility] ([facility]) Name Value Range Interpretation Code Description Data Bobbi rce(s) Supporting Document(s) Hemoglobin A1c 5.6 % [facility] ([facility]) <content>REFERENCE RANGES:</content><br/ ><content></content>
<content><=5.6% NORMAL</content>
<content>5.7-6.4% SUGGESTS IMPAIRED GLUCOSE METABOLISM/PREDIABETIC</content>
<content>>= 6.5% ABNORMAL</content>
<content></content> Estimated Average Glucose 114 mg/dL 60-110 [facility] ([facility]) ID Date Data Source [id number] 01/19/2021 06:50:00 AM EDT [facility] ([facility]) Name Value Range Interpretation Code Description Data Bobbi rce(s) Supporting Document(s) White Blood Count 7.1 10 4.0-10.0 [facility] ([facility]) Red Blood Count 4.43 10 4.00-5.40 [facility] ([facility]) Mean Corpuscular Volume 88.9 fl 80.0-96.0 [facility] ([facility]) Hemoglobin 12.9 g/dL 12.0-15.5 [facility] ([facility]) Hematocrit 39.4 % 36.0-47.0 [facility] ([facility]) Mean Corpuscular Hemoglobin 29.1 pg 27.0-33.0 [facility] ([facility]) Mean Corpuscular HGB Conc 32.7 g/dL 32.0-36.5 [facility] ([facility]) Neutrophils % 55.9 % 36.0-66.0 [facility] ([facility]) Red Cell Distribution Width 13.3 % 11.5-14.5 [facility] ([facility]) Platelet Count, Automated 353 10 150-450 [facility] ([facility]) [place] % 6.9 % 2.0-8.0 [facility]) Eos % 6.8 % 0.0-3.0 [facility]) Lymph % 29.5 % 24.0-44.0 [facility] Baso % 0.6 % 0.0-1.0 [facility] Immature Granulocyte % 0.3 % 0-3.0 [facility] ([facility]) Nucleated Red Blood Cell % 0.0 % 0-0 [facility] ([facility]) Neutrophils # 4.0 10 1.5-8.5 [facility] ([facility]) Lymph # 2.1 10 1.5-5.0 [facility]) [place] # 0.5 10 0.0-0.8 [facility]) Eos # 0.5 10 0.0-0.5 [facility]) Baso # 0.0 10 0.0-0.2 [facility]) ID Date Data Source [id number] 01/19/2021 06:50:00 AM EDT [facility] ([facility]) Name Value Range Interpretation Code Description Data Bobbi rce(s) Supporting Document(s) Triglycerides Level 109 mg/dL [facility] ([facility]) Cholesterol Level 136 mg/dL [facility] ([facility]) HDL Cholesterol 60 mg/dL [facility] ([facility]) Cholesterol in LDL [Mass/volume] in Serum or Plasma by calculation 54 mg/dL [facility] ([facility]) Cholesterol Risk Ratio 2.266 [facility] ([facility]) Non-HDL-C 76 mg/dL [facility] ID Date Data Source [id number] 01/19/2021 06:50:00 AM EDT [facility] Name Value Range Interpretation Code Description Data Bobbi rce(s) Supporting Document(s) Glucose, Fasting 80 mg/dL 70-100 [facility] ([facility]) Blood Urea Nitrogen 16 mg/dL 7-18 [facility] ([facility]) Sodium Level 141 meq/L 136-145 [facility] ([facility]) Glomerular Filtration Rate Laboratory test result [facility] ([facility]) <content>Units are mL/min/1.73 m2</content>
<content></content>
<content>Chronic Kidney Disease Staging per NKF:</content>
<content></content>
<content>Stage I & II GFR >=60 Normal to Mildly Decreased</content>
<content>Stage III GFR 30- 59 Moderately Decreased</content>
<content>Stage IV GFR 15-29 Severely Decreased</content>
<content>Stage V GFR <15 Very Little GFR Left</content>
<content>ESRD GFR <15 on PROTOHISTORIAN</content>
<content></content>
<content></content> Creatinine For GFR 0.73 mg/dL 0.55-1.30 [facility] ([facility]) Carbon Dioxide Level 26 meq/L 21-32 [facility] ([facility]) Potassium Serum 4.3 meq/L 3.5-5.1 [facility] (Cardio [facility]y [facility]) Chloride Level 109 meq/L 98-107 [facility] (Cardiol [facility]gy [facility]) Anion gap in Serum or Plasma 6 meq/L 8-16 [facility] (Cardiology [facility]) Calcium Level 9.2 mg/dL 8.8-10.2 [facility] (Cardiolo gy [facility]) ID Date Data Source [id number] 01/19/2021 06:50:00 AM EDT [facility] ([facility]) Name Value Range Interpretation Code Description Data Bobbi rce(s) Supporting Document(s) T Uptake 31 % 30-39 [facility] Thyroxine (T4) 9.7 ug/dL 4.5-12.0 [facility] Free Thyroxine Index 3.0 % 1.3-4.8 [facility] (C [facility]) Thyroid Stimulating Hormone 1.210 uIU/ML 0.358-3.740 [facility] (Cardiology [facility]) ID Date Data Source [id number] 01/19/2021 06:50:00 AM EDT [facility] ([facility]) Name Value Range Interpretation Code Description Data Bobbi rce(s) Supporting Document(s) White Blood Count 7.1 10 4.0-10.0 [facility] ([facility]) Red Blood Count 4.43 10 4.00-5.40 [facility] (Cardio logy [facility]) Hemoglobin 12.9 g/dL 12.0-15.5 [facility] ([facility]) Mean Corpuscular Volume 88.9 fl 80.0-96.0 M [...] 353 10 150-450 [facility] ([facility]) Lymphocytes/100 leukocytes in Blood by Automated count 29.5 % 24. 0-44.0 [facility] ([facility]) Neutrophils % 55.9 % 36.0-66.0 [facility] ([facility]) [place] % 6.9 % 2.0-8.0 [facility] Eos % 6.8 % 0.0-3.0 [facility] Baso % 0.6 % 0.0-1.0 [facility] Immature Granulocyte % 0.3 % 0-3.0 [facility] ([facility]) Nucleated Red Blood Cell % 0.0 % 0-0 [facility] ([facility]) [place] # 0.5 10 0.0-0.8 [facility] Neutrophils # 4.0 10 1.5-8.5 [facility] ([facility]) Lymph # 2.1 10 1.5-5.0 [facility] Baso # 0.0 10 0.0-0.2 [facility] Eos # 0.5 10 0.0-0.5 [facility] ID Date Data Source [id number] 11/08/2020 07:45:00 AM EDT [facility] Name Value Range Interpretation Code Description Data Bobbi rce(s) Supporting Document(s) EGD-Colon[facility] AJMXFx4oJtGAVuImQKViZtzNSKawUZhzMMCzJ8I4UHplGt3RPTczzfZmIUKfWj8+ZJShCN0wdn6wMNAi gMy [file] interior painter+hOz7ZiFppW+MIjkYvXaLn9+mxBHkiV7mltpAXaFod8d5yacPZJ2cObW/MI7k+/3qVCAJo/Be7Tv9i [file] 83LqobB9Qc86tLHwKXNUqff4ZJT2b++drmiq79W9jvAQmoexDG/pY5Nr2vdGGf3OqgJUROdK2Tib+SENIOR CARE [file] ivIO1zRR42vhpt7KEZGRaT4VVc9MxiLL084i/llPutcYIvjh/Isaías/+x9i38yyAcXj3SbvP71h7BjqtVw [file] //Health Care Specialist/78gB0EwQ9nsPq5h2Z/7uLZZ/ukq0x8LBBQNWXoM3hinrJEQiIPFTbVyQi8vlMmHMFgkFaT+6xl [file] Xrsg8Y/zMHoSFuUL00Lty85HRKCgo1+CONTRACTS SPECIALIST/SlyKuZa [file] jsOrfuTXd1ASpvhCark4KzP3W8L36f+brlJj+l+Skin Peeling Machine Operator [file] SRxkcj2BTWSH44pfqmL/anqihikhaVw/frqRkTDDt5 mtg74UZnJvL4v/wok9JIGto+h6qnEkxsX49brWGXCpHL+8ioq0kmH/XfcF8uzl5T2hl6yCpPr0T6kXED ZxArAw/nBKqKzKwzrugGYwMQS9j6S0QLT3wANU2fgS/U0kpeUgI9xwoSRetYcC16voaXhBxy4YA32nfD KCqA4U/6IHNV4hytWN/E1rpbltQNGbVG8Mh3+orhqq bMtBeWnX+3qE+a9DZt4PHEa2S0AyKHiZ7pjsNA9eJC8dHr988VyV7Q/VE95KdMAiYMmXXHn7ao9FA7mo mEMh2CAqOxRCsfnScpkD0AQVu6yeD4M5TdjbGaqQ64ftzmV6vSkyxsWX3EA2QEoSDN2S9LLVGJ68tK5o 9bdPqL0pB4T25vVw6gOxA2FuAp2jHbzh5IBVhWhy45 vG6xHgd/xY3IA+kd70AWTeo4klOK5PoaRad+1vXfg7zcev+0tAajxzGbx3SG1n9UvoQl/kWbapkAr5B6 aE5Rx5dWa0143kB7tlklStM76gIs0lTu9YBGihO7T1DjT98RCg5wMKox6CppwNNwEiHjR31j8YY6c4bc A6EPGSCktpDSbP6VNmzh0iJwxUsYAkO77FgFi2HQBN certified 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 waste facility operator+1O93acm0xqnEyshpccaKinXY5i4MxMsmUqCv7uiRjhsWYMfVq/wwa7izODaftCoesOg/9BZ5Re9YY [file] Lb/aEoMBJlpS6wZZGVQOzKd0eBm/mJgqZ8VZ55kgjfZHaxvrbHRAybFIMhRGfDpEquFU5rvmnunATAc L+xLdKd2EUkvKjOcF93Fovp+XDV29qz4s6WVno5nsO0pH1gsDB9MQof1jlFZY4Al3fW2Ff7oDk1wy31+ EL/+g1uXQXcMMMNT8+IoYTdGHNYY1lN7HWWHQ0ONEN ddbGvVu5m54tW/hIlV252o8vgAd795+3DrznnnltDCVo3wnV9E2AV0512YDa/WXT2wzgGq1+p3pdFJdu iC6U5WRoE2fn8t8tPJkpvLpfiTkmJ7AXmuKl9agb50ay1cXYhswTm0u0+62r1oSnQG0tfpE6ok5cEVb4 Director Of Corporate Marketing/kMfJnKb09vbjiTRqw/uRT8UlwAdiMPe24uHHTp9 [file] gSqQJDrAoWxvGOpJl7rPMEvgMl4Ow4rdWOHcYnsbdyqEHFbgOJzOy0p2s/Rd Mechanical Engineer/eZ5HmZJsws8Lq/wa0tU [file] L+v48FlcdgUiTVtgWpqu0kfvhHUlvjIa9Y2fnluCBlOPAL+grassroots organizer/25MoxydaAULq2JIrLgLLaDzilXGdY [file] caDUR5dAqJhETWDoBL5n7si+4Fj4dKIT47gCVl/Isaías 247Y7NM5l37Nu08UW238NUQnhHkJlKn4YXCxx0Hnp/CsLvv/+3z7P/qP/pdL+9p9deYRTnFmEUptmkRb yJHaFI5LTF1sf2BsHXD3HDTlv3BrCJo9Z4xpivg4hMCiXY6+c4PcYECcDKgsAgQhXsOpWDDjZljyRLAv NNEslDcqLA5qFCDCuqmKWQbicdVzzCAsXO2YDI3nb7 SmFVU1CBNkb3ZaTVz6Z0ClvTOsbmAvNascfZJPZWMoTUFyKEShH8EkRIwuO4pUITg5DqK0ZKX4QSm8PX VoLVqZQiE7EoE7VjGmJXFCJTF9OOt+TRwiXxR6PTNBEBxnVKFoW6BYANdhHSr7XPQoSlH3RbSJJE9xM0 Yel5GtMNBgDAAaBZ9dykYgZUTwDv3AgAwfPQN0L8O3 qQPrN6wHPZPwEhZoPNG9DJHhUa7nnPEqZF1LTcbiS9HwXUElDPPYRBMOPzr+ONTEmTNnV3Rf6ucCk9tW pPXrdWTe4Hjj39PMdmaNqckRJ4acaQtmx4Fc/70QOCWKChNI2SzNZh4EAD0hg3GpZZAfLRbxauPzFknO WQdctZHsvEueFYAIIkIgDcU2RGeQMkQpXC4O ID Date Data Source [id number] 10/26/2020 12:30:00 PM EST [facility] Name Value Range Interpretation Code Description Data Bobbi rce(s) Supporting Document(s) Follow Up [facility] JRPPCa3pUfRRJrVePUFdMrbPOLgdGHsyRQHkZ9W4GAazIn1UWLzxbgAtWEWqGe9+CKJkMW7fev8xSNRr gMy 3nVYIpMwfrG3TiOFObx55OLQHfJGaAZlEwEoXvVtHzCBZtWdNyXEA6WzMiPyudQC4uLFM1MMZqNAsyEC LjMBAhTuFdPWV8SA1wBRqrMOohHl9MTH1vn7QzIQQmBINkUbbTTAwfPOatNAAkCXMlRILmM860pvWnIV 5YvQGuRTv0YOAtZtP3EUSeObX2KSOnIvQaZpByMHUu J1Bxo013gbTlbkV7XT6LV1DdRJF8NVc2A2uxVnPjQHKmTJMiWZ9nSmO9RQPgEp5OoKsfTNBoVIRuFx0N yYa9BPD3YKXrHt4+Pj4+Rf4pacVhVmiFIYJqEM8tvy77DR0HgPWkVZ1YKLcuR87tEVqmYu54GHzuTUYj MjEkWFr6Sy8yMtSih0HvQ5XqLLb1Q2hJCixgV5OrSD vaMG5iJDE8LTBwEb6+Ce4pGYEpPU24UPItVKKYP8YcohAtflUyDJm5XGKgCi6+Ms8qgaZlEpzPSLDiSC 6opq91LL4KNA9txYzxWqC0RJh5T52qvJUzH2oaKaEfS2UfbWdaJNGnFL1jG3NxVZvwNPBtIF3ewgZmzU 3ChNe5QTAgIp6NwLM7WJLbM08mTIWqYTSRCARjk7Sz MO7Py4fcnnLzFRKnJR0NVTScB0WOW4QyR1imxJozKPXsZJ2OIZftnDEnWAf5FO1PeFGuYIThL29mcS6j EY82OFm+WfU0rtLvcY9ZwGfbf2DWRM408ew2rrW5XBTeWrrBOI714gVHQOZEMZdN5r8qdAX9gyI4d4XR k1Ex1C3ZBd43qk+rupuJMMwq93jtmha18yfDLelcxd /74yq3QT1xVAAOwlDneIYnesGoXS1//jdwmbWXYkzUt2IJqUXRalyrsknKhiuVvKcJbWZBbStIPApDv2 dPQECAnkVUUuSNBDe/wJt/GkF5/ki6Cp4uJV6jlNePOP/f/C+Iob6P7HHtQvo3WLGRJWcoNsrggyW/gB 4AQMFA+VcB/Y1SNONOXBGG92rikNs/TAxyTCFB3SLM [file] [place]//G7zIt7ydsbTWvJxWe+sc7mjmWFafKCPc3j3iB [file] aZoJQkX58fLr924wVir+3Os0ZL9/certified 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 waste facility operator+mtRw6ltwutSVQftxPqJ3NkVKhad3rcM2TP7818ZazgPgct+1h [file] ZdV0GxCu791626XHOQKFun7yI4E04xtzeOhc6G2XNPD3x5o0///Be/Ag1Xm1q7zg0/electrical intern+48bPnx2RXp [file] NW+Xqm8MBvfsCxk1c83ygi1V8jHyko+PLATER BARREL/ofY6wRJP [file] uR69RAwCmxiLKhXAFLCzFvje9Cze7lyJhThoph48FMAh+18WjFlg5eVfi/Rd Mechanical Engineer+7X3qFL/qrGe857KC2zi [file] Zbere6xUUqLVpPn72xhZZFUprpzqDqe1qpnh+recruitment advertising manager/ZI0HPKN2PKvbgGx29LrU2ZqieSk8LW0akshx8sV [file] j9rPisvv43EET4+PsDEkkcNr9Ws7jtXnjsu689+DESIGN AGENT [file] Kulwant+tmnWHmo50czbtIjsa1GTIoh5uT8MiEkSQN07xL Y8QxH9+EkNqhLA6kpJAQW3FLylWbipC7kWz+QhAORBHmMIzF8IUrPd0RxjyE5yNAGpXtNf6qLdBrQkeN coAGiVikS4BevWTzLnEBaEc4Oejq9isRctnMRYAV8Vqs4GEx4nNt0BgbfPxP3sf3LjYlA6UUwBmN8UMM fb0+RBHDxMK9MmlzqXkzH7vXkEu2N7Tt+aYOb9ZIRk 8ZczC1FjmlA/uxI+DmzbPhtoUx+RGLfazo9ZSzDfOpS0Z/AmP9BUCWw9tLoYISJuxDNqGaMEyedVgy+i UaB0zS2cG7QXyb0yAIpRwjVAODeNBldTpfNdf//M9OjzMVO2JyRk0QcXPVwnjy+hUQEzbNl27mcyMzaK dwK8+3b67DxXUDyPcy1NBewB4g0AtIxJHxQHFsfbCH rABTpy3CGsQJziyyUeecp6AZakgC3N4jdFLGJ/z50yq2gLzTsEd48Wum4S77U+/nnW7NlUCPfbFZ80Yl I7ujo7sONx+6g/gSr0tOdzrzNF1rDBDRXbouiapYRNQFO6v2CxXDlp+9Cmtga1DRWoA77QAVBapBbQ5p QA9IrXEVf9BXsxS9U8IOTWwpX4koT1Yqbu7uKPG+++ 1cTzegpp6Qb4HDqd4R3L7eaksdZx+YXseM9yumG3a43sS30ACVeU1PEL33NjN6vsn52M853PgqAahCmN htU6Ru3bMcHblK1m5TieFyE2YEJBcpe3j/xua2N9WceLc5i/WwnirMPYAZsxS+9qYhf4y/OVneby3Qtw 0jA/UYaMDjM22q8F08uIE03bWWPI8VRD1TtwZ03SYv Qpl5w1SafV/soto+/ghmodC5DfNY20DeHC/NtjuF1Zf3YtWRfL5v6ir198O0SMzGPoD/kL8qBpjCzltlJD aCyfWpItGI+AvfWVMyPWXzQW/DICuZfdgxZ3B/faocjZOu61KoWLVcVYPAPqO3RSqezwOxNcaUHqr52X /OF2J9PrrsfyixY4V5maFnNaTYahpx4fyblNiG1a1A 4PZiRhtB07aDzmto2kv2g2+LUewUViWtvR17A54uYW5N9Wj/lE5WoHl0OEe2QY3KjNpV77f602uNMZKt 8gtfyvt/632LJFHftMvL0r2XUPyhuefEwBoGNmvYDCslsTPCVVZYwTSmd8n/QrTWYvrailg/sNWjtDVY FKAmbXvnr+D0oYoKEy1Lp2B476dgg8I9qSCoN2TxGM ifK/iMSSbjVrbocYyaIqEKfg6tyiSp9seD7RSXJrr4ZQYFgnOluOKDDl9PpYPXngC8/vX/zfDiZkxNW9 21W7B5aaztR4hqdYWr05JpEX2KqFvwL4anhx7FM8Q93mv/FOwWw0c7zqdEswu3o3u820rvxZN+Director Of Corporate Marketing/tNW [file] U+7kJILDC6RNNEgmt6S2MSQJ7f+QK6x+OOMNUZYMK6 U+4zqSoAmTMCDPAEOdLNFfZNk7iwLy+GkKbReOhepLlzTXGLPDauV5NPlv5SuHCBsTYf5bJWGxAgR0/W VquLW+q2fdEldgiml0sgOxSJ39M8YOpzF1tHaPrDPJV2A9z/1ctlTDjoww0/BeP78eBDEYUTgOE1Ahgo K2Dx/x5zaLYjOV99tNCeH0RiakAeZZ9lXDR8x8XniH 8q021XZPMQ+yFH1xu8UdihgB829jcN5y+KR8z2JjvSPrQNRLDfAUEL8vos1l+brUu1/tizSvm0XLSe/A MsG8Pt+afsURBBrGQs7bgpF2bPx9mFVg1m37PTsqiE95+pf9biUWUQs9VolUcso8Q0rsFssgjGpLI95+ vYlj85wRoGOGD8XFtkFVjHdHYBJxSRf8JPWiE7+gw5 mf1kF2HwbL4cOrKguFe52K/L47tfdlPtrt3+1bZ+bh8c25nu0UlNKKCyfbahC7jzWIxLn2iED0g6vrLn 5Nh5rQXVgwrIAhVTbWMd1Y/lD1L3g22sw+Cfz7rq+dIN+V6zAYbmSC8wJdDykIHJvsRuODszKfoi+zTE 0XzUZBAo3LIEl1ISg8EWxPNybeGcoW/z7UGx5gWq2D K4M0xvKMWH8CMkbbDAu9lZjxYtHH0eahAgtNp9uTt0ZpNwF+aQkKzB28Qgi32jK5kRmR6L3RJggCvtlF FtTUwQjX0l+wOqdcxn+fw+VWCHkd5Zdgy65vtnPJfyrLDBi8eUi2VnDMiMAtb6Jq2vb1jY7pYmVdNUNG [facility]/MKlSi1GWfsd3+p7NYFW4cgcAoB2oT [file] kpnU59ImDOQ2+Efraín+TTLOh+uhMbFLYkeZrIDfRE3rIPqwiq9yosYJI7MM5hPV4pdJIXeCl/oOrNQ7uTa [file] N53XS5zzQSR/[facility]/6T0lty8X6z87wvhT5Wx21Y/nDuTpt1+j5tNuaEtwxKw2S5lWs0OVt8dGBXeAQ8uy [file] khcWV0dZys91l46qqaxS3dd6awnf8Wqktb/dk9siCsIjzYDQtThJLRNvGv+interior painter+8BojsN6YdasRjnZrk6 [file] AZQET8C+RdIJp5sFr+njFdUCb6IFv8dkme3mFAl/mTGi8++Anni+2Q+gxLgtjhGPKDC4fwTwbvqV/1xTQ0 w13OCJ5W8UTS1AxljXAC8ev99R+UNFYio7XFvCOGg5 D2VqqG+hqGyO5Id/NcRhg3z49Ms30J0Yc/Hm2P/oxWAPq+CGz5v96iw/9Yxiam8RMBPZ4o5LnGt+lOSY mA1bcCshdxYLa4GXxyhYsSvFkdRBMH/6fqae3Cl/tUPGDwVHlj8oSJiPaKy9hY3oNCrZMp3pRX3pA2AJ dgCXFgZugRDrK7gzk8GsbYLMM2v1kdFpgg/S6PsFpR NTBm4VxLQf+271otP20qvstmThID4ia7o4bu5fsMw2K/Z2GN2rmKdHwOhOj3UD+o7zn1ySnONVmye39Y INUrQgpo1T6atDOP5Exwna1NZIvOCLkvFm9XUhz/+obU7lgO/1qoFA22ZGPiNnZ0JXEV+AY8m8bRPMN3 UGrjRG02/vzw8E+SDT/QmxPws/PlZEWOpPiA2FAjIZ ERIGOgZmATJBpsZ7F+2K95AbjNFMzntWdG62azyPhEAS5vmJZoWGlmU6UfYHm9ALOJFHfY0zY7ebUqo4 NaRT+ULIjcxgMnFsB2N7xbwde6i6yv43PkV1XZqubOsxA7KQfDhWHVuZIouhcNtLzE0XKlDS+n3f2veO JLJZ1lSWBHzBO/byRUAfS6Z30Sle9uUU518LO1m2Gj [facility]/xD4YbsYA/V5as0VAKGAyIFbKT9JE5U+GjG7/4K5MDvcFxQ8UcbALt6p4d9jR7xxGIIYYf+isszGX [file] Z6Oqq3opMil+4JVyCYGBkjXkmFu2TDKh0ABukILnGajXT6bkehBqiguF5JL4aAgwuqIts5l5a52Xe+Marisol TsJaMCuciIQBuqLgsf3aEoM+Vd700BnB/lBQzr08bf omadPJOi4UZxJ4siTDKo+KcdTgqQTbJUXXMnDyfnk5ZoTKfTlnDH8Qvxuk9Vl/baH4CR+tOnbcAe/4Sy +T/u3YgW/yk5eKXPlqTmdbAyC/ZFYIKVFJYAaLcWRCICpoZGRTj8v3XXZ16jvD6jgtQrEjVcywf2eZnF W6nGH9jeerHU0ftyIzBUKMSi/xOG8fqaUpslY53sMe 8ID/zS2/zuxvkSC/TKgd3YkfMx1raJOXf+X6Sj3k/+LuTCdmSdAVxN5kjbrtni2J+aqn+IUJMaShKLYK 367n/wSpMZ6bm0aIWI5LFW8Qh7HkpCucZHayl61uSy0TCRSFFDNAPc3TN2x8Bl/7AnsWlLEE8GwUqlPY OxvVPoeDw/wBiHS+8mZb7Ar4hKN/H0q8dNnFXYItp/ CDx/+dEj2WOstB5nlMwYdNZDp/78naI/wiw0WTcaNJ9D+4b/Director Of Corporate Marketing/oC5HX5rmwikaeS3OnTLQ7NpvI2u/I [file] Ss5iBgR0UjcTSy5mj2eF5VP9jCTYZc20f1BFwiRXBWnptCCSrRWuRqfhVNrYo4R/MvGu5wiBOdhNU+volunteer assistant qdgl56e3LA4mS2rQ6/G0UM8IhMaNXnMGTus/XTuohT EcNFtxXTIBXcTrnl8I+l+pbW+DZq7DGbd0F87X8uc/uSUMaKGpOdZ8g74B3WV9kQrOkMZqDKom0UnCQi zmkaeOYbXs5C9OyWBt7PmvXrEd4K7+6PuH9rUrcEdIaGc2FaEEeOjO+UpqSF4mkLInAcTmDQ/Z1Glylq MhZ/tlw050/PtlPWFHgzPJdwA3F1n9yMxXoTe5Mdom m4hwZl+Xn7jmvFn/W2w76o5WWZNFl2B5q5prDK/MuNws9XZr7fd0i1tcq3QqT3+iXFH5X1IuNRCYVUdI 0cXFnhsdOq/vE+OjPqxEc/SDp5Ol1QgyYvLD5WXAQfEkJMW6VVxLinJAU6LwlKmX1EKqP4uEbGr/932Z /0Dh5n1jLFUv1j0K94DOW+KbxTYzhWsn2011f6qF/S xMM1kgre90nWdgvuJV+qgKQKO898hJfSBY2B2XQ53ks5BDWCu21qbVvotyYsgxTXLuCInd7sSKY1S+N3 T+l7O3WfY8t5QqmVV7DdJRs+2kocxo8UWjvMrhofdXsvfzeCAvFrRTqSTUaec51PAIhJnfx7jrcQ9vE/ KsCwBfBKXEHNHNxEDKl5JqCXGLBeCEEVsrAsJ3eFwc UEvgFX+aR2bUlR2pc5jeBn5J47GfBq5Nd9qJZyYhieQlBgqh8FajeMQs4+vNCkm1Dj4NHfUbsUxzymgz rlPR76KWQJBuaYnKYWx+HDw/1fznJo5b30mx6nAiJH26H1j047kjZ3jf+dO9T/TSg5DGlmdSiMrjXGAe WAvrOSWSG15SXulS6/CEkbxrPwtXV5abbf51c0eqrL GKSjYf5W5TUJqnTZ8QQvfpusuJKZzobH/9MQTuaj1t91P6b9kHSAnkJCFty1IWwDb2IqdHdIoVbdNzyx bfctjPtNKICq3tpEvXvbVxz37FAgYl9O2/MBa827ykMPb6VyH5pHIro3afd3P2YRqr/KQJZzYq5rKAr4 IxqMYFjFPgxzdtOq1J/iQojDNhczQlMOXJMg8tiqlp /tpamBJjZ78nkCm5MlqM1nk6VeKKAk47LG8ZakygKc6oamxIJwfkTeOYYoE9DpkKsgm1yPCx0aRaV3II W733DAvtvdNi+h+H/vhn+a3cDOfrs2OEs0Cu9z2gJDZtErbtij1niiU8muq61lk+D4MDHBwMBaBE5V9i mrfoIP9Mt0IQ4jLbFMY7yaDvbKYK67LOuYohYSj3v6 ikLuGpZfe5oh/1m19OR6WGEB5a6PfCAr6vMVAzxcwiXeU1GwwrH4nBeCroHLiomi/Qtf5xUE0DyO/Abran [file] UC/TnL1sln025EHFa2RASLLSTPm0faBApAaYxBoboklRtLZgzlCci/Soto+9o+GK/r/vHSUPYd6W4cQ7Ks fMUSE37hVTo3L28WwbILJsW2uDBb902Z02Qz7udCYG ALoi9j749z4Sot6l3/5z/2jtRe3zz2/2Onuvs/d+cv0wqwn9nF/Wt9QNkfH/C7fgYVZ/b5h0Tf87hZyD oPAvnAztvu2ubL+x66kyR+mDm7Dfd59OSHvKpdTPHkNabrV9Hz1pG6stpp+/y7nx9uyHwb87w5JSlvz8 9s9suiefV4RyfkbwbYqqvYlYSYRp/9QNdzryTngMNl Oz10SnV/JV46ZLB/zbHEPeENsd8TIqdAx2cvLpC1ykCt4g96z9sxAOkq0UnH42BSBsOU5GQ+9f+ew9uS CPe/D96Qb+AZS41LPW9puMAdJFqywXSfOJ+Oym8ey/HGIKGe4LELRv1+q5Wtu4TTXHnED1k3mPSG6FWG gsHOx9CrP9NuJNj8YGi7PBqQ0KeR+dv1R58Hio3+volunteer assistant [file] gtpzRdpie4MIiKWkvOVS1d9TxWwbkLAa6LsOgz0/IFByI2Y4dEHQx3k5tz/PLATER BARREL/Gp6oTW1tqGL0lvyjzC [file] +Oalp/0vyH/e+2BDP28qlNYTYWU0bgYaiVyVtM t4mlHl7hdrLWN8rEuYmt1xqwplSkLEXa0Qg36lGO3yn0alV/eHVSBEvSM8M+zo0waqbCZ7TxLa3xMouV d7CDM4nAAK41lanXa+Po6bNYemi48/kpq+URd8r/+fx6IdJ29l96zgeM/F/5/4Uoy/5YG5iE1hd+F4PX W8Nm1TmXRhSK/bGk9v5E//fff0/SNlXn1byWxX+j/o vE/Ik7/R/fBqr979F1T2q+X+e4/7loafx/px7hUW/ROLk0yXr12ONYgdOJitvgSEQsQzPUR6AdbS6o+R IseHQo9xbo6gMljuc6o+nXogFLDY+zksD/nVMociK5KltWrid7nXBvZeCe02vFDmGEkaqLmJP59YaB5w tLKOfW5pBw/Co+FZcPb8ACOSF+/Saleem/uK2pwsY/Bd1q [file] rWsaa+Merlin+3yKTQIpOUiba09Nvpi9+TbrLspTc/UgBY olttb+xcDMccms1HMR3apu9h8xw42c/Q7+ZPUxZvpn8hr9uAOHV+KOX+cuO6QbbJ2i6RsW261e3h4tlf 8YT8kzbO2ZVj4SCX9eLmOk0+a8jB9wMKkzKTZzDlnEww561qNvT07ejMr8oDepSu9OmkV+6Ynk2xCsrn eqql1a1TFnEF/CrY/j+koqgTmu18dTJ8lxB6Ui3GKR XzcGjamSaUSYxgfo8X9QQVwgfzfx2lzpGst/Rmd0baUP4jsNHtEWEmVs9EOLr6s6Da3COdoBZ5HO1lxl pJJy6VHLdn0qabU0q82vvTrfz+mPWy5P3wcx0FE0EsrZc4zbjsdGRxz0eOt2Nk34KJftlN/hZ0EKBa7P mCqvwsvZfosXVaFyrSA1zU332RGUIhZgUZ5ezNzlmd RyfBiaMGCzCs11Ge55QV54bbdtglaId+Fo5eXe/6XkG+WM/hKY1sO2SCgDqbq5mB0dS4ycoVU6UlLlYO r9WMdSGCEubn6HPmtSYvm1CmYwhg3ZeiaXnny+A+6tN+QuOODA+gSVOZJL5iZMy8mCjvtOd/szqxg6bB 49u+OnfurPiXA3QZcsmZIiL89VZ20jam/UQhCs0M/L OMypK4sa0/6tK9e9l2py8YAsmAALACWw62m8P537dK8Mn6ikGR4ZfLu0isI+807qfEOBGQNhzsV2AdUu usXpToom58UqHKgPvcIFtClXgw1+hJWN4/D2z82xW1sSVsyWzPthhsJmgTAeeG2IFcxVRbmftwDgPGSL e3UeB3lKXEqwBNYs/dfvr8ulI8+4ZnBaEV3soVLk14 SsxA5rH3gGMjo4PPXnX8P6JYWh5CKIbaXVQEehwc4sCcvcbl8HbeYGm7j07AksJLFSo9w6Pn/vgBr595 2epP4yxvyw9cg4uLKKMF4Vr2mifeWXgaRbp0Fss1BTk1UAc0ashl6tfP/tUs/ptCV8YiXEFGMJHE+recordist chief [file] CkQiV1UQiWOx+5M6zBJbQzpzNVISoTJoT0woneq+Anni xpjSYb8/5Y0aB9LsI0gC+NCJ3oGgELD6vQuLI4J5hcHW0MtuyRSHIDW1PESzmCl9hEHnGtmdddYoHqip f0rlyovMQbIaFvKrWCq+4CnFx35T3i3jNyeNE63lg7QxM4q9LFq//j1In/8T/+w01k7tsE/wCMVVxtDQ qxrfWcgCJlMT5KQO0ot0GeSBQ6QQDlg6KgOIr3Q6mp jkz4rWCoGG1+r2DaUTKnGZjdNsBdWyKcEMTdVqtoDMXtEDKsiIjdYK7kUDSEojgAKNjgziEnbCEzIL6G RI0lw1IoYKU3UHJfj6VzVKk0N2DqwEMdfoHtXevvgLXYMVHpAJIrNCMbZ0TuQTiwU5pEANm1YoW4ErQk RqI2YxL5NORYYGpmNCR3QsVRB7Z3WLa4ECT+IDxCRD A6MUQuSwA8Utd4NiF9KjA2PfhBFEZ4PwLSQMLHDD5fR5Zfu5FxJOOgMFBnDU2adsNkISHjGj8DwNjoKD X7A2D5gZSkZ9yPEOKzQfEfSTB7QPBgOx5laKVsLY1VUatrY1KlBBLsWUEDIJKNBug+UURUtDOaN8VkwD 2OKyEAuTZfBNze3CJMvZ0FQz4OCM70jxGG9b7XQiQA Vn1uRoYFSzYAThCITY3UGW6ja2YyNRMuYToldbCvLiyRJNwikM[id number] ID Date Data Source [id number] 10/05/2020 02:57:00 PM EST [facility] ([facility]) Name Value Range Interpretation Code Description Data Bobbi rce(s) Supporting Document(s) Ferritin [Mass/volume] in Serum or Plasma 38 ng/mL [facility] ([facility]) ID Date Data Source [id number] 10/05/2020 02:57:00 PM EST [facility] ([facility]) Name Value Range Interpretation Code Description Data Bobbi rce(s) Supporting Document(s) Total Iron Binding Capacity 359 ug/dL 250-450 [facility] ([facility]) Iron (Fe) 63 ug/dL 50-170 [facility] ([facility]) Percent Saturation 17.5 % 13.2-45.0 [facility] ([facility]) ID Date Data Source [id number] 10/05/2020 02:57:00 PM EST [facility] ([facility]) Name Value Range Interpretation Code Description Data Bobbi rce(s) Supporting Document(s) Thyrotropin [Units/volume] in Serum or Plasma by Detec tion limit <= 0.05 mIU/L 0.82 uIU/mL 0.36-3.74 [facility] ([facility] ) ID Date Data Source [id number] 10/05/2020 02:57:00 PM EST [facility] ([facility]) Name Value Range Interpretation Code Description Data Bobbi rce(s) Supporting Document(s) Triglyceride [Mass/volume] in Serum or Plasma 170 mg/dL 30-150 [facility] ([facility]) Cholesterol [Mass/volume] in Serum or Plasma 147 mg/dL 131-200 [facility] ([facility]) Cholesterol in HDL [Mass/volume] in Serum or Plasma 57 mg/dL 35-60 [facility] ([facility]) Cholesterol in LDL [Mass/volume] in Serum or Plasma by calcu lation 56 CALC 50-159 [facility] ([facility]) ID Date Data Source [id number] 10/05/2020 02:57:00 PM EST [facility] ([facility]) Name Value Range Interpretation Code Description Data Bobbi rce(s) Supporting Document(s) Glucose [Mass/volume] in Serum or Plasma 102 mg/dL 74-99 [facility] ([facility]) 100-125 mg/dL PRE-DIABETES/FASTING >126 mg/dL DIABETES/FASTING Creatinine 0.9 mg/dL 0.6-1.3 [facility] ([facility]) Urea nitrogen [Mass/volume] in Serum or Plasma 19 mg/dL 7-18 [facility] ([facility]) Potassium [Moles/volume] in Serum or Plasma 3.9 meq/L 3.5-5.1 [facility] ([facility]) Chloride [Moles/volume] in Serum or Plasma 106 meq/L 98-107 [facility] ([facility]) Sodium [Moles/volume] in Serum or Plasma 143 meq/L 136-145 [facility] ([facility]) Calcium [Mass/volume] in Serum or Plasma 8.8 mg/dL 8.5-10.1 [facility] ([facility]) Carbon dioxide, total [Moles/volume] in Serum or Plasma 29 meq/L 21 -32 [facility] ([facility]) Alkaline phosphatase isoenzyme [Units/volume] in Serum or Pl asma 120 mg/dL 46-116 [facility] ([facility]) Aspartate aminotransferase [Enzymatic activity/volume] in Serum or Plasma 21 U/L 15-37 [facility] ([facility] ) Total Bilirubin 0.2 mg/dL 0.2-1.0 [facility] ([facility]) Albumin [Mass/volume] in Serum or Plasma 3.6 g/dL 3.4-5.0 [facility] ([facility]) Alanine aminotransferase [Enzymatic activity/volume] in Seru m or Plasma 31 U/L 12-78 [facility] ([facility]) Proteinase 3 Ab [Units/volume] in Serum 7.7 g/dL 6.4-8.2 [facility] ([facility]) A/G Ratio 0.88 CALC 1.00-1.90 [facility]) Glomerular filtration rate/1.73 sq M pre dicted among non-blacks [Volume Rate/Area] in Serum or Plasma by Creatinine-based formula (MDRD) Laboratory test result [facility] ([facility] ) Glomerular filtration rate/1.73 sq M pre dicted among blacks [Volume Rate/Area] in Serum or Plasma by Creatinine-based formula (MDRD) Laboratory test result [facility]) <content>CHRONIC KIDNEY DISEASE STAGING PER NKF</content>
<content></content>
<content>STAGE I & II GFR >= 60 NORMAL TO MILDLY DECREASED</content>
<content>STAGE III GFR 30-59 MODERATELY DECREASED</content>
<content>STAGE IV GFR 15-29 SEVERELY DECREASED</content>
<content>STAGE V GFR <15 VERY LITTLE GFR LEFT</content>
<content>ESRD GFR <15 ON PROTOHISTORIAN</content>
<content></content> ID Date Data Source [id number] 10/05/2020 02:57:00 PM EST [facility] ([facility]) Name Value Range Interpretation Code Description Data Bobbi rce(s) Supporting Document(s) Magnesium 2.1 mg/dL 1.8-2.4 [facility] ([facility]) ID Date Data Source [id number] 10/05/2020 02:57:00 PM EST [facility] ([facility]) Name Value Range Interpretation Code Description Data Bobbi rce(s) Supporting Document(s) Hemoglobin A1c/Hemoglobin.total in Blood 6.0 % [facility] Lab Result Notes: Pre-Diabetes 5.7 - 6.4 % Diabetes = or > 6.5% Glucose mean value [Mass/volume] in Blood Estimated fr om glycated hemoglobin 125 mg/dL 60-110 [facility] ([facility] ) ID Date Data Source [id number] 10/05/2020 02:57:00 PM EST [facility] ([facility]) Name Value Range Interpretation Code Description Data Bobbi rce(s) Supporting Document(s) Creatine kinase [Enzymatic activity/volume] in Serum or Plasma 84 U /L 26-192 [facility] ([facility]) ID Date Data Source [id number] 10/05/2020 02:57:00 PM EST [facility] ([facility]) Name Value Range Interpretation Code Description Data Bobbi rce(s) Supporting Document(s) Leukocytes [#/volume] in Blood by Automated count 7.4 x10*3/UL 4.1-10 .9 [facility] Erythrocytes [#/volume] in Blood by Automated count 4.34 x10*6/UL 4.2 0-6.30 [facility] ([facility]) Hematocrit [Volume Fraction] of Blood by Automated count 36.5 % 3 7.0-51.0 [facility] ([facility]) Hemoglobin [Mass/volume] in Blood 12.5 g/dL 12.0-18.0 [facility] ([facility]) MCV 84.1 fL 80.0-97.0 [facility] ([facility]) MCHC 34.2 g/dL 31.0-38.0 [facility] ([facility]) MCH 28.7 pg 26.0-32.0 [facility] ([facility]) MPV 7.7 FL 7.8-11.0 [facility] ([facility]) Platelets [#/volume] in Blood by Automated count 370 x10*3/UL 140-440 [facility] Erythrocyte distribution width [Ratio] by Automated count 13.3 % 11.6-13.7 [facility] ([facility]) Mid % 6.5 % 1.7-9.3 [facility] ([facility]) Lymph % 29.0 % 10.0-58.5 [facility] ([facility]) Lymph # 2.1 x10*3/UL 0.6-4.1 [facility] ([facility]) Neut % 64.5 % 37.0-92.0 [facility] ([facility]) Neut # 4.7 x10*3/UL 2.0-7.8 [facility] ([facility]) Mid # 0.6 x10*3/UL 0.1-0.6 [facility] ([facility]) ID Date Data Source [id number] 10/05/2020 02:57:00 PM EST [facility] ([facility]) Name Value Range Interpretation Code Description Data Bobbi rce(s) Supporting Document(s) Ferritin [Mass/volume] in Serum or Plasma 38 ng/mL 8-252 [facility] ([facility]) ID Date Data Source [id number] 10/05/2020 02:57:00 PM EST [facility] Name Value Range Interpretation Code Description Data Bobbi rce(s) Supporting Document(s) Percent Saturation 17.5 % 13.2-45.0 [facility] [place] Iron (Fe) 63 ug/dL 50-170 [facility] ([facility]) Total Iron Binding Capacity 359 ug/dL 250-450 [facility] ([facility]) ID Date Data Source [id number] 10/05/2020 02:57:00 PM EST [facility] ([facility]) Name Value Range Interpretation Code Description Data Bobbi rce(s) Supporting Document(s) Creatine kinase [Enzymatic activity/volume] in Serum or Plasma 84 U /L 26-192 [facility] ([facility]) ID Date Data Source [id number] 10/05/2020 02:57:00 PM EST [facility] ([facility]) Name Value Range Interpretation Code Description Data Bobbi rce(s) Supporting Document(s) Thyrotropin [Units/volume] in Serum or Plasma by Detec tion limit <= 0.05 mIU/L 0.82 uIU/mL 0.36-3.74 [facility] ([facility]) ID Date Data Source [id number] 10/05/2020 02:57:00 PM EST [facility] ([facility]) Name Value Range Interpretation Code Description Data Bobbi rce(s) Supporting Document(s) Cholesterol [Mass/volume] in Serum or Plasma 147 mg/dL 131-200 [facility] ([facility]) Triglyceride [Mass/volume] in Serum or Plasma 170 mg/dL 30-150 [facility] ([facility]) Cholesterol in HDL [Mass/volume] in Serum or Plasma 57 mg/dL 35-60 [facility] ([facility]) Cholesterol in LDL [Mass/volume] in Serum or Plasma by calcu lation 56 CALC 50-159 [facility] ([facility]) ID Date Data Source [id number] 10/05/2020 02:57:00 PM EST [facility] ([facility]) Name Value Range Interpretation Code Description Data Bobbi rce(s) Supporting Document(s) Glucose [Mass/volume] in Serum or Plasma 102 mg/dL 74-99 [facility] [place] 100-125 mg/dL PRE-DIABETES/FASTING >126 mg/dL DIABETES/FASTING Creatinine 0.9 mg/dL 0.6-1.3 [facility] ([facility]) Urea nitrogen [Mass/volume] in Serum or Plasma 19 mg/dL 7-18 [facility] ([facility]) Potassium [Moles/volume] in Serum or Plasma 3.9 meq/L 3.5-5.1 [facility] ([facility]) Sodium [Moles/volume] in Serum or Plasma 143 meq/L 136-145 [facility] ([facility]) Chloride [Moles/volume] in Serum or Plasma 106 meq/L 98-107 [facility] ([facility]) Calcium [Mass/volume] in Serum or Plasma 8.8 mg/dL 8.5-10.1 [facility] ([facility]) Carbon dioxide, total [Moles/volume] in Serum or Plasma 29 meq/L 21 -32 [facility] ([facility]) Alkaline phosphatase isoenzyme [Units/volume] in Serum or Pl asma 120 mg/dL 46-116 [facility] ([facility]) Aspartate aminotransferase [Enzymatic activity/volume] in Serum or Plasma 21 U/L 15-37 [facility] ([facility]) Total Bilirubin 0.2 mg/dL 0.2-1.0 [facility] ([facility]) Alanine aminotransferase [Enzymatic activity/volume] in Seru m or Plasma 31 U/L 12-78 [facility] ([facility]) A/G Ratio 0.88 CALC 1.00-1.90 [facility] ([facility]) Proteinase 3 Ab [Units/volume] in Serum 7.7 g/dL 6.4-8.2 [facility] ([facility]) Albumin [Mass/volume] in Serum or Plasma 3.6 g/dL 3.4-5.0 [facility] ([facility]) Glomerular filtration rate/1.73 sq M pre dicted among non-blacks [Volume Rate/Area] in Serum or Plasma by Creatinine-based formula (MDRD) Laboratory test result [facility] ([facility]) Glomerular filtration rate/1.73 sq M pre dicted among blacks [Volume Rate/Area] in Serum or Plasma by Creatinine-based formula (MDRD) Laboratory test result [facility] <content>CHRONIC KIDNEY DISEASE STAGING PER NKF</content>
<content></content>
<content>STAGE I & II GFR >= 60 NORMAL TO MILDLY DECREASED</content>
<content>STAGE III GFR 30-59 MODERATELY DECREASED</content>
<content>STAGE IV GFR 15-29 SEVERELY DECREASED</content>
<content>STAGE V GFR <15 VERY LITTLE GFR LEFT</content>
<content>ESRD GFR <15 ON PROTOHISTORIAN</content>
<content></content>
<content></content> ID Date Data Source [id number] 10/05/2020 02:57:00 PM EST [facility] ([facility]) Name Value Range Interpretation Code Description Data Bobbi rce(s) Supporting Document(s) Magnesium 2.1 mg/dL 1.8-2.4 [facility] (Cardiology [facility]) ID Date Data Source [id number] 10/05/2020 02:57:00 PM EST [facility] ([facility]) Name Value Range Interpretation Code Description Data Bobbi rce(s) Supporting Document(s) Hemoglobin A1c/Hemoglobin.total in Blood 6.0 % [facility] ([facility]) Lab Result Notes: Pre-Diabetes 5.7 - 6.4 % Diabetes = or > 6.5% Glucose mean value [Mass/volume] in Blood Estimated fr om glycated hemoglobin 125 mg/dL 60-110 [facility] ([facility]) ID Date Data Source [id number] 10/05/2020 02:57:00 PM EST [facility] ([facility]) Name Value Range Interpretation Code Description Data Bobbi rce(s) Supporting Document(s) Leukocytes [#/volume] in Blood by Automated count 7.4 x10*3/UL 4.1-10 .9 [facility] ([facility]) Hemoglobin [Mass/volume] in Blood 12.5 g/dL 12.0-18.0 [facility] ([facility]) Erythrocytes [#/volume] in Blood by Automated count 4.34 x10*6/UL 4.2 0-6.30 [facility] ([facility]) MCH 28.7 pg 26.0-32.0 [facility] ([facility]) MCV 84.1 fL 80.0-97.0 [facility] ([facility]) Hematocrit [Volume Fraction] of Blood by Automated count 36.5 % 3 7.0-51.0 [facility] ([facility]) Erythrocyte distribution width [Ratio] by Automated count 13.3 % 11.6-13.7 [facility] ([facility]) Platelets [#/volume] in Blood by Automated count 370 x10*3/UL 140-440 [facility] ([facility]) MCHC 34.2 g/dL 31.0-38.0 [facility] ([facility]) Mid % 6.5 % 1.7-9.3 [facility] Platelet mean volume [Entitic volume] in Blood by [place] 7.7 FL 7.8-11.0 [facility] ([facility]) Lymphocytes/100 leukocytes in Blood by Automated count 29.0 % 10. 0-58.5 [facility] ([facility]) Mid # 0.6 x10*3/UL 0.1-0.6 [facility] ([facility]) Lymph # 2.1 x10*3/UL 0.6-4.1 [facility] ([facility]) Neut % 64.5 % 37.0-92.0 [facility] ([facility]) Neutrophils [#/volume] in Semen by Manual count 4.7 x10*3/UL 2.0-7.8 [facility] ([facility]) ID Date Data Source [id number] 07/21/2020 07:39:00 AM EST [facility] ([facility]) Name Value Range Interpretation Code Description Data Bobbi rce(s) Supporting Document(s) Creatine kinase [Enzymatic activity/volume] in Serum or Plasma 97 U /L 26-192 [facility] ([facility]) Lipoprotein lipase [Enzymatic activity/volume] in Serum or P lasma 161 U/L 73-393 [facility] ([facility]) ID Date Data Source [id number] 07/21/2020 07:39:00 AM EST [facility] ([facility]) Name Value Range Interpretation Code Description Data Bobbi rce(s) Supporting Document(s) Color, Urine Laboratory test result [facility] ([facility]) Appearance, Urine Laboratory test result [facility]) PH,Urine 5.0 units 5.0-9.0 [facility]) Specific [place] [facility] Urine Auto 1.012 1.002-1.035 [facility]) Protein, Urine Auto Laboratory test result [facility] ([facility]) Glucose, Urine (Ua) Auto Laboratory test result [facility] ([facility]) Bilirubin, Urine Auto Laboratory test result [facility] ([facility]) Urobilinogen, Urine Auto 0.2 mg/dL 0.0-2.0 [facility] ([facility]) Ketone, Urine Auto Laboratory test result [facility] ([facility]) Nitrite, Urine Auto Laboratory test result [facility] ([facility]) Leukocyte Esterase, Urine Auto Laboratory test result [facility] ([facility]) Blood, Urine Blood Laboratory test result [facility]) WBC, Urine Auto 16 /HPF 0-3 [facility] ([facility]) RBC, Urine Auto 1 /HPF 0-3 [facility] ([facility]) Bacteria, Urine Auto Laboratory test result [facility] ([facility]) Squamous Epithelial Cell Ur AU 0 /HPF 0-6 [facility]) Hyaline Cast, Urine Auto 0 /LPF 0-1 [facility] ([facility]) Mucus, Urine Laboratory test result [facility] ([facility]) ID Date Data Source [id number] 07/21/2020 07:39:00 AM EST [facility] ([facility]) Name Value Range Interpretation Code Description Data Bobbi rce(s) Supporting Document(s) Thyrotropin [Units/volume] in Serum or Plasma by Detec tion limit <= 0.05 mIU/L 0.949 uIU/ML 0.358-3.740 [facility] ([facility] Magnesium [Moles/volume] in Serum or Plasma 2.4 mg/dL 1.8-2.4 [facility] ([facility]) ID Date Data Source [id number] 07/21/2020 07:39:00 AM EST [facility] ([facility]) Name Value Range Interpretation Code Description Data Bobbi rce(s) Supporting Document(s) Triglycerides Level 102 mg/dL [facility] ([facility]) Cholesterol Level 167 mg/dL [facility] ([facility]) HDL Cholesterol 61 mg/dL [facility] ([facility]) LDL Cholesterol 86 mg/dL [facility] ([facility]) Non-HDL-C 106 mg/dL [facility] ([facility]) Cholesterol Risk Ratio 2.737 [facility] ([facility]) ID Date Data Source [id number] 07/21/2020 07:39:00 AM EST [facility] ([facility]) Name Value Range Interpretation Code Description Data Bobbi rce(s) Supporting Document(s) Ferritin [Mass/volume] in Serum or Plasma 26 ng/mL 8-252 [facility] ([facility]) ID Date Data Source [id number] 07/21/2020 07:39:00 AM EST [facility] ([facility]) Name Value Range Interpretation Code Description Data Bobbi rce(s) Supporting Document(s) Glucose, Fasting 86 mg/dL 70-100 [facility] ([facility]) Creatinine For GFR 0.81 mg/dL 0.55-1.30 [facility] ([facility]) Blood Urea Nitrogen 17 mg/dL 7-18 [facility] ([facility]) Glomerular Filtration Rate Laboratory test result [facility]) <content>Units are mL/min/1.73 m2</content>
<content></content>
<content>Chronic Kidney Disease Staging per NKF:</content>
<content></content>
<content>Stage I & II GFR >=60 Normal to Mildly Decreased</content>
<content>Stage III GFR 30- 59 Moderately Decreased</content>
<content>Stage IV GFR 15-29 Severely Decreased</content>
<content>Stage V GFR <15 Very Little GFR Left</content>
<content>ESRD GFR <15 on PROTOHISTORIAN</content>
<content></content> Sodium Level 139 meq/L 136-145 [facility] ([facility]) Carbon Dioxide Level 27 meq/L 21-32 [facility] ([facility]) Chloride Level 107 meq/L 98-107 [facility] ([facility]) Potassium Serum 4.4 meq/L 3.5-5.1 [facility] ([facility]) Calcium Level 9.0 mg/dL 8.8-10.2 [facility] ([facility]) Anion Gap 5 meq/L 8-16 [facility] ([facility]) Ast/Sgot 17 U/L 7-37 [facility] ([facility]) Alt/SGPT 23 U/L 12-78 [facility] ([facility]) Alkaline Phosphatase 124 U/L 45-117 [facility] ([facility]) Bilirubin,Total 0.3 mg/dL 0.2-1.0 [facility] ([facility]) Total Protein 7.4 GM/DL 6.4-8.2 [facility] ([facility]) Albumin/Globulin Ratio 1.0 1.2-2.2 [facility] Albumin 3.7 GM/DL 3.2-5.2 [facility] ID Date Data Source [id number] 07/21/2020 07:39:00 AM EST [facility] ([facility]) Name Value Range Interpretation Code Description Data Bobbi rce(s) Supporting Document(s) White Blood Count 7.4 10 4.0-10.0 [facility] ([facility]) Red Blood Count 4.52 10 4.00-5.40 [facility] ([facility]) Hemoglobin 12.5 g/dL 12.0-15.5 [facility] Hematocrit 39.6 % 36.0-47.0 [facility] Mean Corpuscular Hemoglobin 27.7 pg 27.0-33.0 [facility] ([facility]) Mean Corpuscular Volume 87.6 fl 80.0-96.0 [facility] ([facility]) Platelet Count, Automated 364 10 150-450 [facility] ([facility]) Mean Corpuscular HGB Conc 31.6 g/dL 32.0-36.5 [facility] ([facility]) Red Cell Distribution Width 13.8 % 11.5-14.5 [facility] ([facility]) Nucleated Red Blood Cell % 0.0 % 0-0 [facility] ([facility]) ID Date Data Source [id number] 06/19/2020 07:19:00 AM EST [facility] ([facility]) Name Value Range Interpretation Code Description Data Bobbi rce(s) Supporting Document(s) Red Blood Count 4.39 10 4.00-5.40 [facility] ([facility]) Hemoglobin 11.8 g/dL 12.0-15.5 [facility] ([facility]) White Blood Count 7.5 10 4.0-10.0 [facility] ([facility]) Mean Corpuscular Hemoglobin 26.9 pg 27.0-33.0 [facility] ([facility]) Mean Corpuscular Volume 87.0 fl 80.0-96.0 [facility] ([facility]) Hematocrit 38.2 % 36.0-47.0 [facility] ([facility]) Mean Corpuscular HGB Conc 30.9 g/dL 32.0-36.5 [facility] ([facility]) Red Cell Distribution Width 13.9 % 11.5-14.5 [facility] ([facility]) Nucleated Red Blood Cell % 0.0 % 0-0 [facility] ([facility]) Platelet Count, Automated 382 10 150-450 [facility] ([facility]) ID Date Data Source [id number] 06/19/2020 07:19:00 AM EST [facility] ([facility]) Name Value Range Interpretation Code Description Data Bobbi rce(s) Supporting Document(s) Ferritin [Mass/volume] in Serum or Plasma 22 ng/mL 8-252 [facility] ([facility]) ID Date Data Source [id number] 05/15/2020 09:35:00 AM EDT [facility] ([facility]) Name Value Range Interpretation Code Description Data Bobbi rce(s) Supporting Document(s) Laboratory test finding (navigational concept) Laboratory test result [facility] ([facility]) A false negative result may occur [...] pathogens. DISCLAIMER: Testing was performed using the CasengoID SARS-CoV-2 test. This test was developed and its performance characteristics determined by [employer]. This test has not been FDA cleared [...] or revoked sooner. ID Date Data Source [id number] 05/15/2020 09:35:00 AM EDT [facility] ([facility]) Name Value Range Interpretation Code Description Data Bobbi rce(s) Supporting Document(s) Laboratory test finding (navigational concept) Laboratory test result [facility] ([facility]) A false negative result may occur [...] pathogens. DISCLAIMER: Testing was performed using the CasengoID SARS-CoV-2 test. This test was developed and its performance characteristics determined by [employer]. This test has not been FDA cleared [...] or revoked sooner. ID Date Data Source [id number] 05/10/2020 09:00:00 AM EDT [facility] ([facility]) Name Value Range Interpretation Code Description Data Bobbi rce(s) Supporting Document(s) Occult Blood Laboratory test result [facility] ([facility]) OCCULT BLOOD 1 NEGATIVE ID Date Data Source [id number] 05/10/2020 07:26:00 AM EDT [facility] ([facility]) Name Value Range Interpretation Code Description Data Bobbi rce(s) Supporting Document(s) Ferritin [Mass/volume] in Serum or Plasma 16 ng/mL 8-252 [facility] ([facility]) ID Date Data Source [id number] 05/10/2020 07:26:00 AM EDT [facility] ([facility]) Name Value Range Interpretation Code Description Data Bobbi rce(s) Supporting Document(s) Iron (Fe) 37 ug/dL 50-170 [facility] Total Iron Binding Capacity 381 ug/dL 250-450 [facility] ([facility]) Percent Saturation 9.7 % 13.2-45.0 [facility] ([facility]) ID Date Data Source [id number] 05/10/2020 07:26:00 AM EDT [facility] ([facility]) Name Value Range Interpretation Code Description Data Bobbi rce(s) Supporting Document(s) Red Blood Count 4.29 10 4.00-5.40 [facility] ([facility]) White Blood Count 8.2 10 4.0-10.0 [facility] ([facility]) Hemoglobin 11.7 g/dL 12.0-15.5 [facility]) Hematocrit 37.7 % 36.0-47.0 [facility] Mean Corpuscular Volume 87.9 fl 80.0-96.0 [facility] Red Cell Distribution Width 13.9 % 11.5-14.5 [facility] Mean Corpuscular Hemoglobin 27.3 pg 27.0-33.0 [facility]) Mean Corpuscular HGB Conc 31.0 g/dL 32.0-36.5 [facility] ([facility]) Platelet Count, Automated 336 10 150-450 [facility] ([facility]) Nucleated Red Blood Cell % 0.0 % 0-0 [facility]) ID Date Data Source [id number] 05/10/2020 07:26:00 AM EDT [facility] Name Value Range Interpretation Code Description Data Bobbi rce(s) Supporting Document(s) Hemoglobin A1c 5.6 % [facility] ([facility]) <content>REFERENCE RANGES:</content><br/ ><content></content>
<content><=5.6% NORMAL</content>
<content>5.7-6.4% SUGGESTS IMPAIRED GLUCOSE METABOLISM/PREDIABETIC</content>
<content>>= 6.5% ABNORMAL</content>
<content></content> Estimated Average Glucose 114 mg/dL 60-110 [facility] ([facility]) ID Date Data Source [id number] 05/10/2020 07:26:00 AM EDT [facility] Name Value Range Interpretation Code Description Data Bobbi rce(s) Supporting Document(s) Glucose, Fasting 84 mg/dL 70-100 [facility] ([facility] [facility] Blood Urea Nitrogen 20 mg/dL 7-18 [facility] ([facility]) Creatinine For GFR 0.85 mg/dL 0.55-1.30 [facility] ([facility]) Glomerular Filtration Rate Laboratory test result [facility] ([facility]) <content>Units are mL/min/1.73 m2</content>
<content></content>
<content>Chronic Kidney Disease Staging per NKF:</content>
<content></content>
<content>Stage I & II GFR >=60 Normal to Mildly Decreased</content>
<content>Stage III GFR 30- 59 Moderately Decreased</content>
<content>Stage IV GFR 15-29 Severely Decreased</content>
<content>Stage V GFR <15 Very Little GFR Left</content>
<content>ESRD GFR <15 on PROTOHISTORIAN</content>
<content></content> Sodium Level 142 meq/L 136-145 [facility] ([facility]) Potassium Serum 4.5 meq/L 3.5-5.1 [facility] ([facility]) Chloride Level 109 meq/L 98-107 [facility] ([facility]) Carbon Dioxide Level 28 meq/L 21-32 [facility] Calcium Level 9.0 mg/dL 8.8-10.2 [facility] ([facility]) Anion Gap 5 meq/L 8-16 [facility] ([facility]) ID Date Data Source [id number] 05/10/2020 07:26:00 AM EDT [facility] Name Value Range Interpretation Code Description Data Bobbi rce(s) Supporting Document(s) Glucose, Fasting 84 mg/dL 70-100 [facility] ([facility]) Blood Urea Nitrogen 20 mg/dL 7-18 [facility] ([facility]) Creatinine For GFR 0.85 mg/dL 0.55-1.30 [facility] ([facility]) Potassium Serum 4.5 meq/L 3.5-5.1 [facility] ([facility]io [facility]) Glomerular Filtration Rate Laboratory test result [facility] ([facility]) <content>Units are mL/min/1.73 m2</content>
<content></content>
<content>Chronic Kidney Disease Staging per NKF:</content>
<content></content>
<content>Stage I & II GFR >=60 Normal to Mildly Decreased</content>
<content>Stage III GFR 30- 59 Moderately Decreased</content>
<content>Stage IV GFR 15-29 Severely Decreased</content>
<content>Stage V GFR <15 Very Little GFR Left</content>
<content>ESRD GFR <15 on PROTOHISTORIAN</content>
<content></content>
<content></content> Sodium Level 142 meq/L 136-145 [facility] ([facility]) Anion gap in Serum or Plasma 5 meq/L 8-16 [facility] ([facility]) Carbon Dioxide Level 28 meq/L 21-32 [facility] ([facility]) Chloride Level 109 meq/L 98-107 [facility] ([facility]iol [facility]) Calcium Level 9.0 mg/dL 8.8-10.2 [facility] ([facility]iolo gy [facility]) ID Date Data Source [id number] 05/10/2020 07:26:00 AM EDT [facility] Name Value Range Interpretation Code Description Data Bobbi rce(s) Supporting Document(s) Estimated Average Glucose 114 mg/dL 60-110 [facility] ([facility]) Hemoglobin A1c 5.6 % [facility] ([facility]) <content>REFERENCE RANGES:</content><br/ ><content></content>
<content><=5.6% NORMAL</content>
<content>5.7-6.4% SUGGESTS IMPAIRED GLUCOSE METABOLISM/PREDIABETIC</content>
<content>>= 6.5% ABNORMAL</content>
<content></content>
<content></content> ID Date Data Source [id number] 05/10/2020 07:26:00 AM EDT [facility] ([facility]) Name Value Range Interpretation Code Description Data Bobbi rce(s) Supporting Document(s) Red Blood Count 4.29 10 4.00-5.40 [facility] ([facility]io [facility]) Hemoglobin 11.7 g/dL 12.0-15.5 [facility] ([facility]) White Blood Count 8.2 10 4.0-10.0 [facility] (Card [facility]) Mean Corpuscular Hemoglobin 27.3 pg 27.0-33.0 [facility] ([facility]) Hematocrit 37.7 % 36.0-47.0 [facility] ([facility]) Mean Corpuscular Volume 87.9 fl 80.0-96.0 M EDENT ([facility]) Mean Corpuscular HGB Conc 31.0 g/dL 32.0-36.5 [facility] ([facility]) Red Cell Distribution Width 13.9 % 11.5-14.5 [facility] ([facility]) Platelet Count, Automated 336 10 150-450 [facility] ([facility]) Nucleated Red Blood Cell % 0.0 % 0-0 [facility] ([facility]) ID Date Data Source [id number] 05/10/2020 07:26:00 AM EDT [facility] ([facility]) Name Value Range Interpretation Code Description Data Bobbi rce(s) Supporting Document(s) Iron (Fe) 37 ug/dL 50-170 [facility] Total Iron Binding Capacity 381 ug/dL 250-450 [facility] ([facility]) Percent Saturation 9.7 % 13.2-45.0 [facility] ID Date Data Source [id number] 05/10/2020 07:26:00 AM EDT [facility] ([facility]) Name Value Range Interpretation Code Description Data Bobbi rce(s) Supporting Document(s) Ferritin [Mass/volume] in Serum or Plasma 16 ng/mL 8-252 [facility] ([facility]) ID Date Data Source [id number] 05/01/2020 07:02:00 AM EDT [facility] ([facility]) Name Value Range Interpretation Code Description Data Bobbi rce(s) Supporting Document(s) Ferritin [Mass/volume] in Serum or Plasma 17 ng/mL 8-252 [facility] ([facility]) ID Date Data Source [id number] 05/01/2020 07:02:00 AM EDT [facility] ([facility]) Name Value Range Interpretation Code Description Data Bobbi rce(s) Supporting Document(s) Iron (Fe) 45 ug/dL 50-170 [facility]) Total Iron Binding Capacity 362 ug/dL 250-450 [facility] ([facility]) Percent Saturation 12.4 % 13.2-45.0 [facility] ([facility]) ID Date Data Source [id number] 05/01/2020 07:02:00 AM EDT [facility] ([facility]) Name Value Range Interpretation Code Description Data Bobbi rce(s) Supporting Document(s) Thyrotropin [Units/volume] in Serum or Plasma by Detec tion limit <= 0.05 mIU/L 1.470 uIU/ML 0.358-3.740 [facility] ([facility] ) Magnesium [Moles/volume] in Serum or Plasma 2.1 mg/dL 1.8-2.4 [facility] ID Date Data Source [id number] 05/01/2020 07:02:00 AM EDT [facility] ([facility]) Name Value Range Interpretation Code Description Data Bobbi rce(s) Supporting Document(s) Glucose, Fasting 83 mg/dL 70-100 [facility] ([facility]) Glomerular Filtration Rate Laboratory test result [facility] ([facility]) <content>Units are mL/min/1.73 m2</content>
<content></content>
<content>Chronic Kidney Disease Staging per NKF:</content>
<content></content>
<content>Stage I & II GFR >=60 Normal to Mildly Decreased</content>
<content>Stage III GFR 30- 59 Moderately Decreased</content>
<content>Stage IV GFR 15-29 Severely Decreased</content>
<content>Stage V GFR <15 Very Little GFR Left</content>
<content>ESRD GFR <15 on PROTOHISTORIAN</content>
<content></content> Creatinine For GFR 0.77 mg/dL 0.55-1.30 [facility] ([facility]) Blood Urea Nitrogen 17 mg/dL 7-18 [facility] ([facility]) Chloride Level 110 meq/L 98-107 [facility] ([facility]) Potassium Serum 4.3 meq/L 3.5-5.1 [facility]) Sodium Level 142 meq/L 136-145 [facility] ([facility]) Carbon Dioxide Level 26 meq/L 21-32 [facility] Anion Gap 6 meq/L 8-16 [facility] ([facility]) Calcium Level 9.1 mg/dL 8.8-10.2 [facility] ([facility]) ID Date Data Source [id number] 05/01/2020 07:02:00 AM EDT [facility] ([facility]) Name Value Range Interpretation Code Description Data Bobbi rce(s) Supporting Document(s) Cholesterol Level 159 mg/dL [facility] ([facility]) Triglycerides Level 141 mg/dL [facility] ([facility]) Non-HDL-C 102 mg/dL [facility] ([facility]) HDL Cholesterol 57 mg/dL [facility] ([facility]) LDL Cholesterol 74 mg/dL [facility] Cholesterol Risk Ratio 2.789 [facility] ([facility]) ID Date Data Source [id number] 05/01/2020 07:02:00 AM EDT [facility] ([facility]) Name Value Range Interpretation Code Description Data Bobbi rce(s) Supporting Document(s) Hemoglobin A1c 5.8 % [facility] ([facility]) <content>REFERENCE RANGES:</content><br/ ><content></content>
<content><=5.6% NORMAL</content>
<content>5.7-6.4% SUGGESTS IMPAIRED GLUCOSE METABOLISM/PREDIABETIC</content>
<content>>= 6.5% ABNORMAL</content>
<content></content> Estimated Average Glucose 120 mg/dL 60-110 [facility] ([facility]) ID Date Data Source [id number] 05/01/2020 07:02:00 AM EDT [facility] ([facility]) Name Value Range Interpretation Code Description Data Bobbi rce(s) Supporting Document(s) White Blood Count 7.3 10 4.0-10.0 [facility] ([facility]) Red Blood Count 4.15 10 4.00-5.40 [facility] ([facility]) Mean Corpuscular Volume 86.3 fl 80.0-96.0 [facility] ([facility]) Hematocrit 35.8 % 36.0-47.0 [facility]) Hemoglobin 11.6 g/dL 12.0-15.5 [facility] Mean Corpuscular Hemoglobin 28.0 pg 27.0-33.0 [facility] ([facility]) Mean Corpuscular HGB Conc 32.4 g/dL 32.0-36.5 [facility] NT ([facility]) Red Cell Distribution Width 13.7 % 11.5-14.5 [facility] ([facility]) Nucleated Red Blood Cell % 0.0 % 0-0 [facility] ([facility]) Platelet Count, Automated 324 10 150-450 [facility] ([facility]) ID Date Data Source [id number] 05/01/2020 07:02:00 AM EDT [facility] ([facility]) Name Value Range Interpretation Code Description Data Bobbi rce(s) Supporting Document(s) Red Blood Count 4.15 10 4.00-5.40 [facility] ([facility]) Hemoglobin 11.6 g/dL 12.0-15.5 [facility] ([facility]) White Blood Count 7.3 10 4.0-10.0 [facility] ([facility]) Mean Corpuscular Volume 86.3 fl 80.0-96.0 M EDENT ([facility]) Hematocrit 35.8 % 36.0-47.0 [facility] ([facility]) Mean Corpuscular Hemoglobin 28.0 pg 27.0-33.0 [facility] ([facility]) Platelet Count, Automated 324 10 150-450 [facility] ([facility]) Red Cell Distribution Width 13.7 % 11.5-14.5 [facility] ([facility]) Mean Corpuscular HGB Conc 32.4 g/dL 32.0-36.5 [facility] ([facility]) Nucleated Red Blood Cell % 0.0 % 0-0 [facility] ([facility]) ID Date Data Source [id number] 05/01/2020 07:02:00 AM EDT [facility] Name Value Range Interpretation Code Description Data Bobbi rce(s) Supporting Document(s) Hemoglobin A1c 5.8 % [facility] ([facility]iol [facility]) <content>REFERENCE RANGES:</content><br/ ><content></content>
<content><=5.6% NORMAL</content>
<content>5.7-6.4% SUGGESTS IMPAIRED GLUCOSE METABOLISM/PREDIABETIC</content>
<content>>= 6.5% ABNORMAL</content>
<content></content>
<content></content> Estimated Average Glucose 120 mg/dL 60-110 [facility] ([facility]) ID Date Data Source [id number] 05/01/2020 07:02:00 AM EDT [facility] ([facility]) Name Value Range Interpretation Code Description Data Bobbi rce(s) Supporting Document(s) Cholesterol Level 159 mg/dL [facility] ([facility]) HDL Cholesterol 57 mg/dL [facility] ([facility]io [facility]) Triglycerides Level 141 mg/dL [facility] ([facility]) Non-HDL-C 102 mg/dL [facility] Cholesterol in LDL [Mass/volume] in Serum or Plasma by calculation 74 mg/dL [facility] ([facility]) Cholesterol Risk Ratio 2.789 [facility] ([facility]) ID Date Data Source [id number] 05/01/2020 07:02:00 AM EDT [facility] ([facility]) Name Value Range Interpretation Code Description Data Bobbi rce(s) Supporting Document(s) Glucose, Fasting 83 mg/dL 70-100 [facility] ([facility]) Blood Urea Nitrogen 17 mg/dL 7-18 [facility] ([facility]) Creatinine For GFR 0.77 mg/dL 0.55-1.30 [facility] ([facility]) Sodium Level 142 meq/L 136-145 [facility] ([facility]) Glomerular Filtration Rate Laboratory test result [facility] ([facility]) <content>Units are mL/min/1.73 m2</content>
<content></content>
<content>Chronic Kidney Disease Staging per NKF:</content>
<content></content>
<content>Stage I & II GFR >=60 Normal to Mildly Decreased</content>
<content>Stage III GFR 30- 59 Moderately Decreased</content>
<content>Stage IV GFR 15-29 Severely Decreased</content>
<content>Stage V GFR <15 Very Little GFR Left</content>
<content>ESRD GFR <15 on PROTOHISTORIAN</content>
<content></content>
<content></content> Chloride Level 110 meq/L 98-107 [facility] ([facility]iol [facility]) Potassium Serum 4.3 meq/L 3.5-5.1 [facility] ([facility]io [facility]) Calcium Level 9.1 mg/dL 8.8-10.2 [facility] ([facility]iol[facility]) Anion gap in Serum or Plasma 6 meq/L 8-16 [facility] ([facility]) Carbon Dioxide Level 26 meq/L 21-32 [facility] (C [facility]di[facility]) ID Date Data Source [id number] 05/01/2020 07:02:00 AM EDT [facility] ([facility]i [facility]) Name Value Range Interpretation Code Description Data Bobbi rce(s) Supporting Document(s) Magnesium [Moles/volume] in Serum or Plasma 2.1 mg/dL 1.8-2.4 [facility] ([facility]) Thyrotropin [Units/volume] in Serum or Plasma by Detec tion limit <= 0.05 mIU/L 1.470 uIU/ML 0.358-3.740 [facility] ([facility]) ID Date Data Source [id number] 05/01/2020 07:02:00 AM EDT [facility] ([facility]) Name Value Range Interpretation Code Description Data Bobbi rce(s) Supporting Document(s) Iron (Fe) 45 ug/dL 50-170 [facility] Percent Saturation 12.4 % 13.2-45.0 [facility] ([facility]) Total Iron Binding Capacity 362 ug/dL 250-450 [facility] ([facility]) ID Date Data Source [id number] 05/01/2020 07:02:00 AM EDT [facility] ([facility]) Name Value Range Interpretation Code Description Data Bobbi rce(s) Supporting Document(s) Ferritin [Mass/volume] in Serum or Plasma 17 ng/mL 8-252 [facility] ([facility]) Ferritin [Mass/volume] in Serum or Plasma Laboratory test result [facility] ([facility]) ID Date Data Source [id number] 05/01/2020 07:02:00 AM EDT [facility] ([facility]) Name Value Range Interpretation Code Description Data Bobbi rce(s) Supporting Document(s) Ferritin [Mass/volume] in Serum or Plasma Laboratory test result [facility] ([facility]) Procedure Social History Code Duration Value Status Description Data Source(s ) Smoking 05/16/2021 12:00:00 AM EDT Patient has n ever smoked (pipe, cigarette, cigar) completed Patient has never smoked (pipe, cigarett e, cigar) [facility] ([facility]) Smoking 05/08/2021 12:00:00 AM EDT Patient has never smoked co mpleted Patient has never smoked [facility] ([facility]) Vital Signs ID Date Data Source [id number] Name Value Range Interpretation Code Description Data Source(s) Systolic blood pressure 166 mm[Hg] 166 mm[Hg] M EDENT ([facility]) RT Arm Diastolic blood pressure 82 mm[Hg] 82 mm[Hg] [facility] ([facility]) RT Arm Heart rate 76 /min 76 /min [facility] ([facility]) Body height 65.25 [in_i] 65.25 [in_i] [facility] ([facility]) 5'5.25" Body weight 180.00 [lb_av] 180.00 [lb_av] MEDEN T ([facility]) Body mass index (BMI) [Ratio] 29.7 kg/m2 29.7 k g/m2 [facility] ([facility]) Body mass index (BMI) [Ratio] 30.9 kg/m2 30.9 k g/m2 [facility] ([facility]) Systolic blood pressure 132 mm[Hg] 132 mm[Hg] M EDENT ([facility]) Body height 65 [in_i] 65 [in_i] [facility] 5'5" Body weight 186.00 [lb_av] 186.00 [lb_av] MEDEN T ([facility]) Diastolic blood pressure 80 mm[Hg] 80 mm[Hg] [facility] ([facility]) Heart rate 82 /min 82 /min [facility] ([facility]) Systolic blood pressure 98 mm[Hg] 98 mm[Hg] M [facility] ([facility]) RT Arm Diastolic blood pressure 64 mm[Hg] 64 mm[Hg] [facility] ([facility]) RT Arm Heart rate 92 /min 92 /min [facility] ([facility]) Body height 65.25 [in_i] 65.25 [in_i] [facility] 5'5.25" Body weight 182.00 [lb_av] 182.00 [lb_av] MED[facility] T ([facility]) verbal Body mass index (BMI) [Ratio] 30.1 kg/m2 30.1 k g/m2 [facility] ([facility]) Systolic blood pressure--sitting 124 mm[Hg] 124 mm[Hg] [facility] ([facility]) Ra, medium cuff Body weight 183.00 [lb_av] 183.00 [lb_av] MEDEN T ([facility]) Body height 65 [in_i] 65 [in_i] [facility] ([facility]i [facility]) 5'5" Body mass index (BMI) [Ratio] 30.4 kg/m2 30.4 k g/m2 [facility] ([facility]) Heart rate 72 /min 72 /min [facility] ([facility]) Diastolic blood pressure--sitting 80 mm[Hg] 80 mm[Hg] [facility] ([facility]) Ra, medium cuff Body height 65.25 [in_i] 65.25 [in_i] [facility] 5'5.25" Systolic blood pressure 138 mm[Hg] 138 mm[Hg] M EDENT ([facility]) RT Arm Body mass index (BMI) [Ratio] 30.1 kg/m2 30.1 k g/m2 [facility] ([facility]) Body weight 182.50 [lb_av] 182.50 [lb_av] MEDEN T ([facility]) Diastolic blood pressure 84 mm[Hg] 84 mm[Hg] [facility] ([facility]) RT Arm Heart rate 88 /min 88 /min [facility] ([facility]) Systolic blood pressure 124 mm[Hg] 124 mm[Hg] EDENT ([facility]) Diastolic blood pressure 80 mm[Hg] 80 mm[Hg] [facility] ([facility]) Heart rate 85 /min 85 /min [facility] ([facility]) Body weight 187.00 [lb_av] 187.00 [lb_av] MEDEN T ([facility]) home Heart rate 84 /min 84 /min [facility] ([facility]io [facility]) Systolic blood pressure--sitting 126 mm[Hg] 126 mm[Hg] [facility] ([facility]) Omron, adult cuff/Ra Diastolic blood pressure--sitting 84 mm[Hg] 84 mm[Hg] [facility] ([facility]) Omron, adult cuff/Ra Body weight 188.00 [lb_av] 188.00 [lb_av] MEDEN T ([facility]) Body height 65 [in_i] 65 [in_i] [facility] ([facility]) 5'5" Body mass index (BMI) [Ratio] 31.3 kg/m2 31.3 k g/m2 [facility] ([facility]) Heart rate 86 /min 86 /min [facility] ([facility] Systolic blood pressure 128 mm[Hg] 128 mm[Hg] M EDENT ([facility]) Diastolic blood pressure 70 mm[Hg] 70 mm[Hg] [facility] ([facility]) Body weight 209.00 [lb_av] 209.00 [lb_av] MEDEN T ([facility]) Body mass index (BMI) [Ratio] 34.5 kg/m2 34.5 k g/m2 [facility] Body height 65.25 [in_i] 65.25 [in_i] [facility] ([facility]) 5'5.25" Systolic blood pressure 108 mm[Hg] 108 [facility]Hg] [facility] Diastolic blood pressure 72 mm[Hg] 72 mm[Hg] [facility]) Heart rate 96 /min 96 /min [facility]) Oxygen saturation in Arterial blood by Pulse oximetry 98 % 98 % [facility]) Body height 65 [in_i] 65 [in_i] [facility] ([facility]i [facility]) 5'5" Diastolic blood pressure--sitting 95 mm[Hg] 95 mm[Hg] [facility] ([facility]) Omron, large cuff/LA Body mass index (BMI) [Ratio] 33.6 kg/m2 33.6 k g/m2 [facility] ([facility]) Heart rate 85 /min 85 /min [facility] ([facility]) Systolic blood pressure--sitting 140 mm[Hg] 140 mm[Hg] [facility] ([facility]) Omron, large cuff/LA Body weight 202.00 [lb_av] 202.00 [lb_av] MEDEN T ([facility]) Systolic blood pressure 92 mm[Hg] 92 mm[Hg] [facility] RT Arm Body height 65.25 [in_i] 65.25 [in_i] [facility] ([facility]) 5'5.25" Oxygen saturation in Arterial blood by Pulse oximetry --post exerci se 98 % 98 % [facility] ([facility]) RM Air Diastolic blood pressure 60 mm[Hg] 60 mm[Hg] [facility] ([facility]) RT Arm Heart rate 112 /min 112 /min BRAULIO ([facility]) Body temperature 96.6 [degF] 96.6 [degF] [facility] ([facility])
--- NOTE | 2021-06-04 10:20 | ECGEPIP ---
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
[2021-06-04 10:38] LABS: RSV AMPLIFICATION NEGATIVE (NEGATIVE)
[2021-06-04] MEDS ORDERED: LOSARTAN 50MG TABLET PO ONE (11:00)
--- NOTE | 2021-06-04 11:16 | REPVR ---
PROCEDURE INFORMATION: Exam: MR Head Without Contrast Exam date and time: 06/04/2021 10:36 AM Age: 60 years old Clinical indication: Pain; Headache not specified; Additional info: Tga TECHNIQUE: Imaging protocol: MR of the head without contrast. COMPARISON: MRI-Brain without Contrast 04/04/2021 12:33 PM FINDINGS: Brain: There is mild patchy increased T2 signal intensity within the bilateral cerebral periventricular white matter, consistent with chronic microvascular ischemic changes. There are few small focal areas of chronic ischemia in bilateral frontal, parietal and periatrial white matter. Chronic ischemic changes are seen in the mell. There is no abnormal diffusion weighted signal intensity to suggest an acute ischemic event. On gradient echo imaging, no susceptibility changes are seen to represent parenchymal calcification or degraded blood products. Cerebral ventricles: The ventricular system is not dilated and is appropriate for the patient's age. Bones/joints: Unremarkable. Paranasal sinuses: Mild mucosal thickening is seen in the paranasal sinuses. Mastoid air cells: Normal as visualized. No mastoid effusion. Orbital cavity: Unremarkable. Soft tissues: Unremarkable. IMPRESSION: 1. No acute infarction, masses or hemorrhage is seen. No acute intracranial abnormality is identified. 2. Diffuse age-related cerebral atrophy and mild chronic microvascular white matter ischemic changes, without evidence of an acute intracranial abnormality. 3. There has been no adverse interval change since the previous study. Electronically signed by: Binu Beck On 06/04/2021 11:15:40 AM
--- NOTE | 2021-06-04 11:36 | REP ---
INDICATION: TGA COMPARISON: 04/04/2021 TECHNIQUE: Portable AP view of the chest FINDINGS: The mediastinum and cardiac silhouette are stable and within normal limits for portable technique. The lung burnett are clear without acute consolidation, effusion, or pneumothorax. Skeletal structures are intact. IMPRESSION: No acute cardiopulmonary process appreciated. <Electronically signed by Cliff Rg > 06/04/21 [id number]
[2021-06-04] MEDS ORDERED: MIRA3350 PO (11:51)
[2021-06-04] MEDS ORDERED: HOME MED LIST COMPLETE! XX SCH (11:55)
[2021-06-04] MEDS ORDERED: atenoloL 25 MG TAB PO ONE (12:00)
[2021-06-04] MEDS ORDERED: PILL CUTTER 1 EACH XX PRN (12:05)
--- OUTSIDE RECORDS SUMMARY | 2021-06-04 12:05 | CCD ---
Author Author [facility] Organization [facility] Address Unknown Phone Unavailable Care Team Providers Care Chief Legal Officer Name Role Phone Moni LAY MD Unavailable [...] Unavailable Mesfin Espinoza MD Unavailable Unavailable Mesfin sEpinoza MD Unavailable Unavailable Mesfin Espinoza MD Unavailable [...] Unavailable Brad Mckeon MD Unavailable Unavailable Brad cMkeon MD Unavailable Unavailable Brad Mckeon MD Unavailable [...] Unavailable Unavailable Moni Manzo MD Unavailable Unavailable oMni Manzo MD Unavailable Unavailable Moni Manzo MD [...] ANTECOL, Janet SALOMON MD Unavailable Unavailable ANTECOL, aJnet SALOMON MD Unavailable Unavailable ANTECOL, Janet SALOMON [...] Janet SALOMON MD Unavailable Unavailable ANTECOL, Janet SAOLMON MD Unavailable Unavailable ANTECOL, Janet SALOMON MD [...] Janet SALOMON MD Unavailable Unavailable ANTECOL, Janet SALOOMN MD Unavailable Unavailable Re-disclosure Warning The records [...] is protected by Article 27-F of the [facility] Public Health law. If you continue you may have access to information: Regarding HIV / AIDS; Provided by facilities licensed or operated by the [facility] Office of Mental Health; or Provided by the [facility] Office for People With Developmental Disabilities. If such information is present, then the following [facility] mandated warning applies: This information has been [...] law may result in a fine or half-way sentence or both. A general authorization for the release of medical or other information is NOT sufficient authorization for further disc losure. Family History Family Member Name Family Member Gender Family Member Status Date o f Status Description Data Source(s) Unknown Female Condition [facility] Unknown Female Condition [facility] Unknown Unknown Problem [facility] ([facility]) Unknown Unknown Problem [facility] ([facility] mother Unknown Male Problem [facility] ([facility]) Unknown Male Problem [facility] ([facility]) Unknown Male Problem [facility] ([facility]) Encounters Encounter Providers Location Date Indications Data Source(s ) Outpatient Attender: LEANDRO VERA MD 09/13/2021 12:00:00 AM [facility] Outpatient Attender: Dayanna Mcdermott 10:00:00 AM EDT [facility] ([facility] ) Outpatient Attender: Mitch Espinoza MD [facility] [place] 05/16/2021 10:15:00 AM EDT [facility] ([facility]) Outpatient Attender: Chata CARRILLO Main Office 05/08/2021 12:30:00 PM EDT [facility] ([facility]) Outpatient Attender: Dayanna Mcdermott 03:00:00 PM EDT [facility] ([facility] ) Outpatient Attender: AKANKSHA CARRILLO Main Office 04/20/2021 0 9:15:00 AM EDT [facility] ([facility]) Outpatient Attender: Brad Mckeon MD Main office - [place] 04/10/2021 11:30:00 AM EDT [facility] ([facility]) Outpatient Attender: Dayanna Mcdermott 03:00:00 PM EDT [facility] ([facility] ) Outpatient 03/23/2021 01:30:00 PM EDT [facility] Attender: PEYMAN RICHARDSON) MDReferrer: Moni LAY MD 03/15/2021 08:21:07 PM EDT [facility] Attender: PEYMAN POPE ([place]) MDReferrer: Moni LAY MD 03/15/2021 08:21:07 PM EDT [facility] Outpatient Attender: Dayanna Mcdermott 02:45:00 PM EDT [facility] ([facility] ) Outpatient Attender: UMM OROURKE MD Main Office 01/09/2021 12:00:00 PM EDT [facility] ([facility]) Attender: PEYMAN RICHARDSON) MDReferrer: Moni LAY [...] Attender: Dayanna Mcdermott 01:00:00 PM EST [facility] ([facility] ) Attender: PEYMAN POPE ([place]) MDReferrer: [...] Attender: Dayanna Mcdermott 12:00:00 PM EST [facility] ([facility] ) Outpatient Attender: UMM OROURKE MD Main Office 05/30/2020 08:15:00 AM EDT [facility] ([facility]) Outpatient Attender: Dayanna Mcdermott 10:45:00 AM EDT [facility] ([facility] ) Immunizations Vaccine Date Status Description Data Source(s) COVID-19 VACCINE [employer] 08/29/2020 12:00:00 AM EST completed [facility] Vaccine Series Complete: YESThis Data wa s Submitted to [facility] Via [employer]. COVID-19 VACCINE Pfizer 08/08/2020 12:00:00 AM EST completed [facility] Vaccine Series Complete: NOThis Data was Submitted to [facility] Via [facility]. Medications Medication Brand Name Start Date Product Form Dose Route Admi nistrative Instructions Pharmacy Instructions Status Indications Reaction Description Data Source(s) Escitalopram 5 MG Oral Tablet Escitalopram Oxalate 05/17/2021 12:00 :00 AM EDT ORAL active [facility] ([facility]) Famotidine 20 MG Oral Tablet Famotidine 04/25/2021 12:00:00 AM EDT ORAL active [facility] ([facility]) Metformin HCL ER (Mod) Metformin HCL ER (Mod) 04/19/2021 12:00:00 AM EDT ORAL active [facility] ([facility]) Metformin hydrochloride 500 MG Oral Tablet Metformin HCL 04/09/2021 12:00:00 AM EDT ORAL completed [facility] ([facility]) azilsartan medoxomil 40 MG Oral Tablet [Edarbi] Edarbi 01/11/2021 12:00:00 AM EDT ORAL completed [facility] ([facility]) Metformin hydrochloride 500 MG Oral Tablet Metformin HCL 01/11/2021 12:00:00 AM EDT ORAL completed [facility] ([facility]) azilsartan medoxomil 40 MG Oral Tablet [Edarbi] Edarbi 01/08/2021 12:00:00 AM EDT ORAL completed [facility] ([facility]) azilsartan medoxomil 80 MG Oral Tablet [Edarbi] Edarbi 12/13/2020 12:00:00 AM EDT ORAL completed [facility] ([facility]) doxycycline hyclate 100 MG Oral Capsule DOXYCYCLINE HYCLATE 11/27/2020 12:00:00 AM EDT capsule 28 TAKE ONE CAPSULE BY MOUTH TW ICE A DAY FOR 14 DAYS TAKE ONE CAPSULE BY MOUTH TWICE A DAY FOR 14 DAYS SOLD: 11/27/2020 [facility] doxycycline hyclate 100 MG Oral Capsule Doxycycline Hyclate 11/27/2020 12:00:00 AM EDT completed [facility] ([facility]) 4 mg 10/31/2020 12:00:00 AM EDT tablet 9 TAKE ONE TABLET BY MOUTH EVERY 6 HOURS NEEDED FOR NAUSEA AND VOMITING TAKE ONE TABLET BY MOUTH EVERY 6 HOURS NEEDED FOR NAUSEA AND VOMITING SOLD: 10/31/2020 [facility] 24 HR ferrous sulfate 142 MG Extended Release Oral Tab let Iron (Ferrous Sulfate) 10/05/2020 12:00:00 AM EST ORAL active [facility] ([facility]) Escitalopram 5 MG Oral Tablet Escitalopram Oxalate 10/05/2020 12:00 :00 AM EST ORAL active [facility] ([facility]) azilsartan medoxomil 40 MG Oral Tablet [Edarbi] Edarbi 07/19/2020 12:00:00 AM EST ORAL active [facility] ([facility]) 4 mg 07/17/2020 12:00:00 AM EST tablet 9 TAKE ONE TABLET BY MOUTH EVERY 6 HOURS NEEDED FOR NAUSEA AND VOMITING TAKE ONE TABLET BY MOUTH EVERY 6 HOURS NEEDED FOR NAUSEA AND VOMITING SOLD: 07/23/2020 [facility] atorvastatin 10 MG Oral Tablet Atorvastatin Calcium 05/29/2020 1 2:00:00 AM EDT ORAL active MED[facility] ( [facility]) azilsartan medoxomil 40 MG Oral Tablet [Edarbi] Edarbi 05/29/2020 12:00:00 AM EDT ORAL active [facility] ([facility]) Metformin hydrochloride 500 MG Oral Tablet Metformin HCL 05/29/2020 12:00:00 AM EDT ORAL active [facility] ([facility]) Prednisone 20 MG Oral Tablet Prednisone 05/19/2020 12:00:00 AM EDT ORAL completed [facility] ([facility]) 60 ACTUAT Budesonide 0.16 MG/ACTUAT / fo rmoterol fumarate 0.0045 MG/ACTUAT Metered Dose Inhaler [Symbicort] Symbicort 05/17/2020 12:00:00 AM EDT RESPIRATORY completed [facility] ( [facility]) ferrous sulfate 325 MG Delayed Release Oral Tablet Ferrous S ulfate 05/08/2020 12:00:00 AM EDT ORAL completed [facility] ([facility]) Insurance Providers Payer name Policy type / Coverage type Policy ID Covered green party ID Covered green party's relationship to vargas Policy Vargas Plan Information SAKSHI Murray/Elodia Trad/MX Medigap Part B [id number] Self [id number] SAKSHI Murray/Sarathn Trad/MX Medigap Part B [id number] Self 806 [facility] POS [id number] BS [place] Trad/MX Commercial [id number] Self [id number] BS [place] Trad/MX Medigap Part B [id number] Self [id number] United [employer] [id number] 0 1 [id number] [facility] [id number] 0 1 [id number] [facility] [id number] 0 [id number] [employer] [place] CHOICE PLUS [id number] SP [id number] [place] [employer] Plus Commercial [id number] Self [id number] [facility] O [id number] O [id number] [facility] [id number] SP [id number] [place] [employer] Commercial [id number] Self [id number] [facility] [id number] SP [id number] [employer] [place] 306/806 [id number] SP [id number] [employer]CE[place] BCBS B [id number] S [id number] [facility] P UNAVAILABLE [id number] C UNAVAILABLE [employer] [place] 306/8 P [id number] S [id number] UN[employer] [place] CHOICE PLUS [id number] SP [id number] [place] [employer] PL[employer] O [id number] S [id number] [employer] [place] Other 0 [id number] Self 0 [facility] Commercial [id number] Self [id number] [employer] [place] 306/806 [id number] SP [id number] [facility] [id number] Self 1 [id number] [facility] Plan Medigap Part B [id number] Self 1 [id number] [facility] [id number] Self [id number] [facility] [id number] Self [id number] [facility] [id number] Self [id number] Problems, Conditions, and Diagnoses Code Display Name Description Problem Type Effective Dates Data Source(s) G45.4 Transient global amnesia Transient global amnesia Prob johnson 05/16/2021 12:00:00 AM EDT MED[facility] ([facility]) I10 Essential hypertension Essential hypertension Problem 05/16/2021 12:00:00 AM EDT [facility] ([facility]) E78.5 Hyperlipidemia Hyperlipidemia Problem 05/16/2021 12:00: 00 AM EDT [facility] ([facility]) Z86.73 History of cerebrovascular accident with out residual deficits History of cerebrovascular accident without residual deficits Problem 12:00:00 AM EDT [facility] ([facility]) 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 Problem 04/10/2021 12:00:00 AM EDT [facility] ([facility] ) Z86.73 History of cerebrovascular accident with out residual deficits History of cerebrovascular accident without residual deficits Problem 12:00:00 AM EDT [facility] ([facility] ) E78.00 Pure hypercholesterolemia Pure hypercholesterolemia Pr oblem 05/30/2020 12:00:00 AM EDT [facility] ([facility]) Surgeries/Procedures Procedure Description Date Indications Data Source(s) Brief Emotional/Behav Assessment W/ Scoring Doc Per Standard Inst 05/17/2021 12:00:00 AM EDT MED[facility] ([facility] ) OFFICE OUTPATIENT VISIT 15 MINUTES 05/17/2021 12:00:00 AM EDT [facility] ([facility]) Electrocardiogram Complete 05/16/2021 12:00:00 AM EDT MED[facility] ([facility]) [employer] Heart Rhythm Derived D daly 05/16/2021 12:00:00 AM [facility]T [facility] NEW 45 MINUTES 05/16/2021 12:00:00 A M EDT MED[facility] ([facility]) OFFICE OUTPATIENT VISIT 5 MINUTES 05/08/2021 12:00:00 AM EDT [facility] ([facility]) OFFICE OUTPATIENT VISIT 25 MINUTES 04/25/2021 12:00:00 AM EDT [facility] ([facility]) ECG ROUTINE ECG W/LEAST 12 LDS W/I&R 04/20/2021 12:00: 00 AM EDT [facility] ([facility]) OFFICE OUTPATIENT VISIT 25 MINUTES 04/20/2021 12:00:00 AM EDT [facility] ([facility]) OFFICE OUTPATIENT VISIT 40 MINUTES 04/10/2021 12:00:00 AM EDT [facility] ([facility] ) Hester Cre SRV W/I 7 Days Of DC, Comm W/I 2 Dys Med Rec 04/09/2021 12:00:00 AM EDT [facility] ([facility] ) OFFICE OUTPATIENT VISIT 15 MINUTES 01/11/2021 12:00:00 AM EDT [facility] ([facility]) OFFICE OUTPATIENT VISIT 15 MINUTES 01/09/2021 12:00:00 AM EDT [facility] ([facility]) Implantable Loop Recorder System, Review And Report 01/02/2021 12:00:00 AM EDT [facility] ([facility] Implantable Loop Recorder System, Review And Report 12/01/2020 12:00:00 AM EDT [facility] ([facility] Colonoscopy 11/08/2020 12:00:00 AM EDT M EDENT ([facility]) Implantable Loop Recorder System, Review And Report 10/31/2020 12:00:00 AM EDT [facility] ([facility]) PERIODIC PREVENTIVE MED EST PATIENT 40-64YRS 12:00:00 AM EST [facility] ([facility]) Implantable Loop Recorder System, Review And Report 09/26/2020 12:00:00 AM EST [facility] ([facility]) Implantable Loop Recorder System, Review And Report 08/24/2020 12:00:00 AM EST [facility] ([facility]) Implantable Loop Recorder System, Review And Report 07/20/2020 12:00:00 AM EST [facility] ([facility]) Implantable Loop Recorder System, Review And Report 06/19/2020 12:00:00 AM EST [facility] ([facility]) ECG ROUTINE ECG W/LEAST 12 LDS W/I&R 05/30/2020 12:00: 00 AM EDT [facility] ([facility]) Implantable Loop Recorder System, Review And Report 05/18/2020 12:00:00 AM EDT [facility] ([facility]) Implantable Loop Recorder System, Review And Report 04/17/2020 12:00:00 AM EDT [facility] ([facility]) Results ID Date Data Source [id number] 04/27/2021 10:10:00 AM EDT [facility] Name Value Range Interpretation Code Description Data Bobbi rce(s) Supporting Document(s) SARS-CoV-2 (COVID-19) RNA [Presence] in Respiratory specimen by KALYN with probe detection Not Detected [facility] This lab was ordered by [facility] and reported by [facility]. ID Date Data Source [id number] 04/25/2021 03:03:00 PM EDT [facility] Name Value Range Interpretation Code Description Data Bobbi rce(s) Supporting Document(s) Leukocytes [#/volume] in Blood by Automated count 7.4 x10*3/UL 4.1-10 .9 [facility] Erythrocytes [#/volume] in Blood by Automated count 4.36 x10*6/UL 4.2 0-6.30 [facility] ([facility]) Hemoglobin [Mass/volume] in Blood 12.8 g/dL 12.0-18.0 [facility] ([facility]) Hematocrit [Volume Fraction] of Blood by Automated count 37.4 % 3 7.0-51.0 [facility] ([facility]) MCV 85.7 fL 80.0-97.0 [facility] MCHC 34.4 g/dL 31.0-38.0 [facility] MCH 29.5 pg 26.0-32.0 [facility] MPV 7.5 FL 7.8-11.0 [facility] ([facility]) Erythrocyte distribution width [Ratio] by Automated count 13.1 % 11.6-13.7 [facility] Platelets [#/volume] in Blood by Automated count 368 x10*3/UL 140-440 [facility] ([facility]) Mid % 6.6 % 1.7-9.3 [facility] Neut % 66.0 % 37.0-92.0 [facility] Lymph % 27.4 % 10.0-58.5 [facility] Neut # 4.9 x10*3/UL 2.0-7.8 [facility] ([facility]) Mid # 0.5 x10*3/UL 0.1-0.6 [facility] ([facility]) Lymph # 2.0 x10*3/UL 0.6-4.1 [facility] ([facility]) ID Date Data Source [id number] 04/25/2021 03:03:00 PM EDT [facility] ([facility]) Name Value Range Interpretation Code Description Data Bobbi rce(s) Supporting Document(s) Glucose [Mass/volume] in Serum or Plasma 99 mg/dL 74-99 [facility] ([facility]) 100-125 mg/dL PRE-DIABETES/FASTING >126 mg/dL DIABETES/FASTING Creatinine 1.0 mg/dL 0.6-1.3 [facility] Urea nitrogen [Mass/volume] in Serum or Plasma 15 mg/dL 7-18 [facility] Sodium [Moles/volume] in Serum or Plasma 142 meq/L 136-145 [facility] Potassium [Moles/volume] in Serum or Plasma 4.5 meq/L 3.5-5.1 [facility] Chloride [Moles/volume] in Serum or Plasma 106 meq/L 98-107 [facility] ([facility]) Calcium [Mass/volume] in Serum or Plasma 9.3 mg/dL 8.5-10.1 [facility] Carbon dioxide, total [Moles/volume] in Serum or Plasma 28 meq/L 21 -32 [facility] ([facility]) Glomerular filtration rate/1.73 sq M pre dicted among blacks [Volume Rate/Area] in Serum or Plasma by Creatinine-based formula (MDRD) Laboratory test result [facility] ([facility]) <content>CHRONIC KIDNEY DISEASE STAGING PER NKF</content>
<content></content>
<content>STAGE I & II GFR >= 60 NORMAL TO MILDLY DECREASED</content>
<content>STAGE III GFR 30-59 MODERATELY DECREASED</content>
<content>STAGE IV GFR 15-29 SEVERELY DECREASED</content>
<content>STAGE V GFR <15 VERY LITTLE GFR LEFT</content>
<content>ESRD GFR <15 ON SILICA SPRAY MIXER</content>
<content></content> Glomerular filtration rate/1.73 sq M pre dicted among non-blacks [Volume Rate/Area] in Serum or Plasma by Creatinine-based formula (MDRD) 56 mL/min [facility] ([facility]) ID Date Data Source [id number] 04/25/2021 03:03:00 PM EDT [facility] ([facility]) Name Value Range Interpretation Code Description Data Bobbi rce(s) Supporting Document(s) Hemoglobin A1c/Hemoglobin.total in Blood 5.8 % [facility] ([facility]) Lab Result Notes: Pre-Diabetes 5.7 - 6.4 % Diabetes = or > 6.5% Glucose mean value [Mass/volume] in Blood Estimated fr om glycated hemoglobin 120 mg/dL 60-110 [facility] ([facility] ) ID Date Data Source [id number] 04/25/2021 03:03:00 PM EDT [facility] ([facility] Name Value Range Interpretation Code Description Data Bobbi rce(s) Supporting Document(s) Glucose [Mass/volume] in Serum or Plasma 99 mg/dL 74-99 [facility] ([facility]) 100-125 mg/dL PRE-DIABETES/FASTING >126 mg/dL DIABETES/FASTING Urea nitrogen [Mass/volume] in Serum or Plasma 15 mg/dL 7-18 [facility] ([facility]) Creatinine 1.0 mg/dL 0.6-1.3 [facility] ([facility]) Chloride [Moles/volume] in Serum or Plasma 106 meq/L 98-107 [facility] ([facility]) Sodium [Moles/volume] in Serum or Plasma 142 meq/L 136-145 [facility] ([facility]) Potassium [Moles/volume] in Serum or Plasma 4.5 meq/L 3.5-5.1 [facility] ([facility]) Glomerular filtration rate/1.73 sq M pre dicted among blacks [Volume Rate/Area] in Serum or Plasma by Creatinine-based formula (MDRD) Laboratory test result [facility] ([facility]) <content>CHRONIC KIDNEY DISEASE STAGING PER NKF</content>
<content></content>
<content>STAGE I & II GFR >= 60 NORMAL TO MILDLY DECREASED</content>
<content>STAGE III GFR 30-59 MODERATELY DECREASED</content>
<content>STAGE IV GFR 15-29 SEVERELY DECREASED</content>
<content>STAGE V GFR <15 VERY LITTLE GFR LEFT</content>
<content>ESRD GFR <15 ON SILICA SPRAY MIXER</content>
<content></content>
<content></content> Carbon dioxide, total [Moles/volume] in Serum or Plasma 28 meq/L 21 -32 [facility] ([facility]) Calcium [Mass/volume] in Serum or Plasma 9.3 mg/dL 8.5-10.1 [facility] ([facility]) Glomerular filtration rate/1.73 sq M pre dicted among non-blacks [Volume Rate/Area] in Serum or Plasma by Creatinine-based formula (MDRD) 56 mL/min [facility] ([facility]) ID Date Data Source [id number] 04/25/2021 03:03:00 PM EDT [facility] ([facility] Name Value Range Interpretation Code Description Data Bobbi rce(s) Supporting Document(s) Leukocytes [#/volume] in Blood by Automated count 7.4 x10*3/UL 4.1-10 .9 [facility] ([facility]) Hemoglobin [Mass/volume] in Blood 12.8 g/dL 12.0-18.0 [facility] ([facility]) Erythrocytes [#/volume] in Blood by Automated count 4.36 x10*6/UL 4.2 0-6.30 [facility] ([facility]) Hematocrit [Volume Fraction] of Blood by Automated count 37.4 % 3 7.0-51.0 [facility] ([facility]) MCH 29.5 pg 26.0-32.0 [facility] ([facility] MCV 85.7 fL 80.0-97.0 [facility] ([facility]) Platelets [#/volume] in Blood by Automated count 368 x10*3/UL 140-440 [facility] ([facility]) Platelet mean volume [Entitic volume] in Blood by [place] 7.5 FL 7.8-11.0 [facility] ([facility]) Erythrocyte distribution width [Ratio] by Automated count 13.1 % 11.6-13.7 [facility] ([facility]) MCHC 34.4 g/dL 31.0-38.0 [facility] Lymphocytes/100 leukocytes in Blood by Automated count 27.4 % 10. 0-58.5 [facility] ([facility]) Mid % 6.6 % 1.7-9.3 [facility] ([facility] Neut % 66.0 % 37.0-92.0 [facility] Lymph # 2.0 x10*3/UL 0.6-4.1 [facility] ([facility]) Neutrophils [#/volume] in Semen by Manual count 4.9 x10*3/UL 2.0-7.8 [facility] ([facility]) Mid # 0.5 x10*3/UL 0.1-0.6 [facility] ([facility]) ID Date Data Source [id number] 04/16/2021 12:11:00 PM EDT [facility] Name Value Range Interpretation Code Description Data Bobbi rce(s) Supporting Document(s) Hemoglobin A1c/Hemoglobin.total in Blood 5.7 [facility] ([facility]) ID Date Data Source [id number] 04/16/2021 11:57:00 AM EDT [facility] ([facility] Name Value Range Interpretation Code Description Data Bobbi rce(s) Supporting Document(s) Anti Thrombin 3 Funct Activity 120 % 75-135 [facility] ([facility] Direct Xa inhibitor anticoagulants such as rivaroxaban, apixaban and edoxaban will lead to spuriously elevated antithrombin activity levels possibly masking a deficiency. Anti Thrombin 3 Antigen Immuno 89 % 72-124 [facility] This test was developed and its performa nce characteristics determined by [facility]. It has not been cleared or approved by the Food and Drug Administration. ID Date Data Source [id number] 04/16/2021 11:57:00 AM EDT [facility] [place] [facility] Name Value Range Interpretation Code Description Data Bobbi rce(s) Supporting Document(s) Protein S actual/normal in Platelet poor plasma by Coagulati on assay 111 % 63-140 [facility] ([facility] Protein S activity may be falsely increa sed (masking an abnormal, low result) in patients receiving direct Xa inhibitor (e.g., rivaroxaban, apixaban, edoxaban) or a direct thrombin inhibitor (e.g., dabigatran) anticoagulant treatment due to assay interference by these drugs. Protein C actual/normal in Platelet poor plasma by Coagulati on assay 136 % 73-180 [facility] ([facility]) Performed at: - [facility] [address] [place], [place] [id number] Windows Systems Architect: Gogo Heart MD, Phone: [phone] Performed at: BN - [facility] [place] [address] [place], [place] [id number] Windows Systems Architect: Foster Calhoun MD, Phone: [phone] Performed at: - [facility] [address] [place], [place] [address] 150 Windows Systems Architect: Jacob Aranda [facility], Phone: [phone] ID Date Data Source [id number] 04/16/2021 11:57:00 AM EDT [facility] ([facility]) Name Value Range Interpretation Code Description Data Bobbi rce(s) Supporting Document(s) Antinuclear Antibodies Direct Laboratory test result [facility] ([facility]) ID Date Data Source [id number] 04/16/2021 11:57:00 AM EDT [facility] ([facility]) Name Value Range Interpretation Code Description Data Bobbi rce(s) Supporting Document(s) Factor II Prothrombin Gene An Laboratory test result [facility] ([facility] NEGATIVE No mutation identified. . Comment: A point mutation ([id number]) in the factor II (prothrombin) gene is [...] mutations. This assay detects only the prothrombin [id number] mutation and does not measure genetic abnormalities [...] health care providers to discuss results at [phone] . Methodology: DNA analysis of the Factor [...] developed and its performance characteristics determined by [employer]. It has not been cleared or approved by the Food and Drug Administration. . Justinot SR, et al. Blood. 1996; 88:9851-0926. Nomi EA. Circulation. 2004; 110:e15-e18. Alfredo I, et al. Arterioscler Thromb Vasc Biol. 1999; 19:700-703. . Ryan Monterroso, PhD, [facility] Margarita Arteaga, PhD, [facility] Morgan Ortega, PhD, [facility] Heather Trimble, PhD, [facility] Yosef Mendes, PhD, [facility] Brendan Andrade, PhD, [facility] ID Date Data Source [id number] 04/16/2021 11:57:00 AM EDT [facility] ([facility] [place] Name Value Range Interpretation Code Description Data Bobbi rce(s) Supporting Document(s) Factor V Leiden For [facility] Laboratory test result [facility] ([facility] Result: Negative (no mutation found) . Factor [...] the workup for venous thrombosis include the [id number] mutation in the factor II (prothrombin) gene, protein S and C deficiency, and antithrombin deficiencies. Anticardiolipin antibody and lupus anticoagulant analysis may be appropriate for certain patients, as well as homocysteine levels. . Contact your local [facility] for information on how to order additional testing if desired. . . Genetic counselors are available for health care providers to discuss results at [phone] . Methodology: DNA analysis of the Factor [...] developed and its performance characteristics determined by [facility]. It has not been cleared or approved by the Food and Drug Administration. . References: Julio Blount (1995). Clin Lab Med 16:169-186. . Ryan Monterroso, PhD, [facility] Margarita Arteaga, PhD, [facility] Morgan Ortega, PhD, FAC Heather Trimble, PhD, FAC Yosef Mendes, PhD, [facility] Brendan Andrade PhD, [facility] ID Date Data Source [id number] 04/16/2021 11:57:00 AM EDT [facility] ([facility] [place] Name Value Range Interpretation Code Description Data Bobbi rce(s) Supporting Document(s) Coagulation factor VIII activity actual/ normal in Platelet poor plasma by Coagulation assay 152 % 56-140 [facility] ([facility] [place] ID Date Data Source [id number] 04/16/2021 11:57:00 AM EDT [facility] ([facility] [place] Name Value Range Interpretation Code Description Data Bobbi rce(s) Supporting Document(s) Cardiolipin Igm Antibody Laboratory test result 0-12 [facility] ([facility] <content>Negative: <13</con tent>
<content>Indeterminate: 13 - 20</content>
<content>Low-Med Positive: >20 - 80</content>
<content>High Positive: >80</content>
<content></content> Cardiolipin Iga Antibody Laboratory test result 0-11 [facility] ([facility]) <content>Negative: <12</con tent>
<content>Indeterminate: 12 - 20</content>
<content>Low-Med Positive: >20 - 80</content>
<content>High Positive: >80</content>
<content></content> Cardiolipin Igg Antibody Laboratory test result 0-14 [facility] ([facility]) <content>Negative: <15</con tent>
<content>Indeterminate: 15 - 20</content>
<content>Low-Med Positive: >20 - 80</content>
<content>High Positive: >80</content>
<content></content> ID Date Data Source [id number] 04/16/2021 11:57:00 AM EDT [facility] ([facility]) Name Value Range Interpretation Code Description Data Bobbi rce(s) Supporting Document(s) Angiotensin 1 Converting Enzym 50 U/L 14-82 [facility] ([facility]) ID Date Data Source [id number] 04/16/2021 11:57:00 AM EDT [facility] ([facility]) Name Value Range Interpretation Code Description Data Bobbi rce(s) Supporting Document(s) Cytoplasmic Neutrop AB Anca-C Laboratory test result [facility] ([facility]) Perinuclear AB Anca-P Laboratory test result [facility] ([facility]) The presence of positive fluorescence ex hibiting P-ANCA or C-ANCA patterns alone is not specific for the diagnosis of Amanda's Granulomatosis (WG) or microscopic polyangiitis. Decisions about treatment should not be based solely on ANCA IFA results. The International ANCA Group Consensus recommends follow up testing of positive sera with both KY- 3 and MPO-ANCA enzyme immunoassays. As m any as 5% serum samples are positive only by EIA. Ref. AM J Clin Pathol 1999;111:507-513. Anca-Atypical Laboratory test result [facility] ([facility]) The atypical pANCA pattern has been obse rved in a significant percentage of patients with ulcerative colitis, primary sclerosing cholangitis and autoimmune hepatitis. ID Date Data Source [id number] 04/16/2021 11:57:00 AM EDT [facility] ([facility]) Name Value Range Interpretation Code Description Data Bobbi rce(s) Supporting Document(s) Rheumatoid Factor Quant Laboratory test result [facility] ([facility]) Erythrocyte sedimentation rate by Westergren method 38 mm/hr 0-30 [facility]) ID Date Data Source [id number] 04/16/2021 11:56:00 AM EDT [facility]) Name Value Range Interpretation Code Description Data Bobbi rce(s) Supporting Document(s) Lupus anticoagulant [Interpretation] in Platelet poor plasma 1.1 0-1.2 [facility] ([facility]) RESULT IS LESS THAN 1.2, NO [...] a specific inhibitor. ID Date Data Source [id number] 04/16/2021 07:49:[place] [facility] Name Value Range Interpretation Code Description Data Bobbi rce(s) Supporting Document(s) Iron [Mass/volume] in Serum or Plasma 113 ug/dL 50-170 [facility] ([facility]) Fasting glucose [Moles/volume] in Serum or Plasma 88 mg/dL 70-100 [facility] ([facility]) Ferritin [Mass/volume] in Serum or Plasma 55 ng/mL 8-252 [facility] ([facility]) ID Date Data Source [id number] 04/16/2021 07:49:00 AM EDT [facility]) Name Value Range Interpretation Code Description Data Bobbi rce(s) Supporting Document(s) White Blood Count 6.9 10 4.0-10.0 [facility] ([facility]) Red Blood Count 4.36 10 4.00-5.40 [facility] ([facility]) Hemoglobin 12.6 g/dL 12.0-15.5 [facility] ([facility]) Hematocrit 39.4 % 36.0-47.0 [facility] ([facility]) Mean Corpuscular Volume 90.4 fl 80.0-96.0 [facility] ([facility]) Mean Corpuscular Hemoglobin 28.9 pg 27.0-33.0 [facility] ([facility]) Mean Corpuscular HGB Conc 32.0 g/dL 32.0-36.5 [facility] ([facility]) Red Cell Distribution Width 13.5 % 11.5-14.5 [place] [facility] ([facility]) Platelet Count, Automated 344 10 150-450 [facility] ([facility]) Neutrophils % 59.2 % 36.0-66.0 [facility] ([facility]) Lymph % 29.3 % 24.0-44.0 [facility]) [place] % 5.7 % 2.0-8.0 [facility]) Eos % 4.9 % 0.0-3.0 [facility] ([facility]) Baso % 0.6 % 0.0-1.0 [facility]) Neutrophils # 4.1 10 1.5-8.5 [facility] ([facility]) Immature Granulocyte % 0.3 % 0-3.0 [facility] ([facility]) Nucleated Red Blood Cell % 0.0 % 0-0 [facility] ([facility]) [place] # 0.4 10 0.0-0.8 [facility] ([facility]) Lymph # 2.0 10 1.5-5.0 [facility]) Eos # 0.3 10 0.0-0.5 [facility]) Baso # 0.0 10 0.0-0.2 [facility] ([facility]) ID Date Data Source [id number] 04/16/2021 07:49:00 AM EDT [facility] ([facility]) Name Value Range Interpretation Code Description Data Bobbi rce(s) Supporting Document(s) Hemoglobin A1c 5.7 % [facility] ([facility]) <content>REFERENCE RANGES:</content><br/ ><content></content>
<content><=5.6% NORMAL</content>
<content>5.7-6.4% SUGGESTS IMPAIRED GLUCOSE METABOLISM/PREDIABETIC</content>
<content>>= 6.5% ABNORMAL</content>
<content></content> Estimated Average Glucose 117 mg/dL 60-110 [facility] ([facility]) ID Date Data Source [id number] 04/05/2021 01:51:00 PM EDT [facility] ([facility]) Name Value Range Interpretation Code Description Data Bobbi rce(s) Supporting Document(s) Cholesterol 143 [facility] ([facility]) Triglycerides 91 [facility] ([facility]) Cholesterol in LDL [Mass/volume] in Serum or Plasma by calculation 68 [facility] ([facility]) HDL 57 [facility] Chol/HDL Ratio 2.508 [facility] ([facility]) ID Date Data Source [id number] 04/05/2021 01:51:00 PM EDT [facility] ([facility]) Name Value Range Interpretation Code Description Data Bobbi rce(s) Supporting Document(s) Sodium 143 [facility] Calcium [Mass/volume] in Serum or Plasma 9.0 [facility] ([facility]) Chloride [Moles/volume] in Serum or Plasma 112 [facility] ([facility]) Potassium [Moles/volume] in Serum or Plasma 4.5 [facility] ([facility]) Carbon dioxide, total [Moles/volume] in Serum or Plasma 26 [facility] ([facility]) Blood Urea Nitrogen 22 7-18 [facility] ([facility]) Glucose 92 83-110 [facility] Creatinine 0.69 0.6-1.0 [facility] ([facility]) Glomerular filtration rate/1.73 sq M.pre dicted [Volume Rate/Area] in Serum or Plasma by Creatinine-based formula (MDRD) Laboratory test result [facility] ([facility]) ID Date Data Source [id number] 04/05/2021 01:51:00 PM EDT [facility] ([facility]) Name Value Range Interpretation Code Description Data Bobbi rce(s) Supporting Document(s) Platelets 337 172-450 [facility] White Blood Count 8.2 5.0-10.0 [facility] ([facility]) Red Blood Count 4.40 4.00-5.40 [facility] ([facility]) Hemoglobin 12.9 [facility] ([facility]) Hematocrit 40.0 [facility] ([facility]) ID Date Data Source [id number] 04/04/2021 01:48:00 PM EDT [facility] ([facility]) Name Value Range Interpretation Code Description Data Bobbi rce(s) Supporting Document(s) Thyroid Stimulating Hormone 2.760 [facility] ([facility]) Troponin Laboratory test result [facility] ([facility]) ID Date Data Source [id number] 04/04/2021 01:48:00 PM EDT [facility] ([facility] Name Value Range Interpretation Code Description Data Bobbi rce(s) Supporting Document(s) Triglycerides 174 [facility] ([facility]) Cholesterol 174 [facility] ([facility]) HDL 62 [facility] Cholesterol in LDL [Mass/volume] in Serum or Plasma by calculation 77 [facility] ([facility]) Chol/HDL Ratio 2.806 [facility] ([facility]) ID Date Data Source [id number] 04/04/2021 01:48:00 PM EDT [facility] ([facility] Name Value Range Interpretation Code Description Data Bobbi rce(s) Supporting Document(s) Calcium [Mass/volume] in Serum or Plasma 9.1 [facility] ([facility]) Sodium 141 [facility] Carbon dioxide, total [Moles/volume] in Serum or Plasma 27 [facility] ([facility]) Chloride [Moles/volume] in Serum or Plasma 106 [facility] ([facility]) Potassium [Moles/volume] in Serum or Plasma 4.3 [facility] ([facility]) Blood Urea Nitrogen 24 7-18 [facility] ([facility]) Glucose 103 83-110 [facility] Creatinine 0.86 0.6-1.0 [facility] ([facility]) Glomerular filtration rate/1.73 sq M.pre dicted [Volume Rate/Area] in Serum or Plasma by Creatinine-based formula (MDRD) Laboratory test result [facility] ([facility]) ID Date Data Source [id number] 04/04/2021 01:48:00 PM EDT [facility] ([facility]) Name Value Range Interpretation Code Description Data Bobbi rce(s) Supporting Document(s) White Blood Count 9.9 5.0-10.0 [facility] ([facility]) Red Blood Count 4.80 4.00-5.40 [facility] ([facility]) Platelets 362 172-450 [facility] Hemoglobin 13.8 [facility] ([facility]) Hematocrit 42.7 [facility] ([facility]) ID Date Data Source [id number] 04/04/2021 06:22:00 AM EDT [facility] Name Value Range Interpretation Code Description Data Bobbi rce(s) Supporting Document(s) SARS coronavirus 2 RNA [Presence] in Res piratory specimen by KALYN with probe detection NEGATIVE [facility] This lab was ordered by [facility] a nd reported by [facility]. ID Date Data Source [id number] 03/30/2021 07:36:00 AM EDT [facility] ([facility]) Name Value Range Interpretation Code Description Data Bobbi rce(s) Supporting Document(s) Lyme Disease IgG/IgM Antibodie Laboratory test result 0.00-0.90 [facility] ([facility]) <content>Negative <0.91</content >
<content>Equivocal 0.91 - 1.09</content>
<content>Positive >1.09</content>
<content></content> Lyme Disease IgM Ab Quantitati Laboratory test result 0.00-0.79 [facility] ([facility]) <content>Negative <0.80</content >
<content>Equivocal 0.80 - 1.19</content>
<content>Positive >1.19</content>
<content>.</content>
<content>IgM levels may peak at 3-6 weeks post infection, then</content>
<content>gradually decline.</content>
<content>Performed at: RN - [facility] [place]</content>
<content>[address] [place] [id number]</content>
<content>Windows Systems Architect: Gogo Heart MD, Phone: [phone]</content>
<content></content> ID Date Data Source [id number] 03/23/2021 04:47:00 PM EDT [facility] BILATERAL SCREENING TOMOSYNTHESIS 3D [...] Dr[facility] . Name Value Range Interpretation Code Description Data Bobbi rce(s) Supporting Document(s) ID Date Data Source [id number] 03/15/2021 03:00:00 PM EDT [facility] Name Value Range Interpretation Code Description Data Bobbi rce(s) Supporting Document(s) [facility] Up [facility] CPTAGq4yDbPQUsTfUVUhTfzUIVxjXDvxXNJeV7D3HBleAu4WRDdbbjIbVAKfCf8+DMGzOS0vib8eMBVm gMy [file] m+4A0ZZ2AkA/2SG0QmfbHXJ6bQ+n+X0xbuaDm [file] copy clerk+wo1jGXfKvpmTZZ0uGjrMw/e4qrcunA5+3SYu/prC7+cRFFU86K67WEQz19S95L/W3z9X8/eM/us5w [file] 5v+aFZ8indSH73lR7/gmZnj1fhjcoEg7/LEYLA+bMDvtJ9HNoOQIdzDkcSyrwR6quIaFg7PJA2llTZzd9C VNbzvLWQSHpSTiUTR/Hw1tvfkoEMg3kvfOJK27Wc0s 7O3gZ0hlenGhh2cSE7nmrKSjMPLcr+VFC4KKwozhzITbc9Tkt2JZiInyisnd1NCy9+LATXbvbzY49MCN mDbG+o4Rnuv7DcijzhjHRPvLILsIcaQo3W9fY36tbfJ9UCKUfELa/edV2OzIZuy9G8/uFbo3WmBQ0KsV Fi91ldIEGS0bDmMViv1FkIzlvIma4/Oqwon/802PFO x/FCJ9eEoxmp88bOP6Xdeo+zR+jhKtkmOFylcYiOThaIUXWZf3jrAmzoGWwVJF/lEqGN0qU7u8wsMXq3 3qGxsaqApHOruzT/81joObhEshYlJp70rffOM03WaY0XrKhK4Q1nWiSk5ItRTZEukXCnrWiiW4DaPY9D iPXRiyQtDkTolHqg2nLdziJamavperP87yYupd0sHn 1ZU1kZFIgOoMyro7HL/l2RQ5N6Oo5rvLN4F6sPy1td9fqy7AtKHdryEuvjj9ossJjYyxLp19uwMvWBrE 78iroEiMRUa/0Fw2o3NDqqf60qEknlCbv75zzo4Q1ZkTEXw4ia2MGufyf8yUPQWsWJf84Zl/WylOoL8F hkCQkbOx6X/N4NPkx6pLmKW43+06p42hjTCUbB+NqJ EMYW84u+gqz1onUd7jKc0Nyb8jC4FV92RMwNa3wwHAbrkb3IchT4RHewwmReO7Qwnrjx2KcAyZy56Yrp victor hugo+iS63vAjcEtHc+BZEuoagTmSmLJwvQ0gg6HXGF5HSt5ZoNhem4qFMW9e68M8140Zdn3mYrhiDvilz [file] /6AQT7TfEXq7istYpz/museum preparator/1I5H8zezjpKWQzEnt2LlnnvKQqjrHbwJuAo+7PIo6HKZ2/EVkcr7Mo+OIM LM0guNl019B8+ScFB/GKK+Nf8h55J1LUz8mM93RWsr m4QonXobu1lWqzuGa6S9wQv9CsC+umaB+GkvRl2johIGTzcgFLX8yPk7P659byeqO213PzJDvVuyAv5+ 133mg56+GsJFtM/M6GsGBo3OhHtfRXXwO6LvfcBl9qs6ivgNv59pDfssrQRllBOMmyATgwlGReREMbWE mogjFbC3InHbqlbaSj9VaL71CiOehkv5JazkgiqDAa [file] parts lister+l88VGQlt88/DqFjnL9SFhZdAZtjPpQSsqhui8Pn [file] RkuIwfZOmprZimMhP7+Sonya+HK0YYte37LeqTShEagfSuJ9pXrvbJdC2xhb2onST7ebA2Nger3mOzB/ethics manager [file] YwnBVW8FsXLddkeJa8ja29Tcu+iB3tjt/IGJ1R4/Associate Principal [file] 0ZV+TkFg6AvG8ojnheUXhQOpmMHkH1sS19Y/doII95IKWgbY7zupef+e/+UMssNotquKTW6LbdcVp+copy clerk [file] MH//sAkuCwRfFTUKtoRIaJYUVdMAJOgt99yxLNXWTa erBFMH2tD0xfD0MmpaSlicrvTtxemy8s9m+oyDtIic+Cg6koLU3XawTfN5a7SQvQfn0HMF3XM3/eJT3n dPa8k/ryykIpc5eV5GiS/sSVvRqlkDsOP0Skcd6iJyBfpxarhDNbm6/UTcYwFcmOsxdZqBBymQVeZJre h3cw33lEXvSibC3Y3lA8spWtZbUw7yX6Vpgo1EolFl XuEhkHkVay8mAl9fDB9h4S8k8QdrceeGenZPjYBojZmlGhd0cbFPbTTvYyK8IQ5rVVfwhe86d477AH6M 7guJmWbHFeNHMZO01LS2KjWn+iONov9nbt887RKLyt/Tke30mmiwX5UUAE0RZFGlp5ZORolKf8DnTydI vMEqJ4eBJCgx6tUZHbZ0/4EWyyV2D/cWUN/eL4S3S0 fE4Pj2sGMdfCNXpsYG/vVUbO6sk1OryidOJdGQAttm4PWPZOFX65JnKDe12NbAYhMIvcErDfR8YEDLrJ XWwgB7SVsMzeye7s7CI7uwOek9Hpj02etd8zEiOrUMFfs4breEm8OECL/diC3kP0Qpkp0BGmWfcSRoSE r5KGB33M8p6IzjgIeDoakbftUd1x4/XrI+juJ33tBc jOf7W7HBd+u2tOEL3h+frsNx8k/5wiMA6Y8SDVhoRs696POWVXEHt2155r8+I7NoJkyH74FfJ9IysF5k U5GfUYods83Iph3eMsMKhDF+TGKDoXoCxliJ95RDY0E2tjPfznj9kMzMENKUAw2B5PeMySieYOhlk9Ea lRh4qSzWYe1GDjdS9pBsRyOzn7JcHZZJ//DhkT9JbL Bw0dL3o0gYXP6aYQ2k8GhdFNUKwLtxH52Fn/sOqvQJ7SnFj5Bh05mefwtV652X+otH+fxWVyJve/Ijcp smxn2Erdqw/IAJxqMMuQEi2BeSRQK7tCa8y9+qcsLmO21XB67QwfawbLIemETMH4MGBb7oy0ATeTifmL +8bHDy/u4ulIBkB00/93ismyN/Flexographic Printing Press Operator/KShGUdCygv1NI [file] José Manuel/f1Evi4VQnQB06k4uhrT/y0SrtwoU56cqCZAGQ0xVfo3l6aTgreXxg3tLbdCtgAcA9ScbSwVAJluw [file] ad [employer] [file] 2+pulverizer feeder/ZSkooSyQ46OcxdIloyQo9hqJF3ME7y/W87NnbNU9vTnyvgYFeEr9JnrPiHxAEIF3c5FP/cJOG1 [file] Sole Skiver+5aV1SGvM1QY/2y3K+1bYic7FybOusU8r7cDU3l rU1P027oM7ytPy1LL7aBPOk+UgoM4Qth6XW/F5ypdV1Gw3lrnOUb33S274Jk0uKgjNbhsTUXPkwdK1x/ vmx8V/C7vjzYSwtZb92q/quC4ExFYZI3n3ODrxEahZvsCdo4XAIwQ1tcoAIWJu/s3IYAin4wVJUPwV22 Sq6pBEuEZF7au7f9CtLoN5nLrC63hHm4DDyvCl4DPd qMFeku+Qub3ea7SqJLN2sFt9JLYq9UnndMvTa5SDR5wQ+83fAT2xo96kigcOEiXgeAMFrd2a0CtRwvaP 8w8ZegUF5pC5Q9XXMA+xiH+EVHCBdX6n6rU8GEG3Hy/M6w66VQBk49pCWgHO4E8qYIyRfw/sKy15wWxf q/ngX8ioi0NoTZoD4/ynGuKoFQjpzsdMCXKjnG9/PF CshYn20UOdUtfg3WnI9NQVXfP3ibzZwg0wt/aaeDiURSrbIOtbdvby9mzV9Fhe+QXfNPKDqx4JnQ4iSN TOtuvDnIT2/aNA5zJIW4DhIi6DOUPCP0ppgHp0nOBDvrZy6OwVqp1rdLFhPMVEWVMIN5hvR1VvUzNCBD Klaus/jSqxVYXnDyoYq293U4xwHMiJKbLCcvdkgxTxEZ [file] RD/C2MmrBctSIKIQexzQu+rBEnf4j1yLUU2OUoKnp7U6mn5KdMNcm7apHAnKS4gKBhPP3wO2gLnd+machine strap buckler [file] NdbpSFVrVF47mwDJW9R2rTsk+d+6DNhbm8q2Y7eFA2oUmxK8II8NQfaM4BXiAuTek1+Associate Principal+tGVVakBQks [file] yfzw1dDGjMG/parts lister//3Tk043jj/smY9vxl4V6kCjQCZ0Ui10jfnLX2cLZTQlnAOEqD1j3wgb9N648NL5Ba [file] vp ad sales west/EzOtDjJaVqy3ySE8+BgEGCBcHzf0NR5eZtjOIFsucdzXEL92eL5YxzzKnYhDT3iQAd0lWl+aSwlup [file] [employer] Press Operator/Rwqx8IrEb6qKPFihRR0lew8W3PcKxvg0pgbjKLA7MIbiQJ0ljQbmNhIVbflSt+fa3YdB+d8aELHPz [file] UKLUWFeKYmOJ+KrYPBsYlkEQLCdopn4ccozrU6EPr7C+Saleem/oTaVLq6pKjumai+Zi5tq8rHVrYcoevMGU mu/ne5QATRMgV5+wkuUPezMJLokCxa48RMQTu/2ckX 37t3Y5AJb+nnUV+GyS7rMICG62C/bJ0HiGlVTl2suw+Woh12UMoOZNrXrrRB6OWI8gAf5/LwfGRt3uI+ JDT9AG06xZy5dl5eQku0tJWZn38p74X5Szqt56ZmRJgOOKy0aNbmYeUUC+T+8/VGjI3iBWO/bGigwJXa unHl8KGrZIe748dLP6sPuQKAhn9FnqtRpvKhseVSdz DCj/dHus6KPcSeqlAnJ6tipPl3GXP7fPlvirYkSjqG+y419M/leZnQPw77ABcpsQiuIBTbm/M8iuWTPC K9CHck4kkudPX4RWG3BxGdxq8V9qj99E53OOjVVKFB2i6Na0NQ22hh2/Eba86qhUJ5rNXU9p169zUR11 Soto+yTHJC6o+s9/qozpE84LigdV30lG85vt3sJoAtYM somH//7dt/YEdXqiTBNGqddWa9M6Z2jmmI5nWDeZT4ZA/iJisIR4CBd3S2P3A6+kd4b8CMOZ0VjvDENf v27R3mrHih//tLEwDg/zNEf+f/U6CzkR5RIrWxLQG0kvKyfC2ulgEpUrfPRZrtIZZuFueHLOvyNVYlK5 KhFVRoZp1vfHSsPZ7VOnHSDoYyZVShEPE4TIHkJMXj OFVbFs3QqFk4GQZdVtTIHvOfISS8gvOnkN8kmwOkPhbOLVemLPYdHmsGKLdpJflfrDDbCP9UtPS9XSJs Y94wXQ1BIX4guZjgNFDnQOKgTex2QOlZAjJmK4LuAZQ3NDMiKcYqWSC3NkkvWObKPNGhWj9wMRWBK1Tl MURxSBSCHNNbUgGDSiAFCSpMBfIMUYF9QBILSs9pUa 8xjGIsRDFoRu0XwtOuROTrUAXZT5PciyChPzFuSKnrBVAdYWMbTj8ZWTnhDTJkLG8+NjQ9glKafR0AlS ihMTPhMBZjHPUdCVDQWC5ZzVrIWXCFIKJstttFTrbTgp5WuvAdRNgdfpOIg0Hjw48sbVbQFy7BViFQII q8AJBLFqXFzW/+LYAPHxWD5BDqRClqwsNtiTUkDR2O SbXgWD8mgv2ZYiN7ZKH8pKDjPh8FQHN8NvUcTD0QQUDOX0L= ID Date Data Source [id number] 01/19/2021 06:50:00 AM EDT [facility] ([facility]) Name Value Range Interpretation Code Description Data Bobbi rce(s) Supporting Document(s) Triglycerides Level 109 mg/dL [facility] ([facility]) Cholesterol Level 136 mg/dL [facility] ([facility]) HDL Cholesterol 60 mg/dL [facility] ([facility]) LDL Cholesterol 54 mg/dL [facility] ([facility]) Cholesterol Risk Ratio 2.266 [facility] ([facility]) Non-HDL-C 76 mg/dL [facility] ([facility]) ID Date Data Source [id number] 01/19/2021 06:50:00 AM EDT [facility] ([facility]) Name Value Range Interpretation Code Description Data Bobbi rce(s) Supporting Document(s) Glucose, Fasting 80 mg/dL 70-100 [facility] ([facility]) Blood Urea Nitrogen 16 mg/dL 7-18 [facility] ([facility]) Creatinine For GFR 0.73 mg/dL 0.55-1.30 [facility] ([facility]) Glomerular Filtration Rate [facility] <content>Units are mL/min/1.73 m2</content>
<content></content>
<content>Chronic Kidney Disease Staging per NKF:</content>
<content></content>
<content>Stage I & II GFR >=60 Normal to Mildly Decreased</content>
<content>Stage III GFR 30- 59 Moderately Decreased</content>
<content>Stage IV GFR 15-29 Severely Decreased</content>
<content>Stage V GFR <15 Very Little GFR Left</content>
<content>ESRD GFR <15 on SILICA SPRAY MIXER</content>
<content></content> Sodium Level 141 meq/L 136-145 [facility] ([facility]) Chloride Level 109 meq/L 98-107 [facility] ([facility]) Potassium Serum 4.3 meq/L 3.5-5.1 [facility] ([facility]) Calcium Level 9.2 mg/dL 8.8-10.2 [facility] ([facility]) Anion Gap 6 meq/L 8-16 [facility] ([facility]) Carbon Dioxide Level 26 meq/L 21-32 [facility] ([facility]) ID Date Data Source [id number] 01/19/2021 06:50:00 AM EDT [facility] ([facility]) Name Value Range Interpretation Code Description Data Bobbi rce(s) Supporting Document(s) T Uptake 31 % 30-39 [facility] ([facility]) Free Thyroxine Index 3.0 % 1.3-4.8 [facility] ([facility]) Thyroxine (T4) 9.7 ug/dL 4.5-12.0 [facility] ([facility]) Thyroid Stimulating Hormone 1.210 uIU/ML 0.358-3.740 [facility] ([facility]) ID Date Data Source [id number] 01/19/2021 06:50:00 AM EDT [facility] Name Value Range Interpretation Code Description Data Bobbi rce(s) Supporting Document(s) Hemoglobin A1c 5.6 % [facility] ([facility]) <content>REFERENCE RANGES:</content><br/ ><content></content>
<content><=5.6% NORMAL</content>
<content>5.7-6.4% SUGGESTS IMPAIRED GLUCOSE METABOLISM/PREDIABETIC</content>
<content>>= 6.5% ABNORMAL</content>
<content></content> Estimated Average Glucose 114 mg/dL 60-110 MEDE NT ([facility]) ID Date Data Source [id number] 01/19/2021 06:50:00 AM EDT [facility] ([facility]) Name Value Range Interpretation Code Description Data Bobbi rce(s) Supporting Document(s) White Blood Count 7.1 10 4.0-10.0 [facility] ([facility]) Red Blood Count 4.43 10 4.00-5.40 [facility] ([facility]) Mean Corpuscular Volume 88.9 fl 80.0-96.0 [facility] ([facility]) Hemoglobin 12.9 g/dL 12.0-15.5 [facility] ([facility]) Hematocrit 39.4 % 36.0-47.0 [facility] ([facility]) Mean Corpuscular Hemoglobin 29.1 pg 27.0-33.0 ME DENT ([facility]) Mean Corpuscular HGB Conc 32.7 g/dL 32.0-36.5 MEDE NT ([facility]) Neutrophils % 55.9 % 36.0-66.0 [facility] ([facility]) Red Cell Distribution Width 13.3 % 11.5-14.5 [facility] ([facility]) Platelet Count, Automated 353 10 150-450 MEDE NT ([facility]) [place] % 6.9 % 2.0-8.0 [facility]) Eos % 6.8 % 0.0-3.0 [facility]) Lymph % 29.5 % 24.0-44.0 [facility] Baso % 0.6 % 0.0-1.0 [facility] Immature Granulocyte % 0.3 % 0-3.0 [facility] ([facility]) Nucleated Red Blood Cell % 0.0 % 0-0 MED E[facility] ([facility]) Neutrophils # 4.0 10 1.5-8.5 [facility] ([facility]) Lymph # 2.1 10 1.5-5.0 [facility]) [place] # 0.5 10 0.0-0.8 [facility]) Eos # 0.5 10 0.0-0.5 [facility]) Baso # 0.0 10 0.0-0.2 [facility]) ID Date Data Source [id number] 01/19/2021 06:50:00 AM EDT [facility] ([facility]) Name Value Range Interpretation Code Description Data Bobbi rce(s) Supporting Document(s) Triglycerides Level 109 mg/dL [facility] ([facility]) Cholesterol Level 136 mg/dL [facility] ([facility]) HDL Cholesterol 60 mg/dL [facility] ([facility]) Cholesterol in LDL [Mass/volume] in Serum or Plasma by calculation 54 mg/dL [facility] ([facility]) Cholesterol Risk Ratio 2.266 [facility] ([facility]) Non-HDL-C 76 mg/dL [facility] ID Date Data Source [id number] 01/19/2021 06:50:00 AM EDT [facility] ([facility]) Name Value Range Interpretation Code Description Data Bobbi rce(s) Supporting Document(s) Glucose, Fasting 80 mg/dL 70-100 [facility] Blood Urea Nitrogen 16 mg/dL 7-18 [facility] ([facility]) Sodium Level 141 meq/L 136-145 [facility] ([facility]) Glomerular Filtration Rate Laboratory test result [facility] ([facility]) <content>Units are mL/min/1.73 m2</content>
<content></content>
<content>Chronic Kidney Disease Staging per NKF:</content>
<content></content>
<content>Stage I & II GFR >=60 Normal to Mildly Decreased</content>
<content>Stage III GFR 30- 59 Moderately Decreased</content>
<content>Stage IV GFR 15-29 Severely Decreased</content>
<content>Stage V GFR <15 Very Little GFR Left</content>
<content>ESRD GFR <15 on SILICA SPRAY MIXER</content>
<content></content>
<content></content> Creatinine For GFR 0.73 mg/dL 0.55-1.30 [facility] ([facility]) Carbon Dioxide Level 26 meq/L 21-32 [facility] ([facility]) Potassium Serum 4.3 meq/L 3.5-5.1 [facility] ([facility]) Chloride Level 109 meq/L 98-107 [facility] ([facility]iol [facility]) Anion gap in Serum or Plasma 6 meq/L 8-16 [facility] ([facility]) Calcium Level 9.2 mg/dL 8.8-10.2 [facility] ([facility]iol[facility]) ID Date Data Source [id number] 01/19/2021 06:50:00 AM EDT [facility] ([facility]) Name Value Range Interpretation Code Description Data Bobbi rce(s) Supporting Document(s) T Uptake 31 % 30-39 [facility] Thyroxine (T4) 9.7 ug/dL 4.5-12.0 [facility] Free Thyroxine Index 3.0 % 1.3-4.8 [facility] ([facility]) Thyroid Stimulating Hormone 1.210 uIU/ML 0.358-3.740 [facility] ([facility]) ID Date Data Source [id number] 01/19/2021 06:50:00 AM EDT [facility] ([facility]) Name Value Range Interpretation Code Description Data Bobbi rce(s) Supporting Document(s) White Blood Count 7.1 10 4.0-10.0 [facility] ([facility]) Red Blood Count 4.43 10 4.00-5.40 [facility] ([facility]) Hemoglobin 12.9 g/dL 12.0-15.5 [facility] ([facility]) Mean Corpuscular Volume 88.9 fl 80.0-96.0 M [...] 353 10 150-450 [facility] ([facility]) Lymphocytes/100 leukocytes in Blood by Automated count 29.5 % 24. 0-44.0 [facility] ([facility]) Neutrophils % 55.9 % 36.0-66.0 [facility] ([facility]) [place] % 6.9 % 2.0-8.0 [facility] Eos % 6.8 % 0.0-3.0 [facility] Baso % 0.6 % 0.0-1.0 [facility] Immature Granulocyte % 0.3 % 0-3.0 [facility] ([facility]) Nucleated Red Blood Cell % 0.0 % 0-0 MED [facility] ([facility]) [place] # 0.5 10 0.0-0.8 [facility] Neutrophils # 4.0 10 1.5-8.5 [facility] ([facility]) Lymph # 2.1 10 1.5-5.0 [facility] Baso # 0.0 10 0.0-0.2 [facility] Eos # 0.5 10 0.0-0.5 [facility] ID Date Data Source [id number] 11/08/2020 07:45:00 AM EDT [facility] Name Value Range Interpretation Code Description Data Bobbi rce(s) Supporting Document(s) EGD-Colonoscopy [facility] LJOQNv7uBtYIUqGgBRVjZghFIXquNWqbRZQkP3K8VNncLg9TDZiianNqUROyRx5+EAJqHY6ofl2oEYXo gMy [file] parts lister+mPq9MqTohX+MIjkYvXaLn9+wtKAsgO1aivsOFrFqe1i1nxbGCC4gMaL/MI7k+/3qVCAJo/Pe8Rr4w [file] 01KiazT1Zt09tPCaRKZIvph7HWQ2l++khjws53T6zrJJlsflHD/lM0Xr5dkFHe7AezUYBNoE5Rhw+HALF-WAY [file] heSG6aTR79pwup3ZRFSQlT5NEb1IrjWN157i/llPutcYIvjh/Isaías/+j1w93laWwRt9HchO68a4YbklFx [file] //General Ledger Accountant/21fQ4CpW3ioHo1i0X/7uLZZ/oyw8b8AHVRMQCuT1hspjIZIgQQLIxSuKl2tsXiFHPhlJuA+6xl [file] Xrsg8Y/sOOiXLaVI48Vtq21MJLLtq6+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/SlyKuZa [file] ylPfxtHMz3CMvbsOgkk0WvY1G1C02s+brlJj+l+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 [file] GCqpfn2FFUMR43jrblV/anqihikhaVw/frqRkTDDt5 vto01IVeFrP2v/bwn2KQJmi+m2okDrieZ74rjRCAYoZB+3yun1lqM/WujH3nwx5G2sc7kChEo8Q3bAPG ZxArAw/eVUzKtMcekeiBEsSNC5t7L4LKP5iWDF0qjP/X9onjEwO6rcvULjwTyL62gwzHiFux8AI53fkF KCqA4U/1NLLV4dobNQ/N4fkkglCDGqUS5Sj8+orhqq bMtBeWnX+3qE+l3JPm3QWWl6L0BfZJcW8mrlAQ8xJO1nYh131ZvW1T/ZJ43LzZCmPDvVEEg6sa0KO9et iAEz3BWxMlEQbjmRuawW5QELj5biP3H7IcipTidH10iqauR9gIzvpmJN0VF4XGsDNI2D1PTJBU97nG7h 6eePbD8mO2P60vFb2dKtR3BbDl5iDfuo8RLBnBut46 bP4pRcc/xY3IA+dc69DUTpc3qvUF5GslQrg+4yLbj3xwtn+8fFpypbQbk0HH5e2HisDo/fRbgwpCe3O1 mG1Mc2wCx3745iS5bnthUtZ56cQi5kNa1HCVdyX8P6MsV99NQp1tYWci2UrtkVTxOrNhQ33s4PH8s0np I8YGDCBtwkSOiG1AUrea9fVawOcWUxH63RiYy4ZBQU copy clerk+6P29pfb4gklWimrcroaJdyMN5t2HuZkgZvHe3jeObulWVHnBq/uat7mpXOcmvOqnmUx/9QJ0Qj2TH [file] Lb/fWpRMBqzM0zFJJFUSwOz0tJe/lMzkD3BK05xfxqCRnrgmfTPCnpWGQcRXwKvZdbEO9ctcnjzDXYw L+gPfZg4MJecExAtZ32Izwu+GMF22ln0r4SMhg9mwH9rB8ygUB2QDwz5yqNSI1Cx5iS9Vb3lPt0ds94+ EL/+s4eOYGxSWUUZ8+DvIUdALSUH2wA1NLBYG6KBQG ctbIpOp8f65lP/hFuT081w4hzAp019+4DhoembxkMJPc8gbY8V6LL4181HVz/ALT9ocdWw9+s2wpJCqt pH4V5XGgP6qh6f1nPVzlbPkneNuxW1BIrgSk0bzp07ey2mWGbotBa1s3+72l8wWlLV7hurU1xh1aKUp8 Associate Principal/hVhJiYw77lznhSMkg/yUE1FvpJwbLQy10gWFAv6 [file] oRqMMFcChAsdLVeZd5oERAaeJb2Tv5lmYKWeUlpfktfFXHmzTZoOe8a3h/Flexographic Printing Press Operator/lI9RgTXuqr8Qw/wa0tU [file] zyULL5vGhHgVRNCnWS4r9mn+3By7wABV49fMRy/Isaías 418M0OA1s19Nq34PP493CMLflOtAlHn7OUTbi8Uiu/CsLvv/+3z7P/qP/pdL+6q5fhMMMbWlRAydfxRt pUIuZG5REK5ys8WeYTP5RIUog2YqGXl5E9ktyrv9pHTrVP3+f6GiVCHuCXbgYvLtSgYxCURhKeghCVYe VHUklDwjYL0gAGZTiypESQpjynHgtFGzUH2NRD0ji9 VeMBV4ITBzq3MgMXo6C8MlnZTdnrJqJqxpxHEGCAAsMNJrXJLjP2KaUSmgC6pQFGz3ZbA4LSB0ZXz1XS VlJDdGRbA0XwF6BgZxIXKPWZC4JZd+BEpfNrN3SHMBPSpsQWEwY4EGQBtlHDy0IRWvAjI6ViRWLQ3fO8 Xar6TgIZXkLQMtSN0qhmYgZBWpTm1UxZxuNTB5H5W3 tIUyM5pZGPUyMmAdCHT2WPInQn1nuXRvSP0DEhbfN6YeBKRcGEQNCWRMDin+GUEYlXRaS5Ad6gtQv7qF wZVgeZKb9Rbt27AXfhpJsaaWU9hixHnug9Vq/35ZOZBJKgUE3WySHd6SXB8fy9CkLUOrQCjibcTbQinJ LDamfDUddHgrHSRRKuAjRoW6IGuSSbCeZG9N ID Date Data Source [id number] 10/26/2020 12:30:00 PM EST [facility] Name Value Range Interpretation Code Description Data Bobbi rce(s) Supporting Document(s) Follow Up [facility] WICVEn8jJkAUEyFqNZXcJhmSQBeqTCitOYDdR2U1HEgfQo4XPInvbxSuWGGrAd5+IMAcKW0qoj2sLWQm gMy 0dWZMaKtelL4GdCSCfx59XQEKiSPtZSxPzGyKrAtLtKZQvBbCmOLT7OnJhXrjuGC1tJZB9ERLhKPmsCY YsJMAwBfNjAUU4SW8xNMtkZWvmYr5ISQ7na3HxKTYeROBmGlxOOCmzTViyOTJjZOJfTASqS622vkNkIC 9ZiXKaOHt4EFYhLpP3EVLvEyI9STNcLfZdOhQsZVYh C9Xqs333aiWfwoT5IZ2YS1MrASS0FVg5K8cvBtMbAUKkIJRxRJ7mBkM8HRMoAi8KaDxlSALoHHRuLt3R qXm4KXK1PXMlTf4+Pj4+Et7muvSvAohFFTZkIY9swt45HV7LrYWzKT9FRXrcT58tYGbiRp14LTdlXRDb WvMlKSp8Yd7nFoQru2NlJ4OrZMn8N3uNYkscC0BbUL slWT0gGIM8KTJpPt2+Cd2mHZNpDI76BLCtLKUAX2EvjyLclcSmYRh7FGSuSu0+Hq2wlhHeRhePVJTwBE 2xii84LW0POL2unZyqDqX9OLv0B41oiUDfX1pmFuIhG9XsdWstSMSdNF8oW2CgCFteBSSqZR0ozwBukT 8KjLe8UYMdIr7WkXR5IMAcZ12nUROfFNVUIAFmr8Ev VO7Iy3jhsnKzFGLyKP3KIYBsE2SNG1AzY2laeWdrTNCfRU1EWDubmUChJLp9JV9WyLEvWDQeJ37nfY9y HE02CBl+JqI3chXblF5FwXhsz0JDAF221rx2fqB7AYXtQvkATV555wOZIFVAGQhJ8t3raTL3ltB1u1WA x9Ss4N3BAm61kp+tvfnLJXsi63gbnqm59lzLZiqika /84pc3TW5yUEUKeoQsfHWcvcKiZC4//owqxrXETxoJj6IRiSTGdjpnzldOdfkOvZeTjIAHlClAFYvZf8 dPQECAnkVUUuSNBDe/wJt/GkF5/gk3Wa0gIG5xnQyHKJ/f/C+Vha4F8VQdLnp2SEFRHGwjSppavxD/gB 4AQMFA+VcB/A6FDUDPKJEE86gopUm/NTmnNKPS9CIT [file] xXgEPcD55eRd693iRun+7Zf3MO3/copy clerk+cbQh8fdblkRVRlmmXdN1NnPDhyr9neZ6IX1700YfczFmwa+1h [file] HqR5OyYo223195ZTOQONnm2nW4T42wsnqHga5F3HMZG4n4x3///Be/Wu6Sz4l6st2/channel marketing coordinator+02vKvz0EDu [file] NW+Set4IHjuwTpo5s65jpi8B6kLsxt+SUPERVISOR KOSHER DIETARY SERVICE/jxV8xWPV [file] iV20RHpDhzuWKwQQPFNbQbqv0Rea9iiJmTbtas52ERAk+63EcUao7cLqf/Flexographic Printing Press Operator+7X3qFL/czVq119QS3ba [file] Vnjdt0zVYaWKiFu80quSHUTcltadDdv0mwwb+computer engineering technician/SC5ZLOK6EXgogAu41WdP7MzosWp1AF5hzkgz3aR [file] u6dHgyvv94NAV1+DoENxmpIs6Ie6xkZpgtn586+MACHINE OPERATOR HELPER [file] Kulwant+ophKGur96laymZbxw2SBIxv5gV2GcTzQLO38hK Y8QxH9+AbHohEF8klDYHT7AIbzAjheL0dCm+ZfCWEPCjYCbD9MQmKt8PoemT4gNFMjKdFm4sOoOwSwoO lfXAxOjkN9RijFHhXjSAtDt4Lqhf9nnRltiINIJU0Tmv4OCv3mCc3OtjfFvU3ar3GmJmT7XBgErU8QWP fb0+BBMPjQK9GrmjiMkeH4uRaTj7E9To+pNVc7SFPb 3ZtvD1HefkC/uxI+DmzbPhtoUx+ZZWxoac4KUoBoEjS3Y/ViQ9ZLSHz8vGnEFMPjyYFvPtYZyzlVux+i HnT9yJ5vT4KCia7xMSaFhoTVSUmUHjeFekVwt//L3YaaHNV3GvLp0KlQACdelv+zZDRbgOf57wcuAptF dwK8+6q40ZhYNEaWlq6DFixA6f9LzRoAMmUIFezxCW sGNPqu1OIeMDvohwXcubc3VSflgH7D7psFUEZ/c19hg8jNpYsSt73Txo8K72X+/tcO7FyOTTjcQW51Aa W7qdw7tQHq+6g/pYd3rVolkpJA1oHNQDXocbrxgWOARTO5c3LaQRgp+6Aejpb3UFJnB50CBCQbkKeR9m BK0AmGWGv0BLvhZ1Q6AXZZfpL4nkZ7Bfmx6pQTP+++ 3vHmllbz0Gf6GUrv0A9T7vpfvsYv+AMkoE9qwzP3i90wC30DEKdN5BNL47YdN2ibp97A977BmaQnmCwY oiP8Tr1zZoDlfV1q6CyzWgJ5ZKCDweo9o/zmk0A0EnmPr1j/WwnirMPYAZsxS+9wItg2s/PMhrgt3Mej 0jA/EYfBPsB42x6B12tYO40nZNHS4KOK6XqpW24EJm Ury3n2ZzlW/soto+/cxyksT3NaPX71FwWS/YzyqT7Yi9GjQUnY0l1vz746P3LJnMYvY/wQ3hFjbMnistZK aCyfWpItGI+AvfWVMyPWXzQW/SOEuGphsyU9V/bbbstHHt51MdLAFyRERSDcD7GXqquhLcSfnZWmy50A /HV8D9XczfhkpmO7E4jgGhNoJDogea9qyavPeG6l2Z 3BFyGmhS51ePxgmm3yg4r0+IWswAWkTkfY42D47hJJ3R9Fm/zU1YuMn7GSs3XW2QoThP20y923aHJNEq 8gtfyvt/176YGDXnmPzQ3o0UGLdudsaIcZjJCphVFUqtePFGHSZQaFQhj2i/QrTWYvrailg/sNWjtDVY FKAmbXvnr+J6rTnZXq7Xo3V238ppo6I6jSVuZ3HoBZ ifK/wZTNewNuvkrMmoYlYKoo6klwSc5lnK1CVBSxv6OIAQteFxeXQBUg9MiGSKtzE6/vX/zfDiZkxNW9 57O6R7wjbzE1znlECg64ZiDU4DcByeH8aliv3VW6B65yz/DMbLw8h3adhYtqm2o8h029jmiAJ+Associate Principal/tNW [file] U+2uGTHUW4XADDqxd2N9WBIP4v+QK6x+OOMNUZYMK6 U+8haWdOgELRIYEQNdWHXwFBy0zdEc+RgXdTcSvgoRgkBYHCNVaiF3CKce4NvFGLeCFt1dGXCrApB1/W VquLW+p2zdFeytnuo3fwEfEH42X6BFqsO9cQtNoVMGB2C5m/0mbsVUnyap4/TuI78sCBZVWCfDA4Iknv K2Dx/p6buZKrPA86uJWoX1KozaTmAL0pLEZ1z8EudJ 5n192CBVTZ+gYS3bf8DsyddE882aqI3m+GC6g4GluICcBMXEJuYEWG8nuf3d+brUu1/ccvBdo6TFVe/A MsG8Pt+dhtHIEFsMRd4jpjN5lIy2iAWx5i77JSlauL40+vn8ofKIPYf6DthPjhy9J2zkLwtzpMlRA12+ zBtb78sFfUCCU8LDvfLIaTdCMROyDIf0MLFsY7+gw5 hs6hZ9KyuH1nMpFgaQn71X/O08glyqHjoc3+1bZ+kd1c68tt5NmQZVDkznamM4nbFWyDm0pYF3f0gtVx 3Uu8bLYAjgzWGnKAkFIu5A/uX8H2y86vc+Cfz7rq+dIN+X5gRCwpEZ9xYkMkhZGKcnAuNLirTzuu+zTE 6KiSDPEz1PQRo1DAc3NNfRVaywTidX/c1CEd1lAa8Z Z5E1wuQYKZ8ICxrpWPu9jHjgRoEK0obsFheIf3cNu5KlQuV+lZcRfG66Uhj21lB7pYzC7V9GHyeKbicJ RbZOgSoG9d+wOqdcxn+fw+JDBKis6Tgdq22zyrZSqqeMWKs7jFw4DgTNtRCah5Ug2os2cN6hQoToKIEX wWW[facility]/ZPwJm6MSdpz5+q6QKZR6fgbYwM5qC [file] cacH19KuQUN5+Efraín+TTLOh+wwPcRPPvdEoUSbFA6aJEzhoa3djvGOL7NM3wBS6iaUMKbQi/pKxAK5qSz [file] cskEY4yExt40e23bsisX5qn9huac4Qsuoi/mq6wdPhTmjBHZyHgIKFJxAf+parts lister+1YlibF7UvqwMreLck4 [file] SKTBQ0J+IaHBi3lPr+llAsJGa6SUd0dgli3hWDb/mTGi8++Anni+2Q+pyHeemwUWCBM3wcCkbpnN/1xTQ0 v64ZOR6H1CPX3NdxaIFU1wa54O+QLZGtf0RIsXCYh9 D2VqqG+olBlI5Uq/HrFhx8d01Tb05L6Ad/Hm2P/oxWAPq+LCi4q79xq/1Dvybu3WUHGG2u0JzHz+lOSY mB5awAtvhnRBe3NRkhxQzMpPgjYIST/1wsng9El/wSXMVoRIez4dKJiXcQn7tN3aFEcFNt4kUP2iU7WN llAXFtGewUDpQ4vft4PtbNEMC4i2xkDxps/E0ZdTzH RVFz4XvOKu+036smC41rwgffQbGB8rx9j5hc0kkFd8D/I4US7tjUfZkHvHk5SI+c7ah6cHvPOAjsc72J ARLhUvjj0K4orBXE6Qgpow5QUAqBHBwrEo1NAtz/+yjT8baZ/0iqUW86DRAkVxO1BEIB+NP2t3qMXIP2 PIdsLX04/vzw8E+SDT/QmxPws/KbDKUKoHlX8YHcMP GWMZTaPgTJYUjuU1C+2C22MfoUSZlzpKpD50ulwJmWBQ8elEWuMRxvO1LwRFx6HTZGDUzW1yL2gkIda6 NaRT+PFTowmqBzLlQ8R9clkuv5i1og26HbF6MUwgoWjqH1FQcIbENYmWOdkxpPhCeN6DRhTZ+q1v6cbN RSBM3rVGNMqGE/yqLNPmN2R69Slk1sDX067NX1w6Pt [facility]/pA0ZtyXS/G6ha7ALVAZeGEyFR1FS1W+GjG7/8X6QMymHtP9ZvwDQx5x5q6dE7fzRZBWNp+isszGX [file] O6Iwl3wcQec+2DWkEORHgrMnmHv4JOHk7BYowZQtXpaIP2tatuPczkvE4ML5rJbqqxVwi7p0i54Qt+Marisol CoNgGCldoROGavKjmx4gGgT+Sv300XdL/tKZrc60vu qdakVHUh2INtK2vtRJLq+WmfQcaTFbMGTAKbJpuzm5JzKNwRdbJI8Hgxev8Cf/baH4CR+tOnbcAe/4Sy +T/u3YgW/qn0jAVDziDtnvGoC/HEZXDDJUTFgUkSMRMTdrPBPZp5o2SEW54bgM8iknXlPeDhzdm8qLoQ G2pZX1zillQZ1qutJaCCKQVe/lCL1ddtIpnfY59nIt 8ID/zS2/zuxvkSC/ATor4ByxEu1jjEWYg+X6Sj3k/+NmXDqvPgKOeJ3tfjfwra0R+aqn+IUJMaShKLYK 367n/kVyGY4zo8tVLY5UVZ4No5GcqVojPMbli46eNf7HDZEJHYWCNj4XL6l1Sy/9ZfwNjALH2SxPlpVK OxvVPoeDw/wBiHS+6zKy4Zl1fKV/Q5l8wEuBPLDuk/ CDx/+uRh3NFjzR9noLrJxRPBk/78naI/pvg5KUdjUD8C+4b/Associate Principal/oS1MQ6akwiladN3ClGVZ8JdaG5a/I [file] Or0lYgP8GccBDu1fi1vQ8OB4uKNRXx04x8EUpeCZTUznwYBAfWPnDtenZZxJz9T/XzGs3fiPMdeQI+museum preparator ylml62x7SE1iV8bL5/A7UK1ElAuOWvWWTbp/XTuohT BhXDclOICLNsXzow8X+l+pbW+CDb3YGvb6M98I6fd/qAFOdZNcLcT1h66I7TH6dAwDxSPxJGko6PxKQg ukpvcQMcBx1L4QqVYc7CvtVpTa2A6+7WbZ7tDpmKoSaBg5HkAKgYcQ+CqtFM9heJUoBnWiBV/Y5Fdgnw MhZ/bdy420/GeqNHZEdcMCusG7S8o8dPiHnOk0Wccn m4hwZl+Ac6thcEr/U2e16g5EBACPs2U3y3vmIV/McEwx0SZa7md4t0yal9OeC6+eUHL9T9DiHHXZEVqT 0cXFnhsdOq/vE+OjPqxEc/UMd7Fr5KefQtVA2FVYLpQoELW6UCbGlzHVQ8JyuAtR2ZTzV8wVpBf/932Z /8Gl4r5wNEPq3j6R18JID+EqzRZedEjz4353a6aW/S cOV2vmdj79aFkhheSQ+giHUWN501mMpQPP3Y4MB36rz9KLGSv64cvDtdyhJibsQTUmLPrm2pSXP8M+N3 T+t6X0GzM0j4VpgHE9UiWYh+2byusp7EVgbTvwrufLuayhpKZmCjROdRRDsjk71MBAxIvqi6vwoB2iC/ OmEwKcYMFTHNRZnABBh0DrHIKAOiUEMYvgEaQ9qBtt UEvgFX+pD7mBrT3pv2bzPf8J41NaHh4Up4hVQoBfxdCyPyjp3PuxqGOn9+oYQvq3Tc9TSmYewIudqscp jeYY13EZKYBteHbPJKl+HDw/8svnJe0m91sx3kYnLI30O9s125nkA6yj+dO9T/FAr6DTnhyZxTdnYXHl LKbeTKAPB16HKwiY1/FZadhsXykWV9cdlx89z4jqlM JPQyOx9H8XQQcaSS5ATnaszytJFRqczF/3LNLerm6q56L1r8dXTOxzNASjz6YQsIz5DykEwLvUskNdqs plaklRrLDVHs9enCmXzyZuf79GWdIx3C4/RJk363jzBCi1SeY5yTAql3mkm2U2BUla/DGIYuWc2hDWg9 QreXAMoDAnokllKu7M/fDlwVLyovUlWNXWKd7rrsex /rpfsLBrJ43tnMn4XwgO0so8XaRKLk02OD7VxgvwSg0tlseDTxifVxUBZlM2DzvUmzs4dUSi0gBqU4ZH S004OFsytcBh+h+H/vhn+j6pZZtio1YBy4To6g6jHMNwZseiis2edqT9xdh10pl+L2PUQMbSYmMN8D7f ndgiIZ1Gj2PT3oTbTDB9pxZkrTMC76UTxThrDIb9z4 ykGvJrFdd2ov/1p07FD2DZMI1g4WqKAg4mICKywykmBaD9DwizT5uDuPnkLMwfzj/Boo5cJZ4IqG/Abran [file] UC/VjP8bsj968TMUf1XJIHKFTGl2zuCQdItGeMmhfufChEBvpdQsz/Soto+9o+GK/r/tGUXZDc7Y8gR9Aq fGWHV12yJLl1S59KjfHHSnJ0nPWs346W29Fw8ywJIQ OMvh3x999q6Ddb1p2/5z/8ykPq0cj5/2Onuvs/d+vq4hcgi2bD/Vn4VUvoL/L7hpJVB/p6c4Ih01cNzZ bWIhnXyraa4mdL+x66kyR+gLq3Hzl94RGLeVvsIMHaEkpjT8Qh3gQ5qgey+/v3es7qeUvc80f7YFwvy8 3n5pnmpqI6LjvendzKppbNrRRPYt/9QNdzryTngMNl Lg64WxE/TB82OCQ/ppXXJuLIdy2HCszOi4sfNhE3duOr6o42f8ybNAkk1FoC77RRGiUA8JN+9f+ew9uS CPe/D96Qb+XAU49FTC0fdPIsDVlilJBbPH+Oym8ey/MWGRJb1TCCAr3+d9Jvi7QCPZsOX6q4iCXF0MIJ ivKLq5FnC9EqPNw2NTs7BJyK7UiG+eq2F23Aqu1+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 preparator [file] recbVzgdn1WFpRJkyBKP3l2TkJmpqAMs0XlBap6/WDHcL1H9zFVZc6p8fm/[employer]/Gw1eIP0wdBA2osuelU [file] +Oalp/0vyH/e+1OAR58swSOIQNV7jqLbvCmQaA n8alBp8jkmJQF2mBxZqd1tuulqGgWEHe6Dd76zJQ7ug7enW/xWJIDVjQU0T+kk7fmapOH0ScUk5gOsuS g0COX3jRWH36nflGl+Gp5lSCqyp57/kpq+URd8r/+cc0IiL60v43kjmO/F/5/4Uoy/7GO2zE8px+F4PX T5Aa9HiBFkKY/jPn2u8E//fff0/LGxXy2ntBlW+j/o vE/Ik7/R/rSzr372M0Q6h+X+e4/7loafx/px7hUW/YQMa6oHu96PASblKQgeoiCKSeIqRJU1VvmI1l+R QbuZPs8muf8lUlkur8b+nXogFLDY+zksD/aGKnbwF1ZoqHcce8bXDpNgXb69tKYtUNgqfUiHE97NnO4w eZUZeM0oXo/Co+WSfFz6LVESP+/Saleem/uI9psnR/Bd1q [file] rWsaa+Merlin+1sVINIzNYxdq17Qovn3+TbrLspTc/UgBY olttb+mtVUokkf5LCT5vzn0x0ez82p/Q7+VMKpEpxx9uf6hDOZN+KOX+yiM0NptA1k4BfK812t1z2zaf 9AE4hnpS2AIv5EIA4wDiUu8+t5hK8lUQhnWJJjLkeFxf719rCkP47wwNv2vAsfRc6TgeU+7Vcm1nSkzf ldtq9d6VQnTN/CrY/j+gxazFbv00oIS5amG8Ry5TGL ZrrDimsBuMZSbgbn7G7RBObpusrb7jhkNyd/Zvx8mtJI5noVTpAOJiOa4FKEd7y9My6CTyqUX3VZ8oyl fNKw9NQMsr1rvsJ3f65szXsfa+yTAx8J7jjk2PC9VkeUd8wrryiXNwb6aQx5Zf99TZtmoN/cW6JIOb5Y eYlodbmEgbiYTeSwkAX8zX775VUCIuZeOC4toYbpgq GliOhbDGVwUg22Ig30QX55zonuxjdFs+Fo5eXe/6XkG+WM/dMO7zB4OYlZtpp5zX0mL0gfiDO8ZlEjON t0MZvMYHWmrb0RAswQAze3MhAqnu0HdqgUash+A+6tN+QuOODA+aVYSPJD2bRBa3qTrbhKg/gdzsg2lY 49u+RebvbQsBI5FRwteEGwY81IN08tim/UFlRb8M/L IOnzV6ro8/8lJ6x2a8wu0WTvuDBGFFZw13v5W814nM6Nb3iyAA9WdTl6nyB+947rrPHCJSWerdM7ViPe zxWxRzep40BrQEgAhtRJaUpFkl7+hJWN4/O3i47nJ6vNPvqQiMxfuuTbkAIoyO0WBakQCsttssYgSJKR o4HgF6iZWUswVVQy/vfke1dkH2+3CyAvWL9bgNSc87 NftT6lJ3wYLyq8JJDlV2Z5GVSi8ZDFgbIWAAedmt5kLqiktj4JgeQPb2h89ObvEPUDc0p9It/hlXe122 4hvE4odpae5gs9eDCQEB2Ag3ikssVZswCky6Wuq6JUa6BLt9ovya3rfU/tUs/dzJP9QqPOOXJWST+boarder hand [file] UbFjJ4OQdIHm+9L5mUJwWelkIQVKjXHrC4fgmdp+Anni xpjSYb8/0Y8rR1NoI2jC+QMH9lNvFYS6fVaUI4G3baOC0TqqoYTWMQM7LSQeyWo9qVAmMiuhdfKzXlbd r0bsphkYXqUpKhIwQWq+3DpUd02Y1n8aHgaUK52fn4WmE7e2YSt//j1In/8T/+r80l1tgO/wCMVVxtDQ xfnqLoxBIhJL3ISW8hh4WcKTW3WGGbi2KbTCb3C9qs onr2xKUgUE8+q1UnQKGxGOsrMoMfFhYnVXViFlgtZIKbBLZmxIyaGU1aJABJaudYMOpkdhSczULgQW2O RN2np5YwCIZ5CDBih9OvSBc4S0OwvJRjcsTsYwjwnFZLGZYdSRFzZFPkY1YoFQdnN8uRPFj4JqG9PpKr LwO0LpK3CNJNNFysZDR6QiEQK7K5FGo3JKC+IDxCRD F0EWTfRnD7Kdr5DdZ1JmX9NqrVCAL4AgBZCBTTQS0rW4Czd1RqXWTqHHSiAD6kqrAqWSJoVe7ZdHfePB X2W0R5wNRwC6dEXAHcZvXlLJO9QRXrSn9yaALzAS3QNmymO6PgHNIhDGGSPPACIky+MBEUzILrE7CxjO 3NCiMCaAXeQJrz5FNZyW4HCo6IJB14mrER2l7KUrFD Re4pEnJVUgDMKnBPNW6SWT7er4NdNWQxQGuoavEzZyiPFGfavGKloLcdDXSWKoTbUBU6LPYBNqDkMM6Z ID Date Data Source [id number] 10/05/2020 02:57:00 PM EST [facility] ([facility]) Name Value Range Interpretation Code Description Data Bobbi rce(s) Supporting Document(s) Ferritin [Mass/volume] in Serum or Plasma 38 ng/mL [facility] ID Date Data Source [id number] 10/05/2020 02:57:00 PM EST [facility] ([facility]) Name Value Range Interpretation Code Description Data Bobbi rce(s) Supporting Document(s) Total Iron Binding Capacity 359 ug/dL 250-450 [facility] ([facility]) Iron (Fe) 63 ug/dL 50-170 [facility] ([facility]) Percent Saturation 17.5 % 13.2-45.0 [facility] ([facility]) ID Date Data Source [id number] 10/05/2020 02:57:00 PM EST [facility] ([facility]) Name Value Range Interpretation Code Description Data Bobbi rce(s) Supporting Document(s) Thyrotropin [Units/volume] in Serum or Plasma by Detec tion limit <= 0.05 mIU/L 0.82 uIU/mL 0.36-3.74 [facility] ([facility] ) ID Date Data Source [id number] 10/05/2020 02:57:00 PM EST [facility] ([facility]) Name Value Range Interpretation Code Description Data Bobbi rce(s) Supporting Document(s) Triglyceride [Mass/volume] in Serum or Plasma 170 mg/dL 30-150 [facility] ([facility]) Cholesterol [Mass/volume] in Serum or Plasma 147 mg/dL 131-200 [facility] ([facility]) Cholesterol in HDL [Mass/volume] in Serum or Plasma 57 mg/dL 35-60 [facility] ([facility]) Cholesterol in LDL [Mass/volume] in Serum or Plasma by calcu lation 56 CALC 50-159 [facility] ([facility]) ID Date Data Source [id number] 10/05/2020 02:57:00 PM EST MED[facility] ([facility]) Name Value Range Interpretation Code Description Data Bobbi rce(s) Supporting Document(s) Glucose [Mass/volume] in Serum or Plasma 102 mg/dL 74-99 [facility] ([facility]) 100-125 mg/dL PRE-DIABETES/FASTING >126 mg/dL DIABETES/FASTING Creatinine 0.9 mg/dL 0.6-1.3 [facility] ([facility]) Urea nitrogen [Mass/volume] in Serum or Plasma 19 mg/dL 7-18 [facility] ([facility]) Potassium [Moles/volume] in Serum or Plasma 3.9 meq/L 3.5-5.1 [facility] ([facility]) Chloride [Moles/volume] in Serum or Plasma 106 meq/L 98-107 [facility] ([facility]) Sodium [Moles/volume] in Serum or Plasma 143 meq/L 136-145 [facility] ([facility]) Calcium [Mass/volume] in Serum or Plasma 8.8 mg/dL 8.5-10.1 [facility] ([facility]) Carbon dioxide, total [Moles/volume] in Serum or Plasma 29 meq/L 21 -32 [facility] ([facility]) Alkaline phosphatase isoenzyme [Units/volume] in Serum or Pl asma 120 mg/dL 46-116 [facility] ([facility]) Aspartate aminotransferase [Enzymatic activity/volume] in Serum or Plasma 21 U/L 15-37 [facility] ([facility] ) Total Bilirubin 0.2 mg/dL 0.2-1.0 [facility] ([facility]) Albumin [Mass/volume] in Serum or Plasma 3.6 g/dL 3.4-5.0 [facility] ([facility]) Alanine aminotransferase [Enzymatic activity/volume] in Seru m or Plasma 31 U/L 12-78 [facility] ([facility]) Proteinase 3 Ab [Units/volume] in Serum 7.7 g/dL 6.4-8.2 [facility] ([facility]) A/G Ratio 0.88 CALC 1.00-1.90 [facility] ([facility]) Glomerular filtration rate/1.73 sq M pre dicted among non-blacks [Volume Rate/Area] in Serum or Plasma by Creatinine-based formula (MDRD) Laboratory test result [facility] ([facility] ) Glomerular filtration rate/1.73 sq M pre dicted among blacks [Volume Rate/Area] in Serum or Plasma by Creatinine-based formula (MDRD) Laboratory test result [facility] <content>CHRONIC KIDNEY DISEASE STAGING PER NKF</content>
<content></content>
<content>STAGE I & II GFR >= 60 NORMAL TO MILDLY DECREASED</content>
<content>STAGE III GFR 30-59 MODERATELY DECREASED</content>
<content>STAGE IV GFR 15-29 SEVERELY DECREASED</content>
<content>STAGE V GFR <15 VERY LITTLE GFR LEFT</content>
<content>ESRD GFR <15 ON SILICA SPRAY MIXER</content>
<content></content> ID Date Data Source [id number] 10/05/2020 02:57:00 PM EST [facility] ([facility]) Name Value Range Interpretation Code Description Data Bobbi rce(s) Supporting Document(s) Magnesium 2.1 mg/dL 1.8-2.4 [facility] ID Date Data Source [id number] 10/05/2020 02:57:00 PM EST [facility] ([facility]) Name Value Range Interpretation Code Description Data Bobbi rce(s) Supporting Document(s) Hemoglobin A1c/Hemoglobin.total in Blood 6.0 % [facility] Lab Result Notes: Pre-Diabetes 5.7 - 6.4 % Diabetes = or > 6.5% Glucose mean value [Mass/volume] in Blood Estimated fr om glycated hemoglobin 125 mg/dL 60-110 [facility] ID Date Data Source [id number] 10/05/2020 02:57:00 PM EST [facility] ([facility]) Name Value Range Interpretation Code Description Data Bobbi rce(s) Supporting Document(s) Creatine kinase [Enzymatic activity/volume] in Serum or Plasma 84 U /L 26-192 [facility] ID Date Data Source [id number] 10/05/2020 02:57:00 PM EST [facility] ([facility]) Name Value Range Interpretation Code Description Data Bobbi rce(s) Supporting Document(s) Leukocytes [#/volume] in Blood by Automated count 7.4 x10*3/UL 4.1-10 .9 [facility] Erythrocytes [#/volume] in Blood by Automated count 4.34 x10*6/UL 4.2 0-6.30 [facility] ([facility] Hematocrit [Volume Fraction] of Blood by Automated count 36.5 % 3 7.0-51.0 [facility] ([facility]) Hemoglobin [Mass/volume] in Blood 12.5 g/dL 12.0-18.0 [facility] ([facility]) MCV 84.1 fL 80.0-97.0 [facility] ([facility]) MCHC 34.2 g/dL 31.0-38.0 [facility] ([facility]) MCH 28.7 pg 26.0-32.0 [facility] ([facility]) MPV 7.7 FL 7.8-11.0 [facility] ([facility]) Platelets [#/volume] in Blood by Automated count 370 x10*3/UL 140-440 [facility] Erythrocyte distribution width [Ratio] by Automated count 13.3 % 11.6-13.7 [facility] ([facility]) Mid % 6.5 % 1.7-9.3 [facility] ([facility]) Lymph % 29.0 % 10.0-58.5 [facility] ([facility]) Lymph # 2.1 x10*3/UL 0.6-4.1 [facility] ([facility]) Neut % 64.5 % 37.0-92.0 [facility] ([facility]) Neut # 4.7 x10*3/UL 2.0-7.8 [facility] ([facility]) Mid # 0.6 x10*3/UL 0.1-0.6 [facility] ([facility]) ID Date Data Source [id number] 10/05/2020 02:57:00 PM EST [facility] ([facility]) Name Value Range Interpretation Code Description Data Bobbi rce(s) Supporting Document(s) Ferritin [Mass/volume] in Serum or Plasma 38 ng/mL 8-252 [facility] ([facility]) ID Date Data Source [id number] 10/05/2020 02:57:00 PM EST [facility] ([facility]) Name Value Range Interpretation Code Description Data Bobbi rce(s) Supporting Document(s) Percent Saturation 17.5 % 13.2-45.0 [facility] ([facility]) Iron (Fe) 63 ug/dL 50-170 [facility] ([facility]) Total Iron Binding Capacity 359 ug/dL 250-450 [facility] ([facility]) ID Date Data Source [id number] 10/05/2020 02:57:00 PM EST [facility] ([facility]) Name Value Range Interpretation Code Description Data Bobbi rce(s) Supporting Document(s) Creatine kinase [Enzymatic activity/volume] in Serum or Plasma 84 U /L 26-192 [facility] ([facility]) ID Date Data Source [id number] 10/05/2020 02:57:00 PM EST [facility] ([facility]) Name Value Range Interpretation Code Description Data Bobbi rce(s) Supporting Document(s) Thyrotropin [Units/volume] in Serum or Plasma by Detec tion limit <= 0.05 mIU/L 0.82 uIU/mL 0.36-3.74 [facility] ([facility]) ID Date Data Source [id number] 10/05/2020 02:57:00 PM EST [facility] ([facility]) Name Value Range Interpretation Code Description Data Bobbi rce(s) Supporting Document(s) Cholesterol [Mass/volume] in Serum or Plasma 147 mg/dL 131-200 [facility] ([facility]) Triglyceride [Mass/volume] in Serum or Plasma 170 mg/dL 30-150 [facility] ([facility]) Cholesterol in HDL [Mass/volume] in Serum or Plasma 57 mg/dL 35-60 [facility] ([facility]) Cholesterol in LDL [Mass/volume] in Serum or Plasma by calcu lation 56 CALC 50-159 [facility] ([facility]) ID Date Data Source [id number] 10/05/2020 02:57:00 PM EST [facility] ([facility]) Name Value Range Interpretation Code Description Data Bobbi rce(s) Supporting Document(s) Glucose [Mass/volume] in Serum or Plasma 102 mg/dL 74-99 [facility] ([facility]) 100-125 mg/dL PRE-DIABETES/FASTING >126 mg/dL DIABETES/FASTING Creatinine 0.9 mg/dL 0.6-1.3 [facility] ([facility]) Urea nitrogen [Mass/volume] in Serum or Plasma 19 mg/dL 7-18 [facility] ([facility]) Potassium [Moles/volume] in Serum or Plasma 3.9 meq/L 3.5-5.1 [facility] ([facility]) Sodium [Moles/volume] in Serum or Plasma 143 meq/L 136-145 [facility] ([facility]) Chloride [Moles/volume] in Serum or Plasma 106 meq/L 98-107 [facility] ([facility]) Calcium [Mass/volume] in Serum or Plasma 8.8 mg/dL 8.5-10.1 [facility] ([facility]) Carbon dioxide, total [Moles/volume] in Serum or Plasma 29 meq/L 21 -32 [facility] ([facility]) Alkaline phosphatase isoenzyme [Units/volume] in Serum or Pl asma 120 mg/dL 46-116 [facility] ([facility]) Aspartate aminotransferase [Enzymatic activity/volume] in Serum or Plasma 21 U/L 15-37 [facility] ([facility]) Total Bilirubin 0.2 mg/dL 0.2-1.0 [facility] ([facility]) Alanine aminotransferase [Enzymatic activity/volume] in Seru m or Plasma 31 U/L 12-78 [facility] ([facility]) A/G Ratio 0.88 CALC 1.00-1.90 [facility] ([facility]) Proteinase 3 Ab [Units/volume] in Serum 7.7 g/dL 6.4-8.2 [facility] ([facility]) Albumin [Mass/volume] in Serum or Plasma 3.6 g/dL 3.4-5.0 [facility] ([facility]) Glomerular filtration rate/1.73 sq M pre dicted among non-blacks [Volume Rate/Area] in Serum or Plasma by Creatinine-based formula (MDRD) Laboratory test result [facility] ([facility]) Glomerular filtration rate/1.73 sq M pre dicted among blacks [Volume Rate/Area] in Serum or Plasma by Creatinine-based formula (MDRD) Laboratory test result [facility] <content>CHRONIC KIDNEY DISEASE STAGING PER NKF</content>
<content></content>
<content>STAGE I & II GFR >= 60 NORMAL TO MILDLY DECREASED</content>
<content>STAGE III GFR 30-59 MODERATELY DECREASED</content>
<content>STAGE IV GFR 15-29 SEVERELY DECREASED</content>
<content>STAGE V GFR <15 VERY LITTLE GFR LEFT</content>
<content>ESRD GFR <15 ON SILICA SPRAY MIXER</content>
<content></content>
<content></content> ID Date Data Source [id number] 10/05/2020 02:57:00 PM EST [facility] ([facility]) Name Value Range Interpretation Code Description Data Bobbi rce(s) Supporting Document(s) Magnesium 2.1 mg/dL 1.8-2.4 [facility] ID Date Data Source [id number] 10/05/2020 02:57:00 PM EST [facility] ([facility]) Name Value Range Interpretation Code Description Data Bobbi rce(s) Supporting Document(s) Hemoglobin A1c/Hemoglobin.total in Blood 6.0 % [facility]) Lab Result Notes: Pre-Diabetes 5.7 - 6.4 % Diabetes = or > 6.5% Glucose mean value [Mass/volume] in Blood Estimated fr om glycated hemoglobin 125 mg/dL 60-110 [facility]) ID Date Data Source [id number] 10/05/2020 02:57:00 PM EST [facility] ([facility]) Name Value Range Interpretation Code Description Data Bobbi rce(s) Supporting Document(s) Leukocytes [#/volume] in Blood by Automated count 7.4 x10*3/UL 4.1-10 .9 [facility] ([facility]) Hemoglobin [Mass/volume] in Blood 12.5 g/dL 12.0-18.0 [facility]) Erythrocytes [#/volume] in Blood by Automated count 4.34 x10*6/UL 4.2 0-6.30 [facility] ([facility]) MCH 28.7 pg 26.0-32.0 [facility] ([facility]) MCV 84.1 fL 80.0-97.0 [facility] ([facility]) Hematocrit [Volume Fraction] of Blood by Automated count 36.5 % 3 7.0-51.0 [facility] ([facility]) Erythrocyte distribution width [Ratio] by Automated count 13.3 % 11.6-13.7 [facility] ([facility]) Platelets [#/volume] in Blood by Automated count 370 x10*3/UL 140-440 [facility] ([facility]) MCHC 34.2 g/dL 31.0-38.0 [facility] ([facility]) Mid % 6.5 % 1.7-9.3 [facility] Platelet mean volume [Entitic volume] in Blood by [place] 7.7 FL 7.8-11.0 [facility] ([facility]) Lymphocytes/100 leukocytes in Blood by Automated count 29.0 % 10. 0-58.5 [facility] ([facility]) Mid # 0.6 x10*3/UL 0.1-0.6 [facility] ([facility]) Lymph # 2.1 x10*3/UL 0.6-4.1 [facility] ([facility]) Neut % 64.5 % 37.0-92.0 [facility] ([facility]) Neutrophils [#/volume] in Semen by Manual count 4.7 x10*3/UL 2.0-7.8 [facility] ([facility]) ID Date Data Source [id number] 07/21/2020 07:39:00 AM EST [facility] ([facility]) Name Value Range Interpretation Code Description Data Bobbi rce(s) Supporting Document(s) Creatine kinase [Enzymatic activity/volume] in Serum or Plasma 97 U /L 26-192 [facility] ([facility]) Lipoprotein lipase [Enzymatic activity/volume] in Serum or P lasma 161 U/L 73-393 [facility] ([facility]) ID Date Data Source [id number] 07/21/2020 07:39:00 AM EST [facility] ([facility] Name Value Range Interpretation Code Description Data Bobbi rce(s) Supporting Document(s) Color, Urine Laboratory test result [facility] NT [facility] Appearance, Urine Laboratory test result [facility] PH,Urine 5.0 units 5.0-9.0 [facility] ([facility]) Specific [place] Urine Auto 1.012 1.002-1.035 [facility] Protein, Urine Auto Laboratory test result [facility] Glucose, Urine (Ua) Auto Laboratory test result [facility] Bilirubin, Urine Auto Laboratory test result [facility] Urobilinogen, Urine Auto 0.2 mg/dL 0.0-2.0 MED[facility] T [facility] Ketone, Urine Auto Laboratory test result [facility] Nitrite, Urine Auto Laboratory test result [facility] Leukocyte Esterase, Urine Auto Laboratory test result [facility] Blood, Urine Blood Laboratory test result [facility] WBC, Urine Auto 16 /HPF 0-3 [facility] ([facility]) RBC, Urine Auto 1 /HPF 0-3 [facility] ([facility]) Bacteria, Urine Auto Laboratory test result [facility] Squamous Epithelial Cell Ur AU 0 /HPF 0-6 [facility] Hyaline Cast, Urine Auto 0 /LPF 0-1 [facility] T [facility] Mucus, Urine Laboratory test result [facility] ID Date Data Source [id number] 07/21/2020 07:39:00 AM EST [facility] ([facility] Name Value Range Interpretation Code Description Data Bobbi rce(s) Supporting Document(s) Thyrotropin [Units/volume] in Serum or Plasma by Detec tion limit <= 0.05 mIU/L 0.949 uIU/ML 0.358-3.740 [facility] ([facility] Magnesium [Moles/volume] in Serum or Plasma 2.4 mg/dL 1.8-2.4 [facility] ([facility]) ID Date Data Source [id number] 07/21/2020 07:39:00 AM EST [facility] ([facility]) Name Value Range Interpretation Code Description Data Bobbi rce(s) Supporting Document(s) Triglycerides Level 102 mg/dL [facility] ([facility]) Cholesterol Level 167 mg/dL [facility] ([facility]) HDL Cholesterol 61 mg/dL [facility] ([facility]) LDL Cholesterol 86 mg/dL [facility] ([facility]) Non-HDL-C 106 mg/dL [facility] ([facility]) Cholesterol Risk Ratio 2.737 [facility] ([facility]) ID Date Data Source [id number] 07/21/2020 07:39:00 AM EST [facility] ([facility]) Name Value Range Interpretation Code Description Data Bobbi rce(s) Supporting Document(s) Ferritin [Mass/volume] in Serum or Plasma 26 ng/mL 8-252 [facility] ([facility]) ID Date Data Source [id number] 07/21/2020 07:39:00 AM EST [facility] ([facility]) Name Value Range Interpretation Code Description Data Bobbi rce(s) Supporting Document(s) Glucose, Fasting 86 mg/dL 70-100 [facility] ([facility]) Creatinine For GFR 0.81 mg/dL 0.55-1.30 [facility] ([facility]) Blood Urea Nitrogen 17 mg/dL 7-18 [facility] ([facility]) Glomerular Filtration Rate Laboratory test result [facility] <content>Units are mL/min/1.73 m2</content>
<content></content>
<content>Chronic Kidney Disease Staging per NKF:</content>
<content></content>
<content>Stage I & II GFR >=60 Normal to Mildly Decreased</content>
<content>Stage III GFR 30- 59 Moderately Decreased</content>
<content>Stage IV GFR 15-29 Severely Decreased</content>
<content>Stage V GFR <15 Very Little GFR Left</content>
<content>ESRD GFR <15 on SILICA SPRAY MIXER</content>
<content></content> Sodium Level 139 meq/L 136-145 [facility] ([facility]) Carbon Dioxide Level 27 meq/L 21-32 [facility] ([facility]) Chloride Level 107 meq/L 98-107 [facility] ([facility]) Potassium Serum 4.4 meq/L 3.5-5.1 [facility] ([facility]) Calcium Level 9.0 mg/dL 8.8-10.2 [facility] ([facility]) Anion Gap 5 meq/L 8-16 [facility] ([facility]) Ast/Sgot 17 U/L 7-37 [facility] ([facility]) Alt/SGPT 23 U/L 12-78 [facility] ([facility]) Alkaline Phosphatase 124 U/L 45-117 [facility] ([facility]) Bilirubin,Total 0.3 mg/dL 0.2-1.0 [facility] ([facility]) Total Protein 7.4 GM/DL 6.4-8.2 [facility] ([facility]) Albumin/Globulin Ratio 1.0 1.2-2.2 [facility] Albumin 3.7 GM/DL 3.2-5.2 [facility] ID Date Data Source [id number] 07/21/2020 07:39:00 AM EST [facility] ([facility]) Name Value Range Interpretation Code Description Data Bobbi rce(s) Supporting Document(s) White Blood Count 7.4 10 4.0-10.0 [facility] ([facility]) Red Blood Count 4.52 10 4.00-5.40 [facility] ([facility]) Hemoglobin 12.5 g/dL 12.0-15.5 [facility] Hematocrit 39.6 % 36.0-47.0 [facility] Mean Corpuscular Hemoglobin 27.7 pg 27.0-33.0 [facility] ([facility]) Mean Corpuscular Volume 87.6 fl 80.0-96.0 [facility] ([facility]) Platelet Count, Automated 364 10 150-450 [facility] NT ([facility]) Mean Corpuscular HGB Conc 31.6 g/dL 32.0-36.5 [facility] ([facility]) Red Cell Distribution Width 13.8 % 11.5-14.5 [facility] ([facility]) Nucleated Red Blood Cell % 0.0 % 0-0 [facility] ([facility]) ID Date Data Source [id number] 06/19/2020 07:19:00 AM EST [facility] ([facility]) Name Value Range Interpretation Code Description Data Bobbi rce(s) Supporting Document(s) Red Blood Count 4.39 10 4.00-5.40 [facility] ([facility]) Hemoglobin 11.8 g/dL 12.0-15.5 [facility] ([facility]) White Blood Count 7.5 10 4.0-10.0 [facility] ([facility]) Mean Corpuscular Hemoglobin 26.9 pg 27.0-33.0 [facility] ([facility]) Mean Corpuscular Volume 87.0 fl 80.0-96.0 [facility] ([facility]) Hematocrit 38.2 % 36.0-47.0 [facility] ([facility]) Mean Corpuscular HGB Conc 30.9 g/dL 32.0-36.5 [facility] ([facility]) Red Cell Distribution Width 13.9 % 11.5-14.5 [facility] ([facility]) Nucleated Red Blood Cell % 0.0 % 0-0 [facility] ([facility]) Platelet Count, Automated 382 10 150-450 [facility] ([facility]) ID Date Data Source [id number] 06/19/2020 07:19:00 AM EST [facility] ([facility]) Name Value Range Interpretation Code Description Data Bobbi rce(s) Supporting Document(s) Ferritin [Mass/volume] in Serum or Plasma 22 ng/mL 8-252 [facility] ([facility]) ID Date Data Source [id number] 05/15/2020 09:35:00 AM EDT [facility] ([facility]) Name Value Range Interpretation Code Description Data Bobbi rce(s) Supporting Document(s) Laboratory test finding (navigational concept) Laboratory test result [facility] ([facility]) A false negative result may occur [...] pathogens. DISCLAIMER: Testing was performed using the [employer] SARS-CoV-2 test. This test was developed and its performance characteristics determined by [employer]. This test has not been FDA cleared [...] or revoked sooner. ID Date Data Source [id number] 05/15/2020 09:35:00 AM EDT [facility] Name Value Range Interpretation Code Description Data Bobbi rce(s) Supporting Document(s) Laboratory test finding (navigational concept) Laboratory test result [facility] ([facility]) A false negative result may occur [...] pathogens. DISCLAIMER: Testing was performed using the [employer] SARS-CoV-2 test. This test was developed and its performance characteristics determined by [employer]. This test has not been FDA cleared [...] or revoked sooner. ID Date Data Source [id number] 05/10/2020 09:00:00 AM EDT [facility] ([facility]) Name Value Range Interpretation Code Description Data Bobbi rce(s) Supporting Document(s) Occult Blood Laboratory test result [facility] OCCULT BLOOD 1 NEGATIVE ID Date Data Source [id number] 05/10/2020 07:26:00 AM EDT [facility] ([facility]) Name Value Range Interpretation Code Description Data Bobbi rce(s) Supporting Document(s) Ferritin [Mass/volume] in Serum or Plasma 16 ng/mL 8-252 [facility] ([facility]) ID Date Data Source [id number] 05/10/2020 07:26:00 AM EDT [facility] ([facility] Name Value Range Interpretation Code Description Data Bobbi rce(s) Supporting Document(s) Iron (Fe) 37 ug/dL 50-170 [facility]) Total Iron Binding Capacity 381 ug/dL 250-450 [place] [facility] ([facility]) Percent Saturation 9.7 % 13.2-45.0 [facility] ([facility]) ID Date Data Source [id number] 05/10/2020 07:26:00 AM EDT [facility] ([facility]) Name Value Range Interpretation Code Description Data Bobbi rce(s) Supporting Document(s) Red Blood Count 4.29 10 4.00-5.40 [facility] ([facility]) White Blood Count 8.2 10 4.0-10.0 [facility] ([facility]) Hemoglobin 11.7 g/dL 12.0-15.5 [facility] ([facility]) Hematocrit 37.7 % 36.0-47.0 [facility] Mean Corpuscular Volume 87.9 fl 80.0-96.0 [facility] Red Cell Distribution Width 13.9 % 11.5-14.5 [facility] Mean Corpuscular Hemoglobin 27.3 pg 27.0-33.0 [facility] ([facility]) Mean Corpuscular HGB Conc 31.0 g/dL 32.0-36.5 [facility] ([facility] Platelet Count, Automated 336 10 150-450 [facility] ([facility]) Nucleated Red Blood Cell % 0.0 % 0-0 [facility] ([facility] ID Date Data Source [id number] 05/10/2020 07:26:00 AM EDT [facility] Name Value Range Interpretation Code Description Data Bobbi rce(s) Supporting Document(s) Hemoglobin A1c 5.6 % [facility] ([facility]) <content>REFERENCE RANGES:</content><br/ ><content></content>
<content><=5.6% NORMAL</content>
<content>5.7-6.4% SUGGESTS IMPAIRED GLUCOSE METABOLISM/PREDIABETIC</content>
<content>>= 6.5% ABNORMAL</content>
<content></content> Estimated Average Glucose 114 mg/dL 60-110 [facility] ([facility] ID Date Data Source [id number] 05/10/2020 07:26:00 AM EDT [facility] ([facility] Name Value Range Interpretation Code Description Data Bobbi rce(s) Supporting Document(s) Glucose, Fasting 84 mg/dL 70-100 [facility] ([facility]) Blood Urea Nitrogen 20 mg/dL 7-18 [facility] ([facility]) Creatinine For GFR 0.85 mg/dL 0.55-1.30 [facility] ([facility]) Glomerular Filtration Rate Laboratory test result [facility] ([facility]) <content>Units are mL/min/1.73 m2</content>
<content></content>
<content>Chronic Kidney Disease Staging per NKF:</content>
<content></content>
<content>Stage I & II GFR >=60 Normal to Mildly Decreased</content>
<content>Stage III GFR 30- 59 Moderately Decreased</content>
<content>Stage IV GFR 15-29 Severely Decreased</content>
<content>Stage V GFR <15 Very Little GFR Left</content>
<content>ESRD GFR <15 on SILICA SPRAY MIXER</content>
<content></content> Sodium Level 142 meq/L 136-145 [facility] ([facility]) Potassium Serum 4.5 meq/L 3.5-5.1 [facility] ([facility]) Chloride Level 109 meq/L 98-107 [facility] ([facility]) Carbon Dioxide Level 28 meq/L 21-32 [facility] ([facility] Calcium Level 9.0 mg/dL 8.8-10.2 [facility] ([facility]) Anion Gap 5 meq/L 8-16 [facility] ([facility]) ID Date Data Source [id number] 05/10/2020 07:26:00 AM EDT [facility] ([facility]) Name Value Range Interpretation Code Description Data Bobbi rce(s) Supporting Document(s) Glucose, Fasting 84 mg/dL 70-100 [facility] ([facility]) Blood Urea Nitrogen 20 mg/dL 7-18 [facility] ([facility]) Creatinine For GFR 0.85 mg/dL 0.55-1.30 [facility] ([facility]) Potassium Serum 4.5 meq/L 3.5-5.1 [facility] ([facility]) Glomerular Filtration Rate [facility]) <content>Units are mL/min/1.73 m2</content>
<content></content>
<content>Chronic Kidney Disease Staging per NKF:</content>
<content></content>
<content>Stage I & II GFR >=60 Normal to Mildly Decreased</content>
<content>Stage III GFR 30- 59 Moderately Decreased</content>
<content>Stage IV GFR 15-29 Severely Decreased</content>
<content>Stage V GFR <15 Very Little GFR Left</content>
<content>ESRD GFR <15 on SILICA SPRAY MIXER</content>
<content></content>
<content></content> Sodium Level 142 meq/L 136-145 [facility] ([facility]) Anion gap in Serum or Plasma 5 meq/L 8-16 [facility] ([facility]) Carbon Dioxide Level 28 meq/L 21-32 [facility] ([facility]) Chloride Level 109 meq/L 98-107 [facility] ([facility]) Calcium Level 9.0 mg/dL 8.8-10.2 [facility] ([facility]) ID Date Data Source [id number] 05/10/2020 07:26:00 AM EDT [facility] Name Value Range Interpretation Code Description Data Bobbi rce(s) Supporting Document(s) Estimated Average Glucose 114 mg/dL 60-110 [facility] ([facility]) Hemoglobin A1c 5.6 % [facility] ([facility]) <content>REFERENCE RANGES:</content><br/ ><content></content>
<content><=5.6% NORMAL</content>
<content>5.7-6.4% SUGGESTS IMPAIRED GLUCOSE METABOLISM/PREDIABETIC</content>
<content>>= 6.5% ABNORMAL</content>
<content></content>
<content></content> ID Date Data Source [id number] 05/10/2020 07:26:00 AM EDT [facility] ([facility]) Name Value Range Interpretation Code Description Data Bobbi rce(s) Supporting Document(s) Red Blood Count 4.29 10 4.00-5.40 [facility] ([facility]) Hemoglobin 11.7 g/dL 12.0-15.5 [facility] ([facility]) White Blood Count 8.2 10 4.0-10.0 [facility] ([facility]) Mean Corpuscular Hemoglobin 27.3 pg 27.0-33.0 [facility] (Cardiology [facility]) Hematocrit 37.7 % 36.0-47.0 [facility] (Cardiology [facility]) Mean Corpuscular Volume 87.9 fl 80.0-96.0 M [facility] (Cardiology [facility]) Mean Corpuscular HGB Conc 31.0 g/dL 32.0-36.5 [facility] ([facility]iology [facility]) Red Cell Distribution Width 13.9 % 11.5-14.5 [facility] ([facility]iology [facility]) Platelet Count, Automated 336 10 150-450 [facility] ([facility]iology [facility]) Nucleated Red Blood Cell % 0.0 % 0-0 [facility] (Cardiology [facility]) ID Date Data Source [id number] 05/10/2020 07:26:00 AM EDT [facility] ([facility]) Name Value Range Interpretation Code Description Data Bobbi rce(s) Supporting Document(s) Iron (Fe) 37 ug/dL 50-170 [facility] Total Iron Binding Capacity 381 ug/dL 250-450 [facility] (Cardiology [facility]) Percent Saturation 9.7 % 13.2-45.0 [facility] ([facility] ID Date Data Source [id number] 05/10/2020 07:26:00 AM EDT [facility] ([facility]) Name Value Range Interpretation Code Description Data Bobbi rce(s) Supporting Document(s) Ferritin [Mass/volume] in Serum or Plasma 16 ng/mL 8-252 [facility] ([facility]) ID Date Data Source [id number] 05/01/2020 07:02:00 AM EDT [facility] ([facility]) Name Value Range Interpretation Code Description Data Bobbi rce(s) Supporting Document(s) Ferritin [Mass/volume] in Serum or Plasma 17 ng/mL 8-252 [facility] ([facility]) ID Date Data Source [id number] 05/01/2020 07:02:00 AM EDT [facility] ([facility]) Name Value Range Interpretation Code Description Data Bobbi rce(s) Supporting Document(s) Iron (Fe) 45 ug/dL 50-170 [facility] ([facility]) Total Iron Binding Capacity 362 ug/dL 250-450 [place] [facility] ([facility]) Percent Saturation 12.4 % 13.2-45.0 [facility] ([facility]) ID Date Data Source [id number] 05/01/2020 07:02:00 AM EDT [facility] ([facility]) Name Value Range Interpretation Code Description Data Bobbi rce(s) Supporting Document(s) Thyrotropin [Units/volume] in Serum or Plasma by Detec tion limit <= 0.05 mIU/L 1.470 uIU/ML 0.358-3.740 [facility] ) Magnesium [Moles/volume] in Serum or Plasma 2.1 mg/dL 1.8-2.4 [facility] ID Date Data Source [id number] 05/01/2020 07:02:00 AM EDT [facility] ([facility]) Name Value Range Interpretation Code Description Data Bobbi rce(s) Supporting Document(s) Glucose, Fasting 83 mg/dL 70-100 [facility] ([facility]) Glomerular Filtration Rate Laboratory test result [facility] ([facility]) <content>Units are mL/min/1.73 m2</content>
<content></content>
<content>Chronic Kidney Disease Staging per NKF:</content>
<content></content>
<content>Stage I & II GFR >=60 Normal to Mildly Decreased</content>
<content>Stage III GFR 30- 59 Moderately Decreased</content>
<content>Stage IV GFR 15-29 Severely Decreased</content>
<content>Stage V GFR <15 Very Little GFR Left</content>
<content>ESRD GFR <15 on SILICA SPRAY MIXER</content>
<content></content> Creatinine For GFR 0.77 mg/dL 0.55-1.30 [facility] ([facility]) Blood Urea Nitrogen 17 mg/dL 7-18 [facility] ([facility]) Chloride Level 110 meq/L 98-107 [facility] ([facility]) Potassium Serum 4.3 meq/L 3.5-5.1 [facility] ([facility]) Sodium Level 142 meq/L 136-145 [facility] ([facility]) Carbon Dioxide Level 26 meq/L 21-32 [facility] ( [facility] Anion Gap 6 meq/L 8-16 [facility] ([facility]) Calcium Level 9.1 mg/dL 8.8-10.2 [facility] ([facility]) ID Date Data Source [id number] 05/01/2020 07:02:00 AM EDT [facility] ([facility]) Name Value Range Interpretation Code Description Data Bobbi rce(s) Supporting Document(s) Cholesterol Level 159 mg/dL [facility] ([facility]) Triglycerides Level 141 mg/dL [facility] ([facility]) Non-HDL-C 102 mg/dL [facility] ([facility]) HDL Cholesterol 57 mg/dL [facility] ([facility]) LDL Cholesterol 74 mg/dL [facility] Cholesterol Risk Ratio 2.789 [facility] ([facility]) ID Date Data Source [id number] 05/01/2020 07:02:00 AM EDT [facility] ([facility]) Name Value Range Interpretation Code Description Data Bobbi rce(s) Supporting Document(s) Hemoglobin A1c 5.8 % [facility] ([facility]) <content>REFERENCE RANGES:</content><br/ ><content></content>
<content><=5.6% NORMAL</content>
<content>5.7-6.4% SUGGESTS IMPAIRED GLUCOSE METABOLISM/PREDIABETIC</content>
<content>>= 6.5% ABNORMAL</content>
<content></content> Estimated Average Glucose 120 mg/dL 60-110 [facility] ([facility]) ID Date Data Source [id number] 05/01/2020 07:02:00 AM EDT [facility] ([facility]) Name Value Range Interpretation Code Description Data Bobbi rce(s) Supporting Document(s) White Blood Count 7.3 10 4.0-10.0 [facility] ([facility]) Red Blood Count 4.15 10 4.00-5.40 [facility] ([facility]) Mean Corpuscular Volume 86.3 fl 80.0-96.0 [facility] ([facility]) Hematocrit 35.8 % 36.0-47.0 [facility] ([facility]) Hemoglobin 11.6 g/dL 12.0-15.5 [facility] ([facility] Mean Corpuscular Hemoglobin 28.0 pg 27.0-33.0 [place] [facility] ([facility]) Mean Corpuscular HGB Conc 32.4 g/dL 32.0-36.5 [facility] ([facility]) Red Cell Distribution Width 13.7 % 11.5-14.5 [place] [facility] ([facility]) Nucleated Red Blood Cell % 0.0 % 0-0 [facility] ([facility]) Platelet Count, Automated 324 10 150-450 [facility] ([facility]) ID Date Data Source [id number] 05/01/2020 07:02:00 AM EDT [facility] ([facility]) Name Value Range Interpretation Code Description Data Bobbi rce(s) Supporting Document(s) Red Blood Count 4.15 10 4.00-5.40 [facility] ([facility]) Hemoglobin 11.6 g/dL 12.0-15.5 [facility] ([facility]) White Blood Count 7.3 10 4.0-10.0 [facility] ([facility]) Mean Corpuscular Volume 86.3 fl 80.0-96.0 M [facility] ([facility]) Hematocrit 35.8 % 36.0-47.0 [facility] ([facility]) Mean Corpuscular Hemoglobin 28.0 pg 27.0-33.0 [facility] ([facility]) Platelet Count, Automated 324 10 150-450 [facility] ([facility]) Red Cell Distribution Width 13.7 % 11.5-14.5 [facility] ([facility]) Mean Corpuscular HGB Conc 32.4 g/dL 32.0-36.5 [facility] ([facility]) Nucleated Red Blood Cell % 0.0 % 0-0 [facility] ([facility]) ID Date Data Source [id number] 05/01/2020 07:02:00 AM EDT [facility] ([facility]) Name Value Range Interpretation Code Description Data Bobbi rce(s) Supporting Document(s) Hemoglobin A1c 5.8 % [facility] ([facility]) <content>REFERENCE RANGES:</content><br/ ><content></content>
<content><=5.6% NORMAL</content>
<content>5.7-6.4% SUGGESTS IMPAIRED GLUCOSE METABOLISM/PREDIABETIC</content>
<content>>= 6.5% ABNORMAL</content>
<content></content>
<content></content> Estimated Average Glucose 120 mg/dL 60-110 [facility] (Cardiology [facility]) ID Date Data Source [id number] 05/01/2020 07:02:00 AM EDT [facility] ([facility]) Name Value Range Interpretation Code Description Data Bobbi rce(s) Supporting Document(s) Cholesterol Level 159 mg/dL [facility] ([facility]) HDL Cholesterol 57 mg/dL [facility] ([facility]) Triglycerides Level 141 mg/dL [facility] ([facility]) Non-HDL-C 102 mg/dL [facility] Cholesterol in LDL [Mass/volume] in Serum or Plasma by calculation 74 mg/dL [facility] ([facility]) Cholesterol Risk Ratio 2.789 [facility] ([facility]) ID Date Data Source [id number] 05/01/2020 07:02:00 AM EDT [facility] ([facility]) Name Value Range Interpretation Code Description Data Bobbi rce(s) Supporting Document(s) Glucose, Fasting 83 mg/dL 70-100 [facility] ([facility]) Blood Urea Nitrogen 17 mg/dL 7-18 [facility] ([facility]) Creatinine For GFR 0.77 mg/dL 0.55-1.30 [facility] ([facility]) Sodium Level 142 meq/L 136-145 [facility] ([facility]) Glomerular Filtration Rate Laboratory test result [facility] ([facility]) <content>Units are mL/min/1.73 m2</content>
<content></content>
<content>Chronic Kidney Disease Staging per NKF:</content>
<content></content>
<content>Stage I & II GFR >=60 Normal to Mildly Decreased</content>
<content>Stage III GFR 30- 59 Moderately Decreased</content>
<content>Stage IV GFR 15-29 Severely Decreased</content>
<content>Stage V GFR <15 Very Little GFR Left</content>
<content>ESRD GFR <15 on SILICA SPRAY MIXER</content>
<content></content>
<content></content> Chloride Level 110 meq/L 98-107 [facility] ([facility]) Potassium Serum 4.3 meq/L 3.5-5.1 [facility] ([facility]) Calcium Level 9.1 mg/dL 8.8-10.2 [facility] ([facility]) Anion gap in Serum or Plasma 6 meq/L 8-16 [facility] ([facility]) Carbon Dioxide Level 26 meq/L 21-32 [facility] ([facility]) ID Date Data Source [id number] 05/01/2020 07:02:00 AM EDT [facility] ([facility]) Name Value Range Interpretation Code Description Data Bobbi rce(s) Supporting Document(s) Magnesium [Moles/volume] in Serum or Plasma 2.1 mg/dL 1.8-2.4 [facility] ([facility]) Thyrotropin [Units/volume] in Serum or Plasma by Detec tion limit <= 0.05 mIU/L 1.470 uIU/ML 0.358-3.740 [facility] ([facility]) ID Date Data Source [id number] 05/01/2020 07:02:00 AM EDT [facility] ([facility]) Name Value Range Interpretation Code Description Data Bobbi rce(s) Supporting Document(s) Iron (Fe) 45 ug/dL 50-170 [facility] Percent Saturation 12.4 % 13.2-45.0 [facility] ([facility]) Total Iron Binding Capacity 362 ug/dL 250-450 [facility] ([facility]) ID Date Data Source [id number] 05/01/2020 07:02:00 AM EDT [facility] ([facility]) Name Value Range Interpretation Code Description Data Bobbi rce(s) Supporting Document(s) Ferritin [Mass/volume] in Serum or Plasma 17 ng/mL 8-252 [facility] ([facility]) Ferritin [Mass/volume] in Serum or Plasma Laboratory test result [facility] ([facility]) ID Date Data Source [id number] 05/01/2020 07:02:00 AM EDT [facility] ([facility]) Name Value Range Interpretation Code Description Data Bobbi rce(s) Supporting Document(s) Ferritin [Mass/volume] in Serum or Plasma Laboratory test result [facility] ([facility]) Procedure Social History Code Duration Value Status Description Data Source(s ) Smoking 05/16/2021 12:00:00 AM EDT Patient has n ever smoked (pipe, cigarette, cigar) completed Patient has never smoked (pipe, cigarett e, cigar) [facility] ([facility]) Smoking 05/08/2021 12:00:00 AM EDT Patient has never smoked co mpleted Patient has never smoked [facility] ([facility]) Vital Signs ID Date Data Source [id number] Name Value Range Interpretation Code Description Data Source(s) Systolic blood pressure 166 mm[Hg] 166 mm[Hg] M [facility] ([facility]) RT Arm Diastolic blood pressure 82 mm[Hg] 82 mm[Hg] [facility] ([facility]) RT Arm Heart rate 76 /min 76 /min [facility] ([facility]) Body height 65.25 [in_i] 65.25 [in_i] [facility] ([facility] 5'5.25" Body weight 180.00 [lb_av] 180.00 [lb_av] [facility] T ([facility]) Body mass index (BMI) [Ratio] 29.7 kg/m2 29.7 k g/m2 [facility] ([facility]) Body mass index (BMI) [Ratio] 30.9 kg/m2 30.9 k g/m2 [facility] ([facility]) Systolic blood pressure 132 mm[Hg] 132 mm[Hg] M EDENT ([facility]) Body height 65 [in_i] 65 [in_i] [facility] ([facility]) 5'5" Body weight 186.00 [lb_av] 186.00 [lb_av] MED[facility] T ([facility]) Diastolic blood pressure 80 mm[Hg] 80 mm[Hg] [facility] ([facility]) Heart rate 82 /min 82 /min [facility] ([facility]) Systolic blood pressure 98 mm[Hg] 98 mm[Hg] M [facility] ([facility]) RT Arm Diastolic blood pressure 64 mm[Hg] 64 mm[Hg] [facility] ([facility]) RT Arm Heart rate 92 /min 92 /min [facility] ([facility]) Body height 65.25 [in_i] 65.25 [in_i] [facility] 5'5.25" Body weight 182.00 [lb_av] 182.00 [lb_av] [facility] T ([facility]) verbal Body mass index (BMI) [Ratio] 30.1 kg/m2 30.1 k g/m2 [facility] ([facility]) Body weight 183.00 [lb_av] 183.00 [lb_av] [facility] T ([facility]) Systolic blood pressure--sitting 124 mm[Hg] 124 mm[Hg] [facility] ([facility]) Ra, medium cuff Diastolic blood pressure--sitting 80 mm[Hg] 80 mm[Hg] [facility] ([facility]) Ra, medium cuff Body height 65 [in_i] 65 [in_i] [facility] ([facility]) 5'5" Body mass index (BMI) [Ratio] 30.4 kg/m2 30.4 k g/m2 [facility] ([facility]) Heart rate 72 /min 72 /min [facility] ([facility]) Body mass index (BMI) [Ratio] 30.1 kg/m2 30.1 k g/m2 [facility] ([facility]) Body height 65.25 [in_i] 65.25 [in_i] [facility] ([facility]) 5'5.25" Body weight 182.50 [lb_av] 182.50 [lb_av] [facility] T ([facility]) Systolic blood pressure 138 mm[Hg] 138 mm[Hg] M ED[facility] ([facility]) RT Arm Diastolic blood pressure 84 mm[Hg] 84 mm[Hg] [facility] ([facility]) RT Arm Heart rate 88 /min 88 /min [facility] ([facility]) Systolic blood pressure 124 mm[Hg] 124 mm[Hg] ED[facility] ([facility]) Diastolic blood pressure 80 mm[Hg] 80 mm[Hg] [facility] ([facility]) Heart rate 85 /min 85 /min [facility] ([facility]) Body weight 187.00 [lb_av] 187.00 [lb_av] MED[facility] T ([facility]) home Heart rate 84 /min 84 /min [facility] ([facility]) Systolic blood pressure--sitting 126 mm[Hg] 126 mm[Hg] [facility] ([facility]) Omron, adult cuff/Ra Diastolic blood pressure--sitting 84 mm[Hg] 84 mm[Hg] [facility] ([facility]) Omron, adult cuff/Ra Body weight 188.00 [lb_av] 188.00 [lb_av] MED[facility] T ([facility]) Body height 65 [in_i] 65 [in_i] [facility] ([facility] 5'5" Body mass index (BMI) [Ratio] 31.3 kg/m2 31.3 k g/m2 [facility] ([facility]) Systolic blood pressure 128 mm[Hg] 128 mm[Hg] ED[facility] ([facility]) Diastolic blood pressure 70 mm[Hg] 70 mm[Hg] [facility] ([facility]) Body height 65.25 [in_i] 65.25 [in_i] [facility] ([facility]) 5'525" Body mass index (BMI) [Ratio] 34.5 kg/m2 34.5 k g/m2 [facility] ([facility]) Heart rate 86 /min 86 /min [facility] ([facility]) Body weight 209.00 [lb_av] 209.00 [lb_av] MEDEN T ([facility]) Systolic blood pressure 108 mm[Hg] 108 mm[Hg] EDENT ([facility]) Diastolic blood pressure 72 mm[Hg] 72 mm[Hg] [facility] ([facility]) Heart rate 96 /min 96 /[facility] Oxygen saturation in Arterial blood by Pulse oximetry 98 % 98 % [facility] Body mass index (BMI) [Ratio] 33.6 kg/m2 33.6 k g/m2 [facility] ([facility]) Diastolic blood pressure--sitting 95 mm[Hg] 95 mm[Hg] [facility] ([facility]) Omron, large cuff/LA Body height 65 [in_i] 65 [in_i] [facility] ([facility]) 5'5" Heart rate 85 /min 85 /min [facility] ([facility]) Body weight 202.00 [lb_av] 202.00 [lb_av] MEDEN T ([facility]) Systolic blood pressure--sitting 140 mm[Hg] 140 mm[Hg] [facility] ([facility]) Omron, large cuff/LA Systolic blood pressure 92 mm[Hg] 92 mm[Hg] [facility] RT Arm Body height 65.25 [in_i] 65.25 [in_i] [facility] ([facility]) 5'525" Oxygen saturation in Arterial blood by Pulse oximetry --post exerci se 98 % 98 % [facility] RM Air Diastolic blood pressure 60 mm[Hg] 60 mm[Hg] [facility] ([facility]) RT Arm Heart rate 112 /min 112 /min BRAULIO ([facility]) Body temperature 96.6 [degF] 96.6 [degF] [facility] ([facility])
[2021-06-04] MEDS: ASPIRIN 81 MG CHEW TABLET PO SCH (12:20)
[2021-06-04 16:40] VITALS: BP 159/97
--- NOTE | 2021-06-04 16:59 | HPE ---
HISTORY AND PHYSICAL DATE OF ADMISSION: 06/04/2021 CHIEF COMPLAINT: Confusion. 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 Woke up at 5 a.m. this morning and told her , "I don't feel right." The patient recognized her . She denied any palpitations, lightheadedness, dizziness, chest pain, pressure, or tightness, headache, changes in vision, nausea, vomiting, epigastric pain, and has been in her usual state of health. She otherwise denies any near-syncopal episode recently, bright red blood per rectum, melena, black tarry stools. She denied any fever, chills, or shortness of breath. Patient was brought into the emergency room (ER). Speech was normal and appropriate. She understood what her was saying. She got dressed and got into the car and came to the emergency room without any gait imbalance. In the ER, MRI of the brain was normal. Lab work was normal. Glucose was 110. Patient was found to have hypertensive urgency with systolic blood pressure of 219/117, given a dose of her home losartan, atenolol 25 with decrease in blood pressure to 166/80. Hospitalist was asked to admit the patient for transient global amnesia and hypertensive urgency. MEDICAL HISTORY: 1. Transient ischemic attack in 2013 with loop recorded. 2. 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 3. Hypothyroidism. 4. Reflux. 5. Vitamin D deficiency. 6. Depression. 7. Hypertension. PAST SURGICAL HISTORY: 1. Loop recorder implantation. 2. Thyroidectomy. 3. section times three. 4. Tubal ligation. SOCIAL HISTORY: . Three children. 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 No smoking, alcohol, or recreational drug use. FAMILY HISTORY: Father of colon cancer in his 60s. Daughter with multiple myeloma. ALLERGIES: SULFA and LATEX. HOME MEDICATIONS: - Lexapro 6 mg daily - Synthroid 112 mcg daily - losartan 25 daily - Prilosec 20 daily - MiraLax 17 grams daily - rosuvastatin 5 mg daily REVIEW OF SYSTEMS: Per history of present illness (HPI). A 12-point system otherwise negative. PHYSICAL EXAMINATION: On arrival temperature 98.4, pulse 96, respiratory rate 20, blood pressure 219/117, 100% on room air, respiratory rate 20. GENERAL: Patient is awake, alert, oriented to person and place. She is disoriented to time. Able to say that it is May 2021 but did not know the date, the day. Able to say that it is fall. Face is symmetric. Tongue is midline. Uvula is midline. Speech is fluent. No jugular venous distention (JVD), thyromegaly, cervical lymphadenopathy. LUNGS: Clear to auscultation. No wheezing, rales, or rhonchi. HEART: S1, S2, sinus rhythm. ABDOMEN: Soft, nontender, nondistended. Positive bowel sounds. EXTREMITIES: No cyanosis, clubbing, or pitting edema. EKG: Normal sinus rhythm. Ventricular rate of 76. QT 388, QTC 436. IMAGING STUDIES: Brain MRI: No acute infarct, mass, hemorrhage. No acute intracranial abnormality. Diffuse age-related cerebral atrophy and chronic microvascular white matter ischemic changes without evidence of acute intracranial abnormality. There have been no adverse interval changes to previous study. Coronavirus-19 negative. Chest x-ray: No acute cardiopulmonary process appreciated. ASSESSMENT AND PLAN: A 60-year-old with a history of transient ischemic attack in 2013, status post loop recorded, hypothyroidism, depression, gastroesophageal reflux disease (GERD), vitamin D deficiency, transient global amnesia diagnosed 04/04/2021, Woke up this morning at 5 a.m., telling her that she did not feel right. Patient is admitted for observation for evaluation of the altered mental status. IMPRESSION: 1. Hypertensive urgency. Patient has been restarted back on her home dose of losartan. She was also given atenolol 25 mg times one and Norvasc 10 mg with subsequent improvement in presenting blood pressure from 219/117 to 166/80. Continue with standard of care. Vital signs every 4 hours and titrate blood pressure medications for better control. Atenolol 25 daily has been added as well as Norvasc 10 mg daily. 2. Transient global amnesia. Electroencephalogram (EEG) has been done. Neurology will be consulted, MRI of the brain is negative. 3. History of TIA with loop recorded. Loop recorded interrogation. 4. Depression. Continue on Lexapro. 5. Hypothyroidism. Continue on Synthroid. 6. Reflux. Continue on Prilosec. 7. Vitamin D deficiency, chronic. 8. Deep venous thrombosis (DVT) prophylaxis with Lovenox. DISPOSITION: May discharge in the morning if stable overnight.
[2021-06-04 19:55] VITALS: BP 153/93
[2021-06-04 22:53] VITALS: BP 108/59
[2021-06-05] MEDS ORDERED: LEVOTHYROXINE 112MCG TABLET (0.112MG) PO SCH (06:00)
[2021-06-05] MEDS: ASPIRIN 81 MG CHEW TABLET PO SCH (08:54)
[2021-06-05 08:56] VITALS: BP 117/69
[2021-06-05] MEDS ORDERED: FLUBLOK(EGG FREE)(QUAD)INFLUENZA VACC 0.5ML SYRINGE 18YRS & OLDER IM ONE (09:00)
[2021-06-05] MEDS ORDERED: OMEPRAZOLE 20 MG CAP PO SCH (09:00)
[2021-06-05] MEDS ORDERED: atenoloL 25 MG TAB PO SCH (09:00)
[2021-06-05] MEDS ORDERED: ESCITALOPRAM OXALATE 5MG TABLET (LEXAPRO) PO SCH (09:00)
[2021-06-05] MEDS ORDERED: LOSARTAN 25 MG TAB PO SCH (09:00)
[2021-06-05] MEDS ORDERED: ENOXAPARIN 40MG/0.4ML SYRINGE (J1650 PER 10MG) SC SCH (09:00)
[2021-06-05] MEDS ORDERED: ASPI81CH8 PO (09:42)
--- NOTE | 2021-06-05 17:44 | EEG ---
ELECTROENCEPHALOGRAM DATE: 06/04/2021 REFERRING PHYSICIAN: Dr. Karis Stevens. DIAGNOSIS: Amnesia, rule out seizure. EEG #[id number] HISTORY: Patient is a 60-year-old woman who was admitted to [facility] due to episode of confusion and loss of memory. She has history of transient global amnesia. This EEG was done to rule out epileptic potential. She is currently taking atenolol, Crestor, Lexapro, omeprazole, aspirin, . TECHNICAL DESCRIPTION: This digital EEG was recorded by 21-scalp, ear, and two EKG electrodes and was reviewed in bipolar and referential montages following reformatting in 10-20 international electrode placement system. INTERPRETATION: Patient was noted to be in awake and drowsy states during this EEG. Rest and awake background rhythm consisted of well-formed posterior dominant rhythm with anterior/posterior gradient comprising of 10 Hz of activity measuring 15-50 microvolts in amplitude which was symmetric and reactive to eye opening. Attenuation of posterior dominant rhythm was seen during transition to drowsiness. Stage 1 and 2 sleep were reviewed and were symmetric bilaterally. Hyperventilation could not be performed. Photic stimulation remained unremarkable. EKG revealed normal sinus rhythm. No focal, lateralizing, or epileptiform abnormalities were seen. No relevant clinical activity was noted. CONCLUSION: This EEG in awake, drowsy states, and stage 1 and 2 sleep is within normal limits.
--- NOTE | 2021-06-05 19:04 | DS.PDOC ---
Discharge Summary General Date of Admission Jun 04, 2021 at 08:34 Date of Discharge Jun 05, 2021 Discharge Summary PROCEDURES PERFORMED DURING STAY: EEG. ADMITTING DIAGNOSES: 1. Hypertensive urgency 2. Transient global amnesia 3. Depression 4. Hypothyroidism 5. GERD 6. Vitamin D deficiency DISCHARGE DIAGNOSES: 1. Hypertensive urgency 2. Transient global amnesia 3. Depression 4. Hypothyroidism 5. GERD 6. Vitamin D deficiency COMPLICATIONS/CHIEF COMPLAINT: Transient Global Amnesia. 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 Woke up at 5 a.m. this morning and told her , "I don't feel right." The patient recognized her . She denied any palpitations, lightheadedness, dizziness, chest pain, pressure, or tightness, headache, changes in vision, nausea, vomiting, epigastric pain, and has been in her usual state of health. She otherwise denies any near-syncopal episode recently, bright red blood per rectum, melena, black tarry stools. She denied any fever, chills, or shortness of breath. Patient was brought into the emergency room (ER). Speech was normal and appropriate. She understood what her was saying. She got dressed and got into the car and came to the emergency room without any gait imbalance. In the ER, MRI of the brain was normal. Lab work was normal. Glucose was 110. Patient was found to have hypertensive urgency with systolic blood pressure of 219/117, given a dose of her home losartan, atenolol 25 with decrease in blood pressure to 166/80. Hospitalist was asked to admit the patient for transient global amnesia and hypertensive urgency. " HOSPITAL COURSE: Patient did well overnight. This morning she tells me she feels about back to normal. She still does not remember what happened yesterday morning. She tells me that her amnesia usually happens in the mornings but yesterday was different. There is no events on the telemetry and MRI did not demonstrate any acute abnormality. EEG was within normal. Patient tells me she has a follow-up with neurology in [place] but it is a few months away. Otherwise patient denies any chest pain or dyspnea. She feels ready for home and was subsequently discharged home today. Of note, her blood pressure is currently well controlled. Did not send her home with any new blood pressure medication. DISCHARGE MEDICATIONS: Please see below. ALLERGIES: Please see below. PHYSICAL EXAMINATION ON DISCHARGE: VITAL SIGNS: Please see below. GENERAL: Comfortable, in no apparent distress. HEENT: EOMI, sclera clear. NECK: Supple. RESPIRATORY: Lungs clear to auscultation bilaterally, no rales, wheeze or rhonchi. CARDIOVASCULAR: Regular rate and rhythm. ABDOMEN: Soft, nontender, no guarding or rebound tenderness. Normal bowel sounds. MUSCLE SKELETAL: Muscle strength 5/5 in all extremities. PSYCHOLOGICAL: Normal mood and affect LABORATORY DATA: Please see below. IMAGING: Radiologist interpretation MRI brain 1. No acute infarction, masses or hemorrhage is seen. No acute intracranial abnormality is identified. 2. Diffuse age-related cerebral atrophy and mild chronic microvascular white matter ischemic changes, without evidence of an acute intracranial abnormality. 3. There has been no adverse interval change since the previous study. PROGNOSIS: Good ACTIVITY: As tolerated. DIET: As tolerated DISCHARGE PLAN: Home DISPOSITION: 01 Home, Self-Care. DISCHARGE INSTRUCTIONS: 1. Follow-up with PCP within a week 2. Follow-up with neurology in 1 week ITEMS TO FOLLOWUP ON ON OUTPATIENT: 1. Blood pressure DISCHARGE CONDITION: Stable. Total time spent on discharge planning, discharge summary, and medication reconciliation: 25 minutes Vital Signs/I&Os Vital Signs Date Time Temp Pulse Resp B/P (MAP) Pulse Ox O2 Delivery O2 Flow Rate FiO2 06/05/21 08:56 117/69 06/04/21 22:53 97.8 61 95 Room Air 06/04/21 16:30 18 I&O- Last 24 Hours up to 6 AM 06/05/21 06:00 Intake Total 0 ml Balance 0 ml Discharge Medications Scheduled Aspirin (Children's Aspirin) 81 Mg Tab.chew, 81 MG PO DAILY Escitalopram Oxalate (Lexapro) 5 Mg Tablet, 5 MG PO DAILY, (Reported) Levothyroxine Sodium (Levothyroxine Sodium) 112 Mcg Tab, 112 MCG PO DAILY, (Reported) Losartan Potassium (Losartan Potassium) 25 Mg Tablet, 25 MG PO DAILY, (Reported) Omeprazole (Omeprazole) 20 Mg Capsule., 20 MG PO DAILY, (Reported) Polyethylene Glycol 3350 (Miralax) 119 Gm Powder, 17 GM PO DAILY, (Reported) dilute in 8 ounces of water or juice Rosuvastatin Calcium (Rosuvastatin Calcium) 5 Mg Tablet, 5 MG PO DAILY, (Reported) Allergies Coded Allergies: latex (Verified Allergy, Severe, THROAT STARTS TO CLOSE, 11/23/18) Sulfa (Sulfonamide Antibiotics) (Verified Allergy, Intermediate, HIVES, 11/23/18) CAMERON CERNA DO Jun 05, 2021 19:04
[2021-06-05] MEDS ORDERED: ROSUVASTATIN 10 MG TAB (CRESTOR) PO SCH (21:00)
== END 2021-06-05 12:04 | disposition home or self-care (01) ==
LOC: M ED 08:33 → M ED INP 08:34 → ENRESERV 14:55 → M MSPAV 16:31
PROVIDERS: ADMIT General Practice; ATTEND Internal Medicine
DX: I16.0 Hypertensive urgency (principal); G45.4 Transient global amnesia; F32.9 Major depressive disorder, single episode, unspecified; E89.0 Postprocedural hypothyroidism; Z90.89 Acquired absence of other organs; K21.9 Gastro-esophageal reflux disease without esophagitis; E55.9 Vitamin D deficiency, unspecified; I10 Essential (primary) hypertension; Z86.73 Personal history of transient ischemic attack (TIA), and cerebral infarction without residual deficits; Z79.899 Other long term (current) drug therapy; Z79.82 Long term (current) use of aspirin; Z91.040 Latex allergy status; Z88.2 Allergy status to sulfonamides; Z95.818 Presence of other cardiac implants and grafts
CPT/HCPCS: 70551; 71045; 80048; 82550; 82553; 84484; 85027; 87631; 93005; 93041; 94760; 95819; 96374; 96375; 99285; J1885; J2765

== ENCOUNTER → 2021-06-20 | Outpatient (REF) ==
[~2021-06-20] MED LIST changes: +ASPI81CH8 PO; +LEXA5TAB13 PO; +MIRA3350 PO
== END ==
LOC: M LABSMTC 09:12
PROVIDERS: ATTEND Pediatrics
DX: Z11.52 Encounter for screening for COVID-19 (principal)

== ENCOUNTER → 2021-07-27 | Outpatient (CLI) | payer BC ==
[2021-07-27 08:37] LABS: BASO % 0.7 % (0.0-1.0); EOS # 0.3 10^3/uL (0.0-0.5); EOS % 5.6 % (0.0-3.0); HEMOGLOBIN 12.2 g/dl (12.0-15.5); LYMPH # 1.5 10^3/uL (1.5-5.0); LYMPH % 24.6 % (24.0-44.0); MEAN CORPUSCULAR HEMOGLOBIN 28.2 pg (27.0-33.0); MEAN CORPUSCULAR HGB CONC 31.3 g/dl (32.0-36.5); MEAN CORPUSCULAR VOLUME 90.1 fl (80.0-96.0); MONO # 0.4 10^3/uL (0.0-0.8); MONO % 6.2 % (2.0-8.0); NEUTROPHILS # 3.8 10^3/uL (1.5-8.5); NEUTROPHILS % 62.6 % (36.0-66.0); PLATELET COUNT, AUTOMATED 350 10^3/uL (150-450); RED BLOOD COUNT 4.33 10^6/uL (4.00-5.40); WHITE BLOOD COUNT 6.1 10^3/uL (4.0-10.0)
[2021-07-27 08:57] LABS: BLOOD UREA NITROGEN 19 MG/DL (7-18); CALCIUM LEVEL 9.3 MG/DL (8.8-10.2); CARBON DIOXIDE LEVEL 29 MEQ/L (21-32); CHLORIDE LEVEL 107 MEQ/L (98-107); CHOLESTEROL LEVEL 142 MG/DL (<200); CHOLESTEROL RISK RATIO 2.253 (<5); CREATININE FOR GFR 0.79 MG/DL (0.55-1.30); GLOMERULAR FILTRATION RATE > 60.0 (>45); GLUCOSE, FASTING 85 MG/DL (70-100); HDL CHOLESTEROL 63 MG/DL (>40); LDL CHOLESTEROL 59 MG/DL (<100); NON-HDL-C 79 MG/DL; POTASSIUM SERUM 4.3 MEQ/L (3.5-5.1); SODIUM LEVEL 142 MEQ/L (136-145); THYROID STIMULATING HORMONE 0.459 uIU/ML (0.358-3.740); TRIGLYCERIDES LEVEL 101 MG/DL (<150)
[2021-07-27 09:36] LABS: HEMOGLOBIN A1c 5.8 %
== END ==
LOC: M LAB 07:13
PROVIDERS: ATTEND Internal Medicine
DX: E03.9 Hypothyroidism, unspecified (principal); E78.00 Pure hypercholesterolemia, unspecified; Z68.30 Body mass index [BMI] 30.0-30.9, adult; R73.09 Other abnormal glucose; I10 Essential (primary) hypertension

== ENCOUNTER → 2021-09-19 | Outpatient (REF) ==
[~2021-09-19] MED LIST changes: +LOSA25TA13 PO; -LOSA25TA14 PO; +OMEP-173 PO; -OMEP-218 PO
== END ==
LOC: M LABSMTC 09:46
PROVIDERS: ATTEND Family Medicine
DX: Z11.52 Encounter for screening for COVID-19 (principal)

== ENCOUNTER → 2021-09-25 | Outpatient (REF) | LOC: M LABSMTC 13:04 | PROVIDERS: ATTEND Family Medicine | DX: Z11.52 Encounter for screening for COVID-19 (principal) ==

== ENCOUNTER → 2021-12-05 | Outpatient (CLI) | payer BC ==
[2021-12-05 08:05] LABS: HEMATOCRIT 39.8 % (36.0-47.0); HEMOGLOBIN 12.7 g/dl (12.0-15.5); MEAN CORPUSCULAR HEMOGLOBIN 28.5 pg (27.0-33.0); MEAN CORPUSCULAR HGB CONC 31.9 g/dl (32.0-36.5); MEAN CORPUSCULAR VOLUME 89.4 fl (80.0-96.0); PLATELET COUNT, AUTOMATED 330 10^3/uL (150-450); RED BLOOD COUNT 4.45 10^6/uL (4.00-5.40)
[2021-12-05 08:36] LABS: THYROID STIMULATING HORMONE 0.718 uIU/ML (0.358-3.740)
[2021-12-05 20:31] LABS: BLOOD UREA NITROGEN 16 MG/DL (7-18); CREATININE FOR GFR 0.77 MG/DL (0.55-1.30); GLOMERULAR FILTRATION RATE > 60.0 (>45); GLUCOSE, FASTING 92 MG/DL (70-100); SODIUM LEVEL 144 MEQ/L (136-145)
[2021-12-05 20:32] LABS: CALCIUM LEVEL 9.7 MG/DL (8.8-10.2); CARBON DIOXIDE LEVEL 29 mmol/L (20-29); CHLORIDE LEVEL 109 MEQ/L (98-107); POTASSIUM SERUM 5.1 MEQ/L (3.5-5.1)
[2021-12-05 21:23] LABS: ATYPICAL LYMPH 2 % (0-5); BASOPHILS 1 % (0-1); EOSINOPHILS 4 % (0-3); LYMPHOCYTES 31 % (16-44); MONOCYTES 4 % (0-5); NEUTROPHILS 55 % (28-66)
[2021-12-05 21:24] LABS: PLATELET ESTIMATE NORMAL (NORMAL)
== END ==
LOC: M LAB 07:31
PROVIDERS: ATTEND Internal Medicine
DX: E50.9 Vitamin A deficiency, unspecified (principal)

== ENCOUNTER → 2022-07-22 | Outpatient (REF) ==
[2022-07-22 13:42] LABS: INFLUENZA A AMPLIFICATION POSITIVE (NEGATIVE); INFLUENZA B AMPLIFICATION NEGATIVE (NEGATIVE)
== END ==
LOC: M LABSMTC 10:24
PROVIDERS: ATTEND Family Medicine
DX: Z11.52 Encounter for screening for COVID-19 (principal)

== ENCOUNTER → 2025-05-01 | Outpatient (REF) | payer BC, MEDICARE ==
[~2025-05-01] MED LIST changes: +ROSU5TAB49 PO; -ROSU5TAB5 PO
[2025-05-01 18:59] LABS: APPEARANCE, URINE TURBID (CLEAR); BACTERIA, URINE AUTO 1+ (NEGATIVE); BILIRUBIN, URINE AUTO NEGATIVE (NEGATIVE); BLOOD, URINE BLOOD 3+ (NEGATIVE); GLUCOSE, URINE (UA) AUTO NEGATIVE (NEGATIVE); KETONE, URINE AUTO NEGATIVE (NEGATIVE); LEUKOCYTE ESTERASE, URINE AUTO TRACE (NEGATIVE); NITRITE, URINE AUTO NEGATIVE (NEGATIVE); PROTEIN, URINE AUTO 2+ mg/dL (NEGATIVE); RBC, URINE AUTO TNTC /HPF (0-3); SPECIFIC GRAVITY URINE AUTO 1.021 (1.002-1.035); SQUAMOUS EPITHELIAL CELL UR AU 0 /HPF (0-6); UROBILINOGEN, URINE AUTO 0.2 mg/dL (0.0-2.0); WBC, URINE AUTO TNTC /HPF (0-3)
== END ==
LOC: M LAB REF 18:36
DX: N39.0 Urinary tract infection, site not specified (principal)